=== PATIENT | female | born 1995 | race Two or more races ===

== ENCOUNTER → 2024-09-21 | Outpatient (CLI) | payer OTHER, SELFPAY ==
[2024-09-25 20:07] LABS: Chlamydia By Nucleic Acid AMP Negative (Negative); Gonococcus By Nucleic Acid AMP Negative (Negative)
== END | disposition home or self-care (01) ==
LOC: LABSPEC 16:18
PROVIDERS: Referring Provider Advanced Practice Midwife; Visit Provider Advanced Practice Midwife
DX: Z34.90 Encounter for supervision of normal pregnancy, unspecified, unspecified trimester (principal)
CPT/HCPCS: 87077; 87086; 87088; 87186; 87491; 87591

== ENCOUNTER → 2024-10-03 | Outpatient (CLI) | payer OTHER, SELFPAY ==
[2024-10-03 15:24] LABS: Absolute Lymphocyte Count 2.22 X10^3/uL (0.83-4.51); Absolute Neutrophil Count 5.5 X10^3/uL (2.0-7.7); Basophil# 0.03 X10^3/uL; Basophil% 0.4 % (0-1); Eosinophil# 0.15 X10^3/uL; Eosinophils% 1.8 % (0-5); Hematocrit 36.6 % (37-47); Hemoglobin 12.2 g/dL (12.0-15.0); Lymphocyte # 2.22 X10^3/ul (0.83-4.51); Lymphocyte % 26.1 % (19-41); Mean Corp Hgb Conc 33.3 g/dL (32-36); Mean Corpuscular Hgb 28.6 pg (27.0-32.0); Mean Corpuscular Volume 85.9 fL (81-99); Mean Platelet Vol. 10.3 fl (6.2-12.0); Monocyte# 0.53 X10^3/uL; Monocyte% 6.2 % (0-10); NRBC Flagged by Analyzer 0 % (0-5); Neutrophil # 5.53 X10^3/uL (2.7-7.7); Neutrophil % 65.1 % (47-70); Platelet Count 237 K/mm3 (150-450); RBC Distribution Width CV 12.9 % (11.6-14.6); RBC Distribution Width SD 40.1 fl (35.1-43.9); Red Blood Count 4.26 M/mm3 (4.2-5.4); White Blood Count 8.5 K/mm3 (4.4-11.0)
[2024-10-04 11:18] LABS: HIV Nonreactive (Nonreactive)
[2024-10-05 20:12] LABS: Hepatitis B Surface Antigen Nonreactive (Nonreactive); Hepatitis C Antibody Nonreactive (Nonreactive); Rubella IgG REAC (Nonreactive); Syphilis Antibodies Nonreactive (Nonreactive)
== END | disposition home or self-care (01) ==
LOC: BWCLAB 14:35
PROVIDERS: Referring Provider Advanced Practice Midwife; Visit Provider Advanced Practice Midwife
DX: Z34.81 Encounter for supervision of other normal pregnancy, first trimester (principal)
CPT/HCPCS: 36415; 83036; 85025; 86703; 86762; 86780; 86803; 86850; 86900; 86901; 87340

== ENCOUNTER → 2025-02-02 | Outpatient (CLI) | payer OTHER, SELFPAY ==
[2025-02-02 12:17] LABS: Absolute Lymphocyte Count 1.51 X10^3/uL (0.83-4.51); Absolute Neutrophil Count 7.9 X10^3/uL (2.0-7.7); Basophil# 0.02 X10^3/uL; Basophil% 0.2 % (0-1); Eosinophil# 0.08 X10^3/uL; Eosinophils% 0.8 % (0-5); Hematocrit 36.5 % (37-47); Hemoglobin 12.1 g/dL (12.0-15.0); Lymphocyte # 1.51 X10^3/ul (0.83-4.51); Lymphocyte % 15.1 % (19-41); Mean Corp Hgb Conc 33.2 g/dL (32-36); Mean Corpuscular Hgb 29.1 pg (27.0-32.0); Mean Corpuscular Volume 87.7 fL (81-99); Mean Platelet Vol. 10.5 fl (6.2-12.0); Monocyte# 0.38 X10^3/uL; Monocyte% 3.8 % (0-10); NRBC Flagged by Analyzer 0 % (0-5); Neutrophil # 7.94 X10^3/uL (2.7-7.7); Neutrophil % 79.2 % (47-70); Platelet Count 235 K/mm3 (150-450); RBC Distribution Width CV 13.1 % (11.6-14.6); RBC Distribution Width SD 41.2 fl (35.1-43.9); Red Blood Count 4.16 M/mm3 (4.2-5.4)
[2025-02-02 13:06] LABS: Glucose Challenge Gest 1H 50g 136 mg/dL (70-140); HIV Nonreactive (Nonreactive); Syphilis Antibodies Nonreactive (Nonreactive)
--- OUTSIDE RECORDS SUMMARY | 2025-02-02 18:22 | XMS RPT_ITS | CCD ---
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 Name Role Phone JOSE JUAN COBIAN MD Primary Care Physician JOSE JUAN COBIAN MD Primary Care Unavailable FRANKY VILLAFANA Attending Unavailable JOSE JUAN COBIAN MD Primary Care Unavailable JOSE JUAN COBIAN MD Attending Unavailable JOSE JUAN COBIAN MD Primary Care Unavailable FRANKY VILLAFANA Attending Unavailable JOSE JUAN COBIAN MD Primary Care Unavailable FRANKY VILLAFANA Attending Unavailable JOSE JUAN COBIAN MD Primary Care Unavailable CAROLYN CHAVEZ Attending Unavailable JOSE JUAN COBIAN MD Primary Care Unavailable FRANKY VILLAFANA Attending Unavailable CAROLYN CHAVEZ Attending Unavailable CAROLYN CHAVEZ Admitting Unavailable JOSE JUAN COBIAN MD Primary Care Unavailable Bobbi Stuart CNM Attending Provider [phone] Bobbi Stuart CNM Referring Provider BETTY PRIMARY CAREMD Primary Care Unavailable DESIRE NELSON Attending Unavailable EMMY GUZMÁN Referring Unavailab Dr. Emmy Dozier DO Attending Provider Sissy SKINNER-CAzul Attending Provider Bobbi Stuart Referring Unavailable Bobbi Stuart Attending Unavailable Bobbi Stuart Attending Unavailable Jose Juan Cobian Primary Care Unavailable Emmy Davis Attending UnavailEmilia Phelan Referring Unavailable Emilia Goodman Attending Unavailable Jose Juan Cobian Primary Care Unavailable Bobbi Stuart Attending Unavailable Emmy Davis Attending UnavailBobbi Quinteros Attending Unavailable Azul Sheehan NP Attending Unavailable Bobbi Stuart Referring Unavailable Bobbi Stuart Attending Unavailable Bobbi Stuart CNM Attending Provider Dr. Emilia Goodman MD Attending Provider Dr. Emilia Goodman MD Referring Provider Dr. Jose Juan Cobian MD Primary Care Provider [phone] Dr. Jose Juan Cobian MD Referring Provider Azul Lopes Referring Provider Allergies Allergy Classification Reported Allergen(s) Allergy Type Date of Onset Reaction(s) Facility (3 sources) house dust allergenic extract Drug Allergy 5 Other [facility] Comment on above: Runny nose, headache (3 sources) Mold Extract Drug Allergy 5 [facility] Comment on above: Runny nose, Headache (4 sources) Environmental Allergies: Uncoded; Translations: [Environmental Allergies: Uncoded] Allergy to substance 5 [facility] Comment on above: Runny nose, headache - Pet dander (1 source) house dust allergenic extract Drug Allergy 5 [facility] Repository (1 source) Mold Extract Drug Allergy 5 [facility] Repository Medications Current Medications Medication Drug Class(es) Dates Sig (Normalized) Sig (Original) [id number] 200 actuat albuterol 0.09 mg/actuat metered dose inhaler (1 source) beta2-Adrenergic Agonist Start: 09-03-2021 take 2 puff(s) by inhalation every four hours as needed for wheezing ProAir HFA MDI (90 mcg/inh) inhalation aerosol 2 puff(s), Inhalation, q4h, PRN as needed for wheezing, # 8.5 gram(s), 0 Refill(s), Pharmacy: [address], Bronchitis COVID-19 virus infection, 157.4, cm, 09/03/21 16:57:00 EST, Height, kg, 09/03/21 16:57:00 EST, Dosing Weight Start Date: 09/03/21 Status: Ordered aspirin 81 mg oral tablet (4 sources) Platelet Aggregation Inhibitor, Nonsteroidal Anti-inflammatory Drug Start: 05-04-2023 take 1 tablet by mouth once daily Aspirin Low Dose 81 mg oral tablet, chewable chew and swallow 1 tablet daily Start Date: 05/04/23 Status: Ordered Start: 01-20-2023 aspirin 81 mg oral tablet, chewable Dose : 81 mg = 1 tab(s), Oral, Daily, # 30 tab(s), 6 Refill(s), Pharmacy: [facility][id number], 161, cm, 01/01/23 10:54:00 EDT, Height Start Date: 01/20/23 Status: Ordered choline 500 mg oral tablet (3 sources) Start: 09-08-2024 take 1 tablet by mouth once daily Choline 500 mg tablet Active 500 mg PO DAILY September 08, 2024 1:00am famotidine 20 mg oral tablet (3 sources) Histamine-2 Receptor Antagonist Start: 05-14-2023 Pepcid 20 mg oral tablet Dose : 20 mg = 1 tab(s), Oral, BID, # 60 tab(s), 1 Refill(s), Pharmacy: [facility] #[id number], 31 weeks gestation of Heartburn, 161, cm, 05/11/23 9:35:00 EDT, Height, kg, 07/27/22 9:18:00 EST, Dosing Weight Start Date: 05/14/23 Status: Ordered Start: 03-16-2023 Pepcid 20 mg o ral tablet Dose : 20 mg = 1 tab(s), Oral, BID, # 60 tab(s), 0 Refill(s), Pharmacy: [facility] #[id number], 31 weeks gestation of Heartburn, 161, cm, 03/16/23 8:32:00 EDT, Height, kg, 07/27/22 9:18:00 EST, Dosing Weight Start Date: 03/16/23 Status: Ordered ferrous sulfate 325 mg delayed release oral tablet (5 sources) Start: 01-20-2023 ferrous sulfat e 325 mg (65 mg elemental iron) oral delayed release tablet Dose : 325 mg = 1 tab(s), Oral, qDay, # 30 tab(s), 3 Refill(s), Pharmacy: [facility] #[id number], 161, cm, 01/01/23 10:54:00 EDT, Height Start Date: 01/20/23 Status: Ordered Multivit 25-Hcsh-Rbesow 1-Dha (Pnv-Dha) 27 mg iron-1 mg -300 mg capsule (3 sources) Start: 09-08-2024 Multivit 47-Ir on-Folate 1-Dha (Pnv-Dha) 27 mg iron-1 mg -300 mg capsule Active NMA PO September 08, 2024 1:00am Multivitamin preparation (1 source) Start: 02-02-2024 take 1 tablet by mouth once daily Multivitamin Dose = 1 tab(s), Oral, Daily, 0 Refill(s) Start Date: 02/02/24 Status: Ordered Nature's Bounty Red Krill Oil (3 sources) Start: 04-13-2023 take 500 mg by mouth once daily Nature's Bounty Red Krill Oil 500 mg, Oral, qDay, 0 Refill(s) Start Date: 04/13/23 Status: Ordered Washington-3 Fatty Acids (Super Washington-3) 1,000 mg capsule (3 sources) Start: 09-08-2024 take 3 capsules by mouth once daily Washington-3 Fatty Acids (Super Washington-3) 1,000 mg capsule Active 500 mg PO daily September 08, 2024 1:00am Multivitamins (10 sources) Start: 02-13-2022 Multi vitamins Oral, qDay, 0 Refill(s) Start Date: 02/13/22 Status: Ordered Vitamin D3 (12 sources) Start: 09-03-2021 Vitamin D3 qDa y, 0 Refill(s) Start Date: 09/03/21 Status: Ordered Zinc (1 source) Start: 09-03-2021 take 1 mg by mouth once daily Zinc mg =, Oral, qDay, 0 Refill(s) Start Date: 09/03/21 Status: Ordered Problems Active Problems Problem Classification Problem Date Documented Da te Episodic/Chronic Bacterial infection; unspecified site (1 source) Streptococcus, group B, as the cause of diseases classified elsewhere; Translations: [Streptococcus, group B, as the cause of diseases classified elsewhere] Onset: 12-15-2024 Episodic Other complications of (14 sources) Maternal obesity complicating , childbirth and the puerperium, antepartum; Translations: [Obesity complicating , unspecified trimester] 09-08-2024 Chronic Comment on above: HgbA1c Other complications of (1 source) Obesity complicating , unspecified trimester; Translations: [Obesity complicating , unspecified trimester] Onset: 12-15-2024 Chronic Other complications of (12 sources) Urinary tract infection in ; Translations: [Unspecified infection of urinary tract in , unspecified trimester] 09-25-2024 Episodic Comment on above: treat in labor Other complications of (5 sources) Low back pain in ; Translations: [Other specified related conditions, unspecified trimester] 01-10-2025 Episodic Comment on above: PT referral. Other complications of (1 source) Unspecified infection of urinary tract in , unspecified trimester; Translations: [Unspecified infection of urinary tract in , unspecified trimester] Onset: 12-15-2024 Episodic Other nutritional; endocrine; and metabolic disorders (6 sources) Body mass index 30+ - obesity 01-29-2023 Chronic Other and delivery including normal (20 sources) ; Translations: [Primigravida] Onset: 08-08-2022 09-17-2022 Episodic Comment on above: PRR, , PETEY , PC Mirella, Vidal NIPT low risk, scarlett er neg. 14/14 NIPT low risk, scarlett er neg. 14/14, normal anatomy Residual codes; unclassified (1 source) 21 weeks gestation of ; Translations: [21 weeks gestation of ] Onset: 12-15-2024 Episodic Residual codes; unclassified (1 source) History of uterine scar from previous surgery; Translations: [History of uterine scar from previous surgery] Onset: 12-15-2024 Episodic Residual codes; unclassified (1 source) 17 weeks gestation of ; Translations: [17 weeks gestation of ] Onset: 11-17-2024 Episodic Spondylosis; intervertebral disc disorders; other back problems (5 sources) Sciatica; Translations: [Sciatica, unspecified side] 01-10-2025 Episodic Unclassified (1 source) Patient encounter status 02-02-2024 Past or Other Problems Problem Classification Problem Date Documented Date Episodic/Chronic Other screening for suspected conditions (not mental disorders or infectious disease) (3 sources) Encounter for screening for Streptococcus B; Translations: [Encounter for screening for malignant neoplasm of cervix] Onset: 04-20-2023 Episodic Residual codes; unclassified (2 sources) 36 weeks gestation of ; Translations: [36 weeks gestation of ] Onset: 04-20-2023 Episodic Residual codes; unclassified (1 source) 9 weeks gestation of ; Translations: [9 weeks gestation of ] Onset: 09-21-2024 Episodic Results Test Name Value Interpretation Reference Range Facility Inital Evaluation (1) - PTon 01-23-2025 Inital Evaluation (1) - PT [facility] Physical [facility] [address] [place] [address] / REHABILITATION SERVICES INITIAL EVALUATION MR#: [id number] Acct: [id number] Name: FELIPE PATRICK Rep #: [id number] : 1995 29 From: Abby Sam PT, Cert. MDT Referring Dr.: Dr. Emilia Goodman MD Status: REG RCR Insurance: Robin SELF PAY INSURANCE Patient's Visit Information Visit Information Visit Information: FELIPE PATRICK is a 29 year old F referred to Physical Therapy by Dr. Emilia Goodman MD with a diagnosis of LOW BACK PAIN. Date of Evaluation: 01/23/25 Physical Therapist: Abby Sam PT, Cert MDT Visit Plan Frequency: 3x /Week Duration: 10-12 WKS Plan: AQUATIC THERAPY 2X'S A WK AND LAND PT ONCE A WK X 10-12 WEEKS FOR BACK AND LE PAIN RELIEF, POSTURE CORRECTION/STRENGTHENI NG, INSTRUCTION IN APPROPRIATE BODY MECHANICS AND ACTIVITY MODIFICATIONS. DLS STARTING WITH A NEUTRAL SPINE PROGRESSING ROM TOLERATED. HEP INSTRUCTION. 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 Present symptoms: BENJY LOW BACK PAIN, AND BENJY THIGH PAIN USUALLY ONE LEG AT A TIME. Present since: ABOUT 3 TO 4 WEEKS AGO. ALSO HAD THIS DURING FIRST AUG 2022 - MAY 2023. LOW BACK PAIN WENT AWAY IN BETWEEN PREGNANCIES. Pain Scale: WORST 6/10, LEAST 0/10 Currently: 0/10 Is it getting better, worse or staying the same: STAYING THE SAME Commenced as a result of: Symptoms at onset: LOW BACK AND LEG PAIN Worse: PROLONGED STANDING AND WALKING, SLEEPING WITHOUT A PILLOW BETWEEN LEGS Better: CHANGE OF POSITION OR ACTIVITY, SINGLE LEG SQUATS Disturbed sleep: NO Previous history/Previous treatment: NONE Treatment this episode: NONE Coughing/sneezing/stra ining: NE ON PAIN. Gait: NORMAL Bowel or Bladder Dysfunction: NO Accidents: NO Unexplained weight loss: NO Imaging: NO PMH/Recent major surgery: UNREMARKABLE. 2022 - NORMAL WITHOUT COMPLICATION. OTHER: PATIENT STATES SHE DOES NOT WANT TO BE IN PAIN THE REST OF HER WHILE TRYING TO CARE FOR HER TODDLER. Objective Objective: Sitting/Standing Posture: INCREASED LORDOSIS. ANTERIOR PELVIC TILT. NO RELEVANT LATERAL LUMBAR SHIFT. Active Correction of posture: DECREASES PAIN. Other Observations: INDEP GAIT AND TRANSFERS. Sensory deficit: NO - NORMAL ROM deficit: BENJY LE'S WFL'S. Motor deficit: BENJY LE'S 5/5 Dural Signs: NEGATIVE BENJY LE'S. Lumbar mvmt loss: flex - NIL ext - NIL R SG - NIL L SG - NIL Core strength: FAIR Palpation: TENDERNESS L5S1 REGIONS AND MILD TENDERNESS BENJY SI JT REGIONS. Balance/Special Test Scores Oswestry Low Back Score: 6 Goals Goal 1:: PATIENT WILL BE ABLE TO SIT FOR UP TO 2 HOURS AT A TIME TO DO WORK RELATED ACTIVITE WITHOUT FEELING LOW BACK OR LEG PAIN. Goal Time Frame: 8-12 Weeks Goal 2:: PATIENT WILL BE ABLE TO DO HOUSEWORK FOR SEVERAL HOURS WITHOUT C/O LOW BACK OR LEG PAIN OR DELAYED ONSET OF LOW BACK OR LEG PAIN. Goal Time Frame: 8-12 Weeks Goal 3:: PATIENT WILL BE ABLE TO STAND FOR UP TO 2 HOURS TO DO KITCHEN ACTIVITIES SUCH WASHING DISHES, PREPING FOOD, AND FREEZING/ASHLEY FOOD WITHOUT C/O BACK OR LEG PAIN OR DELAYED ONSET OF BACK OR LEG PAIN. Goal Time Frame: 8-12 Weeks Goal 4:: PATIENT WILL BE ABLE TO VERBALIZE AND DEMONSTRATE HEALTHY POSTURE AND BODY MECHANICS FOR HEALTHY BACK HABITS Goal Time Frame: 8-12 Weeks Goal 5:: PATIENT WILL VERBALIZE UNDERSTANDING OF HEALTHY BLADDER AND PELVIC FLOOR HABITS Goal Time Frame: 8-12 Weeks Goal 6:: PATIENT WILL BE INDEP WITH A HEP FOR CONTINUED IMPROVEMENT ONCE FORMAL PHYSICAL THERAPY CONCLUDES. Goal Time Frame: 8-12 Weeks Rehabilitation Potential Physical Therapy Diagnosis: CORE/POSTURAL WEAKNESS AND TENDERNESS OF LUMBAR AND SI JT REGIONS. Rehabilitation Potential: Good Anticipated Interventions Patient/Client Instruction: Educate patient on: Condition, Plan of Care and Risk Factors For the Purpose of:: To improve self management Therapeutic Exercise to Include: Strength training, Body mechanics, Postural training, Flexibilty training, Neuromotor development, Relaxation training, In an aquatic setting and Dynamic Lumbar Stabilization For the Purpose of:: To decrease pain, To improve muscle performance and motor function, To increase tolerance to activity/condition/pos ition, To improve ability of physical actions for home/community/work/le isure and To improve self management Text: Thank you for the opportunity to evaluate your patient. For Medicare and Medicare HMO plans, please review the plan of care and approve it. It will need to be FAXED BACK to us at [phone] for Medicare purposes. For Medicare only, by signing this I certify the plan of care. Please let me know if there are questions or concerns regarding thi (more content not included)... Normal [facility] Laboratory - Chemistry and C hemistry - challengeOrdered By: Azul Sheehan on 01-10-2025 Glucose Ql (U) Negative [facility] Laboratory - UrinalysisOrder ed By: Azul Sheehan on 01-10-2025 Protein Ql (U) Negative [facility] Pediatric Speech Language Pathologist Office Visit Reporton 01-10-2025 Pediatric Speech Language Pathologist Office Visit Report [facility]'[address], [address] [place] [address] OFFICE VISIT Date of Service: 01/10/25 MR#: [id number] Acct: [id number] Name: FELIPE PATRICK Rep #: [id number] : 1995 Provider: MARCELLO galeano Age/Sex: 29/F Location: [facility] [place] Status: Signed Intake Vital Signs 11/17/24 11:15 12/15/24 15:30 01/10/25 10:23 Height 5 ft 2 in 5 ft 2 in 5 ft 2 in Weight: 209 lb 8 oz BMI 38.3 BP 116/78 Intake Visit Reasons: 25wk ob Chief Complaint: 25 Week OB Architectural Associate Required: No Is patient in pain?: No Allergies house dust Allergy (Mild, Verified 01/10/25 10:27) Other mold (mold spores) Allergy (Mild, Verified 01/10/25 10:27) Other Environmental Allergies: Uncoded Allergy (Verified 01/10/25 10:27) Other Medications ???Medication ???Instructions ???Recorded ???Confirmed ???Type choline 500 mg tablet 500 mg PO DAILY 09/08/24 01/10/25 History multivitamin no.47-iron fum 27 cap PO 09/08/24 01/10/25 History mg-folate no.1 1 mg-dha 300 mg capsule (PNV-DHA) omega-3 fatty acids 1,000 mg 500 mg PO QDAY 09/08/24 01/10/25 H istory capsule (Super Washington-3) Last Menstrual Period: 07/20/24 Zika: Zika virus screening: Negative : Yes PFSH PFSH Medical History Seasonal allergies Surgical History Previous section [place] teeth extracted Family History Grandmother Cancer Paternal skin ca Grandfather Cancer Paternal skin Myocardial infarction Paternal Father Kidney disease, Onset Age: 60 Kidney failure Hypertension High cholesterol Grandmother Cancer Maternal Lung ca Diabetes maternal CHF (congestive heart failure) Maternal Macular degeneration Maternal Grandfather Cancer Maternal stomach ca, skin ca-melanoma Diabetes Maternal CHF (congestive heart failure) Maternal Diverticulitis Maternal Mother Barretts esophagus Cancer basal cell carcinoma Gall bladder disease Fibroid tumor benign Heart palpitations Family history of recurrent miscarriage one baby with ambiguous genitalia Social History adopted: No household members: spouse and children number of children: 1 current occupational status: employed 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 [employer] current occupational exposures/hazards: No pets and animals: Yes (Avoid litterbox) pets and animals: cat(s) and dog(s) history of recent travel: Yes ([place]) out of state: Yes out of country: No sexually active: Yes Smoking Status: Never smoker alcohol intake: current alcohol intake frequency: holidays/special occasions only details: not while substance use type: does not use well-balanced diet: daily or most days caffeine: No eating out: rarely or never during the past year weight has: decreased > 10 lbs what type of physical activity do you participate in: walking frequency: daily duration: 15-30 minutes/day nkechi/advent: Orthodoxy seatbelt use: always do you feel safe at home: Yes additional social history: [employer] 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 Date Name GA/Weeks Outcome Route Bth Weight Infant Gen Labor Lgth Anesthesia Del Shelia Provider FOB 05/25/23 Mirella 41 live - full term 8#7.8oz Female epidural A cathleen Drake Delivery Date: 05/25/23 Last Updated by: Lizz Baxter failure to progress HPI 25wk ob Details: FELIPE PATRICK is a 29 year old who presents for routine OB visit. OB Visit PETEY Calculator Estimated Delivery Date Method Current WG Current Estimate 04/26/25 LMP (Certain) 24w 6d Other Estimates 04/28/25 Ultrasound #1 24w 4d Expected Delivery Route/Plan Labor Preferences- CB/BF classes: no labor support person: Vidal labor intervention preferences: [] pain management options preferred: limited intervention cut cord/dad catch: no : yes PP control planned: discussed discussed possible routes of delivery and associated risks: [] special requests: [] Specific Issue/Plans Covid status: [] Flu vaccine: [] Tdap vaccine: [] Rhogam: [] LARC form signed: yes Problem list reviewed and updated with the most current plan of care details and appropriate orders placed. Relevant counseling for the gestational age provided. Continue ro (more content not included)... Normal [facility] Laboratory - Chemistry and C hemistry - challengeOrdered By: Bobbi Stuart on 12-15-2024 Glucose Ql (U) Negative [facility] Laboratory - UrinalysisOrder ed By: Bobbi Stuart on 12-15-2024 Protein Ql (U) Negative [facility] Pediatric Speech Language Pathologist Office Visit Reporton 12-15-2024 Pediatric Speech Language Pathologist Office Visit Report [facility] [address], [address] [place] [address] OFFICE VISIT Date of Service: 12/15/24 MR#: [id number] Acct: [id number] Name: FELIPE PATRICK Rep #: [id number] : 1995 Provider: DULCE Correa ams Age/Sex: 29/F [place] [facility] Status: Signed Intake Vital Signs 10/19/24 14:58 11/17/24 11:15 12/15/24 15:30 Height 5 ft 2 in 5 ft 2 in 5 ft 2 in Weight: 205 lb 2 oz BMI 37.5 BP 122/79 H Intake Visit Reasons: 21 WK OB Chief Complaint: 21wk OB Architectural Associate Required: No Is patient in pain?: No Allergies house dust Allergy (Mild, Verified 12/15/24 15:30) Other mold (mold spores) Allergy (Mild, Verified 12/15/24 15:30) Other Environmental Allergies: Uncoded Allergy (Verified 12/15/24 15:30) Other Medications ???Medication ???Instructions ???Recorded ???Confirmed ???Type choline 500 mg tablet 500 mg PO DAILY 09/08/24 12/15/24 History multivitamin no.47-iron fum 27 cap PO 09/08/24 12/15/24 History mg-folate no.1 1 mg-dha 300 mg capsule (PNV-DHA) omega-3 fatty acids 1,000 mg 500 mg PO QDAY 09/08/24 12/15/24 H istory capsule (Super Washington-3) Last Menstrual Period: 07/20/24 : No PFSH PFSH Medical History Seasonal allergies Surgical History Previous section [place] teeth extracted Family History Grandmother Cancer Paternal skin ca Grandfather Cancer Paternal skin Myocardial infarction Paternal Father Kidney disease, Onset Age: 60 Kidney failure Hypertension High cholesterol Grandmother Cancer Maternal Lung ca Diabetes maternal CHF (congestive heart failure) Maternal Macular degeneration Maternal Grandfather Cancer Maternal stomach ca, skin ca-melanoma Diabetes Maternal CHF (congestive heart failure) Maternal Diverticulitis Maternal Mother Barretts esophagus Cancer basal cell carcinoma Gall bladder disease Fibroid tumor benign Heart palpitations Family history of recurrent miscarriage one baby with ambiguous genitalia Social History adopted: No household members: spouse and children number of children: 1 current occupational status: employed 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 [employer] current occupational exposures/hazards: No pets and animals: Yes (Avoid litterbox) pets and animals: cat(s) and dog(s) history of recent travel: Yes ([place]) out of state: Yes out of country: No sexually active: Yes Smoking Status: Never smoker alcohol intake: current alcohol intake frequency: holidays/special occasions only details: not while substance use type: does not use well-balanced diet: daily or most days caffeine: No eating out: rarely or never during the past year weight has: decreased > 10 lbs what type of physical activity do you participate in: walking frequency: daily duration: 15-30 minutes/day nkechi/advent: Orthodoxy seatbelt use: always do you feel safe at home: Yes additional social history: 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 Date Name GA/Weeks Outcome Route Bth Weight Infant Gen Labor Lgth Anesthesia Del Locatn Provider FOB 05/25/23 Mirella 41 live - full term 8#7.8oz Female epidural A cathleen Drake Delivery Date: 05/25/23 Last Updated by: Lizz Baxter failure to progress HPI 21 WK OB Details: FELIPE PATRICK is a 29 year old who presents for routine OB visit. OB Visit PETEY Calculator Estimated Delivery Date Method Current WG Current Estimate 04/26/25 LMP (Certain) 21w 1d Other Estimates 04/28/25 Ultrasound #1 20w 6d Expected Delivery Route/Plan Labor Preferences- CB/BF classes: [] labor support person: [] labor intervention preferences: [] pain management options preferred: [] cut cord/dad catch: [] : [] PP control planned: [] discussed possible routes of delivery and associated risks: [] special requests: [] Specific Issue/Plans Covid status: [] Flu vaccine: [] Tdap vaccine: [] Rhogam: [] LARC form signed: [] Problem list reviewed and updated with the most current plan of care details and appropriate orders placed. Relevant counseling for the gestational age provided. Continue routine care and follow up unless otherwise noted in visit notes/problem list details (more content not included)... Normal [facility] - Chemistry and C hemistry - challengeOrdered By: Bobbi Stuart on 11-17-2024 Glucose Ql (U) Negative [facility] - UrinalysisOrder ed By: Bobbi Stuart on 11-17-2024 Protein Ql (U) Negative [facility] Pediatric Speech Language Pathologist Office Visit Reporton 11-17-2024 Pediatric Speech Language Pathologist Office Visit Report [facility] [address] [place] [address], [address] [place] [address] OFFICE VISIT Date of Service: 11/17/24 MR#: [id number] Acct: [id number] Name: FELIPE PATRICK Rep #: [id number] : 1995 Provider: DULCE Correa ams Age/Sex: 29/F Location: [facility] Status: Signed Intake Vital Signs 09/21/24 14:35 10/19/24 14:58 11/17/24 11:15 Height 5 ft 2 in 5 ft 2 in 5 ft 2 in Weight: 203 lb 2 oz BMI 37.1 BP 110/73 Intake Visit Reasons: 17 wk ob Chief Complaint: 17wk OB Architectural Associate Required: No Is patient in pain?: No Allergies house dust Allergy (Mild, Verified 11/17/24 11:17) Other mold (mold spores) Allergy (Mild, Verified 11/17/24 11:17) Other Environmental Allergies: Uncoded Allergy (Verified 11/17/24 11:17) Other Medications ???Medication ???Instructions ???Recorded ???Confirmed ???Type choline 500 mg tablet 500 mg PO DAILY 09/08/24 11/17/24 History multivitamin no.47-iron fum 27 cap PO 09/08/24 11/17/24 History mg-folate no.1 1 mg-dha 300 mg capsule (PNV-DHA) omega-3 fatty acids 1,000 mg 500 mg PO QDAY 09/08/24 11/17/24 H istory capsule (Super [place]-3) Last Menstrual Period: 07/20/24 : No PFSH PFSH Medical History Seasonal allergies Surgical History Previous section [place] teeth extracted Family History Grandmother Cancer Paternal skin ca Grandfather Cancer Paternal skin Myocardial infarction Paternal Father Kidney disease, Onset Age: 60 Kidney failure Hypertension High cholesterol Grandmother Cancer Maternal Lung ca Diabetes maternal CHF (congestive heart failure) Maternal Macular degeneration Maternal Grandfather Cancer Maternal stomach ca, skin ca-melanoma Diabetes Maternal CHF (congestive heart failure) Maternal Diverticulitis Maternal Mother Barretts esophagus Cancer basal cell carcinoma Gall bladder disease Fibroid tumor benign Heart palpitations Family history of recurrent miscarriage one baby with ambiguous genitalia Social History adopted: No household members: spouse and children number of children: 1 current occupational status: employed 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 [employer] current occupational exposures/hazards: No pets and animals: Yes (Avoid litterbox) pets and animals: cat(s) and dog(s) history of recent travel: Yes ([place]) out of state: Yes out of country: No sexually active: Yes Smoking Status: Never smoker alcohol intake: current alcohol intake frequency: holidays/special occasions only details: not while substance use type: does not use well-balanced diet: daily or most days caffeine: No eating out: rarely or never during the past year weight has: decreased > 10 lbs what type of physical activity do you participate in: walking frequency: daily duration: 15-30 minutes/day nkechi/advent: Orthodoxy seatbelt use: always do you feel safe at home: Yes additional social history: Forest hayes 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 Date Name GA/Weeks Outcome Route Bth Weight Infant Gen Labor Lgth Anesthesia Del Locatn Provider FOB 05/25/23 Mirella 41 live - full term 8#7.8oz Female epidural A cathleen Drake Delivery Date: 05/25/23 Last Updated by: Lizz Baxter failure to progress HPI 17 wk ob Details: FELIPE PATRICK is a 29 year old who presents for routine OB visit. OB Visit PETEY Calculator Estimated Delivery Date Method Current WG Current Estimate 04/26/25 LMP (Certain) 17w 1d Other Estimates 04/28/25 Ultrasound #1 16w 6d Expected Delivery Route/Plan Labor Preferences- CB/BF classes: [] labor support person: [] labor intervention preferences: [] pain management options preferred: [] cut cord/dad catch: [] : [] PP control planned: [] discussed possible routes of delivery and associated risks: [] special requests: [] Specific Issue/Plans Covid status: [] Flu vaccine: [] Tdap vaccine: [] Rhogam: [] LARC form signed: [] Problem list reviewed and updated with the most current plan of care details and appropriate orders placed. Relevant counseling for the gestational age provided. Continue routine care and follow up unless otherwise noted in visit notes/problem list details (more content not included)... Normal [facility] - Chemistry and C hemistry - challengeOrdered By: Emmy Carmona on 10-19-2024 Glucose Ql (U) Negative [facility] - UrinalysisOrder ed By: Emmy Carmona on 10-19-2024 Protein Ql (U) Negative [facility] Pediatric Speech Language Pathologist Office Visit Reporton 10-19-2024 Pediatric Speech Language Pathologist Office Visit Report [facility] [address], [address] [place] [address] OFFICE VISIT Date of Service: 10/19/24 MR#: [id number] Acct: [id number] Name: FELIPE PATRICK Rep #: [id number] : 1995 Provider: Dr. Emmy Barr DO Age/Sex: 29/F Location: [facility] Status: Signed Intake Vital Signs 09/21/24 14:35 10/19/24 14:58 Height 5 ft 2 in 5 ft 2 in Weight: 198 lb 6 oz BMI 36.3 BP 130/78 H Intake Visit Reasons: 13 wk OB Architectural Associate Required: No Is patient in pain?: No Allergies house dust Allergy (Mild, Verified 10/19/24 14:55) Other mold (mold spores) Allergy (Mild, Verified 10/19/24 14:55) Other Environmental Allergies: Uncoded Allergy (Verified 10/19/24 14:55) Other Medications ???Medication ???Instructions ???Recorded ???Confirmed ???Type choline 500 mg tablet 500 mg PO DAILY 09/08/24 10/19/24 History multivitamin no.47-iron fum 27 cap PO 09/08/24 10/19/24 History mg-folate no.1 1 mg-dha 300 mg capsule (PNV-DHA) omega-3 fatty acids 1,000 mg 500 mg PO QDAY 09/08/24 10/19/24 H istory capsule (Super [place]-3) Last Menstrual Period: 07/20/24 Zika: Zika virus screening: Negative : No PFSH PFSH Medical History Seasonal allergies Surgical History Previous section [place] teeth extracted Family History Grandmother Cancer Paternal skin ca Grandfather Cancer Paternal skin Myocardial infarction Paternal Father Kidney disease, Onset Age: 60 Kidney failure Hypertension High cholesterol Grandmother Cancer Maternal Lung ca Diabetes maternal CHF (congestive heart failure) Maternal Macular degeneration Maternal Grandfather Cancer Maternal stomach ca, skin ca-melanoma Diabetes Maternal CHF (congestive heart failure) Maternal Diverticulitis Maternal Mother Barretts esophagus Cancer basal cell carcinoma Gall bladder disease Fibroid tumor benign Heart palpitations Family history of recurrent miscarriage one baby with ambiguous genitalia Social History adopted: No household members: spouse and children number of children: 1 current occupational status: employed 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 [employer] current occupational exposures/hazards: No pets and animals: Yes (Avoid litterbox) pets and animals: cat(s) and dog(s) history of recent travel: Yes ([place]) out of state: Yes out of country: No sexually active: Yes Smoking Status: Never smoker alcohol intake: current alcohol intake frequency: holidays/special occasions only details: not while substance use type: does not use well-balanced diet: daily or most days caffeine: No eating out: rarely or never during the past year weight has: decreased > 10 lbs what type of physical activity do you participate in: walking frequency: daily duration: 15-30 minutes/day nkechi/advent: [employer] seatbelt use: always do you feel safe at home: Yes additional social history: [employer] hayes 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 Date Name GA/Weeks Outcome Route Bth Weight Gen Labor Lgth Anesthesia Del Locatn Provider FOB 05/25/23 Mirella 41 live - full term 8#7.8oz Female epidural A cathleen Drake Delivery Date: 05/25/23 Last Updated by: Lizz Baxter failure to progress HPI 13 wk OB Details: FELIPE PATRICK is a 29 year old who presents for routine OB visit. OB Visit PETEY Calculator Estimated Delivery Date Method Current WG Current Estimate 04/26/25 LMP (Certain) 13w 0d Other Estimates 04/28/25 Ultrasound #1 12w 5d Expected Delivery Route/Plan Labor Preferences- CB/BF classes: [] labor support person: [] labor intervention preferences: [] pain management options preferred: [] cut cord/dad catch: [] : [] PP control planned: [] discussed possible routes of delivery and associated risks: [] special requests: [] Specific Issue/Plans Covid status: [] Flu vaccine: [] Tdap vaccine: [] Rhogam: [] LARC form signed: [] Problem list reviewed and updated with the most current plan of care details and appropriate orders placed. Relevant counseling for the gestational age provided. Continue routine care and follow up unless otherwise noted in visit notes/problem (more content not included)... Normal [facility] L3890.6102on 10-05-2024 HEP B Surf Ag Non-Reactive Normal Nonreactive [facility] Comment on above: Result Comment: Reac tive: Presumptive evidence of HBV. Repeatedly reactive samples must be confirmed using a neutralization test (Ele[employer]ys HBsAg Confirmatory Test) Non-Reactive: HBsAg not detected; does not exclude the possibility of exposure to HBV Performed By: #### L 509.4006, L3890.6102, L3890.6301, L509.8002 #### [facility] [address] [place], [address] L3890.6301on 10-05-2024 Hepatitis C Ab Non-Reactive Normal Nonreactive [facility] Comment on above: Result Comment: Reac tive: Presumptive evidence of antibodies to HCV. Follow CDC recommendations for supplemental testing. Non-Reactive: Antibodies to HCV were not detected; does not exclude the possibility of exposure to HCV Reactive Results are presumptive evidence of antibodies to HCV. Follow CDC recommendations for supplemental testing. Order confirmation testing: HCV Quant by PCR testing - HCVPCR #[id number] Non Reactive: < 0.8 Equivocal: >/= 0.8 to < 1.0 Reactive: >/= 1.0 The [facility] requires that a reactive/equivocal HCV antibody result be sent out for confirmation. HCV Quant by PCR testing. Performed By: #### L 509.4006, L3890.6102, L3890.6301, L509.8002 #### [facility] [address] [place], [address] L509.4006on 10-05-2024 Rubella IgG REAC Normal Nonreactive [facility] Comment on above: Result Comment: Anti body Result: Interpretation Non-Reactive: Non-Immune Reactive: Immune The following results were obtained with the Elecsys Rubella IgG assay. Results from assays of other manufacturers cannot be used interchangeably. Performed By: #### L 509.4006, L3890.6102, L3890.6301, L509.8002 #### [facility] [address] [place], [address] L509.8002on 10-05-2024 Syphilis Abs Non-Reactive Normal Nonreactive [facility] Comment on above: Performed By: #### L 509.4006, L3890.6102, L3890.6301, L509.8002 #### [facility] [address] [place], [address] Hemoglobin A1con 10-04-2024 HbA1c (Bld) [Mass fraction] 5.0 % Low <=5.6 [facility] Comment on above: Performed By: #### L 501.9985, L3890.6006, BTS, L900.0098, L100.0100 ####[facility] [id number] [place], [place], [address] L3890.6006on 10-04-2024 HIV Non-Reactive Normal Nonreactive [facility] Comment on above: Result Comment: Non- Reactive Reactive Repeatedly reactive samples must be confirmed according to CDC recommended confirmatory algorithms. The subresults for either HIVAG or AHIV can be used as an aid in the selection of the confirmation algorithm for reactive samples. Send out specimens with Reactive results to [facility] for confirmation. Order the HIV antibody detection and differentiation: lc#[id number] Performed By: #### L 501.9985, L3890.6006, BTS, L900.0098, L100.0100 ####[facility] [id number] [place], [address] No Panel InformationOrdered By: Bobbi Stuart on 10-04-2024 HIV (1&2) Antibody Non-Reactive Nonreactive [facility] Comment on above: Non-ReactiveReactive Repeatedly reactive samples must be confirmed according to CDC recommended confirmatory algorithms. The subresults for either HIVAG or AHIV can be used as an aid in the selection of the confirmation algorithm for reactive samples.Send out specimens with Reactive results to [facility] for confirmation.Order the HIV antibody detection and differentiation: #[id number] Absolute lymphocyte countOrd ered By: Bobbi Stuart on 10-03-2024 Lymphocytes Auto (Unsp spec) [#/Vol] 2.22 10*3/uL 0.83-4.51 [facility] Absolute neutrophil countOrd ered By: Bobbi Stuart on 10-03-2024 Neutrophils (Bld) [#/Vol] 5.5 10*3/uL 2.0-7.7 [facility] Automated lymphocyte count a s percentage of total leukocytesOrdered By: Bobbi Stuart on 10-03-2024 Lymphocytes/100 WBC Auto (Unsp spec) 26.1 % 19-41 [facility] Basophil percentageOrdered B y: Bobbi Stuart on 10-03-2024 Basophils/100 WBC (Bld) 0.4 % 0-1 [facility] CBC W/Diff, Automatedon 09-10 Absolute Lymph 2.22 X10 3/uL Normal 0.83-4.51 [facility] Comment on above: Performed By: #### L 501.9985, L3890.6006, BTS, L900.0098, L100.0100 #### [facility] [address] [place], [address] Absolute Neut 5.5 X10 3/uL Normal 2.0-7.7 [facility] Comment on above: Performed By: #### L 501.9985, L3890.6006, BTS, L900.0098, L100.0100 #### [facility] [address] [place], [address] Basophils/100 WBC (Bld) 0.4 % Normal 0-1 [facility] Comment on above: Performed By: #### L 501.9985, L3890.6006, BTS, L900.0098, L100.0100 #### [facility] [address] [place], [address] Eosinophils/100 WBC (Bld) 1.8 % Normal 0-5 [facility] Comment on above: Performed By: #### L 501.9985, L3890.6006, BTS, L900.0098, L100.0100 #### [facility] [address] [place], [address] Erythrocyte distribution width (RBC) [Ratio] 12.9 % Normal 11.6-14.6 [facility] Comment on above: Performed By: #### L 501.9985, L3890.6006, BTS, L900.0098, L100.0100 #### [facility] [address] [place], [address] Hematocrit (Bld) [Volume fraction] 36.6 % Low 37-47 [facility] Comment on above: Performed By: #### L 501.9985, L3890.6006, BTS, L900.0098, L100.0100 #### [facility] [address] [place], [address] Hemoglobin (Bld) [Mass/Vol] 12.2 g/dL Normal 12.0-15.0 [facility] Comment on above: Performed By: #### L 501.9985, L3890.6006, BTS, L900.0098, L100.0100 #### [facility] [address] [place], [address] IG% 0.400 Normal 0.0-0.9 [facility] Comment on above: Result Comment: IG% - Immature Granulocytes (promyelocytes, myelocytes and metamyelocytes) > 1% indicates that a LEFT SHIFT is Present. Performed By: #### L 501.9985, L3890.6006, BTS, L900.0098, L100.0100 #### [facility] [address] [place], [address] Lymphocytes/100 WBC (Bld) 26.1 % Normal 19-41 [facility] Comment on above: Performed By: #### L 501.9985, L3890.6006, BTS, L900.0098, L100.0100 #### [facility] [address] [place], [address] MCH (RBC) [Entitic mass] 28.6 pg Normal 27.0-32.0 [facility] Comment on above: Performed By: #### L 501.9985, L3890.6006, BTS, L900.0098, L100.0100 #### [facility] [address] [place], [address] MCHC (RBC) [Mass/Vol] 33.3 g/dL Normal 32-36 [facility] Comment on above: Performed By: #### L 501.9985, L3890.6006, BTS, L900.0098, L100.0100 #### [facility] [address] [place], [address] MCV (RBC) [Entitic vol] 85.9 fL Normal 81-99 [facility] Comment on above: Performed By: #### L 501.9985, L3890.6006, BTS, L900.0098, L100.0100 #### [facility] [address] [place], [address] Monocytes/100 WBC (Bld) 6.2 % Normal 0-10 [facility] Comment on above: Performed By: #### L 501.9985, L3890.6006, BTS, L900.0098, L100.0100 #### [facility] [address] [place], [address] Neutrophils/100 WBC (Bld) 65.1 % Normal 47-70 [facility] Comment on above: Performed By: #### L 501.9985, L3890.6006, BTS, L900.0098, L100.0100 #### [facility] [address] [place], [address] Nucleated RBC (Bld) [#/Vol] 0 10*3/uL Normal 0-5 [facility] Comment on above: Performed By: #### L 501.9985, L3890.6006, BTS, L900.0098, L100.0100 #### [facility] [address] [place], [address] Platelet mean volume (Bld) [Entitic vol] 10.3 fL Normal 6.2-12.0 [facility] Comment on above: Performed By: #### L 501.9985, L3890.6006, BTS, L900.0098, L100.0100 #### [facility] [address] [place], [address] Platelets (Bld) [#/Vol] 237 10*3/uL Normal 150-450 [facility] Comment on above: Performed By: #### L 501.9985, L3890.6006, BTS, L900.0098, L100.0100 #### [facility] [address] [place], [address] RBC (Bld) [#/Vol] 4.26 10*6/uL Normal 4.2-5.4 [facility] Comment on above: Performed By: #### L 501.9985, L3890.6006, BTS, L900.0098, L100.0100 #### [facility] [address] [place], [address] RDW SD 40.1 fl Normal 35.1-43.9 [facility] Comment on above: Performed By: #### L 501.9985, L3890.6006, BTS, L900.0098, L100.0100 #### [facility] [address] [place], [address] WBC (Bld) [#/Vol] 8.5 10*3/uL Normal 4.4-11.0 [facility] Comment on above: Performed By: #### L 501.9985, L3890.6006, BTS, L900.0098, L100.0100 #### [facility] [address] [place], [address] Eosinophil percentageOrdered By: Bobbi Stuart on 10-03-2024 Eosinophils/100 WBC (Bld) 1.8 % 0-5 [facility] Erythrocyte distribution wid th ratioOrdered By: Bobbi Stuart on 10-03-2024 Erythrocyte distribution width (RBC) [Ratio] 12.9 % 11.6-14.6 [facility] Erythrocyte distribution wid th standard deviationOrdered By: Bobbi Stuart on 10-03-2024 Erythrocyte distribution width (RBC) [Entitic vol] 40.1 fL 35.1-43.9 [facility] Erythrocyte distribution width (RBC) [Ratio] 40.1 fl 35.1-43.9 [facility] HBV surface Ag Ql (S)Ordered By: Bobbi Stuart on 10-03-2024 Hepatitis B Surface Antigen Non-Reactive Nonreactive [facility] Comment on above: Reactive: Presumptiv e evidence of HBV. Repeatedly reactive samples must be confirmed using a neutralization test ([employer] HBsAg Confirmatory Test)Non-Reactive: HBsAg not detected; does not exclude the possibility of exposure to HBV Hematocrit Auto (Bld) [Volum e fraction]Ordered By: Bobbi Stuart on 10-03-2024 Hematocrit (Bld) [Volume fraction] 36.6 % Low 37-47 [facility] Hemoglobin A1c percentageOrd ered By: Bobbi Stuart on 10-03-2024 HbA1c (Bld) [Mass fraction] 5.0 % Low >5.7 [facility] Hemoglobin measurementOrdere d By: Bobbi Stuart on 10-03-2024 Hemoglobin (Bld) [Mass/Vol] 12.2 g/dL 12.0-15.0 [facility] Hepatitis C antibodyOrdered By: Bobbi Stuart on 10-03-2024 Hepatitis C Antibody Non-Reactive Nonreactive [facility] Comment on above: Reactive: Presumptiv e evidence of antibodies to HCV. Follow CDC recommendations for supplemental testing.Non-Reactive: Antibodies to HCV were not detected; does not exclude the possibility of exposure to HCVReactive Results are presumptive evidence of antibodies to HCV. Follow CDC recommendations for supplemental testing.Order confirmation testing: HCV Quant by PCR testing - HCVPCR #[id number] Non Reactive: < 0.8 Equivocal: >/= 0.8 to < 1.0 Reactive: >/= 1.0The CDC requires that a reactive/equivocal HCV antibody result be sent out for confirmation. HCV Quant by PCR testing. Immature granulocytes/100 WB C Auto (Bld)Ordered By: Bobbi Stuart on 10-03-2024 Immature granulocytes/100 WBC (Bld) 0.400 % 0.0-0.9 [facility] Comment on above: IG% - Immature Granu locytes (promyelocytes, myelocytes and metamyelocytes) > 1% indicates that a LEFT SHIFT is Present. Laboratory - Microbiology an d Antimicrobial susceptibilityOrdered By: Bobbi Stuart on 10-03-2024 HBV surface Ag Ql (S) Non-Reactive Nonreactive [facility] Comment on above: Reactive: Presumptiv e evidence of HBV. Repeatedly reactive samples must be confirmed using a neutralization test ([employer] HBsAg Confirmatory Test)Non-Reactive: HBsAg not detected; does not exclude the possibility of exposure to HBV Lymphocytes Auto (Unsp spec) [#/Vol]Ordered By: Bobbi Stuart on 10-03-2024 Lymphocytes (Bld) [#/Vol] 2.22 10*3/uL 0.83-4.51 [facility] Lymphocytes/100 WBC Auto (Un sp spec)Ordered By: Bobbi Stuart on 10-03-2024 Lymphocytes/100 WBC (Bld) 26.1 % 19-41 [facility] MCV (mean corpuscular volume ) determinationOrdered By: Bobbi Stuart on 10-03-2024 MCV (RBC) [Entitic vol] 85.9 fL 81-99 [facility] Mean corpuscular hemoglobin (MCH) determinationOrdered By: Bobbi Stuart on 10-03-2024 MCH (RBC) [Entitic mass] 28.6 pg 27.0-32.0 [facility] Mean corpuscular hemoglobin concentration (MCHC) determinationOrdered By: Bobbi Stuart on 10-03-2024 MCHC (RBC) [Mass/Vol] 33.3 g/dL 32-36 [facility] Mean platelet volume determi nationOrdered By: Bobbi Stuart on 10-03-2024 Platelet mean volume (Bld) [Entitic vol] 10.3 fL 6.2-12.0 [facility] Miscellaneous procedureOrder ed By: Bobbi Stuart on 10-03-2024 Miscellaneous Test Comment SEE SCANNED REPORT [facility] Monocyte percentageOrdered B y: Bobbi Stuart on 10-03-2024 Monocytes/100 WBC (Bld) 6.2 % 0-10 [facility] NATERAon 10-03-2024 NATURA SEE SCANNED REPORT Normal [facility] Comment on above: Performed By: #### L 501.9985, L3890.6006, BTS, L900.0098, L100.0100 ####[facility] [address] [place], [address] Neutrophil percentageOrdered By: Bobbi Stuart on 10-03-2024 Neutrophils/100 WBC (Bld) 65.1 % 47-70 [facility] No Panel InformationOrdered By: Bobbi Stuart on 10-03-2024 Syphilis Total Antibody Non-Reactive Nonreactiv e [facility] Nucleated red blood cell per centageOrdered By: Bobbi Stuart on 10-03-2024 Nucleated RBC/100 WBC (Bld) [Ratio] 0 % 0-5 [facility] Platelet countOrdered By: Candido Stuart on 10-03-2024 Platelets (Bld) [#/Vol] 237 10*3/uL 150-450 [facility] RBC Auto (Bld) [#/Vol]Ordere d By: Bobbi Stuart on 10-03-2024 RBC (Bld) [#/Vol] 4.26 10*6/uL 4.2-5.4 [facility] Rubella immune status determ ination by IgG antibody assayOrdered By: Bobbi Stuart on 10-03-2024 Rubella IgG Antibody REAC Nonreactive [facility] Comment on above: Antibody Result: Int erpretationNon-Reactive: Non-ImmuneReactive: ImmuneThe following results were obtained with the [employer] Rubella IgG assay. Results from assays of other manufacturers cannot be used interchangeably. Type AND Screenon 10-03-2024 Ab SCREEN GEL Negative Normal [facility] Comment on above: Order Comment: PN Performed By: #### L 501.9985, L3890.6006, BTS, L900.0098, L100.0100 ####[facility] [address] [place], [place], [id number] ABO and Rh group Nom (Bld) Blood group O Rh(D) positive Normal [facility] Comment on above: Order Comment: PN Performed By: #### L 501.9985, L3890.6006, BTS, L900.0098, L100.0100 ####[facility] [address] [place], [place], [address] White blood cell (WBC) count Ordered By: Bobbi Stuart on 10-03-2024 WBC (Bld) [#/Vol] 8.5 10*3/uL 4.4-11.0 [facility] Chlamydia/GC GLEN aptimaon CHLAMY,NUC ACID Negative Normal Negative [facility] Comment on above: Performed By: #### M 100.2200, L7000.1800 #### [facility] [address] [place], [place], [id number] GC BY NUC ACID Negative Normal Negative [facility] Comment on above: Result Comment: Perf ormed at: =G - [facility] [id number] Printing Manager: Natasha Jackson MD, Phone: [phone] Performed By: #### M 100.2200, L7000.1800 #### [facility] [address] [place], [place], [id number] Urine Cultureon 09-24-2024 URC #2 Below infection level. Urine Culture Streptococcus agalactiae (B) [place] Count 11,000-25,000 Mixed Gram Positive Organisms Mixed Gram Positive Organisms MIXC Mixed contaminants. Submit a new specimen if indicated. Streptococcus agalactiae (B): REACTION Ampicillin Islt JASMINA <=0.25 cefTRIAXone Islt JASMINA <=0.12 S Clindamycin Islt JASMINA <=0.25 Clindamycin.induced Susc Islt NEG Linezolid Islt JASMINA <=2 S Vancomycin Islt JASMINA 0.25 S Normal [facility] Comment on above: Performed By: #### M 100.2200, L7000.1800 #### [facility] [address] [place], [place], [id number] C. trachomatis rRNA GLEN+prob e Ql (Unsp spec)Ordered By: Bobbi Stuart on 09-21-2024 Chlamydia DNA (GLEN) Negative Negative [facility] Chlamydia trachomatis rRNA d etection by probe and target amplification methodOrdered By: Bobbi Stuart on 09-21-2024 C. trachomatis rRNA GLEN+probe Ql (Unsp spec) Negative Negative [facility] Neisseria gonorrhoeae nuclei c acid detection by amplified probe techniqueOrdered By: Bobbi Stuart on 09-21-2024 N. gonorrhoeae DNA GLEN+probe Ql (Unsp spec) Negative Negative [facility] Comment on above: Performed at: =G - [facility] [address] [id number] Director: Natasha Jackson MD, Phone: [phone] Pediatric Speech Language Pathologist Office Visit Reporton 09-21-2024 Pediatric Speech Language Pathologist Office Visit Report [facility] [address] [place] [address], [address] [place] [address] OFFICE VISIT Date of Service: 09/21/24 MR#: [id number] Acct: [id number] Name: FELIPE PATRICK Rep #: [id number] : 1995 Provider: DULCE Correa ams Age/Sex: 29/F Location: [facility] Status: Signed Intake Vital Signs 09/21/24 14:35 Height 5 ft 2 in Weight: 199 lb 6 oz BMI 36.4 BP 132/84 H Intake Visit Reasons: NOB LMP 07/20 Chief Complaint: New OB Is patient in pain?: No Allergies house dust Allergy (Mild, Verified 09/21/24 14:34) Other mold (mold spores) Allergy (Mild, Verified 09/21/24 14:34) Other Environmental Allergies: Uncoded Allergy (Verified 09/21/24 14:34) Other Medications ???Medication ???Instructions ???Recorded ???Confirmed ???Type choline 500 mg tablet 500 mg PO DAILY 09/08/24 09/21/24 History multivitamin no.47-iron fum 27 cap PO 09/08/24 09/21/24 History mg-folate no.1 1 mg-dha 300 mg capsule (PNV-DHA) omega-3 fatty acids 1,000 mg 500 mg PO QDAY 09/08/24 09/21/24 H istory capsule (Super [place]-3) Last Menstrual Period: 07/20/24 : Yes PFSH PFSH Medical History Seasonal allergies Surgical History Previous section [place] teeth extracted Family History Grandmother Cancer Paternal skin ca Grandfather Cancer Paternal skin Myocardial infarction Paternal Father Kidney disease, Onset Age: 60 Kidney failure Hypertension High cholesterol Grandmother Cancer Maternal Lung ca Diabetes maternal CHF (congestive heart failure) Maternal Macular degeneration Maternal Grandfather Cancer Maternal stomach ca, skin ca-melanoma Diabetes Maternal CHF (congestive heart failure) Maternal Diverticulitis Maternal Mother Barretts esophagus Cancer basal cell carcinoma Gall bladder disease Fibroid tumor benign Heart palpitations Family history of recurrent miscarriage one baby with ambiguous genitalia Social History adopted: No household members: spouse and children number of children: 1 service: No current occupational status: employed 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 [employer] current occupational exposures/hazards: No pets and animals: Yes (Avoid litterbox) pets and animals: cat(s) and dog(s) history of recent travel: Yes ([place]) out of state: Yes out of country: No sexually active: Yes Smoking Status: Never smoker alcohol intake: current alcohol intake frequency: holidays/special occasions only details: not while substance use type: does not use well-balanced diet: daily or most days caffeine: No eating out: rarely or never during the past year weight has: decreased > 10 lbs what type of physical activity do you participate in: walking frequency: daily duration: 15-30 minutes/day nkechi/ad[employer]: [employer] seatbelt use: always do you feel safe at home: Yes additional social history: 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 Date Name GA/Weeks Outcome Route Bth Weight [facility] Mirella 41 live - full term 8#7.8oz Female epidural A cathleen Drake Delivery Date: 05/25/23 Last Updated by: Lizz Baxter failure to progress HPI NOB LMP 07/20 Details: FELIPE PATRICK is a 29 year old who presents for New OB visit. OB Visit PETEY Calculator Estimated Delivery Date Method Current WG Current Estimate 04/26/25 LMP (Certain) 9w 0d Other Estimates 04/28/25 Ultrasound #1 8w 5d Comments: HIV: Urine Culture: Sequential Screen: NIPT Screen: Estimated Due Date: 04/26/25 Expected Delivery Route/Plan Labor Preferences- CB/BF classes: [] labor support person: [] labor intervention preferences: [] pain management options preferred: [] cut cord/dad catch: [] : [] PP control planned: [] discussed possible routes of delivery and associated risks: [] special requests: [] Specific Issue/Plans Covid status: [] Flu vaccine: [] Tdap vaccine: [] Rhogam: [] LARC form signed: [] Problem list reviewed and updated with the most current plan of care details and appropriate orders placed. Relevant counseling for the gestational age provided. Continue routine care and follow up unless oth (more content not included)... Normal [facility] Urine cultureOrdered By: Jaden Stuart on 09-21-2024 Bacteria identified Cx Nom (U) Streptococcus agalactiae (B) Abnormal [facility] Bacteria identified Cx Nom (U) Positive Abnormal [facility] DHEAUon 2024 DHEA. 152 ng/dL Normal 31-701 [facility] [place] Comment on above: Result Comment: This test was developed and its performance characteristics determined by [facility]. It has not been cleared or approved by the Food and Drug Administration. Performed At: [address] [id number] Larry Delcid MD Ph:[phone] Performed By: #### A DIFF, CBC, ABOG, ANSG, ANEU #### [address] [address] #### RPR #### [address] [address] .Auto Diffon 02-02-2024 Basophil, Absolute 0.0 10 3/mcL Normal 0.0-0.2 [facility] ([place] Comment on above: Performed By: #### G LF #### [address] [address] Basophils/100 WBC (Bld) 0.3 % Normal 0.0-2.5 A [facility] ([place] Comment on above: Performed By: #### G LF #### [address] [address] Eosinophil, Absolute 0.2 10 3/mcL Normal 0.0-0.4 [facility] ([place] Comment on above: Performed By: #### G LF #### [address] [address] Eosinophils/100 WBC (Bld) 1.9 % Normal 0.0-7.0 [facility] ([place] Comment on above: Performed By: #### G LF #### [address] [address] Lymphocyte, Absolute 2.5 10 3/mcL Normal 0.8-3.9 [facility] ([place] Comment on above: Performed By: #### G LF #### [address] [address] Lymphocytes/100 WBC (Bld) 27.0 % Normal 10.0-50.0 [facility] ([place] Comment on above: Performed By: #### G LF #### [address] [address] Monocyte, Absolute 0.6 10 3/mcL Normal 0.2-1.0 [facility] ([place] Comment on above: Performed By: #### G LF #### [address] [address] Monocytes/100 WBC (Bld) 6.1 % Normal 1.7-13.0 A [facility] ([place] Comment on above: Performed By: #### G LF #### [address] [address] Neutrophils/100 WBC (Bld) 64.7 % Normal 37.0-80.0 [facility] ([place] Comment on above: Performed By: #### G LF #### [address] [address] .GFRon 02-02-2024 GFR 136 ml/min/1.73sqm Normal [facility] ([place] Comment on above: Result Comment: GFR Population mean for , Non- Americans Ages 20-29 = 116 mL/min/1.73 sq.m. Ages 30-39 = 107 mL/min/1.73 sq.m. Ages 40-49 = 99 mL/min/1.73 sq.m. Ages 50-59 = 93 mL/min/1.73 sq.m. Ages 60-69 = 85 mL/min/1.73 sq.m. Ages 70+ = 75 mL/min/1.73 sq.m. Chronic Kidney Disease: Less than 60 mL/min/1.73 square meters End Stage Renal Disease: Less than 15 mL/min/1.73 square meters Performed By: #### A DIFF, CBC, ABOG, ANSG, ANEU #### [address] [address] #### RPR #### [address] [address] GFR Non- 113 ml/min/1.73sqm Normal [facility] ([place] Comment on above: Result Comment: GFR Population mean for , Non- Americans Ages 20-29 = 116 mL/min/1.73 sq.m. Ages 30-39 = 107 mL/min/1.73 sq.m. Ages 40-49 = 99 mL/min/1.73 sq.m. Ages 50-59 = 93 mL/min/1.73 sq.m. Ages 60-69 = 85 mL/min/1.73 sq.m. Ages 70+ = 75 mL/min/1.73 sq.m. Chronic Kidney Disease: Less than 60 mL/min/1.73 square meters End Stage Renal Disease: Less than 15 mL/min/1.73 square meters Performed By: #### A DIFF, CBC, ABOG, ANSG, ANEU #### [address] [address] #### RPR #### [address] [address] .NEUABSon 02-02-2024 Neutrophil, Absolute 5.9 10 3/mcL Normal 2.9-6.2 [facility] ([place] Comment on above: Performed By: #### G LF #### [address] [address] A1Con 02-02-2024 HbA1c (Bld) [Mass fraction] 4.9 % Normal 4.3-6.4 [facility] ([place] Comment on above: Performed By: #### G LF #### [address] [address] B12on 02-02-2024 Cobalamin (Vitamin B12) [Mass/Vol] 357 pg/mL Normal 211-911 [facility] ([place] Comment on above: Performed By: #### A DIFF, CBC, ABOG, ANSG, ANEU #### [place] [address] #### RPR #### [place] [address] CBCon 02-02-2024 Erythrocyte distribution width (RBC) [Ratio] 13.1 % Normal 11.5-14.5 [facility] ([place] Comment on above: Performed By: #### G LF #### [place] [id number] Hematocrit (Bld) [Volume fraction] 37.3 % Normal 37.0-47.0 [facility] ([place] Comment on above: Performed By: #### G LF #### [place] [id number] Hgb 12.6 G/dL Normal 12.0-16.0 [facility] ([place] Comment on above: Performed By: #### G LF #### [address] [address] MCH (RBC) [Entitic mass] 29.0 pg Normal 27.0-31.2 [facility] ([place] Comment on above: Performed By: #### G LF #### [address] [address] MCHC 33.9 G/dL Normal 33.0-37.0 [facility] ([place] Comment on above: Performed By: #### G LF #### [address] [address] MCV (RBC) [Entitic vol] 85.4 fL Normal 80.0-94.0 A [facility] ([place] Comment on above: Performed By: #### G LF #### [address] [address] Platelet 246 10 3/mcL Normal 130-400 [facility] ([place] Comment on above: Performed By: #### G LF #### [address] [address] Platelet mean volume (Bld) [Entitic vol] 8.2 fL Normal 7.4-10.4 [facility] ([place] Comment on above: Performed By: #### G LF #### [address] [address] RBC 4.36 10 6/mcL Normal 4.20-5.40 [facility] ([place] Comment on above: Performed By: #### G LF #### [address] [address] WBC 9.2 10 3/mcL Normal 4.6-10.8 [facility] ([place] Comment on above: Performed By: #### G LF #### [address] [address] CMPon 02-02-2024 Albumin Level 4.0 G/dL Normal 3.5-5.0 [facility] ([place] Comment on above: Performed By: #### A DIFF, CBC, ABOG, ANSG, ANEU #### [address] [address] #### RPR #### [address] [address] Albumin/Globulin [Mass ratio] 1.2 {ratio} Normal 1.1-2.5 [facility] ([place] Comment on above: Performed By: #### A DIFF, CBC, ABOG, ANSG, ANEU #### [address] [address] #### RPR #### [address] [address] ALP [Catalytic activity/Vol] 97 U/L Normal 40-135 [facility] ([place] Comment on above: Performed By: #### A DIFF, CBC, ABOG, ANSG, ANEU #### [place] [address] #### RPR #### [address] [address] ALT [Catalytic activity/Vol] 28 U/L Normal 14-59 [facility] ([place] Comment on above: Performed By: #### A DIFF, CBC, ABOG, ANSG, ANEU #### [place] [address] #### RPR #### [address] [address] AST [Catalytic activity/Vol] 16 U/L Normal 10-40 [facility] ([place] Comment on above: Performed By: #### A DIFF, CBC, ABOG, ANSG, ANEU #### [place] [address] #### RPR #### [place] [address] Bili Total 0.5 mg/dL Normal 0.2-1.0 [facility] ([place] Comment on above: Result Comment: Use of this assay is not recommended for patients undergoing treatment with eltrombopag due to the potential for falsely elevated results. Performed By: #### A DIFF, CBC, ABOG, ANSG, ANEU #### [place] [address] #### RPR #### [place] [address] BUN/Creatinine Ratio 17 ratio Normal 7-27 [facility] ([place] Comment on above: Performed By: #### A DIFF, CBC, ABOG, ANSG, ANEU #### [place] [address] #### RPR #### [place] [address] Calcium [Mass/Vol] 9.1 mg/dL Normal 8.4-10.2 [facility] ([place] Comment on above: Performed By: #### A DIFF, CBC, ABOG, ANSG, ANEU #### [address] [address] #### RPR #### [address] [address] Chloride [Moles/Vol] 103 mmol/L Normal 98-107 [facility] ([place] Comment on above: Performed By: #### A DIFF, CBC, ABOG, ANSG, ANEU #### [place] [address] #### RPR #### [address] [address] CO2 [Moles/Vol] 28 mmol/L Normal 22-29 [facility] ([place] Comment on above: Performed By: #### A DIFF, CBC, ABOG, ANSG, ANEU #### [place] [address] #### RPR #### [place] [address] Creatinine [Mass/Vol] 0.63 mg/dL Normal 0.55-1.02 [facility] ([place] Comment on above: Performed By: #### A DIFF, CBC, ABOG, ANSG, ANEU #### [place] [address] #### RPR #### [address] [address] Electrolyte Balance 10.0 mEq/L Normal 4.0-15.0 [facility] ([place] Comment on above: Performed By: #### A DIFF, CBC, ABOG, ANSG, ANEU #### [address] [address] #### RPR #### [place] [id number] Globulin 3.3 G/dL Normal [facility] ([place] Comment on above: Performed By: #### A DIFF, CBC, ABOG, ANSG, ANEU #### [place] [address] #### RPR #### [address] [address] Glucose [Mass/Vol] 76 mg/dL Normal 70-105 [facility] ([place] Comment on above: Performed By: #### A DIFF, CBC, ABOG, ANSG, ANEU #### [address] [address] #### RPR #### [address] [address] Potassium [Moles/Vol] 3.8 mmol/L Normal 3.5-5.1 [facility] ([place] Comment on above: Performed By: #### A DIFF, CBC, ABOG, ANSG, ANEU #### [address] [address] #### RPR #### [address] [address] Sodium [Moles/Vol] 141 mmol/L Normal 136-145 [facility] ([place] Comment on above: Performed By: #### A DIFF, CBC, ABOG, ANSG, ANEU #### [address] [address] #### RPR #### [address] [address] Total Protein 7.3 G/dL Normal 6.4-8.2 [facility] ([place] Comment on above: Performed By: #### A DIFF, CBC, ABOG, ANSG, ANEU #### [address] [address] #### RPR #### [address] [address] Urea nitrogen [Mass/Vol] 11 mg/dL Normal 7-18 [facility] ([place] Comment on above: Performed By: #### A DIFF, CBC, ABOG, ANSG, ANEU #### [address] [address] #### RPR #### [address] [address] CPEPon 02-02-2024 C-Peptide 0.90 ng/mL Normal 0.81-3.85 [facility] ([place] Comment on above: Performed By: #### A DIFF, CBC, ABOG, ANSG, ANEU #### [address] [address] #### RPR #### [address] [address] CRPHSon 02-02-2024 CRP, High Sensitive 5.59 mg/L High 0.20-3.00 [facility] ([place] Comment on above: Result Comment: Rela tive Risk Category and Average hs-CRP Level: Higher Risk: > 5.0 mg/L Guidelines support that hs-CRP can be used as an independent predictor of increased coronary risk; however, hs-CRP results should only be interpreted in conjunction with other cardiac risk factors in establishing overall cardiac risk for a given patient. Performed By: #### A DIFF, CBC, ABOG, ANSG, ANEU #### [place] [address] #### RPR #### [place] [address] FEon 02-02-2024 Iron [Mass/Vol] 78 ug/dL Normal 50-170 [facility] ([place] Comment on above: Performed By: #### G LF #### [address] [address] Tobias 02-02-2024 Ferritin [Mass/Vol] 42.0 ng/mL Normal 8.0-252.0 [facility] ([place] Comment on above: Performed By: #### G LF #### [address] [address] FOLon 02-02-2024 Folate 34.59 ng/mL High 5.38-24.00 [facility] ([place] Comment on above: Performed By: #### A DIFF, CBC, ABOG, ANSG, ANEU #### [address] [address] #### RPR #### [place] [address] FT4on 02-02-2024 Free T4 [Mass/Vol] 1.00 ng/dL Normal 0.76-1.46 [facility] ([place] Comment on above: Performed By: #### G #### Zoe [address] [address] LABORATORYOrdered By: SYSTEM SYSTEM on 02-02-2024 25-hydroxyvitamin D3 [Mass/Vol] 33.4 ng/mL Invalid Interpretation Code AO ADM SS Comment on above: Interpretive Data: I nterpretive Values Based on Total 25(OH) Vitamin D: Deficient <20 ng/mL Insufficient 20 - <30 ng/mL Sufficient 30-100 ng/mL Albumin BCP dye [Mass/Vol] 4.0 G/dL Normal 3.5 - 5.0 G/dL AO ADM SS Albumin/Globulin [Mass ratio] 1.2 {ratio} Normal 1.1 - 2.5 ratio AO ADM SS ALP [Catalytic activity/Vol] 97 U/L Normal 40 - 135 U/L AO ADM SS ALT With P-5'-P [Catalytic activity/Vol] 28 U/L Normal 14 - 59 U/L AO ADM SS AST With P-5'-P [Catalytic activity/Vol] 16 U/L Normal 10 - 40 U/L AO ADM SS Basophil, Absolute 0.0 103/mcL Normal 0.0 - 0.2 10^3/mcL AO Workflow SS Basophils/100 WBC (Bld) 0.3 % Normal 0.0 - 2.5 % AO Workflow SS Bilirubin [Mass/Vol] 0.5 mg/dL Normal 0.2 - 1 .0 mg/dL AO ADM SS Comment on above: Interpretive Data: U se of this assay is not recommended for patients undergoing treatment with eltrombopag due to the potential for falsely elevated results. C peptide [Mass/Vol] 0.90 ng/mL Normal 0.81 - 3.85 ng/mL AH ADM SS Calcium [Mass/Vol] 9.1 mg/dL Normal 8.4 - 10. 2 mg/dL AO ADM SS Chloride [Moles/Vol] 103 mmol/L Normal 98 - 10 7 mmol/L AO ADM SS CO2 [Moles/Vol] 28 mmol/L Normal 22 - 29 mmol/L AO ADM SS Cobalamin (Vitamin B12) [Mass/Vol] 357 pg/mL Normal 211 - 911 pg/mL AH ADM SS Creatinine [Mass/Vol] 0.63 mg/dL Normal 0.55 - 1.02 mg/dL AO ADM SS CRP High sensitivity method [Mass/Vol] 5.59 mg/L High 0.20 - 3.00 mg/L AH ADM SS Comment on above: Interpretive Data: R elative Risk Category and Average hs-CRP Level: Higher Risk: > 5.0 mg/L Guidelines support that hs-CRP can be used as an independent predictor of increased coronary risk; however, hs-CRP results should only be interpreted in conjunction with other cardiac risk factors in establishing overall cardiac risk for a given patient. Electrolyte Balance 10.0 mEq/L Normal 4.0 - 15 .0 mEq/L AO ADM SS Eosinophil, Absolute 0.2 103/mcL Normal 0.0 - 0 .4 10^3/mcL AO Workflow SS Eosinophils/100 WBC (Bld) 1.9 % Normal 0.0 - 7.0 % AO Workflow SS Erythrocyte distribution width (RBC) [Ratio] 13.1 % Normal 11.5 - 14.5 % AO Workflow SS Ferritin [Mass/Vol] 42.0 ng/mL Normal 8.0 - 25 2.0 ng/mL AO ADM SS Folate [Mass/Vol] 34.59 ng/mL High 5.38 - 24. 00 ng/mL AH ADM SS Free T4 [Mass/Vol] 1.00 ng/dL Normal 0.76 - 1. 46 ng/dL AO ADM SS GFR/1.73 sq M.predicted among blacks MDRD (S/P/Bld) [Vol rate/Area] 136 ml/min/1.73sqm Invalid Interpretation Code AO Chemistry S Comment on above: Interpretive Data: GFR Population mean for , Non- Americans Ages 20-29 = 116 mL/min/1.73 sq.m. Ages 30-39 = 107 mL/min/1.73 sq.m. Ages 40-49 = 99 mL/min/1.73 sq.m. Ages 50-59 = 93 mL/min/1.73 sq.m. Ages 60-69 = 85 mL/min/1.73 sq.m. Ages 70+ = 75 mL/min/1.73 sq.m. Chronic Kidney Disease: Less than 60 mL/min/1.73 square meters End Stage Renal Disease: Less than 15 mL/min/1.73 square meters GFR/1.73 sq M.predicted among non-blacks MDRD (S/P/Bld) [Vol rate/Area] 113 ml/min/1.73sqm Invalid Interpretation Code AO Chemistry S Comment on above: Interpretive Data: GFR Population mean for , Non- Americans Ages 20-29 = 116 mL/min/1.73 sq.m. Ages 30-39 = 107 mL/min/1.73 sq.m. Ages 40-49 = 99 mL/min/1.73 sq.m. Ages 50-59 = 93 mL/min/1.73 sq.m. Ages 60-69 = 85 mL/min/1.73 sq.m. Ages 70+ = 75 mL/min/1.73 sq.m. Chronic Kidney Disease: Less than 60 mL/min/1.73 square meters End Stage Renal Disease: Less than 15 mL/min/1.73 square meters Globulin 3.3 G/dL Invalid Interpretation Code AO ADM SS Glucose [Mass/Vol] 76 mg/dL Normal 70 - 105 mg/dL AO ADM SS HbA1c (Bld) [Mass fraction] 4.9 % Normal 4.3 - 6.4 % AO ADM SS Hematocrit (Bld) [Volume fraction] 37.3 % Normal 37.0 - 47.0 % AO Workflow SS Hemoglobin (Bld) [Mass/Vol] 12.6 G/dL Normal 12.0 - 16.0 G/dL AO Workflow SS Iron [Mass/Vol] 78 ug/dL Normal 50 - 170 mcg/dL AO ADM SS Lymphocyte, Absolute 2.5 103/mcL Normal 0.8 - 3 .9 10^3/mcL AO Workflow SS Lymphocytes/100 WBC (Bld) 27.0 % Normal 10.0 - 50.0 % AO Workflow SS MCH (RBC) [Entitic mass] 29.0 pg Normal 27.0 - 31.2 pg AO Workflow SS MCHC 33.9 G/dL Normal 33.0 - 37.0 G/dL AO Workflow SS MCV (RBC) [Entitic vol] 85.4 fL Normal 80.0 - 94.0 fL AO Workflow SS Monocyte, Absolute 0.6 103/mcL Normal 0.2 - 1.0 10^3/mcL AO Workflow SS Monocytes/100 WBC (Bld) 6.1 % Normal 1.7 - 13.0 % AO Workflow SS Neutrophil, Absolute 5.9 103/mcL Normal 2.9 - 6 .2 10^3/mcL AO Workflow SS Neutrophils/100 WBC (Bld) 64.7 % Normal 37.0 - 80.0 % AO Workflow SS Platelet mean volume (Bld) [Entitic vol] 8.2 fL Normal 7.4 - 10.4 fL AO Workflow SS Platelets (Bld) [#/Vol] 246 103/mcL Normal 130 - 400 10^3/mcL AO Workflow SS Potassium [Moles/Vol] 3.8 mmol/L Normal 3.5 - 5.1 mmol/L AO ADM SS Protein [Mass/Vol] 7.3 G/dL Normal 6.4 - 8.2 G/dL AO ADM SS RBC (Bld) [#/Vol] 4.36 106/mcL Normal 4.20 - 5.4 0 10^6/mcL AO Workflow SS Sodium [Moles/Vol] 141 mmol/L Normal 136 - 145 mmol/L AO ADM SS TSH Qn 1.75 m[IU]/L Normal 0.36 - 3.74 mcIU/mL AO ADM SS Urea nitrogen [Mass/Vol] 11 mg/dL Normal 7 - 18 mg/dL AO ADM SS Urea nitrogen/Creatinine [Mass ratio] 17 ratio Normal 7 - 27 ratio AO ADM SS WBC (Bld) [#/Vol] 9.2 103/mcL Normal 4.6 - 10.8 10^3/mcL AO Workflow SS LABORATORYOrdered By: Jair Chin on 02-02-2024 Cholesterol [Mass/Vol] 186 mg/dL Normal 0 - 200 mg/dL AO ADM SS Comment on above: Interpretive Data: C holesterol Reference Interval: Less than 200 Desirable 200-239 Borderline high risk 240 and above High risk Cholesterol in HDL [Mass/Vol] 73 mg/dL High 40 - 60 mg/dL AO ADM SS Cholesterol in LDL [Mass/Vol] 100 mg/dL Normal 0 - 130 mg/dL AO ADM SS Triglyceride [Mass/Vol] 66 mg/dL Normal 0 - 150 mg/d L AO ADM SS Comment on above: Interpretive Data: T riglyceride Reference Interval: Less than 150 Normal 150-199 Borderline high risk 200-499 High risk 500 or higher Very high risk LIPIDon 02-02-2024 Cholesterol [Mass/Vol] 186 mg/dL Normal 0-200 [facility] ([place] Comment on above: Result Comment: Chol esterol Reference Interval: Less than 200 Desirable 200-239 Borderline high risk 240 and above High risk Performed By: #### A DIFF, CBC, ABOG, ANSG, ANEU #### [address] [address] #### RPR #### [address] [address] Cholesterol in HDL [Mass/Vol] 73 mg/dL High 40-60 [facility] [place] Comment on above: Performed By: #### A DIFF, CBC, ABOG, ANSG, ANEU #### [place] [address] #### RPR #### [address] [address] Cholesterol in LDL [Mass/Vol] 100 mg/dL Normal 0-130 [facility] [place] Comment on above: Performed By: #### A DIFF, CBC, ABOG, ANSG, ANEU #### [place] [address] #### RPR #### [address] [address] Triglyceride [Mass/Vol] 66 mg/dL Normal 0-150 A [facility] ([place] Comment on above: Result Comment: Trig lyceride Reference Interval: Less than 150 Normal 150-199 Borderline high risk 200-499 High risk 500 or higher Very high risk Performed By: #### A DIFF, CBC, ABOG, ANSG, ANEU #### [place] [address] #### RPR #### [address] [address] TSHon 02-02-2024 TSH Qn 1.75 m[IU]/L Normal 0.36-3.74 [facility] ([place] Comment on above: Performed By: #### G LF #### [place] [address] VIDHon 02-02-2024 Vit. D 25-Hydroxy 33.4 ng/mL Normal [facility] ([place] Comment on above: Result Comment: Inte rpretive Values Based on Total 25(OH) Vitamin D: Deficient <20 ng/mL Insufficient 20 - <30 ng/mL Sufficient 30-100 ng/mL Performed By: #### G LF #### [place] [address] .Auto Diffon 05-26-2023 Basophil, Absolute 0.0 10 3/mcL Normal 0.0-0.2 [facility] ([place]) Comment on above: Performed By: #### A DIFF, CBC, ABOG, ANSG, ANEU #### [place] [address] #### RPR #### [address] [address] Basophils/100 WBC (Bld) 0.1 % Normal 0.0-2.5 A [facility] [place] Comment on above: Performed By: #### A DIFF, CBC, ABOG, ANSG, ANEU #### [place] [address] #### RPR #### [address] [address] Eosinophil, Absolute 0.0 10 3/mcL Normal 0.0-0.4 [facility] ([place] Comment on above: Performed By: #### A DIFF, CBC, ABOG, ANSG, ANEU #### [place] [address] #### RPR #### [address] [address] Eosinophils/100 WBC (Bld) 0.0 % Normal 0.0-7.0 [facility] [place] Comment on above: Performed By: #### A DIFF, CBC, ABOG, ANSG, ANEU #### [place] [address] #### RPR #### [address] [address] Lymphocyte, Absolute 1.6 10 3/mcL Normal 0.8-3.9 [facility] ([place] Comment on above: Performed By: #### A DIFF, CBC, ABOG, ANSG, ANEU #### [place] [address] #### RPR #### [address] [address] Lymphocytes/100 WBC (Bld) 7.5 % Low 10.0-50.0 [facility] [place] Comment on above: Performed By: #### A DIFF, CBC, ABOG, ANSG, ANEU #### [place] [address] #### RPR #### [address] [address] Monocyte, Absolute 0.7 10 3/mcL Normal 0.2-1.0 [facility] [place] Comment on above: Performed By: #### A DIFF, CBC, ABOG, ANSG, ANEU #### [place] [address] #### RPR #### [address] [address] Monocytes/100 WBC (Bld) 3.2 % Normal 1.7-13.0 A [facility] [place] Comment on above: Performed By: #### A DIFF, CBC, ABOG, ANSG, ANEU #### [place] [address] #### RPR #### [address] [address] Neutrophils/100 WBC (Bld) 89.2 % High 37.0-80.0 [facility] [place] Comment on above: Performed By: #### A DIFF, CBC, ABOG, ANSG, ANEU #### [place] [address] #### RPR #### [address] [address] .Morphon 05-26-2023 Platelet Estimate Normal Normal [facility] [place] Comment on above: Performed By: #### A DIFF, CBC, ABOG, ANSG, ANEU #### [place] [address] #### RPR #### [address] [address] .NEUABSon 05-26-2023 Neutrophil, Absolute 18.8 10 3/mcL High 2.9-6.2 A [facility] ([place] Comment on above: Performed By: #### A DIFF, CBC, ABOG, ANSG, ANEU #### [place] [address] #### RPR #### [place] [address] CBCon 05-26-2023 Erythrocyte distribution width (RBC) [Ratio] 14.0 % Normal 11.5-14.5 [facility] [place] Comment on above: Performed By: #### A DIFF, CBC, ABOG, ANSG, ANEU #### [place] [address] #### RPR #### [place] [address] Hematocrit (Bld) [Volume fraction] 25.1 % Low 37.0-47.0 [facility] [place] Comment on above: Performed By: #### A DIFF, CBC, ABOG, ANSG, ANEU #### [place] [address] #### RPR #### [place] [address] Hgb 8.2 G/dL Low 12.0-16.0 [facility] [place] Comment on above: Performed By: #### A DIFF, CBC, ABOG, ANSG, ANEU #### [place] [address] #### RPR #### [place] [address] MCH (RBC) [Entitic mass] 28.7 pg Normal 27.0-31.2 [facility] [place] Comment on above: Performed By: #### A DIFF, CBC, ABOG, ANSG, ANEU #### [place] [address] #### RPR #### [address] [address] MCHC 32.8 G/dL Low 33.0-37.0 [facility] [place] Comment on above: Performed By: #### A DIFF, CBC, ABOG, ANSG, ANEU #### [place] [address] #### RPR #### [place] [address] MCV (RBC) [Entitic vol] 87.7 fL Normal 80.0-94.0 A [facility] [place] Comment on above: Performed By: #### A DIFF, CBC, ABOG, ANSG, ANEU #### [place] [address] #### RPR #### [place] [address] Platelet 168 10 3/mcL Normal 130-400 [facility] [place] Comment on above: Performed By: #### A DIFF, CBC, ABOG, ANSG, ANEU #### [place] [address] #### RPR #### [place] [address] Platelet mean volume (Bld) [Entitic vol] 10.2 fL Normal 7.4-10.4 [facility] [place] Comment on above: Performed By: #### A DIFF, CBC, ABOG, ANSG, ANEU #### [place] [address] #### RPR #### [place] [address] RBC 2.87 10 6/mcL Low 4.20-5.40 [facility] [place] Comment on above: Performed By: #### A DIFF, CBC, ABOG, ANSG, ANEU #### [address] [address] #### RPR #### [address] [address] WBC 21.1 10 3/mcL High 4.6-10.8 [facility] [place] Comment on above: Performed By: #### A DIFF, CBC, ABOG, ANSG, ANEU #### [place] [address] #### RPR #### [place] [address] RPRon 05-26-2023 Reagin Ab RPR Ql (S) Non-Reactive Normal Non-Reactive [facility] [place] Comment on above: Result Comment: The RPR test is a non-treponemal assay useful as an aid in the diagnosis of primary and secondary syphilis. It converts to positive generally within 2 weeks after the appearance of a lesion. This test is also useful for monitoring response to antibiotic therapy. A positive RPR screening test will be followed by the FTA ABS test. False positive RPR tests may occur in 1) patients with underlying autoimmune disorders, 2) elderly patients, 3) , and 4) other conditions with abnormal serum globulins. Performed By: #### A DIFF, CBC, ABOG, ANSG, ANEU #### [place] [address] #### RPR #### [address] [address] .Auto Diffon 05-25-2023 Basophil, Absolute 0.0 10 3/mcL Normal 0.0-0.2 [facility] ([place] Comment on above: Performed By: #### A DIFF, CBC, ABOG, ANSG, ANEU #### [place] [address] #### RPR #### [address] [address] Basophils/100 WBC (Bld) 0.3 % Normal 0.0-2.5 A [facility] [place] Comment on above: Performed By: #### A DIFF, CBC, ABOG, ANSG, ANEU #### [address] [address] #### RPR #### [address] [address] Eosinophil, Absolute 0.1 10 3/mcL Normal 0.0-0.4 [facility] ([place] Comment on above: Performed By: #### A DIFF, CBC, ABOG, ANSG, ANEU #### [address] [address] #### RPR #### [address] [address] Eosinophils/100 WBC (Bld) 0.9 % Normal 0.0-7.0 [facility] ([place]) Comment on above: Performed By: #### A DIFF, CBC, ABOG, ANSG, ANEU #### [place] [address] #### RPR #### [address] [address] Lymphocyte, Absolute 2.4 10 3/mcL Normal 0.8-3.9 [facility] ([place]) Comment on above: Performed By: #### A DIFF, CBC, ABOG, ANSG, ANEU #### [place] [address] #### RPR #### [address] [address] Lymphocytes/100 WBC (Bld) 18.3 % Normal 10.0-50.0 [facility] [place] Comment on above: Performed By: #### A DIFF, CBC, ABOG, ANSG, ANEU #### [place] [address] #### RPR #### [address] [address] Monocyte, Absolute 0.6 10 3/mcL Normal 0.2-1.0 [facility] ([place] Comment on above: Performed By: #### A DIFF, CBC, ABOG, ANSG, ANEU #### [place] [address] #### RPR #### [address] [address] Monocytes/100 WBC (Bld) 4.8 % Normal 1.7-13.0 A [facility] [place] Comment on above: Performed By: #### A DIFF, CBC, ABOG, ANSG, ANEU #### [address] [address] #### RPR #### [address] [address] Neutrophils/100 WBC (Bld) 75.7 % Normal 37.0-80.0 [facility] ([place] Comment on above: Performed By: #### A DIFF, CBC, ABOG, ANSG, ANEU #### [address] [address] #### RPR #### [address] [address] .GFRon 05-25-2023 GFR Non- 69 ml/min/1.73sqm Normal [facility] ([place] Comment on above: Result Comment: GFR Population mean for , Non- Americans Ages 20-29 = 116 mL/min/1.73 sq.m. Ages 30-39 = 107 mL/min/1.73 sq.m. Ages 40-49 = 99 mL/min/1.73 sq.m. Ages 50-59 = 93 mL/min/1.73 sq.m. Ages 60-69 = 85 mL/min/1.73 sq.m. Ages 70+ = 75 mL/min/1.73 sq.m. Chronic Kidney Disease: Less than 60 mL/min/1.73 square meters End Stage Renal Disease: Less than 15 mL/min/1.73 square meters Performed By: #### R PCUR #### [address] [address] GFR 84 ml/min/1.73sqm Normal [facility] ([place] Comment on above: Result Comment: GFR Population mean for , Non- Americans Ages 20-29 = 116 mL/min/1.73 sq.m. Ages 30-39 = 107 mL/min/1.73 sq.m. Ages 40-49 = 99 mL/min/1.73 sq.m. Ages 50-59 = 93 mL/min/1.73 sq.m. Ages 60-69 = 85 mL/min/1.73 sq.m. Ages 70+ = 75 mL/min/1.73 sq.m. Chronic Kidney Disease: Less than 60 mL/min/1.73 square meters End Stage Renal Disease: Less than 15 mL/min/1.73 square meters Performed By: #### R PCUR #### [place] [id number] .NEUABSon 05-25-2023 Neutrophil, Absolute 9.9 10 3/mcL High 2.9-6.2 [facility] ([place] Comment on above: Performed By: #### A DIFF, CBC, ABOG, ANSG, ANEU #### [place] [address] #### RPR #### [place] [address] .Urinalysis Microscopic (AO) on 05-25-2023 UA Amorphus Trace Normal [facility] [place] Comment on above: Performed By: #### R PCUR #### [address] [address] UA Bacteria Trace Abnormal [facility] [place] Comment on above: Performed By: #### R PCUR #### [address] [address] UA Mucous 1+ /hpf Normal [facility] ([place] Comment on above: Performed By: #### R PCUR #### [address] [address] UA RBC LOADED Abnormal None Seen [facility] [place] Comment on above: Performed By: #### R PCUR #### [place] [id number] UA Squam Epithelial 0-5 Abnormal None Seen [facility] ([place] Comment on above: Performed By: #### R PCUR #### [address] [address] UA WBC 0-5 Abnormal None Seen [facility] [place] Comment on above: Performed By: #### R PCUR #### [place] [address] CBCon 05-25-2023 Erythrocyte distribution width (RBC) [Ratio] 13.8 % Normal 11.5-14.5 [facility] ([place] Comment on above: Performed By: #### A DIFF, CBC, ABOG, ANSG, ANEU #### [place] [address] #### RPR #### [place] [address] Hematocrit (Bld) [Volume fraction] 35.5 % Low 37.0-47.0 [facility] [place] Comment on above: Performed By: #### A DIFF, CBC, ABOG, ANSG, ANEU #### [place] [address] #### RPR #### [place] [address] Hgb 11.9 G/dL Low 12.0-16.0 [facility] ([place] Comment on above: Performed By: #### A DIFF, CBC, ABOG, ANSG, ANEU #### [place] [address] #### RPR #### [place] [address] MCH (RBC) [Entitic mass] 28.8 pg Normal 27.0-31.2 [facility] ([place] Comment on above: Performed By: #### A DIFF, CBC, ABOG, ANSG, ANEU #### [place] [address] #### RPR #### [place] [address] MCHC 33.6 G/dL Normal 33.0-37.0 [facility] ([place] Comment on above: Performed By: #### A DIFF, CBC, ABOG, ANSG, ANEU #### [place] [address] #### RPR #### [address] [address] MCV (RBC) [Entitic vol] 85.7 fL Normal 80.0-94.0 A [facility] ([place] Comment on above: Performed By: #### A DIFF, CBC, ABOG, ANSG, ANEU #### [place] [address] #### RPR #### [address] [address] Platelet 181 10 3/mcL Normal 130-400 [facility] [place] Comment on above: Performed By: #### A DIFF, CBC, ABOG, ANSG, ANEU #### [place] [address] #### RPR #### [address] [address] Platelet mean volume (Bld) [Entitic vol] 10.0 fL Normal 7.4-10.4 [facility] [place] Comment on above: Performed By: #### A DIFF, CBC, ABOG, ANSG, ANEU #### [place] [address] #### RPR #### [address] [address] RBC 4.14 10 6/mcL Low 4.20-5.40 [facility] ([place] Comment on above: Performed By: #### A DIFF, CBC, ABOG, ANSG, ANEU #### [place] [address] #### RPR #### [address] [address] WBC 13.1 10 3/mcL High 4.6-10.8 [facility] ([place] Comment on above: Performed By: #### A DIFF, CBC, ABOG, ANSG, ANEU #### [place] [address] #### RPR #### [facility] [address] [place] [address] [facility] Albumin Level 2.6 G/dL Low 3.5-5.0 [facility] ([place] Comment on above: Performed By: #### R PCUR #### [address] [address] Albumin/Globulin [Mass ratio] 0.6 {ratio} Low 1.1-2.5 [facility] ([place] Comment on above: Performed By: #### R PCUR #### [address] [address] ALP [Catalytic activity/Vol] 145 U/L High 40-135 [facility] ([place] Comment on above: Performed By: #### R PCUR #### [address] [address] ALT [Catalytic activity/Vol] 51 U/L Normal 14-59 [facility] ([place] Comment on above: Performed By: #### R PCUR #### [address] [address] AST [Catalytic activity/Vol] 31 U/L Normal 10-40 [facility] [place] Comment on above: Performed By: #### R PCUR #### [address] [address] Bili Total 0.2 mg/dL Normal 0.2-1.0 [facility] [place] Comment on above: Result Comment: Use of this assay is not recommended for patients undergoing treatment with eltrombopag due to the potential for falsely elevated results. Performed By: #### R PCUR #### [address] [address] BUN/Creatinine Ratio 16 ratio Normal 7-27 [facility] ([place] Comment on above: Performed By: #### R PCUR #### [address] [address] Calcium [Mass/Vol] 9.0 mg/dL Normal 8.4-10.2 [facility] ([place] Comment on above: Performed By: #### R PCUR #### [address] [address] Chloride [Moles/Vol] 102 mmol/L Normal 98-107 [facility] ([place] Comment on above: Performed By: #### R PCUR #### [address] [address] CO2 [Moles/Vol] 22 mmol/L Normal 22-29 [facility] ([place] Comment on above: Performed By: #### R PCUR #### [address] [address] Creatinine [Mass/Vol] 0.96 mg/dL Normal 0.55-1.02 [facility] ([place] Comment on above: Performed By: #### R PCUR #### [address] [address] Electrolyte Balance 7.0 mEq/L Normal 4.0-15.0 [facility] ([place] Comment on above: Performed By: #### R PCUR #### [address] [address] Globulin 4.1 G/dL Normal [facility] [place] Comment on above: Performed By: #### R PCUR #### [address] [address] Glucose [Mass/Vol] 117 mg/dL High 70-105 [facility] ([place] Comment on above: Performed By: #### R PCUR #### [address] [address] Potassium [Moles/Vol] 4.1 mmol/L Normal 3.5-5.1 [facility] ([place] Comment on above: Performed By: #### R PCUR #### [address] [address] Sodium [Moles/Vol] 131 mmol/L Low 136-145 [facility] ([place] Comment on above: Performed By: #### R PCUR #### [address] [address] Total Protein 6.7 G/dL Normal 6.4-8.2 [facility] ([place] Comment on above: Performed By: #### R PCUR #### [address] [address] Urea nitrogen [Mass/Vol] 15 mg/dL Normal 7-18 [facility] ([place] Comment on above: Performed By: #### R PCUR #### [address] [address] Gel ABOon 05-25-2023 ABO/Rh Interp Positive Invalid Interpretation Code [facility] [place] Comment on above: Performed By: #### A DIFF, CBC, ABOG, ANSG, ANEU #### [place] [id number] #### RPR #### [place] [address] Gel ABSon 05-25-2023 Antibody Screen Gel Negative Normal [facility] ([place] Comment on above: Performed By: #### A DIFF, CBC, ABOG, ANSG, ANEU #### [place] [id number] #### RPR #### [address] [address] RPCURon 05-25-2023 U Creatinine 137.8 mg/dL High 28.0-117.0 [facility] ([place] Comment on above: Performed By: #### R PCUR #### [address] [address] U Protein 48 mg/dL High 0-11 [facility] [place] Comment on above: Performed By: #### R PCUR #### [address] [address] U Ratio Prot/Creat 0.4 ratio Normal [facility] ([place] Comment on above: Result Comment: resu lt calculated by rule [id number]_PROT_NOTCALC_OLD (U Protein/U Creatinine) Performed By: #### R PCUR #### [place] [id number] UAon 05-25-2023 Color (U) Yellow Normal [facility] [place] Comment on above: Performed By: #### R PCUR #### [address] [address] Glucose (U) [Mass/Vol] Negative Normal Negative [facility] ([place] Comment on above: Performed By: #### R PCUR #### [address] [address] Ketones Ql (U) Negative Normal Negative [facility] [place] Comment on above: Performed By: #### R PCUR #### [address] [address] UA Appear Cloudy Abnormal Clear [facility] [place] Comment on above: Performed By: #### R PCUR #### [address] [address] UA Blood Large Abnormal Negative [facility] [place] Comment on above: Performed By: #### R PCUR #### [address] [address] UA Leuk Est Negative Normal Negative [facility] [place] Comment on above: Performed By: #### R PCUR #### [address] [address] UA Nitrite Negative Normal Negative [facility] [place] Comment on above: Performed By: #### R PCUR #### [address] [address] UA pH 6.0 Normal 5.0 - 8.0 [facility] [place] Comment on above: Performed By: #### R PCUR #### [address] [address] UA Protein 30 mg/dL Normal Negative [facility] [place] Comment on above: Performed By: #### R PCUR #### [address] [address] UA Spec Grav >=1.030 Abnormal 1.015-1.025 [facility] [place] Comment on above: Performed By: #### R PCUR #### [address] [address] UA Specimen Type Clean Catch Normal [facility] [place] Comment on above: Performed By: #### R PCUR #### [address] [address] UA Urobilinogen 0.2 E.U./dL Normal 0.2-1.0 [facility] [place] Comment on above: Performed By: #### R PCUR #### [address] [address] Urobilinogen (U) [Mass/Vol] Negative Normal Negative [facility] [place] Comment on above: Performed By: #### R PCUR #### [address] [address] URICon 05-25-2023 Uric Acid Lvl 5.3 mg/dL Normal 2.6-6.2 [facility] [place] Comment on above: Performed By: #### R PCUR #### [address] [address] GBSPCRon 04-22-2023 Group B Strep (PCR) Negative Normal Negative [facility] ([place] Comment on above: Performed By: #### G LF #### [address] [address] Group B Strep PCR Int Normal [facility] ([place] Comment on above: Result Comment: Grou p B Streptococcus DNA not detected by real-time PCR. A negative result does not rule out the possibility of Group B streptococcus. Assay should be used as an adjunct to clinical observations and other information available to the physician. The test is not intended to differentiate carriers of Group B streptococcus from those with streptococcal disease. See Below Performed By: #### G LF #### [address] [address] LABORATORYOrdered By: Vidya Berumen on 04-20-2023 Group B Strep PCR Int Group B Streptococ cus DNA not detected by real-time PCR. A negative result does not rule out the possibility of Group B streptococcus. Assay should be used as an adjunct to clinical observations and other information available to the physician. The test is not intended to differentiate carriers of Group B streptococcus from those with streptococcal disease. Invalid Interpretation Code AO Auto Urine SS S. agalactiae DNA GLEN+probe Ql (Unsp spec) Negative *NA* (04/20/23 10:35 AM) Invalid Interpretation Code Negative AO Auto Urine SS GL1on 03-05-2023 Glucose [Mass/Vol] 179 mg/dL Normal 120-190 [facility] [place] Comment on above: Performed By: #### R PCUR #### [place] [address] GL2on 03-05-2023 Glucose [Mass/Vol] 177 mg/dL High 70-165 [facility] ([place] Comment on above: Performed By: #### R PCUR #### [place] [address] GL3on 03-05-2023 Glucose [Mass/Vol] 135 mg/dL Normal 70-145 [facility]) Comment on above: Performed By: #### G L3 #### [place] [address] GLFon 03-05-2023 Glucose [Mass/Vol] 90 mg/dL Normal 83-110 [facility]) Comment on above: Performed By: #### G LF #### [place] [address] LABORATORYOrdered By: Susi Davis on 03-05-2023 Glucose [Mass/Vol] 135 mg/dL Invalid Interpretation Code 70 - 145 mg/dL AO ADM SS Glucose [Mass/Vol] 177 mg/dL Invalid Interpretation Code 70 - 165 mg/dL AO ADM SS Glucose [Mass/Vol] 179 mg/dL Invalid Interpretation Code 120 - 190 mg/dL AO ADM SS Glucose [Mass/Vol] 90 mg/dL Invalid Interpretation Code 83 - 110 mg/dL AO Chemistry S .Auto Diffon 02-19-2023 Basophil, Absolute 0.0 10 3/mcL Normal 0.0-0.2 [facility] [place] Comment on above: Performed By: #### R PCUR #### [address] [address] Basophils/100 WBC (Bld) 0.2 % Normal 0.0-2.5 A [facility] [place] Comment on above: Performed By: #### R PCUR #### [address] [address] Eosinophil, Absolute 0.1 10 3/mcL Normal 0.0-0.4 [facility] ([place] Comment on above: Performed By: #### R PCUR #### [address] [address] Eosinophils/100 WBC (Bld) 1.0 % Normal 0.0-7.0 [facility] [place] Comment on above: Performed By: #### R PCUR #### [address] [address] Lymphocyte, Absolute 1.2 10 3/mcL Normal 0.8-3.9 [facility] ([place] Comment on above: Performed By: #### R PCUR #### [address] [address] Lymphocytes/100 WBC (Bld) 11.0 % Normal 10.0-50.0 [facility] [place] Comment on above: Performed By: #### R PCUR #### [address] [address] Monocyte, Absolute 0.4 10 3/mcL Normal 0.2-1.0 [facility] [place] Comment on above: Performed By: #### R PCUR #### [address] [address] Monocytes/100 WBC (Bld) 3.6 % Normal 1.7-13.0 A [facility] [place] Comment on above: Performed By: #### R PCUR #### [address] [address] Neutrophils/100 WBC (Bld) 84.2 % High 37.0-80.0 [facility] [place] Comment on above: Performed By: #### R PCUR #### [address] [address] .NEUABSon 02-19-2023 Neutrophil, Absolute 9.6 10 3/mcL High 2.9-6.2 [facility] ([place] Comment on above: Performed By: #### R PCUR #### [place] [address] CBCon 02-19-2023 Erythrocyte distribution width (RBC) [Ratio] 13.3 % Normal 11.5-14.5 [facility] [place] Comment on above: Performed By: #### A DIFF, ANEU, CBC, GLU1P #### [place] [address] Hematocrit (Bld) [Volume fraction] 32.7 % Low 37.0-47.0 [facility] [place] Comment on above: Performed By: #### A DIFF, ANEU, CBC, GLU1P #### [place] [address] Hgb 11.2 G/dL Low 12.0-16.0 [facility] [place] Comment on above: Performed By: #### A DIFF, ANEU, CBC, GLU1P #### [place] [address] MCH (RBC) [Entitic mass] 29.9 pg Normal 27.0-31.2 [facility] ([place] Comment on above: Performed By: #### A DIFF, ANEU, CBC, GLU1P #### [place] [address] MCHC 34.4 G/dL Normal 33.0-37.0 [facility] ([place] Comment on above: Performed By: #### A DIFF, ANEU, CBC, GLU1P #### [place] [address] MCV (RBC) [Entitic vol] 86.9 fL Normal 80.0-94.0 [facility] ([place] Comment on above: Performed By: #### A DIFF, ANEU, CBC, GLU1P #### [address] [address] Platelet 221 10 3/mcL Normal 130-400 [facility] ([place] Comment on above: Performed By: #### A DIFF, ANEU, CBC, GLU1P #### [address] [address] Platelet mean volume (Bld) [Entitic vol] 8.4 fL Normal 7.4-10.4 [facility] ([place] Comment on above: Performed By: #### A DIFF, ANEU, CBC, GLU1P #### [address] [address] RBC 3.76 10 6/mcL Low 4.20-5.40 [facility] ([place] Comment on above: Performed By: #### A DIFF, ANEU, CBC, GLU1P #### [address] [address] WBC 11.4 10 3/mcL High 4.6-10.8 [facility] ([place] Comment on above: Performed By: #### A DIFF, ANEU, CBC, GLU1P #### [address] [address] [id number] 02-19-2023 Glucose [Mass/Vol] 149 mg/dL High 70-140 Formerly [facility] ([place] Comment on above: Performed By: #### R PCUR #### [address] [address] LABORATORYOrdered By: SYSTEM SYSTEM on 02-19-2023 Basophil, Absolute 0.0 103/mcL Invalid Interpretation Code 0.0 - 0.2 10^3/mcL AO Workflow SS Basophils/100 WBC (Bld) 0.2 % Invalid Interpretation Code 0.0 - 2.5 % AO Workflow SS Eosinophil, Absolute 0.1 103/mcL Invalid Interpretation Code 0.0 - 0.4 10^3/mcL AO Workflow SS Eosinophils/100 WBC (Bld) 1.0 % Invalid Interpretation Code 0.0 - 7.0 % AO Workflow SS Erythrocyte distribution width (RBC) [Ratio] 13.3 % Invalid Interpretation Code 11.5 - 14.5 % AO Workflow SS Glucose [Mass/Vol] 149 mg/dL Invalid Interpretation Code 70 - 140 mg/dL AO ADM SS Hematocrit (Bld) [Volume fraction] 32.7 % Invalid Interpretation Code 37.0 - 47.0 % AO Workflow SS Hemoglobin (Bld) [Mass/Vol] 11.2 G/dL Invalid Interpretation Code 12.0 - 16.0 G/dL AO Workflow SS Lymphocyte, Absolute 1.2 103/mcL Invalid Interpretation Code 0.8 - 3.9 10^3/mcL AO Workflow SS Lymphocytes/100 WBC (Bld) 11.0 % Invalid Interpretation Code 10.0 - 50.0 % AO Workflow SS MCH (RBC) [Entitic mass] 29.9 pg Invalid Interpretation Code 27.0 - 31.2 pg AO Workflow SS MCHC 34.4 G/dL Invalid Interpretation Code 33.0 - 37.0 G/dL AO Workflow SS MCV (RBC) [Entitic vol] 86.9 fL Invalid Interpretation Code 80.0 - 94.0 fL AO Workflow SS Monocyte, Absolute 0.4 103/mcL Invalid Interpretation Code 0.2 - 1.0 10^3/mcL AO Workflow SS Monocytes/100 WBC (Bld) 3.6 % Invalid Interpretation Code 1.7 - 13.0 % AO Workflow SS Neutrophil, Absolute 9.6 103/mcL Invalid Interpretation Code 2.9 - 6.2 10^3/mcL AO Workflow SS Neutrophils/100 WBC (Bld) 84.2 % Invalid Interpretation Code 37.0 - 80.0 % AO Workflow SS Platelet mean volume (Bld) [Entitic vol] 8.4 fL Invalid Interpretation Code 7.4 - 10.4 fL AO Workflow SS Platelets (Bld) [#/Vol] 221 103/mcL Invalid Interpretation Code 130 - 400 10^3/mcL AO Workflow SS RBC (Bld) [#/Vol] 3.76 106/mcL Invalid Interpretation Code 4.20 - 5.40 10^6/mcL AO Workflow SS WBC (Bld) [#/Vol] 11.4 103/mcL Invalid Interpretation Code 4.6 - 10.8 10^3/mcL AO Workflow SS LABORATORYOrdered By: Jossue Bautista on 10-13-2022 C. trachomatis DNA GLEN+probe Ql (Unsp spec) Negative (10/13/22 4:28 PM) Invalid Interpretation Code Negative Auto Viro/Sero SS C. trachomatis DNA GLEN+probe Ql (Unsp spec) C. trachomatis DNA not detected. Specimen is presumptive negative forC. trachomatis.A negative result does not preclude C. trachomatis infection becauseresults depend on adequate specimen collection, absence of inhibitors,and sufficient DNA to be detected. Invalid Interpretation Code See CT Interp N AH Auto Viro/Sero SS N. gonorrhoeae DNA GLEN+probe Ql (Unsp spec) Negative (10/13/22 4:28 PM) Invalid Interpretation Code Negative AH Auto Viro/Sero SS N. gonorrhoeae DNA GLEN+probe Ql (Unsp spec) N. gonorrhoeae DNA not detected. Specimen is presumptive negative forN. gonorrhoeae. A negative result does not preclude Neisseria gonorrhoeaeinfection because results depend on adequate specimen collection, absenceof inhibitors, and sufficient DNA to be detected. Invalid Interpretation Code See NG Interp N Auto Viro/Sero SS Laboratory - Specimen inform ationOrdered By: Jossue Bautista on 10-13-2022 Specimen source Nom (Unsp spec) Cervix (10/13/22 4:28 PM) Invalid Interpretation Code AH Auto Viro/Sero SS LABORATORYOrdered By: Fauzia Alas on 02-13-2022 Albumin BCP dye [Mass/Vol] 4.0 G/dL Invalid Interpretation Code 3.5 - 5.0 G/dL AO ADM SS Albumin/Globulin [Mass ratio] 1.2 {ratio} Invalid Interpretation Code 1.1 - 2.5 ratio AO ADM SS ALP [Catalytic activity/Vol] 63 U/L Invalid Interpretation Code 40 - 135 U/L AO ADM SS ALT With P-5'-P [Catalytic activity/Vol] 22 U/L Invalid Interpretation Code 14 - 59 U/L AO ADM SS AST With P-5'-P [Catalytic activity/Vol] 17 U/L Invalid Interpretation Code 10 - 40 U/L AO ADM SS Bilirubin [Mass/Vol] 0.4 mg/dL Invalid Interpretation Code 0.2 - 1.0 mg/dL AO ADM SS Calcium [Mass/Vol] 9.1 mg/dL Invalid Interpretation Code 8.4 - 10.2 mg/dL AO ADM SS Chloride [Moles/Vol] 106 mmol/L Invalid Interpretation Code 98 - 107 mmol/L AO ADM SS Cholesterol [Mass/Vol] 196 mg/dL Invalid Interpretation Code 0 - 200 mg/dL AO ADM SS Cholesterol in HDL [Mass/Vol] 70 mg/dL Invalid Interpretation Code 40 - 60 mg/dL AO ADM SS Cholesterol in LDL [Mass/Vol] 114 mg/dL Invalid Interpretation Code 0 - 130 mg/dL AO ADM SS CO2 [Moles/Vol] 28 mmol/L Invalid Interpretation Code 22 - 29 mmol/L AO ADM SS Creatinine [Mass/Vol] 0.84 mg/dL Invalid Interpretation Code 0.55 - 1.02 mg/dL AO ADM SS Electrolyte Balance 8.0 mEq/L Invalid Interpretation Code 4.0 - 15.0 mEq/L AO ADM SS Ferritin [Mass/Vol] 65.0 ng/mL Invalid Interpretation Code 8.0 - 252.0 ng/mL AO ADM SS Free T4 [Mass/Vol] 1.10 ng/dL Invalid Interpretation Code 0.76 - 1.46 ng/dL AO ADM SS Globulin 3.4 G/dL Invalid Interpretation Code AO ADM SS Glucose [Mass/Vol] 95 mg/dL Invalid Interpretation Code 70 - 105 mg/dL AO ADM SS Potassium [Moles/Vol] 4.1 mmol/L Invalid Interpretation Code 3.5 - 5.1 mmol/L AO ADM SS Protein [Mass/Vol] 7.4 G/dL Invalid Interpretation Code 6.4 - 8.2 G/dL AO ADM SS Sodium [Moles/Vol] 142 mmol/L Invalid Interpretation Code 136 - 145 mmol/L AO ADM SS Triglyceride [Mass/Vol] 60 mg/dL Invalid Interpretation Code 0 - 150 mg/dL AO ADM SS TSH Qn 2.17 m[IU]/L Invalid Interpretation Code 0.36 - 3.74 mcIU/mL AO ADM SS Urea nitrogen [Mass/Vol] 8 mg/dL Invalid Interpretation Code 7 - 18 mg/dL AO ADM SS Urea nitrogen/Creatinine [Mass ratio] 10 ratio Invalid Interpretation Code 7 - 27 ratio AO ADM SS Vit. D 25-Hydroxy 42.0 ng/mL Invalid Interpretation Code AO ADM SS LABORATORYOrdered By: Ivette Gallegos on 02-13-2022 Basophil, Absolute 0.0 103/mcL Invalid Interpretation Code 0.0 - 0.2 10^3/mcL AO Workflow SS Basophils/100 WBC (Bld) 0.2 % Invalid Interpretation Code 0.0 - 2.5 % AO Workflow SS Eosinophil, Absolute 0.2 103/mcL Invalid Interpretation Code 0.0 - 0.4 10^3/mcL AO Workflow SS Eosinophils/100 WBC (Bld) 1.8 % Invalid Interpretation Code 0.0 - 7.0 % AO Workflow SS Erythrocyte distribution width (RBC) [Ratio] 13.2 % Invalid Interpretation Code 11.5 - 14.5 % AO Workflow SS Hematocrit (Bld) [Volume fraction] 38.7 % Invalid Interpretation Code 37.0 - 47.0 % AO Workflow SS Hemoglobin (Bld) [Mass/Vol] 13.3 G/dL Invalid Interpretation Code 12.0 - 16.0 G/dL AO Workflow SS Lymphocyte, Absolute 1.8 103/mcL Invalid Interpretation Code 0.8 - 3.9 10^3/mcL AO Workflow SS Lymphocytes/100 WBC (Bld) 22.2 % Invalid Interpretation Code 10.0 - 50.0 % AO Workflow SS MCH (RBC) [Entitic mass] 29.1 pg Invalid Interpretation Code 27.0 - 31.2 pg AO Workflow SS MCHC 34.4 G/dL Invalid Interpretation Code 33.0 - 37.0 G/dL AO Workflow SS MCV (RBC) [Entitic vol] 84.7 fL Invalid Interpretation Code 80.0 - 94.0 fL AO Workflow SS Monocyte, Absolute 0.4 103/mcL Invalid Interpretation Code 0.2 - 1.0 10^3/mcL AO Workflow SS Monocytes/100 WBC (Bld) 4.8 % Invalid Interpretation Code 1.7 - 13.0 % AO Workflow SS Neutrophil, Absolute 5.9 103/mcL Invalid Interpretation Code 2.9 - 6.2 10^3/mcL AO Workflow SS Neutrophils/100 WBC (Bld) 71.0 % Invalid Interpretation Code 37.0 - 80.0 % AO Workflow SS Platelet mean volume (Bld) [Entitic vol] 8.3 fL Invalid Interpretation Code 7.4 - 10.4 fL AO Workflow SS Platelets (Bld) [#/Vol] 251 103/mcL Invalid Interpretation Code 130 - 400 10^3/mcL AO Workflow SS RBC (Bld) [#/Vol] 4.57 106/mcL Invalid Interpretation Code 4.20 - 5.40 10^6/mcL AO Workflow SS WBC 8.3 103/mcL Invalid Interpretation Code 4.6 - 10.8 10^3/mcL AO Workflow SS LABORATORYOrdered By: SYSTEM SYSTEM on 02-13-2022 GFR 99 ml/min/1.73sqm Invalid Interpretation Code AO Chemistry S GFR Non- 81 ml/min/1.73sqm Invalid Interpretation Code AO Chemistry S Monocyte distribution width Auto (Bld) [Entitic vol] Not Performed 1 *NA* (02/13/22 9:06 AM) Invalid Interpretation Code 0.00 - 20.00 AO Hematology S Comment on above: Result Comment: MDW testing performed only on adult ER patients between the ages of 18-89 years. Testosterone [Mass/Vol] 25.47 ng/dL Invalid Interpretation Code AH ADM SS LABORATORYOrdered By: Regina Palacios on 12-23-2021 Calcium [Mass/Vol] 10.1 mg/dL Invalid Interpretation Code 8.4 - 10.2 mg/dL AO ADM SS Chloride [Moles/Vol] 102 mmol/L Invalid Interpretation Code 98 - 107 mmol/L AO ADM SS CO2 [Moles/Vol] 27 mmol/L Invalid Interpretation Code 22 - 29 mmol/L AO ADM SS Creatinine [Mass/Vol] 0.99 mg/dL Invalid Interpretation Code 0.55 - 1.02 mg/dL AO ADM SS Electrolyte Balance 12.0 mEq/L Invalid Interpretation Code 4.0 - 15.0 mEq/L AO ADM SS Glucose [Mass/Vol] 111 mg/dL Invalid Interpretation Code 70 - 105 mg/dL AO ADM SS Potassium [Moles/Vol] 3.7 mmol/L Invalid Interpretation Code 3.5 - 5.1 mmol/L AO ADM SS Sodium [Moles/Vol] 141 mmol/L Invalid Interpretation Code 136 - 145 mmol/L AO ADM SS Urea nitrogen [Mass/Vol] 16 mg/dL Invalid Interpretation Code 7 - 18 mg/dL AO ADM SS Urea nitrogen/Creatinine [Mass ratio] 16 ratio Invalid Interpretation Code 7 - 27 ratio AO ADM SS LABORATORYOrdered By: SYSTEM SYSTEM on 12-23-2021 GFR 82 ml/min/1.73sqm Invalid Interpretation Code AO Chemistry S GFR Non- 68 ml/min/1.73sqm Invalid Interpretation Code AO Chemistry S Dump Attendant Cytology Reporton 2021 Dump Attendant Cytology Report . Pathology Reports Accession: Collected Date/Time: Received Date/Time: Pathologist: [id number] 11/13/2021 15:09 EDT 11/13/2021 18:00 EDT YVONNE OSBORNE MD Dump Attendant Cytology Report SPECIMEN: Specimen Description: Liquid Prep Reflex ASCUS Specimen: Cervical/Endocervical Screening or Diagnostic: Screening RELEVANT HISTORY: LMP: NOT GIVEN SPECIMEN ADEQUACY: SATISFACTORY FOR EVALUATION ENDOCERVICAL/TRANSFORM ATIONAL ZONE COMPONENT PRESENT INTERPRETATION/RESULTS : NEGATIVE FOR INTRAEPITHELIAL LESION OR MALIGNANCY SUGGESTIONS/EDUCATIONA L NOTES: THIS CASE HAS BEEN REVIEWED FOR 10% Q.C. RESCREEN COMMENT: This Pap Test was successfully processed and evaluated with the assistance of the [employer] Thin Prep Test Imaging System. Electronically Signed by Pathology report verified by [facility] Screened by: MICAH BERG Electronically signed by YVONNE OSBORNE Sign-Out Date: 11/19/2021 14:15 Performing Lab: [facility], [address] [place] [address] Disclaimer The Pap test is a screening test for cervical cancer. As evidenced by published data, it is sub ject to both inherent false negative and false positive results. Your patient's results should be interpreted in context with pertinent clinical history including gynecological examination. Normal [facility]ly [facility] ([place] Vital Signs Date Time Vital Sign Value Performing Clinician Franchesca hudson 02-02-2025 10:25-0400 Body height 157.[address] Emilia Goodman MD Work Phone: [facility] 02-02-2025 10:22-0400 Body mass index (BMI) [Ratio] 38.5 kg/m2 Dr. Emilia Goodman MD Work Phone: [facility] 02-02-2025 10:22-0400 Body weight 95.[address] Emilia Goodman MD Work Phone: [facility] 02-02-2025 10:22-0400 Diastolic blood pressure 75 mm[Hg] Dr. Emilia Goodman MD Work Phone: [facility] 02-02-2025 10:22-0400 Systolic blood pressure 112 mm[Hg] Dr. Emilia Goodman MD Work Phone: [facility] 01-10-2025 10:23-0400 Body height 157.48 cm Bobbi Stuart CNM Work Phone: [facility] 01-10-2025 10:23-0400 Body mass index (BMI) [Ratio] 38.3 kg/m2 Bobbi Stuart CNM Work Phone: [facility] 01-10-2025 10:23-0400 Body weight 95.02 kg Bobbi Stuart CNM Work Phone: [facility] 01-10-2025 10:23-0400 Diastolic blood pressure 78 mm[Hg] Bobbi Stuart CNM Work Phone: [facility] 01-10-2025 10:23-0400 Systolic blood pressure 116 mm[Hg] Bobbi Stuart CNM Work Phone: [facility] 12-15-2024 15:30-0400 Body mass index (BMI) [Ratio] 37.5 kg/m2 Bobbi Stuart CNM Work Phone: [facility] 12-15-2024 15:30-0400 Body weight 93.04 kg Bobbi Stuart CNM Work Phone: [facility] 12-15-2024 15:30-0400 Diastolic blood pressure 79 mm[Hg] Bobbi Stuart CNM Work Phone: [facility] 12-15-2024 15:30-0400 Systolic blood pressure 122 mm[Hg] Bobbi Stuart CNM Work Phone: [facility] 11-17-2024 11:15-0400 Body mass index (BMI) [Ratio] 37.1 kg/m2 Bobbi Stuart CNM Work Phone: [facility] 11-17-2024 11:15-0400 Body weight 92.13 kg Bobbi Stuart CNM Work Phone: [facility] 11-17-2024 11:15-0400 Diastolic blood pressure 73 mm[Hg] Bobbi Stuart CNM Work Phone: [facility] 11-17-2024 11:15-0400 Systolic blood pressure 110 mm[Hg] Bobbi Stuart CNM Work Phone: [facility] 10-19-2024 14:58-0400 Body mass index (BMI) [Ratio] 36.3 kg/m2 Bobbi Stuart CNM Work Phone: [facility] 10-19-2024 14:58-0400 Body weight 89.98 kg Bobbi Stuart CNM Work Phone: [facility] 10-19-2024 14:58-0400 Diastolic blood pressure 78 mm[Hg] Bobbi Stuart CNM Work Phone: [facility] 10-19-2024 14:58-0400 Systolic blood pressure 130 mm[Hg] Bobbi Stuart CNM Work Phone: [facility] 09-21-2024 14:35-0500 Body height 157.48 cm Bobbi Stuart CNM Work Phone: [facility] 09-21-2024 14:35-0500 Body mass index (BMI) [Ratio] 36.4 kg/m2 Bobbi Stuart CNM Work Phone: [facility] 09-21-2024 14:35-0500 Body weight 90.43 kg Bobbi Stuart CNM Work Phone: [facility] 09-21-2024 14:35-0500 Diastolic blood pressure 84 mm[Hg] Bobbi Stuart CNM Work Phone: [facility] 09-21-2024 14:35-0500 Systolic blood pressure 132 mm[Hg] Bobbi Stuart CNM Work Phone: [facility] 12-23-2021 20:33-0400 Body temperature 98.24 [degF] DR ELIZABETH CORNEJO DO [facility] 12-23-2021 20:33-0400 Diastolic blood pressure 80 mm[Hg] DR ELIZABETH CORNEJO DO [facility] 12-23-2021 20:33-0400 Heart rate 92 /min DR ELIZABETH CORNEJO DO [facility] 12-23-2021 20:33-0400 Respiratory rate 18 /min DR ELIZABETH CORNEJO DO [facility] 12-23-2021 20:33-0400 Systolic blood pressure 128 mm[Hg] DR ELIZABETH CORNEJO DO [facility] Encounters Encounter Date Encounter Type Care Provider Facility Start: 02-02-2025 End: 02-02-2025 ambulatory Jose Juan Cobian Facility:[facility] Start: 02-02-2025 End: 02-02-[address] Emmy Davis DO -[facility] Work Phone: Start: 01-23-[address] Chen Goodman MD -Physical Therapy Work Phone: Start: 01-23-2025 ambulatory Emilia Sorensen [facility] Start: 01-10-2025 End: 01-10-2025 Patient encounter procedure Azul ARMENDARIZ -[facility] Work Phone: Start: 01-10-2025 End: 01-10-2025 ambulatory Bobbi AQUINO Work Phone: [facility] Work Phone: Start: 12-15-2024 End: 12-15-2024 Patient encounter procedure Bobbi Stuart CNM -[facility] Work Phone: Start: 12-15-2024 End: 12-15-2024 ambulatory Bobbi Stuart Facility:[facility] Start: 11-28-2024 End: 11-28-2024 ambulatory [facility] Start: 11-17-2024 End: 11-17-2024 Patient encounter procedure Bobbi Stuart CNM -[facility] Work Phone: Start: 11-17-2024 End: 11-17-2024 ambulatory Bobbi Stuart Facility:[facility] Start: 10-19-2024 End: 10-19-[address] Emmy Davis DO -[facility] Work Phone: Start: 10-19-2024 End: 10-19-2024 ambulatory Emmy Davis Facility:[facility] Start: 10-03-2024 End: 10-03-2024 ambulatory Bobbi Stuart CNM Work Phone: [facility] Work Phone: Start: 10-03-2024 End: 10-03-2024 Patient encounter procedure Bobbi Stuart CNM -Lab, [facility] Start: 10-03-2024 End: 10-03-2024 ambulatory Bobbi Stuart Facility:[facility] Start: 09-21-2024 End: 09-21-2024 Patient encounter procedure Bobbi Stuart CNM -Laboratory, Specimen Work Phone: Start: 09-21-2024 End: 09-21-2024 Patient encounter procedure Bobbi Stuart CNM -[facility] Work Phone: Start: 09-21-2024 End: 09-21-2024 ambulatory Bobbi Stuart Facility:[facility] Start: 09-21-2024 End: 09-21-2024 ambulatory Bobbi Stuart Facility:[facility] Start: 02-02-2024 End: 02-02-2024 ambulatory JOSE JUAN COBIAN MD Facility:[facility] Start: 02-02-2024 End: 02-02-2024 Patient encounter procedure JOSE JUAN COBIAN MD [facility] Start: 02-02-2024 End: 02-02-2024 Well adult monitoring check done JOSE JUAN COBIAN MD [facility] Start: 05-25-2023 End: 05-28-2023 Evaluation and management of inpatient CAROLYN SCOTT Facility:[facility] Start: 05-24-2023 End: 05-24-2023 ambulatory JOSE JUAN COBIAN MD Facility:[facility] Start: 05-24-2023 End: 05-24-2023 Patient encounter procedure FRANKY VILLAFANA MD [facility] Start: 05-10-2023 End: 05-10-2023 ambulatory JOSE JUAN COBIAN MD Facility:[facility] Start: 05-10-2023 End: 05-10-2023 Patient encounter procedure FRANKY VILLAFANA MD [facility] Start: 04-20-2023 End: 04-24-2023 ambulatory JOSE JUAN COBIAN MD Facility:[facility] Start: 04-20-2023 End: 04-24-2023 Outreach Lab CAROLYN CHAVEZ MD [facility] Start: 03-05-2023 End: 03-05-2023 ambulatory JOSE JUAN COBIAN MD Facility:[facility] Start: 03-05-2023 End: 03-05-2023 Patient encounter procedure FRANKY VILLAFANA MD [facility] Start: 02-19-2023 End: 02-19-2023 ambulatory JOSE JUAN COBIAN MD Facility:[facility] Start: 02-19-2023 End: 02-19-2023 Patient encounter procedure FRANKY VILLAFANA MD [facility] Start: 12-14-2022 End: 12-14-2022 Patient encounter procedure FRANKY VILLAFANA MD [facility] Start: 12-04-2022 End: 12-04-2022 Patient encounter procedure FRANKY VILLAFANA MD [facility] Start: 10-27-2022 End: 10-27-2022 Patient encounter procedure VIKTORIA LEGER POTATO PEELER-ASSOCIATE PRODUCT INTEGRITY ENGINEER [facility] Start: 10-13-2022 End: 10-17-2022 Outreach Lab VIKTORIA LEGER POTATO PEELER-ASSOCIATE PRODUCT INTEGRITY ENGINEER [facility] Start: 02-13-2022 End: 02-13-2022 Patient encounter procedure JOSE JUAN COBIAN MD [facility] Start: 12-23-2021 End: 12-23-2021 Emergency department patient visit DR ELIZABETH CORNEJO DO [facility] Procedures Date Procedure Procedure Detail Performing Clinician Start: 10-03-2024 Hepatitis C antibody measurement Bobbi Narciso [facility] Work Phone: Comment on above: Reactive: Presumptiv e evidence of antibodies to HCV. Follow CDC recommendations for supplemental testing.Non-Reactive: Antibodies to HCV were not detected; does not exclude the possibility of exposure to HCVReactive Results are presumptive evidence of antibodies to HCV. Follow CDC recommendations for supplemental testing.Order confirmation testing: HCV Quant by PCR testing - HCVPCR #[id number] Non Reactive: < 0.8 Equivocal: >/= 0.8 to < 1.0 Reactive: >/= 1.0The CDC requires that a reactive/equivocal HCV antibody result be sent out for confirmation. HCV Quant by PCR testing. Start: 10-03-2024 Rubella IgG measurement Bobbi Stuart [facility] Work Phone: Comment on above: Antibody Result: Int erpretationNon-Reactive: Non- ImmuneReactive: ImmuneThe following results were obtained with the [employer] Rubella IgG assay. Results from assays of other manufacturers cannot be used interchangeably. Start: 10-03-2024 Procedure Bobbi cummins [facility] Work Phone: Start: 09-21-2024 Urine culture Bobbi back CN Work Phone: Start: 05-25-2023 section JOSE JUAN COBIAN MD H/O: section Hx of cesa rean section Bobbi Stuart [facility] Work Phone: Comment on above: brow presentation (F TP),*interested in -records requested brow presentation (F TP),*interested in -records requested. pt states that her surgeon told her that her scar is high and can not but records are pending. H/O: section Hx of cesa rean section Bobbi Sturat CNM H/O: section Hx of cesa rean section Dr. Emym Davis DO H/O: section Hx of cesa rean section Bobbi Stuart CNM H/O: section Hx of cesa rean section Bobbi Stuart CNM H/O: section Hx of cesa rean section Azul Sheehan TIMBER REPAIRER-C H/O: section Hx of cesa rean section Dr. Emmy Davis DO Structure of wisdom tooth (body structure) VIKTORIA LEGER APRN-ASSOCIATE PRODUCT INTEGRITY ENGINEER Plan of Treatment Date Care Activity Detail Author Start: 02-02-2025 CBC W Auto Different ial panel - Blood [facility] Start: 02-02-2025 Measurement of gluco se 2 hours after glucose challenge for glucose tolerance test [facility] Start: 02-02-2025 Serologic test for syphilis [facility] Start: 02-02-2025 [facility] CBC W Auto Different ial panel - Blood [facility] Erythrocyte mean cor puscular volume determination [facility] Hematocrit [Volume F raction] of Blood [facility] Hemoglobin [Mass/volume] in Blood [facility] Leukocytes [#/volume] in Blood [facility] Mean corpuscular hem oglobin concentration determination [facility] Mean corpuscular hem oglobin determination [facility] Measurement of gluco se 2 hours after glucose challenge for glucose tolerance test [facility] Neutrophil count [facility] Neutrophil percent d ifferential count [facility] Platelets [#/volume] in Blood [facility] Red blood cell count [facility] Red cell distributio n width determination [facility] Serologic test for syphilis [facility] Immunizations Immunization Date Immunization Notes Care Provider Fa che 04-13-2023 tetanus toxoid, redu roly diphtheria toxoid, and acellular pertussis vaccine, adsorbed; Translations: [Boostrix (Tdap)] CAROLYN CHAVEZ MD [facility] Comment on above: Early/Late Reason: E mino/Late Reason: Other : nurse unable to chart at time of injection Result Comment: [facility] # [id number] Payers Date Payer Category Payer Self-pay 2022 Unknown [id number] 1995 Unknown [id number] 2.16.8 [id number]. 1995 Unknown [id number] 2.16.8 [id number]. 1995 Unknown [id number] 2.16.8 [id number]. 1995 Unknown [id number] 2.16.8 [id number]. 1995 Unknown [id number] 2.16.8 [id number]. 1995 Unknown [id number] 2.16.8 [id number]. 1995 Unknown [id number] 2.16.8 40.1.914866.3.579.2. 1995 Unknown [id number] 2.16. [id number] Unknown [id number] 2.16.8 [id number] Unknown [id number] 2.16.8 [id number] Unknown [id number] 2.16.8 [id number] Unknown [id number] 2.16.8 [id number] Unknown [id number] 2.16.8 [id number] Unknown [id number] 2.16.8 [id number] Unknown [id number] 2.16.8 [id number] Unknown [id number] 2.16.8 [id number] Unknown [id number] 2.16.8 [id number] Social History Date Type Detail Facility Start: 09-03-2021 End: 09-08-2024 Tobacco smoking status Never smoked tobacco (finding) [facility] Start: 1995 Sex Assigned At Female A [facility] Start: 10-17-2024 Sex Female (finding) [facility] Mental Status Date Assessment Result Facility 12-23-2021 Mental Status [facility] 12-23-2021 Mental Status [facility] Clinical Notes 12-23-2021 to 02-02-2025 Note Date & Type Note Facility 02-02-2025 Progress note [facility] 10-19-2024 Evaluation note Diagnosis Onset Date Resolution GBS (group B streptococcus) UTI complicating acute October 2:51pm Hx of section acute [facility] 2024 2:51pm Obesity affecting acute October 19, 2024 2:51pm acute October 19 2:51pm Supervision of normal acute October 19, 2024 2:51pm GBS (group B streptococcus) UTI complicating acute November 11:01am Hx of section acute Ap ril 2024 11:01am Obesity affecting acute November 17, 2024 11:01am acute November 17 11:01am Supervision of normal acute November 17, 2024 11:01am GBS (group B streptococcus) UTI complicating acute December 15, 2024 3:23pm Hx of section acute Ma y 2024 3:23pm Obesity affecting acute December 15, 2024 3: 23pm acute December 15, 2024 3:23pm Supervision of normal acute December 15, 2024 3: 23pm GBS (group B streptococcus) UTI complicating acute January 10, 2025 10:19am Hx of section acute 2024 10:19am Low back pain during acute January 10, 2025 10:19am Obesity affecting acute January 10, 2025 10:19am acute January 10, 2025 10:19am Sciatica acute January 10, 2025 10:19am Supervision of normal acute January 10, 2025 10:19am GBS (group B streptococcus) UTI complicating acute January 10:10am Hx of section acute [facility] 2024 10:10am Low back pain during acute February 02, 2025 10:10am Obesity affecting acute February 02, 2025 10:10am acute February 02 10:10am Sciatica acute February 02 10:10am Supervision of normal acute February 02, 2025 10:10am [facility] Work Phone: 1(680) 955-215602-13-2025 Evaluation note* Diagnosis Onset Date Resolution Status Admit Date Hx of section acute [facility] 2024 2:29pm Obesity affecting acute September 21, 2024 2:29pm acute September 21, 2024 2:29pm Supervision of normal acute September 21, 2 025 2:29pm [facility] Work Phone: 1(295) 792-475102-13-2025 Evaluation note* Diagnosis Onset Date Resolution Status Admit Date Hx of section acute [facility] 2024 2:29pm Obesity affecting acute September 21, 2024 2:29pm acute September 21, 2024 2:29pm Supervision of normal acute September 21, 2 025 2:29pm GBS (group B streptococcus) UTI complicating acute October 19, 2024 2:51pm Hx of section acute [facility] 2024 2:51pm Obesity affecting acute October 19, 2024 2:51pm acute October 19 2:51pm Supervision of normal acute October 19, 2024 2:51pm GBS (group B streptococcus) UTI complicating acute November 17, 2024 11:01am Hx of section acute Ap 2024 11:01am Obesity affecting acute November 17, 2024 11:01am acute November 17 11:01am Supervision of normal acute November 17, 2024 11:01am GBS (group B streptococcus) UTI complicating acute December 152024 3:23pm Hx of section acute Ma 2024 3:23pm Obesity affecting acute December 15, 2024 3:23pm acute December 15, 2024 3:23pm Supervision of normal acute December 15, 2024 3: 23pm GBS (group B streptococcus) UTI complicating acute January 10, 2025 10:19am Hx of section acute Ju 2024 10:19am Low back pain during acute January 10, 2025 10:19am Obesity affecting acute January 10, 2025 10:19am acute January 10, 2025 10:19am Sciatica acute January 10, 2025 10:19am Supervision of normal acute January 10, 2025 1 0:19am [facility] Work Phone: 1(927) 979-908206-26-2024 Evaluation + Plan note Diagnostic Tests Pending * DHEA, Serum 02/02/24 Future Scheduled Tests Laboratory* Urine Culture 06/02/23 [facility] 05-17-2022 Hospital Discharge instructions Patient Education 12/23/2021 20:57:21 Causes of Syncope Causes of Syncope Syncope (fainting) has many causes. Sometimes it's not serious. In other cases, it's a sign of a heart problem. But treatment can help When syncope is not serious Most causes of syncope are not serious and may include: Strong feelings, such as anxiety or fear. A nerve signal may briefly change your heart rate and lower your blood pressure too much. Standing for too long. Standing may cause blood to pool in your legs. When this happens, your brainmay not get all the blood it needs. Standing up too fast. Your blood pressure may not adjust fast enough to changes in posture and may drop too low. Certain medicines can also cause this problem. Examples of medicines that can cause a drop in blood pressure include diuretics, blood pressure medicines, and medicines for chest pain. Reaction to normal body functions. When you go to the bathroom, have gastrointestinal discomfort, nausea, or pain, your heart may have a natural reflex to slow down and lower blood pressure. This canresult in syncope. This may also follow exercise, eating, laughter, weight lifting, or playing musical instruments like the trumpet or trombone. When heart trouble causes syncope A heart problem can lower the amount of oxygen-rich blood that gets to the brain. Heart trouble canbe serious and even life threatening if not treated: A slow heart rate. Electrical signals tell the chambers of the heart when to pump. But the signals may be slowed or blocked (heart block) as they travel on the heart s electrical pathways. This can be caused by aging, scarred heart tissue, or damage from heart disease. When the heart rate slows, not enough blood is pumped. A fast heart rate. Some things can make the heart race. For instance, a heart attack can create abnormal electrical signals. These signals can make the heart suddenly beat very fast. The heart pumps before the chambers can fill with blood. So less blood gets to the brain and other parts of the body. Illegal drugs, certain medicines, heart disease, or an inherited condition can also cause this. A heart valve problem. Blood travels through the chambers of the heart as it pumps. Heart valves open and close to help move blood in the right direction. But a hardened or scarred valve may not openor close fully. As a result, less blood is pumped through the heart to the brain and body. Most often, syncope occurs when a person's aortic valve is narrowed and he or she does strenuous activity. A heart muscle problem. Some people develop a thickened heart muscle that blocks blood flow out of the heart to the body. This is called hypertrophic cardiomyopathy. Being dehydrated and having this condition can raise the risk for syncope. Whatever the cause of syncope, it's important to see your healthcare provider. You may need to be seen by a divorce attorney, neurologist, or an ear, nose, and throat specialist. Don't drive, operate heavy machinery, or do activities in which you could fall and injure yourself if you have syncope and have not been evaluated. 2547-2327 [employer]. [address] [place] [address]. All rights reserved. This information is not intended as a substitute for professional medical care. Always follow yourhealthcare professional's instructions. Follow Up Care 12/23/2021 20:29:40 With:LUIGI MCINTOSH DO Address: [address] [facility] [place] [address] [phone] When:2-4 days With:JOSE JUAN COBIAN MD Address: [address] [facility] [place] [address]- When:2-4 days [facility] Evaluation + Plan note No data available for this section [facility] Evaluation + Plan note Future Appointments Appointment Date:11/10/2022 03:15:00 PM Scheduled Provider:VIKTORIA LEGER Location:[facility]ointment Type:[facility] OB Routine Follow Up Future Scheduled Tests Laboratory* Antibody Screen Gel 10/13/22 * ABO/Rh Gel 10/13/22 * Hepatitis B Surface Antigen 10/13/22 * Rapid Plasma Reagin Test 10/13/22 * Rubella Antibody 10/13/22 * Urine Culture 10/13/22 * Toxicology Screen (AO) 10/13/22 * Complete Blood Count 10/13/22 * Hepatitis C Antibody IgG 10/13/22 * HIV 1/2 Ab 10/13/22 * Varicella Zoster Antibody 10/13/22 * [facility] Send out (Blood Specimens) 10/13/22 [facility] Evaluation + Plan note Future Appointments Appointment Date:11/05/2022 03:30:00 PM Scheduled Provider:VIKTORIA LEGER Location:[facility] Appointment Type:[facility] OB Routine Follow Up Future Scheduled Tests Laboratory* [facility] Send out (Blood Specimens) 10/13/22 [facility] Evaluation + Plan note Future Appointments Appointment Date:12/18/2022 10:00:00 AM Scheduled Provider: Location:[facility] Appointment Type:US OB > 14 wks Appointment Date:01/01/2023 10:45:00 AM Scheduled Provider:FRANKY VILLAFANA MD Location:[facility] Appointment Type: OV OB Routine Follow Up Future Scheduled Tests Laboratory* [facility] Lab Send out (Blood Specimens) 12/04/22 * [facility] Lab Send out (Blood Specimens) 10/13/22 Radiology* US OB > 14 weeks 12/18/22 [facility] Evaluation + Plan note Future Appointments Appointment Date:03/02/2023 09:15:00 AM Scheduled Provider:FRANKY VILLAFANA MD Location:[facility] Appointment Type[facility] OB Routine Follow Up Future Scheduled Tests Laboratory* [facility] Lab Send out (Blood Specimens) 12/04/22 * [facility] Lab Send out (Blood Specimens) 10/13/22 [facility] Evaluation + Plan note Future Appointments Appointment Date:03/16/2023 08:30:00 AM Scheduled Provider:FRANKY VILLAFANA MD Location:[facility] Appointment Type:[facility] OB Routine Follow Up Future Scheduled Tests Laboratory* Glucose Tolerance Test 3 Hour (AO) 02/22/23 * [facility] Lab Send out (Blood Specimens) 12/04/22 * [facility] Lab Send out (Blood Specimens) 10/13/22 [facility] Evaluation + Plan note Future Appointments Appointment Date:04/27/2023 09:15:00 AM Scheduled Provider:CAROLYN CHAVEZ MD Location:[facility] Appointment Type: OV OB Routine Follow Up [facility] Evaluation + Plan note Future Appointments Appointment Date:05/11/2023 09:15:00 AM Scheduled Provider:FRANKY VILLAFANA MD Location:[facility] Appointment Type: OV OB Routine Follow Up [facility] Evaluation + Plan note Future Appointments Appointment Date:05/25/2023 08:30:00 AM Scheduled Provider:CAROLYN CHAVEZ MD Location:[facility] Appointment Type: OV OB Routine Follow Up [facility] Discharge instructions No data available for this section [facility] Progress note No data available for this section [facility] [place] note Author Emmy Carmona [facility] Note Date/Time February 02, 2025 11:[address] [place] [address] System [facility] [address], [address] [place] [address] OFFICE VISIT Date of Service: 02/02/25 MR#: [id number] Acct: [id number] Name: FELIPE PATRICK Rep #: [id number] : 1995 Provider: Dr. Moriah Davis, Age/Sex: 29/F Location: [facility] Status: Signed Intake Vital Signs 11/17/24 11:15 01/10/25 10:23 02/02/25 10:22 02/02/25 10:25 Height 5 ft 2 in 5 ft 2 in 5 ft 2 in 5 ft 2 in Weight: 211 lb BMI 38.5 BP 112/75 Intake Visit Reasons: 28wk ob/glucose Architectural Associate Required: No Is patient in pain?: No Allergies house dust Allergy (Mild, Verified 02/02/25 10:22) Other mold (mold spores) Allergy (Mild, Verified 02/02/25 10:22) Other Environmental Allergies: Uncoded Allergy (Verified 02/02/25 10:22) Other Medications ?Medication ?Instructions ?Recorded ?Confirmed ?Type choline 500 mg tablet 500 mg PO DAILY 09/08/24 History multivitamin no.47-iron fum 27 cap PO 09/08/24 5 History mg-folate no.1 1 mg-dha 300 mg capsule (PNV-DHA) omega-3 fatty acids 1,000 mg 500 mg PO QDAY 09/08/24 0 02/02/25 History capsule (Super [place]-3) Last Menstrual Period: 07/20/24 Zika: Zika virus screening: Negative : No PFSH PFSH Medical History Seasonal allergies Surgical History Previous section [place] teeth extracted Family History Grandmother Cancer Paternal skin ca Grandfather Cancer Paternal skin Myocardial infarction Paternal Father Kidney disease, Onset Age: 60 Kidney failure Hypertension High cholesterol Grandmother Cancer Maternal Lung ca Diabetes maternal CHF (congestive heart failure) Maternal Macular degeneration Maternal Grandfather Cancer Maternal stomach ca, skin ca-melanoma Diabetes Maternal CHF (congestive heart failure) Maternal Diverticulitis Maternal Mother Barretts esophagus Cancer basal cell carcinoma Gall bladder disease Fibroid tumor benign Heart palpitations Family history of recurrent miscarriage one baby with ambiguous genitalia Social History adopted: No household members: spouse and children number of children: 1 current occupational status: employed 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 [employer] current occupational exposures/hazards: No pets and animals: Yes (Avoid litterbox) pets and animals: cat(s) and dog(s) history of recent travel: Yes ([place]) out of state: Yes out of country: No sexually active: Yes Smoking Status: Never smoker alcohol intake: current alcohol intake frequency: holidays/special occasions only details: not while substance use type: does not use well-balanced diet: daily or most days caffeine: No eating out: rarely or never during the past year weight has: decreased > 10 lbs what type of physical activity do you participate in: walking frequency: daily duration: 15-30 minutes/day nkechi/advent: [employer] seatbelt use: always do you feel safe at home: Yes additional social history: 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 Date Name GA/Weeks Outcome Route Bth Weight Infant Gen Labor Lgth Anesthesia Del Locatn Provider FOB 05/25/23 Mirella 41 live - full term 8#7.8oz Female epidural Zoe Drake Delivery Date: 05/25/23 Last Updated by: Lizz Baxter failure to progress HPI 28wk ob/glucose Details: FELIPE PATRICK is a 29 year old who presents for routine OB visit. OB Visit PETEY Calculator Estimated Delivery Date Method Current WG Current Estimate 04/26/25 LMP (Certain) 28w 1d Other Estimates 04/28/25 Ultrasound #1 27w 6d Expected Delivery Route/Plan Labor Preferences- CB/BF classes: no labor support person: Vidal labor intervention preferences: [] pain management options preferred: limited intervention cut cord/dad catch: no : yes PP control planned: discussed discussed possible routes of delivery and associated risks: [] special requests: [] Specific Issue/Plans Covid status: [] Flu vaccine: [] Tdap vaccine: [] Rhogam: [] LARC form signed: yes Problem list reviewed and updated with the most current plan of care details and appropriate orders placed. Relevant counseling for the gestational age provided. Continue routine care and follow up unless otherwise noted in visit notes/problem list details Initial Weight: 199 lb Date -?-?-?-?-?-?-?-?-?-?-?-?- EGA Weight BP Urine Prot -?-?-?-?-?-?-?-?-?-?-?-?- Glucose FHR FuHt Pres Dilation -?-?-?-?-?-?-?-?-?-?-?-?- Effaced St Visit Note 09/21/24 -?-?-?-?-?-?-?-?-?-?-?-?- 9w 0d 199 lb 6 oz (+6 oz) 132/84 -?-?-?-?-?-?-?-?-?-?-?-?- 175 -?-?-?-?-?-?-?-?-?-?-?-?- KW- CRL cons wit h dates. accepts NIPT KW- CRL cons with dates. acc epts NIPT. Had C/S at [facility] for FTP- likely brow presentation 10/19/24 -?-?-?-?-?-?-?-?-?-?-?-?- 13w 0d 198 lb 6 oz (-10 oz) 130/78 Negative -?-?-?-?-?-?-?-?-?-?-?-?- Negative 160 -?-?-?-?-?-?-?-?-?-?-?-?- JV- pt states th at her surgeon that did her section told her that she made her incision high and she could not . transfer records do not have the operative note. baby was OP and stuck at 6 cm for only 4 hours. would really like to if possible. 11/17/24 -?-?-?-?-?-?-?-?-?-?-?-?- 17w 1d 203 lb 2 oz (+4 lb 2 oz) 110/73 Negative -?-?-?-?-?-?-?-?-?-?-?-?- Negative 155 -?-?-?-?-?-?-?-?-?-?-?-?- KW- no vb/crampi ng. US on 11/28 KW- no vb/cramping. US on . records from [place] not scanned into system. AFP declined. 12/15/24 -?-?-?-?-?-?-?-?-?-?-?-?- 21w 1d 205 lb 2 oz (+6 lb 2 oz) 122/79 Negative -?-?-?-?-?-?-?-?-?-?-?-?- Negative 145 21 -?-?-?-?-?-?-?-?-?-?--?-?- KW- no vb/crampi ng. records received and was low transverse. US reviewed. 01/10/25 -?-?-?-?-?-?-?-?-?-?-?-?- 24w 6d 209 lb 8 oz (+10 lb 8 oz) 116/78 Negative -?-?-?-?-?-?-?-?-?-?-?-?- Negative 143 25 -?-?-?-?-?-?-?-?-?-?-?-?- MH-No VB, LOF. G ood FM. [facility] 02/02/25 -?-?-?-?-?-?-?-?-?-?-?-?- 28w 1d 211 lb (+12 lb) 112/75 Negative -?-?-?-?-?-?-?-?-?-?-?-?- Negative 153 31 -?-?-?-?-?-?-?-?-?-?-?-?- JV- no lof, vagi nal bleeding, or dec fm. interested in intermittent monitoring, however is a desired tolac. 28 week labs and glucola today. ACOG First Trimester First Trimester: Desire for , Alcohol, Tobacco Cessation, Illicit/Recreational Drug/Substance Use, Intimate Partner Violence, Barriers to care, Anticipated Course of Care, Use of Any medications, Sexual activity, Exercise, Dental Care, Sauna/Hot tub use, Seat Belt use, Childbirth classes/Hospital facilities, Travel, Indications for Ultrasound and Screening for Aneuploidy; Discussed Unstable Housing, Discussed Communication Barriers, Discussed Environmental/Work Hazards, Discussed Toxoplasmosis Precations and Discussed Second Trimester Second Trimester: Signs and Symptoms of Labor, Selecting a care provider, Reproductive Life Planning & Contreception, Care Planning, Depression/Anxiety and Intimate Partner Violence; Discussed Tobacco Cessation Third Trimester Third Trimester: Pain Management Plans, Labor support person(s), Immediate Larc, Signs and Symptoms of Preeclampsia, Feeding No , Foster Education and Family Medical Leave or Disability Forms Results POC Urinalysis 2 Dip (Clinic) Office Urine Glucose Negative Last Edit by Mindy Couch on 02/02/25 10: 28 Office Urine Protein Negative Last Edit by Mindy Couch on 02/02/25 10: 28 Coding Level of Care Code OB Routine Diagnoses Sciatica, unspecified laterality M54.30 Laterality: unspecified laterality Low back pain during in second trimester O26.892; M54.50 Trimester: second trimester Group B Streptococcus urinary tract infection affecting in second trimester O23.42; B95.1 Trimester: second trimester Obesity affecting in second trimester, unspecified obesity type O99.212 Obesity type affecting : unspecified obesity Trimester: second trimester Encounter for supervision of other normal in second trimester Z34.82 Normal : other normal Trimester: second trimester 28 weeks gestation of Z3A.28 Weeks of gestation: 28 weeks Hx of section Z98.891 Assessment and Plan Assessment and Plan (1) Sciatica: Status: Acute Qualifiers: Laterality: unspecified laterality Qualified Code(s): M54.30 - Sciatica, unspecified side (2) Low back pain during : Status: Acute Qualifiers: Trimester: second trimester Qualified Code(s): O26.892 - Other specified related conditions, second trimester; M54.50 - Low back pain, unspecified Comment: PT referral. (3) GBS (group B streptococcus) UTI complicating : Status: Acute Qualifiers: Trimester: second trimester Qualified Code(s): O23.42 - Unspecified infection of urinary tract in , second trimester; B95.1 - Streptococcus, group B, as the cause of diseases classified elsewhere Comment: treat in labor (4) Obesity affecting : Status: Acute Qualifiers: Obesity type affecting : unspecified obesity Trimester: second trimester Qualified Code(s): O99.212 - Obesity complicating , second trimester Comment: HgbA1c (5) Supervision of normal : Status: Acute Qualifiers: Normal : other normal Trimester: second trimester Qualified Code(s): Z34.82 - Encounter for supervision of other normal , second trimester Comment: PRR, , PETEY 04/26/25, LING Vu, Vidal (6) : Status: Acute Qualifiers: Weeks of gestation: 28 weeks Qualified Code(s): Z3A.28 - 28 weeks gestation of Comment: NIPT low risk, carrier neg. , normal anatomy (7) Hx of section: Status: Acute Comment: brow presentation (FTP),*interested in -records requested. pt states that her surgeon told her that her scar is high and can not but records are pending. Orders: Orders POC Urinalysis 2 Dip (Clinic) Today 02/02/25 1110 <Electronically signed by Emmy Roman DO> Date _ Emmy Davis DO Cosigner Signature: Date (if applicable) CC: ~ [facility] Work Phone: Reason for referral (narrative)No reason for referral information availableWParkview [facility] Work Phone: Summary Purpose Family History Relationship Condition Age at Onset Recorded Date/T [place] grandmother Malignant neoplasm Unknown grandfather Malignant neoplasm Unknown Myocardial infarction Unknown father Kidney disorder 60 Hypertension Unknown High blood cholesterol Unknown Diabetes mellitus Unknown Congestive heart failure Unknown Macular degeneration Unknown Diverticulitis Unknown mother Smith's esophagus Unknown Malignant neoplasm Unknown Disorder of gallbladder Unknown Leiomyoma Unknown Palpitations Unknown Family history of recurrent miscarriage U nknown Advance Directives No Advanced Directives Records FoundNo Advanced Directives Records FoundNo Advanced Directives Records FoundNo Advanced Directives Records Found Chief Complaint and Reason for Visit Chief Complaint Admit Date NOB LMP 07/20September 21, 2024 2:29pm Reason for Visit Admit Date Hx of section September 21 2:29pm Obesity affecting September 2:29pm September 21, 2024 2:29pm Supervision of normal September 21, 2024 2:29pm Chief Complaint Admit Date NOB LMP 07/20September 21, 2024 2:29pm 13 wk OB October 19, 2024 2:5 1pm 17 wk ob November 17, 2024 11: 01am 21 WK OB December 15, 2024 3:23pm 25wk ob January 10, 2025 10:19 am Reason for Visit Admit Date Hx of section September 21 2:29pm Obesity affecting September 2:29pm September 21, 2024 2:29pm Supervision of normal September 21, 2024 2:29pm GBS (group B streptococcus) UTI complica ting October 19, 2024 2:51pm Hx of section October 19, 2024 2:51pm Obesity affecting October 19, 2024 2:51pm October 19, 2024 2:5 1pm Supervision of normal October 192024 2:51pm GBS (group B streptococcus) UTI complica ting November 17, 2024 11:01am Hx of section November 17, 2024 11:01am Obesity affecting November 17, 2024 11:01am November 17, 2024 11: 01am Supervision of normal November 172024 11:01am GBS (group B streptococcus) UTI complica ting December 15, 2024 3:23pm Hx of section December 15, 2024 3:2 3pm Obesity affecting December 15 3:23pm December 15, 2024 3:23pm Supervision of normal December 15, 2024 3:23pm GBS (group B streptococcus) UTI complica ting January 10, 2025 10:19am Hx of section January 10, 2025 10 :19am Low back pain during January 10, 2025 10:19am Obesity affecting January 10 10:19am January 10, 2025 10:19 am Sciatica January 10, 2025 10:19 am Supervision of normal January 10:19am Chief Complaint Admit Date 13 wk OB October 19, 2024 2:5 1pm 17 wk ob November 17, 2024 11: 01am 21 WK OB December 15, 2024 3:23pm 25wk ob January 10, 2025 10:19 am LOW BACK PAIN. RX HERE January 23, 2025 8 :38am 28wk ob/glucose February 02, 2025 10:1 0am Reason for Visit Admit Date GBS (group B streptococcus) UTI complica ting October 19, 2024 2:51pm Hx of section October 19, 2024 2:51pm Obesity affecting October 19, 2024 2:51pm October 19, 2024 2:5 1pm Supervision of normal October 192024 2:51pm GBS (group B streptococcus) UTI complica ting November 17, 2024 11:01am Hx of section November 17, 2024 11:01am Obesity affecting November 17, 2024 11:01am November 17, 2024 11: 01am Supervision of normal November 172024 11:01am GBS (group B streptococcus) UTI complica ting December 15, 2024 3:23pm Hx of section December 15, 2024 3:2 3pm Obesity affecting December 15 3:23pm December 15, 2024 3:23pm Supervision of normal December 15, 2024 3:23pm GBS (group B streptococcus) UTI complica ting January 10, 2025 10:19am Hx of section January 10, 2025 10 :19am Low back pain during January 10, 2025 10:19am Obesity affecting January 10 10:19am January 10, 2025 10:19 am Sciatica January 10, 2025 10:19 am Supervision of normal January 10:19am GBS (group B streptococcus) UTI complica ting February 02, 2025 10:10am Hx of section February 02, 2025 1 0:10am Low back pain during January 10:10am Obesity affecting February 02, 025 10:10am February 02, 2025 10:1 0am Sciatica February 02, 2025 10:1 0am Supervision of normal January 10:10am Additional Source Comments INFORMATION SOURCE (unrecogn ized section and content) DATE CREATED AUTHOR 11/25/2021 [facility] ([place]) DATE CREATED AUTHOR AUTHOR'S ORGANIZ ATION 02/11/2024 [facility] ([place] DATE CREATED AUTHOR AUTHOR'S ORGANIZ ATION 12/01/2024 [facility] DATE CREATED AUTHOR AUTHOR'S ORGANIZ ATION 01/27/2025 [facility] Care Team (unrecognized sect ion and content) Team Status: Inactive Member Role Status Dates Bobbi Stuart CNM Attending Provider Active S tart: September 21, 2024 End: September 21, 2024 Team Status: Inactive Member Role Status Dates Bobbi Stuart CNM Attending Provider Active S tart: September 21, 2024 End: September 21, 2024 Bobbi Stuart CNM Referring Provider Active S tart: September 21, 2024 End: September 21, 2024 Team Status: Inactive Member Role Status Dates Bobbi Stuart CNM Attending Provider Active S tart: October 03, 2024 End: October 03, 2024 Bobbi Stuart CNM Referring Provider Active S tart: October 03, 2024 End: October 03, 2024 Team Status: Inactive Member Role Status Dates Dr. Emmy Davis DO Attending Provider Activ e Start: October 19, 2024 End: October 19, 2024 Team Status: Inactive Member Role Status Dates Bobbi Stuart CNM Attending Provider Active S tart: November 17, 2024 End: November 17, 2024 Team Status: Inactive Member Role Status Dates Bobbi Stuart CNM Attending Provider Active S tart: December 15, 2024 End: December 15, 2024 Team Status: Inactive Member Role Status Dates Azul Sheehan TIMBER REPAIRER, TIMBER REPAIRER-C Attending Provider Active Start: January 10, 2025 End: January 10, 2025 Team Status: Active Member Role/Relationship Status Dates Dr. Jose Juan Cobian MD Primary Care Provider Active Team Status: Inactive Member Role/Relationship Status Dates Dr. Emmy Davis DO Attending Provider Activ e Start: October 19, 2024 End: October 19, 2024 Team Status: Inactive Member Role/Relationship Status Dates Bobbi Stuart CNM Attending Provider Active S tart: November 17, 2024 End: November 17, 2024 Team Status: Inactive Member Role/Relationship Status Dates Bobbi Stuart CNM Attending Provider Active S tart: December 15, 2024 End: December 15, 2024 Team Status: Inactive Member Role/Relationship Status Dates Azul Sheehan NP, TIMBER REPAIRER-C Attending Provider Active Start: January 10, 2025 End: January 10, 2025 Team Status: Active Member Role/Relationship Status Dates Dr. Emilia Goodman MD Attending Provider Active Start: January 23, 2025 Dr. Emilia Goodman MD Referring Provider Active Start: January 23, 2025 Dr. Jose Juan Cobian MD Primary Care Provider Active Start: January 23, 2025 Team Status: Inactive Member Role/Relationship Status Dates Dr. Emmy Davis DO Attending Provider Activ e Start: February 02, 2025 End: February 02, 2025 Dr. Jose Juan Cobian MD Primary Care Provider Active Start: February 02, 2025 End: February 02, 2025 Dr. Jose Juan Cobian MD Referring Provider Active Start: February 02, 2025 End: February 02, 2025 Team Status: Active Member Role/Relationship Status Dates Dr. Jose Juan Cobian MD Primary Care Provider Active Start: February 02, 2025 Azul Sheehan TIMBER REPAIRER, TIMBER REPAIRER-C Attending Provider Active Start: February 02, 2025 Azul Sheehan TIMBER REPAIRER, TIMBER REPAIRER-C Referring Provider Active Start: February 02, 2025 Care Team (unrecognized sect ion and content) Care Team Personnel Name: JOSE JUAN COBIAN MD Position: P4 Physician - Primary Care Med Service: Active Provider Member Role: Primary Care Physician Address: Address: [address] [place] [address] Care Team Related Persons Name: PLEASE, ASK Care Team Personnel Name: JOSE JUAN COBIAN MD Position: P4 Physician - Primary Care Member Role: Primary Care Physician Address: Address: [address] [place] [address] Care Team Related Persons Name: AMADA PATRICK Goals (unrecognized section and content) Goals may be documented in a n alternate section FOR RECORDS PERTAINING TO PATIENTS WHO ARE OR HAVE BEEN ENROLLED IN A CHEMICAL DEPENDENCY/SUBSTANCEABUSE PROGRAM, SOME INFORMATION MAY BE OMITTED. This clinical summary was aggregated from multiple sources. Caution should be exercised in using it in the provision of clinical care. This summary normalizes information from multiple sources, and as a consequence, information in this document may materially change the coding, format and clinical context of patient data. In addition, data may be omitted in some cases. CLINICAL DECISIONS SHOULD BE BASED ON THE PRIMARY CLINICAL RECORDS. [facility] [employer] provides no warranty or guarantee of the accuracy or completeness of information in this document.
== END | disposition home or self-care (01) ==
LOC: BWCLAB 10:17
PROVIDERS: PCP Family Medicine; Referring Provider Nurse Practitioner Women's Health; Visit Provider Nurse Practitioner Women's Health
DX: Z34.90 Encounter for supervision of normal pregnancy, unspecified, unspecified trimester (principal); Z13.1 Encounter for screening for diabetes mellitus
CPT/HCPCS: 36415; 82950; 85025; 86703; 86780

== ENCOUNTER → 2025-02-22 | Outpatient (CLI) | payer OTHER, SELFPAY ==
[2025-02-22 10:20] LABS: Glucose GTT-Gestation. Fasting 86 mg/dL (<105)
[2025-02-22 12:31] LABS: Glucose GTT-Gestational 1 Hr 218 mg/dL (<190)
[2025-02-22 13:31] LABS: Glucose GTT-Gestational 2 Hr 241 mg/dL (<165)
[2025-02-22 14:29] LABS: Glucose GTT-Gestational 3 Hr 179 L (<145)
== END | disposition home or self-care (01) ==
LOC: LAB 09:40
PROVIDERS: PCP Family Medicine; Referring Provider Nurse Practitioner Women's Health; Visit Provider Nurse Practitioner Women's Health
DX: Z13.1 Encounter for screening for diabetes mellitus (principal)
CPT/HCPCS: 36415; 82951; 82952

== ENCOUNTER 2025-03-12 08:32 | Outpatient (RCR) | payer OTHER, SELFPAY | END 2025-04-08 23:59 | LOC: NS 08:32 | PROVIDERS: PCP Family Medicine; Referring Provider Obstetrics & Gynecology; Visit Provider Obstetrics & Gynecology | DX: Z71.3 Dietary counseling and surveillance (principal); O24.419 Gestational diabetes mellitus in pregnancy, unspecified control | CPT/HCPCS: 97802 ==

== ENCOUNTER → 2025-03-23 | Outpatient (CLI) | payer OTHER, SELFPAY ==
--- NOTE | 2025-03-23 09:06 | US_ITS ---
PROCEDURE: OB LIMITED WITH BIOMETRICS 03/23/2025 REASON FOR EXAM: GROWTH TECHNIQUE: OB LIMITED WITH BIOMETRICS COMPARISON: None FINDINGS LMP: July 20, 2024. Number: 1 Position: Vertex Placental Position: Anterior and not low-lying. Placental Abnormalities: No evidence of previa. DIMENSIONS: Biparietal Diameter: 8.89 cm: 36 weeks and 0 days: 75.5 percentile/ Head Circumference: 32.94 cm: 37 weeks and 3 days: 74.5 percentile/ Abdominal Circumference: 32.63 cm: 36 weeks and 4 days: 89.5 percentile/ Femur Length: 6.86 cm: 35 weeks and 1 day: 44.6 percentile/ ESTIMATED WEIGHT: 2870 g plus/-432 g ESTIMATED WEIGHT PERCENTILE (24+ weeks): 76.5 ESTIMATED GESTATIONAL AGE: Baseline: 35 weeks and 1 day By Ultrasound: 36 weeks and 2 days ESTIMATED DATE OF DELIVERY: Baseline: April 26, 2025 By Ultrasound: April 18, 2025 BIOPHYSICAL ASSESSMENT: Amniotic Fluid Volume: 4.3 cm 3.3 cm Amniotic Fluid Index: 11 cm (8-24 cm normal range) Cardiac Motion: 142 beats per minute (average) Trunk and Limb Motion: Present. MATERNAL ANATOMY: Adnexa: Neither maternal ovary is successfully identified. Cervical Length (if measured): 5.5 cm US/OB Limited With Biometrics IMPRESSION: Single live intrauterine gestation with a mean gestational age of 36 weeks and 2 days. Reading Location: [place] [id number]
== END | disposition home or self-care (01) ==
LOC: US 09:03
PROVIDERS: PCP Family Medicine; Referring Provider Advanced Practice Midwife; Visit Provider Advanced Practice Midwife
DX: O24.419 Gestational diabetes mellitus in pregnancy, unspecified control (principal); Z3A.36 36 weeks gestation of pregnancy
CPT/HCPCS: 76816

== ENCOUNTER 2025-04-19 10:00 | Outpatient (RCR) | payer OTHER, SELFPAY ==
--- NOTE | 2025-01-23 13:26 | HP.PTEVAL_ITS ---
Patient's Visit Information Visit Information Visit Information: FELIPE PATRICK is a 29 year old F referred to Physical Therapy by Dr. Emilia Goodman MD with a diagnosis of LOW BACK PAIN. Date of Evaluation: 01/23/25 Physical Therapist: Abby Sam, PT, Cert MDT Visit Plan Frequency: 3x /Week Duration: 10-12 WKS Plan: AQUATIC THERAPY 2X'S A WK AND LAND PT ONCE A WK X 10-12 WEEKS FOR BACK AND LE PAIN RELIEF, POSTURE CORRECTION/STRENGTHENING, INSTRUCTION IN APPROPRIATE BODY MECHANICS AND ACTIVITY MODIFICATIONS. DLS STARTING WITH A NEUTRAL SPINE PROGRESSING ROM TOLERATED. HEP INSTRUCTION. 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 Present symptoms: BENJY LOW BACK PAIN, AND BENJY THIGH PAIN USUALLY ONE LEG AT A TIME. Present since: ABOUT 3 TO 4 WEEKS AGO. ALSO HAD THIS DURING FIRST AUG 2022 - MAY 2023. LOW BACK PAIN WENT AWAY IN BETWEEN PREGNANCIES. Pain Scale: WORST 6/10, LEAST 0/10 Currently: 0/10 Is it getting better, worse or staying the same: STAYING THE SAME Commenced as a result of: Symptoms at onset: LOW BACK AND LEG PAIN Worse: PROLONGED STANDING AND WALKING, SLEEPING WITHOUT A PILLOW BETWEEN LEGS Better: CHANGE OF POSITION OR ACTIVITY, SINGLE LEG SQUATS Disturbed sleep: NO Previous history/Previous treatment: NONE Treatment this episode: NONE Coughing/sneezing/straining: NE ON PAIN. Gait: NORMAL Bowel or Bladder Dysfunction: NO Accidents: NO Unexplained weight loss: NO Imaging: NO PMH/Recent major surgery: UNREMARKABLE. 2022 - NORMAL WITHOUT COMPLICATION. OTHER: PATIENT STATES SHE DOES NOT WANT TO BE IN PAIN THE REST OF HER WHILE TRYING TO CARE FOR HER TODDLER. Objective Objective: Sitting/Standing Posture: INCREASED LORDOSIS. ANTERIOR PELVIC TILT. NO RELEVANT LATERAL LUMBAR SHIFT. Active Correction of posture: DECREASES PAIN. Other Observations: INDEP GAIT AND TRANSFERS. Sensory deficit: NO - NORMAL ROM deficit: BENJY LE'S WFL'S. Motor deficit: BENJY LE'S 5/5 Dural Signs: NEGATIVE BENJY LE'S. Lumbar mvmt loss: flex - NIL ext - NIL R SG - NIL L SG - NIL Core strength: FAIR Palpation: TENDERNESS L5S1 REGIONS AND MILD TENDERNESS BENJY SI JT REGIONS. Balance/Special Test Scores Oswestry Low Back Score: 6 Goals Goal 1:: PATIENT WILL BE ABLE TO SIT FOR UP TO 2 HOURS AT A TIME TO DO WORK RELATED ACTIVITE WITHOUT FEELING LOW BACK OR LEG PAIN. Goal Time Frame: 8-12 Weeks Goal 2:: PATIENT WILL BE ABLE TO DO HOUSEWORK FOR SEVERAL HOURS WITHOUT C/O LOW BACK OR LEG PAIN OR DELAYED ONSET OF LOW BACK OR LEG PAIN. Goal Time Frame: 8-12 Weeks Goal 3:: PATIENT WILL BE ABLE TO STAND FOR UP TO 2 HOURS TO DO KITCHEN ACTIVITIES SUCH WASHING DISHES, PREPING FOOD, AND FREEZING/ASHLEY FOOD WITHOUT C/O BACK OR LEG PAIN OR DELAYED ONSET OF BACK OR LEG PAIN. Goal Time Frame: 8-12 Weeks Goal 4:: PATIENT WILL BE ABLE TO VERBALIZE AND DEMONSTRATE HEALTHY POSTURE AND BODY MECHANICS FOR HEALTHY BACK HABITS Goal Time Frame: 8-12 Weeks Goal 5:: PATIENT WILL VERBALIZE UNDERSTANDING OF HEALTHY BLADDER AND PELVIC FLOOR HABITS Goal Time Frame: 8-12 Weeks Goal 6:: PATIENT WILL BE INDEP WITH A HEP FOR CONTINUED IMPROVEMENT ONCE FORMAL PHYSICAL THERAPY CONCLUDES. Goal Time Frame: 8-12 Weeks Rehabilitation Potential Physical Therapy Diagnosis: CORE/POSTURAL WEAKNESS AND TENDERNESS OF LUMBAR AND SI JT REGIONS. Rehabilitation Potential: Good Anticipated Interventions Patient/Client Instruction: Educate patient on: Condition, Plan of Care and Risk Factors For the Purpose of:: To improve self management Therapeutic Exercise to Include: Strength training, Body mechanics, Postural training, Flexibilty training, Neuromotor development, Relaxation training, In an aquatic setting and Dynamic Lumbar Stabilization For the Purpose of:: To decrease pain, To improve muscle performance and motor function, To increase tolerance to activity/condition/position, To improve ability of physical actions for home/community/work/leisure and To improve self management Text: Thank you for the opportunity to evaluate your patient. For Medicare and Medicare HMO plans, please review the plan of care and approve it. It will need to be FAXED BACK to us at [phone] for Medicare purposes. For Medicare only, by signing this I certify the plan of care. Please let me know if there are questions or concerns regarding this plan of care. Physician Signature: Date:
--- NOTE | 2025-04-19 13:27 | HP.PTDCSUM ---
Discharge Summary D/C summary: It has been my pleasure to treat FELIPE PATRICK referred by Dr. Emilia Goodman MD, with the diagnosis of LOW BACK PAIN for a total of 13 visit(s). Discharge Date: 04/19/25 Please see the following information for a summary of their discharge status. Subjective Subjective: She is feeling some left hip and low back soreness. Today pain rated 6/10. She is feeling some cramping and some paty macedo. She is 39 weeks. Tomorrow she is getting her membrane swept. Pain Left hip: Pain Intensity (Out of 10): 6 Overall Improvement % Improvement: 100 Objective Objective/Function: She responded very well to manual therapy on her pelvic floor/perineal massage. She has been educated in different labor positions and is ready for delivery. She is hoping for an unmedicated vaginal delivery. Goals Goal 1:: PATIENT WILL BE ABLE TO SIT FOR UP TO 2 HOURS AT A TIME TO DO WORK RELATED ACTIVITE WITHOUT FEELING LOW BACK OR LEG PAIN. Goal Progress: Progressing Goal 2:: PATIENT WILL BE ABLE TO DO HOUSEWORK FOR SEVERAL HOURS WITHOUT C/O LOW BACK OR LEG PAIN OR DELAYED ONSET OF LOW BACK OR LEG PAIN. Goal Progress: Progressing Goal 3:: PATIENT WILL BE ABLE TO STAND FOR UP TO 2 HOURS TO DO KITCHEN ACTIVITIES SUCH WASHING DISHES, PREPING FOOD, AND FREEZING/ASHLEY FOOD WITHOUT C/O BACK OR LEG PAIN OR DELAYED ONSET OF BACK OR LEG PAIN. Goal Progress: Progressing Goal 4:: PATIENT WILL BE ABLE TO VERBALIZE AND DEMONSTRATE HEALTHY POSTURE AND BODY MECHANICS FOR HEALTHY BACK HABITS Goal Progress: Progressing Goal 5:: PATIENT WILL VERBALIZE UNDERSTANDING OF HEALTHY BLADDER AND PELVIC FLOOR HABITS Goal Progress: Progressing Goal 6:: PATIENT WILL BE INDEP WITH A HEP FOR CONTINUED IMPROVEMENT ONCE FORMAL PHYSICAL THERAPY CONCLUDES. Goal Progress: Progressing Plan Plan: D/C patient from PT. She will return in June . D/C Information Discharge Comments: Patient is being discharged as she is 39 weeks and approaching delivery. She will return in June . d/c sentence: If there are questions or concerns regarding this patient's physical therapy, please feel free to call me at [phone]. Thank you for the referral of this patient. Sincerely, Norah Mcneill Balance/Gait/Functional tests Balance/Special Test Scores Oswestry Low Back Score: 6 Improvement % Improvement: 100
== END 2025-04-19 14:01 | disposition home or self-care (01) ==
LOC: PT 10:00
PROVIDERS: PCP Family Medicine; Referring Provider Obstetrics & Gynecology; Visit Provider Obstetrics & Gynecology
DX: O26.899 Other specified pregnancy related conditions, unspecified trimester (principal); M54.50 Low back pain, unspecified
CPT/HCPCS: 97112; 97113; 97140; 97161; 97530

== ENCOUNTER 2025-04-20 22:40 | Inpatient (IN) | payer OTHER, SELFPAY ==
[2025-04-20] VITALS (20 sets, daily range): BP systolic 116–155; BP diastolic 62–96; PULSE 88–115; RESP 16–18; TEMP 36.4; O2SAT 88–100; BMI 38.7
--- OUTSIDE RECORDS SUMMARY | 2025-04-20 22:28 | XMS RPT_ITS | CCD ---
Author Organization [facility] Care Team Providers Care Veterinary Technician Assistant Name Role Phone JHONNY COBIAN MD Primary Care Physician JHONNY COBIAN MD Primary Care Unavailable FRANKY VILLAFANA Attending Unavailable JHONNY COBIAN MD Primary Care Unavailable JHONNY COBIAN MD Attending Unavailable JHONNY COBIAN MD Primary Care Unavailable FRANKY VILLAFANA Attending Unavailable JHONNY COBIAN MD Primary Care Unavailable FRANKY VILLAFANA Attending Unavailable JHONNY COBIAN MD Primary Care Unavailable CAROLYN CHAVEZ Attending Unavailable JHONNY COBIAN MD Primary Care Unavailable FRANKY VILLAFANA Attending Unavailable CAROLNY CHAVEZ Attending Unavailable CAROLYN CHAVEZ Admitting Unavailable JHONNY COBIAN MD Primary Care Unavailable Bobbi Stuart CNM Attending Provider [phone] Bobbi Stuart CNM Referring Provider BETTY PRIMARY MD LAURITA Primary Care Unavailable DESIRE NELSON Attending Unavailable EMMY GUZMÁN Referring Unavailab Dr. Emmy Dozier DO Attending Provider Azul Lopes Attending Provider Bobbi Stuart CNM Attending Provider Dr. Emilia Goodman MD Attending Provider Dr. Emilia Goodman MD Referring Provider Dr. Jhonny Cobian MD Primary Care Provider Dr. Jhonny Cobian MD Referring Provider Azul Lopes Referring Provider Dr. Jhonny Cobian MD Primary Care Provider [phone] Dr. Emilia Goodman MD Attending Provider Dr. Moo Goodman MDon Referring Provider Rex EMANUEL, Dr. Nieto Attending Provider [phone] Rex EMANUEL, Dr. Nieto Referring Provider [phone] Josias Carmona DO, Dr. Booth Attending Provider Rex EMANUEL, Dr. Nieto Attending Provider Rex EMANUEL, Dr. Nieto Referring Provider [phone] Rex EMANUEL, Dr. Nieto Attending Provider [phone] Rex EMANUEL, Dr. Nieto Referring Provider [phone] Narciso CNM, Bobbi Attending Provider 1() Narciso CNM, Bobbi Referring Provider 1() Emilia Goodman Referring Unavailable Emilia Goodman Attending Unavailable Cobian, Jhonny Primary Care Unavailable Emilia Goodman Attending Unavailable Emilia Goodman Referring Unavailable Cobian, Jhonny Primary Care Unavailable Bobbi Stuart Attending Unavailable Cobian, Jhonny Referring Unavailable Cobian, Jhonny Primary Care Unavailable Cobian, Jhonny Primary Care Unavailable Sissy MACHINE SPRING FORMER, Azul Attending Unavailable Morrill MACHINE SPRING FORMER, Azul Referring Unavailable Cobian, Jhonny Primary Care Unavailable Morrill MACHINE SPRING FORMER, Azul Attending Unavailable Sissy MACHINE SPRING FORMER, Azul Referring Unavailable Sissy MACHINE SPRING FORMER, Azul Attending Unavailable Bobbi Stuart Referring Unavailable Bobbi Stuart Attending Unavailable Bobbi Stuart Attending Unavailable Bobbi Stuart Referring Unavailable Vande Emmy Carmona Attending Unavailabl e Cobian, Jhonny Referring Unavailable Cobian, Jhonny Primary Care Unavailable Vande Emmy Carmona Attending Unavailabl e Cobian, Jhonny Referring Unavailable Cobian, Jhonny Primary Care Unavailable Bobbi Stuart Attending Unavailable Bobbi Stuart Referring Unavailable Cobian, Jhonny Primary Care Unavailable Emilia Goodman Attending Unavailable Emilia Goodman Referring Unavailable Cobian, Jhonny Primary Care Unavailable Vande Emmy Carmona Attending Unavailabl e Cobian, Jhonny Referring Unavailable Cobian, Jhonny Primary Care Unavailable Bobbi Stuart Attending Unavailable Cobian, Jhonny Referring Unavailable Cobian, Jhonny Primary Care Unavailable Vande Emmy Carmona Attending Unavailabl e Bobbi Stuart Attending Unavailable Bobbi Stuart Attending Unavailable Wilmane Emmy Carmona Attending Unavailabl e Cobian, Jhonny Referring Unavailable Cobian, Jhonny Primary Care Unavailable Narciso, Bobbi Attending Unavailable Emilia Goodman Attending Unavailable Jhonny Cobian Primary Care Unavailable Jhonny Cobian Referring Unavailable Emilia Goodman Attending Unavailable Jhonny Cobian Referring Unavailable Jhonny Cobian Primary Care Unavailable Bobbi Stuart CNM Attending Provider Allergies Allergy Classification Reported Allergen(s) Allergy Type Date of Onset Reaction(s) Facility (15 sources) house dust allergenic extract Drug Allergy 5 [facility] Comment on above: Runny nose, headache (15 sources) Mold Extract Drug Allergy 5 [facility] Comment on above: Runny nose, Headache (16 sources) Environmental Allergies: Uncoded; Translations: [Environmental Allergies: Uncoded] Allergy to substance 5 [facility] Comment on above: Runny nose, headache - Pet dander (1 source) house dust allergenic extract Drug Allergy 5 [facility] Repository (1 source) Mold Extract Drug Allergy 5 [facility] Repository Medications Current Medications Medication Drug Class(es) Dates Sig (Normalized) Sig (Original) [id number] 200 actuat albuterol 0.09 mg/actuat metered dose inhaler (1 source) beta2-Adrenergic Agonist Start: 09-03-2021 take 2 puff(s) by inhalation every four hours as needed for wheezing ProAir HFA MDI (90 mcg/inh) inhalation aerosol 2 puff(s), Inhalation, q4h, PRN as needed for wheezing, # 8.5 gram(s), 0 Refill(s), Pharmacy: [address], Bronchitis COVID-19 virus infection, 157.4, cm, [...] Daily, # 30 tab(s), 6 Refill(s), [facility]: [facility] #[id number], 161, cm, 01/01/23 10:54:00 EDT, Height Start Date: 01/20/23 Status: Ordered Blood-Glucose Sensor (Dexcom G6 Sensor) device (9 sources) Start: 02-27-2025 Blood-Glucose Sensor (Dexcom G6 Sensor) device Active 0 .Route 4 February 27, 2025 12:00am As directed Blood-Glucose Transmitter (Dexcom G6 Transmitter) device (7 sources) Start: 03-19-2025 Blood-Glucose Transmitter (Dexcom G6 Transmitter) device Active 0 .Route 1 March 19, 2025 12:00am As directed Blood-Glucose,Receiv er,Cont (Dexcom G6 Literacy Education Professor) misc (7 sources) Start: 03-19-2025 Blood-Glucose, Recei chano,Cont (Dexcom G6 Literacy Education Professor) misc Active 0 .Route 1 March 19, 2025 12:00am As directed choline 500 mg oral tablet (15 sources) Start: 09-08-2024 take 1 tablet by mouth once daily Choline 500 mg tablet Active 500 mg PO DAILY September 08, 2024 1:00am famotidine 20 mg oral tablet (3 sources) Histamine-2 Receptor Antagonist Start: 05-14-2023 Pepcid 20 mg oral tablet Dose : 20 mg = 1 tab(s), Oral, BID, # 60 tab(s), 1 Refill(s), [facility]: [facility] #[id number], 31 weeks gestation of Heartburn, 161, cm, 05/11/23 9:35:00 EDT, Height, kg, 07/27/22 9:18:00 EST, Dosing Weight Start Date: 05/14/23 Status: Ordered Start: 03-16-2023 Pepcid 20 mg o ral tablet Dose : 20 mg = 1 tab(s), Oral, BID, # 60 tab(s), 0 Refill(s), Pharm[facility]: [facility] #[id number], 31 weeks gestation of Heartburn, 161, cm, 03/16/23 8:32:00 EDT, Height, kg, 07/27/22 9:18:00 EST, Dosing Weight Start Date: 03/16/23 Status: Ordered ferrous sulfate 325 mg delayed release oral tablet (5 sources) Start: 01-20-2023 ferrous sulfat e 325 mg (65 mg elemental iron) oral delayed release tablet Dose : 325 mg = 1 tab(s), Oral, qDay, # 30 tab(s), 3 Refill(s), Pharmacy: [facility] #[id number], 161, cm, 01/01/23 10:54:00 EDT, Height Start Date: 01/20/23 Status: Ordered Multivit 02-Wymc-Gosdjt 1-Dha (Pnv-Dha) 27 mg iron-1 mg -300 mg capsule (15 sources) Start: 09-08-2024 Multivit 47-Ir on-Folate 1-Dha [...] 0 Refill(s) Start Date: 04/13/23 Status: Ordered Hugo-3 Fatty Acids (Super Hugo-3) 1,000 mg capsule (15 sources) Start: 09-08-2024 take 3 capsules by mouth once daily Hugo-3 Fatty Acids (Super Hugo-3) 1,000 mg capsule Active 500 mg PO [...] 0 Refill(s) Start Date: 09/03/21 Status: Ordered Completed/Discontinued Medications Medication Drug Class(es) Dates Sig (Normalized) Sig (Original) Blood-Glucose Meter misc (10 sources) Start: 02-23-2025 End: 03-19-2025 Blood-Glucose Meter misc Discontinued 0 .ROUTE .MEDSUPPLY 1 0 February 23, 2025 12:00am March 19, 2025 3:59pm As directed Start: 02-23-2025 Blood-Glucose Meter misc Active 0 .ROUTE .MEDSUPPLY 1 0 February 23, 2025 12:00am As directed Problems Active Problems Problem Classification Problem Date Documented Date Episodic/Chronic Bacterial infection; unspecified site (1 source) Streptococcus, group B, as the cause of diseases classified elsewhere; Translations: [Streptococcus, group B, as the cause of diseases classified elsewhere] Onset: 04-02-2025 Episodic Diabetes or abnormal glucose tolerance complicating ; childbirth; or the puerperium (20 sources) Abnormal glucose level; Translations: [Abnormal glucose complicating childbirth] Onset: 02-27-2025 02-05-2025 Episodic Comment on above: Refuses 3 hr GTT and to test BS QID. Will discuss with JV next visit. Refuses 3 hr GTT and to test BS QID. Will discuss with JV next visit. Failed 3 hr. Supplies and nutriti on consult sent. Supplies and nutriti on consult sent. diet controlled plan 36 week growth us and delivery by 39-40 weeks discussed RLTCS vs IOL Other complications of (20 sources) Maternal obesity complicating , childbirth and the puerperium, antepartum; Translations: [Obesity complicating , unspecified trimester] 09-08-2024 Chronic Comment on above: HgbA1c Other complications of (1 source) Obesity complicating , second trimester; Translations: [Obesity complicating , second trimester] Onset: 04-02-2025 Chronic Other complications of (1 source) Obesity complicating , unspecified trimester; Translations: [Obesity complicating , unspecified trimester] Onset: 12-15-2024 Chronic Other complications of (20 sources) Urinary tract infection in ; Translations: [Unspecified infection of urinary tract in , unspecified trimester] 09-25-2024 Episodic Comment on above: treat in labor Other complications of (20 sources) Low back pain in ; Translations: [Other specified related conditions, unspecified trimester] 01-10-2025 Episodic Comment on above: PT referral. Other complications of (1 source) Other specified related conditions, second trimester; Translations: [Other specified related conditions, second trimester] Onset: 04-02-2025 Episodic Other complications of (1 source) Unspecified infection of urinary tract in , second trimester; Translations: [Unspecified infection of urinary tract in , second trimester] Onset: 04-02-2025 Episodic Other nutritional; endocrine; and metabolic disorders (6 sources) Body mass index 30+ - obesity 01-29-2023 Chronic Other and delivery including normal (20 sources) ; Translations: [Primigravida] Onset: 08-08-2022 09-17-2022 Episodic Comment on above: PRR, , PETEY , PC Mirella, Vidal NIPT low risk, scarlett er neg. 14/14 NIPT low risk, scarlett er neg. 14/14, normal anatomy PRR, , PETEY , girl PC Mirella, Vidal Other screening for suspected conditions (not mental disorders or infectious disease) (4 sources) Encounter for screening for Streptococcus B; Translations: [Encounter for screening for diabetes mellitus] Onset: 04-20-2023 Episodic Residual codes; unclassified (3 sources) 36 weeks gestation of ; Translations: [36 weeks gestation of ] Onset: 04-20-2023 Episodic Residual codes; unclassified (1 source) History of uterine scar from previous surgery; Translations: [History of uterine scar from previous surgery] Onset: 04-02-2025 Episodic Residual codes; unclassified (1 source) 35 weeks gestation of ; Translations: [35 weeks gestation of ] Onset: 03-28-2025 Episodic Residual codes; unclassified (1 source) 31 weeks gestation of ; Translations: [31 weeks gestation of ] Onset: 02-27-2025 Episodic Residual codes; unclassified (1 source) 28 weeks gestation of ; Translations: [28 weeks gestation of ] Onset: 02-02-2025 Episodic Spondylosis; intervertebral disc disorders; other back problems (20 sources) Sciatica; Translations: [Sciatica, unspecified side] Onset: 04-02-2025 01-10-2025 Episodic Unclassified (1 source) Patient encounter status 02-02-2024 Unclassified (4 sources) Low back pain during Unclassified (7 sources) O26.892 - Other specified related conditions, second trimester,M54.50 - Low back pain, unspecified Unclassified (3 sources) Pelvic floor dysfunction Unclassified (6 sources) M62.89 - Other specified disorders of muscle Unclassified (1 source) Low back pain, unspecified; Translations: [Low back pain, unspecified] Onset: 04-02-2025 Past or Other Problems Problem Classification Problem Date Documented Da te Episodic/Chronic Other complications of (1 source) Unspecified infection of urinary tract in , unspecified trimester; Translations: [Unspecified infection of urinary tract in , unspecified trimester] Onset: 12-15-2024 Episodic Residual codes; unclassified (1 source) 21 weeks gestation of ; Translations: [21 weeks gestation of ] Onset: 12-15-2024 Episodic Residual codes; unclassified (1 source) 17 weeks gestation of ; Translations: [17 weeks gestation of ] Onset: 11-17-2024 Episodic Residual codes; unclassified (1 source) 9 weeks gestation of ; Translations: [9 weeks gestation of ] Onset: 09-21-2024 Episodic Results Test Name Value Interpretation Reference Range Facility Laboratory - Chemistry and C hemistry - challengeOrdered By: Emmy Carmona on 04-11-2025 Glucose Ql (U) Negative [facility] Laboratory - UrinalysisOrder ed By: Emmy Carmona on 04-11-2025 Protein Ql (U) Negative [facility] [employer] Office Visit Reporton 04-11-2025 Electrician Locomotive Office Visit Report [facility] [address], [address] [place] [address] OFFICE VISIT Date of Service: 04/11/25 MR#: [id number] Acct: [id number] Name: FELIPE PATRICK Rep #: [id number] 3 : 1995 Provider: Dr. Emmy Barr, Age/Sex: 30/F Location: [facility] [place] Status: Signed Intake Vital Signs 03/14/25 09:01 04/02/25 09:23 04/11/25 08:38 04/11/25 08:40 Height 5 ft 2 in 5 ft 2 in 5 ft 2 in 5 ft 2 in Weight: 213 lb 4 oz 213 lb 5 oz BMI 38.9 38.9 BP 133/86 H 126/78 H Intake Visit Reasons: 38wk ob Sash Finisher Required: No Is patient in pain?: No Allergies house dust Allergy (Mild, Verified 04/11/25 08:38) Other mold (mold spores) Allergy (Mild, Verified 04/11/25 08:38) Other Environmental Allergies: Uncoded Allergy (Verified 04/11/25 08:38) Other Medications ???Medication ???Instructions ???Recorded ???Confirmed ???Type choline 500 mg tablet 500 mg PO DAILY 09/08/24 04/11/25 History multivitamin no.47-iron fum 27 cap PO 09/08/24 04/11/25 History mg-folate no.1 1 mg-dha 300 mg capsule (PNV-DHA) omega-3 fatty acids 1,000 mg 500 mg PO QDAY 09/08/24 04/11/25 H istory capsule (Super Hugo-3) blood-glucose sensor (Dexcom G6 #4 ea 02/27/25 04/11/25 Rx Sensor device) blood-glucose transmitter (Dexcom #1 ea 03/19/25 04/11/25 Rx G6 Transmitter device) blood-glucose,waste water or water plant operator ,cont #1 ea 03/19/25 04/11/25 Rx (Dexcom G6 Literacy Education Professor) Last Menstrual Period: 07/20/24 Zika: Zika virus screening: Negative : No PFSH PFSH Medical History Seasonal allergies Surgical History Previous section [place] teeth extracted Family History Grandmother Cancer Paternal [...] 1 current occupational status: employed 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 Date Name GA/Weeks Outcome Route Bth [facility] Mirella 41 live - full term 8#7.8oz Female epidural A cathleen Drake Delivery Date: 05/25/23 Last Updated by: Lizz Baxter failure to progress HPI 38wk ob Details: FELIPE PATRICK is a 30 year old who presents for routine OB visit. OB Visit PETEY Calculator Estimated Delivery Date Method Current WG Current Estimate 04/26/25 LMP (Certain) 37w 6d Other Estimates 04/28/25 Ultrasound #1 37w 4d Expected Delivery Route/Plan Labor Preferences- CB/BF classes: no labor support person: Vidal labor intervention preferences: [] pain management options preferred: limited intervention cut cord/dad catch: no : yes PP control planned: discussed discussed possible routes of delivery and associated risks: [] special requests: [] desires v (more content not included)... Normal [facility] Laboratory - Chemistry and C hemistry - challengeOrdered By: Bobbi Stuart on 04-02-2025 Glucose Ql (U) Negative [facility] Laboratory - UrinalysisOrder ed By: Bobbi Stuart on 04-02-2025 Protein Ql (U) Negative [facility] [employer] Office Visit Reporton 04-02-2025 Electrician Locomotive Office Visit Report [facility]'s [address], [address] [place] [address] OFFICE VISIT Date of Service: 04/02/25 MR#: [id number] Acct: [id number] Name: FELIPE PATRICK Rep #: [id number] 3 : 1995 Provider: DULCE Correa ams Age/Sex: 30/F Location: [facility] Status: Signed Intake Vital Signs 03/14/25 09:01 03/28/25 15:41 04/02/25 09:23 Height 5 ft 2 in 5 ft 2 in 5 ft 2 in Weight: 213 lb 4 oz BMI 38.9 BP 133/86 H Intake Visit Reasons: 37wk ob Chief Complaint: 37wk OB Sash Finisher Required: No Is patient in pain?: No Allergies house dust Allergy (Mild, Verified 04/02/25 09:22) Other mold (mold spores) Allergy (Mild, Verified 04/02/25 09:22) Other Environmental Allergies: Uncoded Allergy (Verified 04/02/25 09:22) Other Medications ???Medication ???Instructions ???Recorded ???Confirmed ???Type choline 500 mg tablet 500 mg PO DAILY 09/08/24 04/02/25 History multivitamin no.47-iron fum 27 cap PO 09/08/24 04/02/25 History mg-folate no.1 1 mg-dha 300 mg capsule (PNV-DHA) omega-3 fatty acids 1,000 mg 500 mg PO QDAY 09/08/24 04/02/25 H istory capsule (Super Hugo-3) blood-glucose sensor (Dexcom G6 #4 ea 02/27/25 04/02/25 Rx Sensor device) blood-glucose transmitter (Dexcom #1 ea 03/19/25 04/02/25 Rx G6 Transmitter device) blood-glucose,waste water or water plant operator ,cont #1 ea 03/19/25 04/02/25 Rx (Dexcom G6 Literacy Education Professor) Last Menstrual Period: 07/20/24 : No PFSH PFSH Medical History Seasonal allergies Surgical History Previous section [place] teeth extracted Family History Grandmother Cancer Paternal [...] 1 current occupational status: employed 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 OB Visit PETEY Calculator Estimated Delivery Date Method Current WG Current Estimate 04/26/25 LMP (Certain) 36w 4d Other Estimates 04/28/25 Ultrasound #1 36w 2d Expected Delivery Route/Plan Labor Preferences- CB/BF classes: no labor support person: Vidal labor intervention preferences: [] pain management options preferred: limited intervention cut cord/dad catch: no : yes PP control planned: discussed discussed possible routes of delivery and associated risks: [] special requests: [] Specific Issue/Plans Covid status: [] Flu vaccine: [] Tdap vaccine: [] Rhogam: [] LARC (more content not included)... Normal [facility] Laboratory - Chemistry and C hemistry - challengeOrdered By: Emmy Carmona on 03-28-2025 Glucose Ql (U) Negative [facility] Laboratory - UrinalysisOrder ed By: Emmy Carmona on 03-28-2025 Protein Ql (U) Negative [facility] [employer] Office Visit Reporton 03-28-2025 Electrician Locomotive Office Visit Report [facility] [address] [place] [address], [address] [place] [address] OFFICE VISIT Date of Service: 03/28/25 MR#: [id number] Acct: [id number] Name: FELIPE PATRICK Rep #: [id number] 1 : 1995 Provider: Dr. Emmy Barr, Age/Sex: 30/F Location: [facility] [place].[facility] Status: Signed Intake Vital Signs 12/15/24 15:30 03/14/25 09:01 03/28/25 15:39 03/28/25 15:41 Height 5 ft 2 in 5 ft 2 in 5 ft 2 in 5 ft 2 in Weight: 210 lb 6 oz BMI 38.5 BP 128/81 H Intake Visit Reasons: 36 wk ob Sash Finisher Required: No Is patient in pain?: No Allergies house dust Allergy (Mild, Verified 03/28/25 15:39) Other mold (mold spores) Allergy (Mild, Verified 03/28/25 15:39) Other Environmental Allergies: Uncoded Allergy (Verified 03/28/25 15:39) Other Medications ???Medication ???Instructions ???Recorded ???Confirmed ???Type choline 500 mg tablet 500 mg PO DAILY 09/08/24 03/28/25 History multivitamin no.47-iron fum 27 cap PO 09/08/24 03/28/25 History mg-folate no.1 1 mg-dha 300 mg capsule (PNV-DHA) omega-3 fatty acids 1,000 mg 500 mg PO QDAY 09/08/24 03/28/25 H istory capsule (Super Hugo-3) blood-glucose sensor (Dexcom G6 #4 ea 02/27/25 03/28/25 Rx Sensor device) blood-glucose transmitter (Dexcom #1 ea 03/19/25 03/28/25 Rx G6 Transmitter device) blood-glucose,waste water or water plant operator ,cont #1 ea 03/19/25 03/28/25 Rx (Dexcom G6 Literacy Education Professor) Last Menstrual Period: 07/20/24 Zika: Zika virus screening: Negative : No PFSH PFSH Medical History Seasonal allergies Surgical History Previous section [place] teeth extracted Family History Grandmother Cancer Paternal [...] 1 current occupational status: employed 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 OB Visit PETEY Calculator Estimated Delivery Date Method Current WG Current Estimate 04/26/25 LMP (Certain) 35w 6d Other Estimates 04/28/25 Ultrasound #1 35w 4d Expected Delivery Route/Plan Labor Preferences- CB/BF classes: no labor support person: Vidal labor intervention preferences: [] pain management options preferred: limited intervention cut cord/dad catch: no : yes PP control planned: discussed discussed possible routes of delivery and associated risks: [] special requests: [] Specific Issue/Plans Cov (more content not included)... Normal [facility] OB Limited With Biometricson 03-23-2025 OB Limited With Biometrics [facility] [address] [place] [id number] OB Limited With Biometrics MR#: [id number] Acct: [id number] Name: FELIPE PATRICK Rep #: [id number] : 1995 F 30 From: Kaleb talbert MD PCP: Dr. Jhonny Cobian MD Status: REG CLI Study: OB Limited With Biometrics Date of Exam: 03/23 Exam# [id number] Ordering Dr: Bobbi Stuart CNM PROCEDURE: OB LIMITED WITH BIOMETRICS 03/23/2025 REASON FOR EXAM: GROWTH TECHNIQUE: OB LIMITED WITH BIOMETRICS COMPARISON: None FINDINGS LMP: July 20, 2024. Number: 1 Position: Vertex Placental Position: Anterior and not low-lying. Placental Abnormalities: No evidence of previa. DIMENSIONS: Biparietal Diameter: 8.89 cm: 36 weeks and 0 days: 75.5 percentile/ Head Circumference: 32.94 cm: 37 weeks and 3 days: 74.5 percentile/ Abdominal Circumference: 32.63 cm: 36 weeks and 4 days: 89.5 percentile/ Femur Length: 6.86 cm: 35 weeks and 1 day: 44.6 percentile/ ESTIMATED WEIGHT: 2870 g plus/-432 g ESTIMATED WEIGHT PERCENTILE (24+ weeks): 76.5 ESTIMATED GESTATIONAL AGE: Baseline: 35 weeks and 1 day By Ultrasound: 36 weeks and 2 days ESTIMATED DATE OF DELIVERY: Baseline: April 26, 2025 By Ultrasound: April 18, 2025 BIOPHYSICAL ASSESSMENT: Amniotic Fluid Volume: 4.3 cm 3.3 cm Amniotic Fluid Index: 11 cm (8-24 cm normal range) Cardiac Motion: 142 beats per minute (average) Trunk and Limb Motion: Present. MATERNAL ANATOMY: Adnexa: Neither maternal ovary is successfully identified. Cervical Length (if measured): 5.5 cm US/OB Limited With Biometrics IMPRESSION: Single live intrauterine gestation with a mean gestational age of 36 weeks and 2 days. Reading Location: [facility] CC: DULCE Stuart; Dr. Jhonny Cobian MD Edi Consultant: Signed Normal [facility] Laboratory - Chemistry and C hemistry - challengeOrdered By: Bobbi Stuart on 03-14-2025 Glucose Ql (U) Negative [facility] Laboratory - UrinalysisOrder ed By: Bobbi Stuart on 03-14-2025 Protein Ql (U) Negative [facility] [employer] Office Visit Reporton 03-14-2025 [employer] Office Visit Report [facility] [address], [address] [place] [address] OFFICE VISIT Date of Service: 03/14/25 MR#: [id number] Acct: [id number] Name: FELIPE PATRICK Rep #: [id number] 2 : 1995 Provider: DULCE Correa ams Age/Sex: 30/F Location: [facility] [place] Status: Signed Intake Vital Signs 12/15/24 15:30 03/12/25 10:22 03/14/25 09:01 Height 5 ft 2 in 5 ft 2 in 5 ft 2 in Weight: 211 lb 8 oz BMI 38.7 BP 115/70 Intake Visit Reasons: 34 wk ob Sash Finisher Required: No Is patient in pain?: No Allergies house dust Allergy (Mild, Verified 03/14/25 09:02) Other mold (mold spores) Allergy (Mild, Verified 03/14/25 09:02) Other Environmental Allergies: Uncoded Allergy (Verified 03/14/25 09:02) Other Medications ???Medication ???Instructions ???Recorded ???Confirmed ???Type choline 500 mg tablet 500 mg PO DAILY 09/08/24 03/14/25 History multivitamin no.47-iron fum 27 cap PO 09/08/24 03/14/25 History mg-folate no.1 1 mg-dha 300 mg capsule (PNV-DHA) omega-3 fatty acids 1,000 mg 500 mg PO QDAY 09/08/24 03/14/25 H istory capsule (Super Hugo-3) blood sugar diagnostic (Blood #120 ea 02/23/25 03/14/25 Rx Glucose Test strips) blood-glucose meter #1 ea 02/23/25 03/14/25 Rx lancets 30 gauge (Droplet Lancets) #200 ea 02/23/25 03/14/25 Rx blood-glucose sensor (Dexcom G6 #4 ea 02/27/25 03/14/25 Rx Sensor device) Last Menstrual Period: 07/20/24 Zika: Zika virus screening: Negative : No PFSH PFSH Medical History Seasonal allergies Surgical History Previous section [place] teeth extracted Family History Grandmother Cancer Paternal [...] 1 current occupational status: employed 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[employer] current occupational exposures/hazards: No pets and animals: Yes (Avoid litterbox) pets and animals: cat(s) and dog(s) history of recent travel: Yes (ID) out of state: Yes out of country: [...] in: walking frequency: daily duration: 15-30 minutes/day nkechi/moravian: Taoist seatbelt use: always do you feel safe at home: Yes additional social history: [employer] hayes 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 OB Visit PETEY Calculator Estimated Delivery Date Method Current WG Current Estimate 04/26/25 LMP (Certain) 33w 6d Other Estimates 04/28/25 Ultrasound #1 33w 4d Expected Delivery Route/Plan Labor Preferences- CB/BF classes: no labor support person: Vidal labor intervention preferences: [] pain management options preferred: limited intervention cut cord/dad catch: no : yes PP control planned: discussed discussed possible routes of delivery and associated risks: [] special requests: [] Specific Issue/Plans Covid status: [] (more content not included)... Normal [facility] [employer] Office Visit Reporton 02-27-2025 [employer] Office Visit Report [facility]'s [address], [address] [place] [address] OFFICE VISIT Date of Service: 02/27/25 MR#: [id number] Acct: [id number] Name: FELIPE PATRICK Rep #: [id number] 9 : 1995 Provider: Dr. Emilia sherman MD Age/Sex: 30/F Location: [facility] [place] Status: Signed Intake Vital Signs 12/15/24 15:30 02/15/25 09:27 02/27/25 15:29 Height 5 ft 2 in 5 ft 2 in 5 ft 2 in Weight: 212 lb 6 oz BMI 38.8 BP 114/77 Intake Visit Reasons: 32 wk ob Sash Finisher Required: No Is patient in pain?: No Allergies house dust Allergy (Mild, Verified 02/27/25 15:30) Other mold (mold spores) Allergy (Mild, Verified 02/27/25 15:30) Other Environmental Allergies: Uncoded Allergy (Verified 02/27/25 15:30) Other Medications ???Medication ???Instructions ???Recorded ???Confirmed ???Type choline 500 mg tablet 500 mg PO DAILY 09/08/24 02/27/25 History multivitamin no.47-iron fum 27 cap PO 09/08/24 02/27/25 History mg-folate no.1 1 mg-dha 300 mg capsule (PNV-DHA) omega-3 fatty acids 1,000 mg 500 mg PO QDAY 09/08/24 02/27/25 H istory capsule (Super Hugo-3) blood sugar diagnostic (Blood #120 ea 02/23/25 02/27/25 Rx Glucose Test strips) blood-glucose meter #1 ea 02/23/25 02/27/25 Rx lancets 30 gauge (Droplet Lancets) #200 ea 02/23/25 02/27/25 Rx blood-glucose sensor (Dexcom G6 #4 ea 02/27/25 02/27/25 Rx Sensor device) Last Menstrual Period: 07/20/24 Zika: Zika virus screening: Negative : No PFSH PFSH Medical History Seasonal allergies Surgical History Previous section [place] teeth extracted Family History Grandmother Cancer Paternal [...] 1 current occupational status: employed 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 OB Visit PETEY Calculator Estimated Delivery Date Method Current WG Current Estimate 04/26/25 LMP (Certain) 31w 5d Other Estimates 04/28/25 Ultrasound #1 31w 3d Expected Delivery Route/Plan Labor Preferences- CB/BF classes: no labor support person: Vidal labor intervention preferences: [] pain management options preferred: limited intervention cut cord/dad catch: no : yes PP control planned: discussed discussed possible routes of delivery and associated risks: [] special requests: [] Specific Issue/Plans Covid statu (more content not included)... Normal [facility] Gestational GTT 3HR 100gon 0 02-22-2025 GEST GTT 100gm High [facility] Comment on above: Order Comment: Y Result Comment: FAST ING 86 Col: 02/22/25 0946 GLUCOSE TOLERANCE TEST FOR Reference Interval GESTATIONAL DIABETES Fasting <105 mg/dL 1 hour <190 mg/dl 2 hour <165 mg/dl 3 hour <145 mg/dl 1 HR GLU 218 H Col: 02/22/25 1127 2 HR GLU 241 H Col: 02/22/25 1230 3 HR GLU 179 H Col: 02/22/25 1328 Performed By: #### L 500.4710 ####[facility] [address] [place], [address] Quantitative serum or plasma 3 hour gestational glucose tolerance panelOrdered By: Azul Sheehan on 02-22-2025 Glucose tolerance 3 hours gestational panel See comment [facility] Comment on above: FASTING 86 Col: 02/06 03/02 0946GLUCOSE TOLERANCE TEST FOR Reference Interval GESTATIONAL DIABETES Fasting <105 mg/dL 1 hour <190 mg/dl 2 hour <165 mg/dl 3 hour <145 mg/dl 1 HR GLU 218 H Col: 02/22/25 1127 2 HR GLU 241 H Col: 02/22/25 1230 3 HR GLU 179 H Col: 02/22/25 1328 Laboratory - Chemistry and C hemistry - challengeOrdered By: Emmy Carmona on 02-15-2025 Glucose Ql (U) Negative [facility] Laboratory - UrinalysisOrder ed By: Emmy Carmona on 02-15-2025 Protein Ql (U) Negative [facility] [employer] Office Visit Reporton 02-15-2025 [employer] Office Visit Report [facility]'s [address], [address] [place] [address] OFFICE VISIT Date of Service: 02/15/25 MR#: [id number] Acct: [id number] Name: FELIPE PATRICK DAVID Rep #: [id number] 9 : 1995 Provider: Dr. Emmy Barr, Age/Sex: 30/F Location: [facility] [place] Status: Signed Intake Vital Signs 12/15/24 15:30 02/02/25 10:25 02/15/25 09:24 02/15/25 09:27 Height 5 ft 2 in 5 ft 2 in 5 ft 2 in 5 ft 2 in Weight: 212 lb 8 oz BMI 38.8 BP 107/70 Intake Visit Reasons: 30 wk ob Sash Finisher Required: No Is patient in pain?: No Feel stressed/tense/nervous /anxious/difficulty sleeping: not at all Allergies house dust Allergy (Mild, Verified 02/15/25 09:23) Other mold (mold spores) Allergy (Mild, Verified 02/15/25 09:23) Other Environmental Allergies: Uncoded Allergy (Verified 02/15/25 09:23) Other Medications ???Medication ???Instructions ???Recorded ???Confirmed ???Type choline 500 mg tablet 500 mg PO DAILY 09/08/24 02/15/25 History multivitamin no.47-iron fum 27 cap PO 09/08/24 02/15/25 History mg-folate no.1 1 mg-dha 300 mg capsule (PNV-DHA) omega-3 fatty acids 1,000 mg 500 mg PO QDAY 09/08/24 02/15/25 H istory capsule (Super Hugo-3) Last Menstrual Period: 07/20/24 Zika: Zika virus screening: Negative : No PFSH PFSH Medical History Seasonal allergies Surgical History Previous section [place] teeth extracted Family History Grandmother Cancer Paternal [...] 1 current occupational status: employed 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 Date Name GA/Weeks Outcome Route Bth Weight [facility] Mirella 41 live - full term 8#7.8oz Female epidural A cathleen Drake Delivery Date: 05/25/23 Last Updated by: Lizz Baxter failure to progress HPI 30 wk ob Details: FELIPE PATRICK is a 30 year old who presents for routine OB visit. OB Visit PETEY Calculator Estimated Delivery Date Method Current WG Current Estimate 04/26/25 LMP (Certain) 30w 0d Other Estimates 04/28/25 Ultrasound #1 29w 5d Expected Delivery Route/Plan Labor Preferences- CB/BF [...] plan of care details and appropriate orders placed (more content not included)... Normal [facility] Absolute lymphocyte countOrd ered By: Azul Sheehan on 02-02-2025 Lymphocytes Auto (Unsp spec) [#/Vol] 1.51 10*3/uL 0.83-4.51 [facility] Absolute neutrophil countOrd ered By: Azul Sheehan on 02-02-2025 Neutrophils (Bld) [#/Vol] 7.9 10*3/uL High 2.0-7.7 [facility] Automated lymphocyte count a s percentage of total leukocytesOrdered By: Azul Sheehan on 02-02-2025 Lymphocytes/100 WBC Auto (Unsp spec) 15.1 % Low 19-41 [facility] Basophil percentageOrdered B y: Azul Sheehan on 02-02-2025 Basophils/100 WBC (Bld) 0.2 % 0-1 [facility] CBC W/Diff, Automatedon 01-08 Absolute Lymph 1.51 X10 3/uL Normal 0.83-4.51 [facility] Comment on above: Performed By: #### L 501.0250, L3890.6006, L509.8002, L100.0100 ####[facility] [address] [place], [address] Absolute Neut 7.9 X10 3/uL High 2.0-7.7 [facility] Comment on above: Performed By: #### L 501.0250, L3890.6006, L509.8002, L100.0100 ####[facility] [address] [place], [address] Basophils/100 WBC (Bld) 0.2 % Normal 0-1 [facility] Comment on above: Performed By: #### L 501.0250, L3890.6006, L509.8002, L100.0100 ####[facility] [address] [place], [address] Eosinophils/100 WBC (Bld) 0.8 % Normal 0-5 [facility] Comment on above: Performed By: #### L 501.0250, L3890.6006, L509.8002, L100.0100 ####[facility] [address] [place], [address] Erythrocyte distribution width (RBC) [Ratio] 13.1 % Normal 11.6-14.6 [facility] Comment on above: Performed By: #### L 501.0250, L3890.6006, L509.8002, L100.0100 ####[facility] [address] [place], [address] Hematocrit (Bld) [Volume fraction] 36.5 % Low 37-47 [facility] Comment on above: Performed By: #### L 501.0250, L3890.6006, L509.8002, L100.0100 ####[facility] [address] [place], [address] Hemoglobin (Bld) [Mass/Vol] 12.1 g/dL Normal 12.0-15.0 [facility] Comment on above: Performed By: #### L 501.0250, L3890.6006, L509.8002, L100.0100 ####[facility] [address] [place], [address] IG% 0.900 Normal 0.0-0.9 [facility] Comment on above: Result Comment: IG% - Immature Granulocytes (promyelocytes, myelocytes and metamyelocytes) > 1% indicates that a LEFT SHIFT is Present. Performed By: #### L 501.0250, L3890.6006, L509.8002, L100.0100 ####[facility] [address] [place], [address] Lymphocytes/100 WBC (Bld) 15.1 % Low 19-41 [facility] Comment on above: Performed By: #### L 501.0250, L3890.6006, L509.8002, L100.0100 ####[facility] [address] [place], [address] MCH (RBC) [Entitic mass] 29.1 pg Normal 27.0-32.0 [facility] Comment on above: Performed By: #### L 501.0250, L3890.6006, L509.8002, L100.0100 ####[facility] [address] [place], [address] MCHC (RBC) [Mass/Vol] 33.2 g/dL Normal 32-36 [facility] Comment on above: Performed By: #### L 501.0250, L3890.6006, L509.8002, L100.0100 ####[facility] [address] [place], [address] MCV (RBC) [Entitic vol] 87.7 fL Normal 81-99 [facility] Comment on above: Performed By: #### L 501.0250, L3890.6006, L509.8002, L100.0100 ####[facility] [address] [place], [address] Monocytes/100 WBC (Bld) 3.8 % Normal 0-10 [facility] Comment on above: Performed By: #### L 501.0250, L3890.6006, L509.8002, L100.0100 ####[facility] [address] [place], [address] Neutrophils/100 WBC (Bld) 79.2 % High 47-70 [facility] Comment on above: Performed By: #### L 501.0250, L3890.6006, L509.8002, L100.0100 ####[facility] [address] [place], [address] Nucleated RBC (Bld) [#/Vol] 0 10*3/uL Normal 0-5 [facility] Comment on above: Performed By: #### L 501.0250, L3890.6006, L509.8002, L100.0100 ####[facility] [address] [place], [address] Platelet mean volume (Bld) [Entitic vol] 10.5 fL Normal 6.2-12.0 [facility] Comment on above: Performed By: #### L 501.0250, L3890.6006, L509.8002, L100.0100 ####[facility] [address] [place], [address] Platelets (Bld) [#/Vol] 235 10*3/uL Normal 150-450 [facility] Comment on above: Performed By: #### L 501.0250, L3890.6006, L509.8002, L100.0100 ####[facility] [address] [place], [address] RBC (Bld) [#/Vol] 4.16 10*6/uL Low 4.2-5.4 [facility] Comment on above: Performed By: #### L 501.0250, L3890.6006, L509.8002, L100.0100 ####[facility] [address] [place], [address] RDW SD 41.2 fl Normal 35.1-43.9 [facility] Comment on above: Performed By: #### L 501.0250, L3890.6006, L509.8002, L100.0100 ####[facility] [address] [place], [address] WBC (Bld) [#/Vol] 10.0 10*3/uL Normal 4.4-11.0 [facility] Comment on above: Performed By: #### L 501.0250, L3890.6006, L509.8002, L100.0100 ####[facility] [address] [place], [address] Eosinophil percentageOrdered By: Azul Sheehan on 02-02-2025 Eosinophils/100 WBC (Bld) 0.8 % 0-5 [facility] Erythrocyte distribution wid th ratioOrdered By: Azul Sheehan on 02-02-2025 Erythrocyte distribution width (RBC) [Ratio] 13.1 % 11.6-14.6 [facility] Erythrocyte distribution wid th standard deviationOrdered By: Azul Sheehan on 02-02-2025 Erythrocyte distribution width (RBC) [Ratio] 41.2 fl 35.1-43.9 [facility] Glucose Challenge Gest 1H 50 rashad 02-02-2025 GLU GEST 50g 1H 136 mg/dL Normal 70-140 [facility] Comment on above: Performed By: #### L 501.0250, L3890.6006, L509.8002, L100.0100 ####[facility] [address] [place], [place], [id number] Glucose measurement at 2 jaqui rs post-dose gestational glucose tolerance testOrdered By: Azul Sheehan on 02-02-2025 Glucose [Mass/Vol] 136 mg/dL 70-140 [facility] HIVon 02-02-2025 HIV Non-Reactive Normal Nonreactive [facility] Comment on above: Result Comment: Non- Reactive Reactive Repeatedly reactive samples must be confirmed according to CDC recommended confirmatory algorithms. The subresults for either HIVAG or AHIV can be used as an aid in the selection of the confirmation algorithm for reactive samples. Send out specimens with Reactive results to [facility] for confirmation. Order the HIV antibody detection and differentiation: lc#[id number] Performed By: #### L 501.0250, L3890.6006, L509.8002, L100.0100 ####[facility] [address] [place], [place], [address] Hematocrit Auto (Bld) [Volum e fraction]Ordered By: Azul Sheehan on 02-02-2025 Hematocrit (Bld) [Volume fraction] 36.5 % Low 37-47 [facility] Hemoglobin measurementOrdere d By: Azul Sheehan on 02-02-2025 Hemoglobin (Bld) [Mass/Vol] 12.1 g/dL 12.0-15.0 [facility] Immature granulocytes/100 WB C Auto (Bld)Ordered By: Azul Sheehan on 02-02-2025 Immature granulocytes/100 WBC (Bld) 0.900 % 0.0-0.9 [facility] Comment on above: IG% - Immature Granu locytes (promyelocytes, myelocytes and metamyelocytes) > 1% indicates that a LEFT SHIFT is Present. Laboratory - Chemistry and C hemistry - challengeOrdered By: Emmy Carmona on 02-02-2025 Glucose Ql (U) Negative [facility] Laboratory - UrinalysisOrder ed By: Emmy Carmona on 02-02-2025 Protein Ql (U) Negative [facility] MCV (mean corpuscular volume ) determinationOrdered By: Azul Sheehan on 02-02-2025 MCV (RBC) [Entitic vol] 87.7 fL 81-99 [facility] Mean corpuscular hemoglobin (MCH) determinationOrdered By: Azul Sheehan on 02-02-2025 MCH (RBC) [Entitic mass] 29.1 pg 27.0-32.0 [facility] Mean corpuscular hemoglobin concentration (MCHC) determinationOrdered By: Azul Sheehan on 02-02-2025 MCHC (RBC) [Mass/Vol] 33.2 g/dL 32-36 [facility] Mean platelet volume determi nationOrdered By: Azuldariela Sheehan on 02-02-2025 Platelet mean volume (Bld) [Entitic vol] 10.5 fL 6.2-12.0 [facility] Monocyte percentageOrdered B y: Azul Sheehan on 02-02-2025 Monocytes/100 WBC (Bld) 3.8 % 0-10 [facility] Neutrophil percentageOrdered By: Azul Sheehan on 02-02-2025 Neutrophils/100 WBC (Bld) 79.2 % High 47-70 [facility] No Panel InformationOrdered By: Azul Sheehan on 02-02-2025 HIV (1&2) Antibody Non-Reactive Nonreactive [facility] Comment on above: Non-ReactiveReactive Repeatedly reactive samples must be confirmed according to CDC recommended confirmatory algorithms. The subresults for either HIVAG or AHIV can be used as an aid in the selection of the confirmation algorithm for reactive samples.Send out specimens with Reactive results to [facility] for confirmation.Order the HIV antibody detection and differentiation: #[id number] Nucleated red blood cell per centageOrdered By: Azul Sheehan on 02-02-2025 Nucleated RBC/100 WBC (Bld) [Ratio] 0 % 0-5 [facility] [employer] Office Visit Reporton 02-02-2025 [employer] Office Visit Report [facility], [address] [place] [address] OFFICE VISIT Date of Service: 02/02/25 MR#: [id number] Acct: [id number] Name: FELIPE PATRICK Rep #: [id number] : 1995 Provider: Dr. Emmy Barr DO Age/Sex: 29/F Location: [facility] Status: Signed Intake Vital Signs 11/17/24 11:15 01/10/25 10:23 02/02/25 10:22 02/02/25 10:25 Height 5 ft 2 in 5 ft 2 in 5 ft 2 in 5 ft 2 in Weight: 211 lb BMI 38.5 BP 112/75 Intake Visit Reasons: 28wk ob/glucose Sash Finisher Required: No Is patient in pain?: No Allergies house dust Allergy (Mild, Verified 02/02/25 10:22) Other mold (mold spores) Allergy (Mild, Verified 02/02/25 10:22) Other Environmental Allergies: Uncoded Allergy (Verified 02/02/25 10:22) Other Medications ???Medication ???Instructions ???Recorded ???Confirmed ???Type choline 500 mg tablet 500 mg PO DAILY 09/08/24 02/02/25 History multivitamin no.47-iron fum 27 cap PO 09/08/24 02/02/25 History mg-folate no.1 1 mg-dha 300 mg capsule (PNV-DHA) omega-3 fatty acids 1,000 mg 500 mg PO QDAY 09/08/24 02/02/25 H istory capsule (Super Hugo-3) Last Menstrual Period: 07/20/24 Zika: Zika virus screening: Negative : No PFSH PFSH Medical History Seasonal allergies Surgical History Previous section [place] teeth extracted Family History Grandmother Cancer Paternal [...] 1 current occupational status: employed 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 Relevant counseling for the gestational age provi (more content not included)... Normal [facility] Platelet countOrdered By: Celso nelly CifuentesMorrill on 02-02-2025 Platelets (Bld) [#/Vol] 235 10*3/uL 150-450 [facility] RBC Auto (Bld) [#/Vol]Ordere d By: Azul Sissy on 02-02-2025 RBC (Bld) [#/Vol] 4.16 10*6/uL Low 4.2-5.4 [facility] Syphilis Antibodieson 2024 Syphilis Abs Non-Reactive Normal Nonreactive [facility] Comment on above: Performed By: #### L 501.0250, L3890.6006, L509.8002, L100.0100 ####[facility] [address] [place], [address] White blood cell (WBC) count Ordered By: Azul Sheehan on 02-02-2025 WBC (Bld) [#/Vol] 10.0 10*3/uL 4.4-11.0 [facility] Inital Evaluation (1) - PTon 01-23-2025 Inital Evaluation (1) - PT [facility] Physical Therapy Health[address] [place] [address] / REHABILITATION SERVICES INITIAL EVALUATION MR#: [id number] Acct: [id number] Name: FELIPE PATRICK Rep #: [id number] : 1995 29 From: Abby Sam PT, Cert. MDT Referring Dr.: Dr. Emilia Goodman MD Status: REG R Insurance: [employer] Patient's Visit Information Visit [...] TOLERATED. HEP INSTRUCTION. 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 Present symptoms: BENJY LOW BACK PAIN, AND [...] to be FAXED BACK to us at [phone] for Medicare purposes. For Medicare only, by signing this I certify the plan of care. Please let me know if there are questions or concerns regarding thi (more content not included)... Normal [facility] Laboratory - Chemistry and C hemistry - challengeOrdered By: Azul Sheehan on 01-10-2025 Glucose Ql (U) Negative [facility] Laboratory - UrinalysisOrder ed By: Azul Sheehan on 01-10-2025 Protein Ql (U) Negative [facility] [employer] Office Visit Reporton 01-10-2025 [employer] Office Visit Report [address], [address] [place] [address] OFFICE VISIT Date of Service: 01/10/25 MR#: [id number] Acct: [id number] Name: FELIPE PATRICK Rep #: [id number] : 1995 Provider: MARCELLO galeano Age/Sex: 29/F Location: [facility] [place] Status: Signed Intake Vital Signs 11/17/24 11:15 12/15/24 15:30 01/10/25 10:23 Height 5 ft 2 in 5 ft 2 in 5 ft 2 in Weight: 209 lb 8 oz BMI 38.3 BP 116/78 Intake Visit Reasons: 25wk ob Chief Complaint: 25 Week OB Sash Finisher Required: No Is patient in pain?: No [...] QDAY 09/08/24 01/10/25 H istory capsule (Super Hugo-3) Last Menstrual Period: 07/20/24 Zika: Zika virus screening: Negative : Yes PFSH PFSH Medical History Seasonal allergies Surgical History Previous section [place] teeth extracted Family History Grandmother Cancer Paternal [...] 1 current occupational status: employed 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 Date Name GA/Weeks Outcome Route Bth Weight [facility] Mirella 41 live - [...] Continue ro (more content not included)... Normal [facility] Laboratory - Chemistry and C hemistry - challengeOrdered By: Bobbi Stuart on 12-15-2024 Glucose Ql (U) Negative [facility] Laboratory - UrinalysisOrder ed By: Bobbi Stuart on 12-15-2024 Protein Ql (U) Negative [facility] [employer] Office Visit Reporton 12-15-2024 [employer] Office Visit Report [facility] [address], [address] [place] [address] OFFICE VISIT Date of Service: 12/15/24 MR#: [id number] Acct: [id number] Name: FELIPE PATRICK Rep #: [id number] : 1995 Provider: DULCE Correa ams Age/Sex: 29/F Location: [facility] Status: Signed Intake Vital Signs 10/19/24 14:58 11/17/24 11:15 12/15/24 15:30 Height 5 ft 2 in 5 ft 2 in 5 ft 2 in Weight: 205 lb 2 oz BMI 37.5 BP 122/79 H Intake Visit Reasons: 21 WK OB Chief Complaint: 21wk OB 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 Finisher Required: No Is patient in pain?: No [...] QDAY 09/08/24 12/15/24 H istory capsule (Super Hugo-3) Last Menstrual Period: 07/20/24 : No PFSH PFSH Medical History Seasonal allergies Surgical History Previous section [place] teeth extracted Family History Grandmother Cancer Paternal [...] 1 current occupational status: employed 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 Normal [facility] Laboratory - Chemistry and C hemistry - challengeOrdered By: Bobbi Stuart on 11-17-2024 Glucose Ql (U) Negative [facility] Laboratory - UrinalysisOrder ed By: Bobbi Stuart on 11-17-2024 Protein Ql (U) Negative [facility] [employer] Office Visit Reporton 11-17-2024 [employer] Office Visit Report [facility] [address], [address] [place] [address] OFFICE VISIT Date of Service: 11/17/24 MR#: [id number] Acct: [id number] Name: FELIPE PATRICK Rep #: [id number] : 1995 Provider: DULCE Correa ams Age/Sex: 29/F Location: [facility] [place] Status: Signed Intake Vital Signs 09/21/24 14:35 10/19/24 14:58 11/17/24 11:15 Height 5 ft 2 in 5 ft 2 in 5 ft 2 in Weight: 203 lb 2 oz BMI 37.1 BP 110/73 Intake Visit Reasons: 17 wk ob Chief Complaint: 17wk OB Sash Finisher Required: No Is patient in pain?: No [...] QDAY 09/08/24 11/17/24 H istory capsule (Super Hugo-3) Last Menstrual Period: 07/20/24 : No PFSH PFSH Medical History Seasonal allergies Surgical History Previous section [place] teeth extracted Family History Grandmother Cancer Paternal [...] 1 current occupational status: employed 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 Normal [facility] Laboratory - Chemistry and C hemistry - challengeOrdered By: Emmy Carmona on 10-19-2024 Glucose Ql (U) Negative [facility] Laboratory - UrinalysisOrder ed By: Emmy Carmona on 10-19-2024 Protein Ql (U) Negative [facility] [employer] Office Visit Reporton 10-19-2024 [employer] Office Visit Report [facility] [address] [place] [address], [address] [place] [address] OFFICE VISIT Date of Service: 10/19/24 MR#: [id number] Acct: [id number] Name: FELIPE PATRICK Rep #: [id number] : 1995 Provider: Dr. Emmy Barr DO Age/Sex: 29/F Location: [facility] [place] Status: Signed Intake Vital Signs 09/21/24 14:35 10/19/24 14:58 Height 5 ft 2 in 5 ft 2 in Weight: 198 lb 6 oz BMI 36.3 BP 130/78 H Intake Visit Reasons: 13 wk OB Sash Finisher Required: No Is patient in pain?: No [...] QDAY 09/08/24 10/19/24 H istory capsule (Super Hugo-3) Last Menstrual Period: 07/20/24 Zika: Zika virus screening: Negative : No PFSH PFSH Medical History Seasonal allergies Surgical History Previous section [place] teeth extracted Family History Grandmother Cancer Paternal [...] 1 current occupational status: employed 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 Normal [facility] L3890.6102on 10-05-2024 HEP B Surf Ag Non-Reactive Normal Nonreactive [facility] Comment on above: Result Comment: Reac tive: Presumptive evidence of HBV. Repeatedly reactive samples must be confirmed using a neutralization test (ElecHard Candy Casess HBsAg Confirmatory Test) Non-Reactive: HBsAg not detected; does not exclude the possibility of exposure to HBV Performed By: #### L 509.4006, L3890.6102, L3890.6301, L509.8002 #### [facility] [address] [place], [place], [address] L3890.6301on 10-05-2024 Hepatitis C Ab Non-Reactive Normal Nonreactive [facility] Comment on above: Result Comment: Reac tive: Presumptive evidence of antibodies to HCV. Follow CDC recommendations for supplemental testing. Non-Reactive: Antibodies to HCV were not detected; does not exclude the possibility of exposure to HCV Reactive Results are presumptive evidence of antibodies to HCV. Follow CDC recommendations for supplemental testing. Order confirmation testing: HCV Quant by PCR testing - HCVPCR #[id number] Non Reactive: < 0.8 Equivocal: >/= 0.8 to < 1.0 Reactive: >/= 1.0 The CDC requires that a reactive/equivocal HCV antibody result be sent out for confirmation. HCV Quant by PCR testing. Performed By: #### L 509.4006, L3890.6102, L3890.6301, L509.8002 ####[facility] [address] [place], [place], [address] L509.4006on 10-05-2024 Rubella IgG REAC Normal Nonreactive [facility] Comment on above: Result Comment: Anti body Result: Interpretation Non-Reactive: Non-Immune Reactive: Immune The following results were obtained with the Elecsys Rubella IgG assay. Results from assays of other manufacturers cannot be used interchangeably. Performed By: #### L 509.4006, L3890.6102, L3890.6301, L509.8002 #### [facility] [address] [place], [address] L509.8002on 10-05-2024 Syphilis Abs Non-Reactive Normal Nonreactive [facility] Comment on above: Performed By: #### L 509.4006, L3890.6102, L3890.6301, L509.8002 #### [facility] [address] [place], [address] Hemoglobin A1con 10-04-2024 HbA1c (Bld) [Mass fraction] 5.0 % Low <=5.6 [facility] Comment on above: Performed By: #### L 900.0098, L100.0100, L501.9985, L3890.6006, BTS ####[facility] [address] [place], [address] L3890.6006on 10-04-2024 HIV Non-Reactive Normal Nonreactive [facility] Comment on above: Result Comment: Non- Reactive Reactive Repeatedly reactive samples must be confirmed according to CDC recommended confirmatory algorithms. The subresults for either HIVAG or AHIV can be used as an aid in the selection of the confirmation algorithm for reactive samples. Send out specimens with Reactive results to [facility] for confirmation. Order the HIV antibody detection and differentiation: [id number] Performed By: #### L 900.0098, L100.0100, L501.9985, L3890.6006, BTS ####[facility] [address] [place], [address] No Panel InformationOrdered By: Bobbi Stuart on 10-04-2024 HIV (1&2) Antibody Non-Reactive Nonreactive [facility] Comment on above: Non-ReactiveReactive Repeatedly reactive samples must be confirmed according to CDC recommended confirmatory algorithms. The subresults for either HIVAG or AHIV can be used as an aid in the selection of the confirmation algorithm for reactive samples.Send out specimens with Reactive results to [facility] for confirmation.Order the HIV antibody detection and differentiation: #[id number] Absolute lymphocyte countOrd ered By: Bobbi Stuart on 10-03-2024 Lymphocytes Auto (Unsp spec) [#/Vol] 2.22 10*3/uL 0.83-4.51 [facility] Absolute neutrophil countOrd ered By: Bobbi Stuart on 10-03-2024 Neutrophils (Bld) [#/Vol] 5.5 10*3/uL 2.0-7.7 [facility] Automated lymphocyte count a s percentage of total leukocytesOrdered By: Bobbi Stuart on 10-03-2024 Lymphocytes/100 WBC Auto (Unsp spec) 26.1 % 19-41 [facility] Basophil percentageOrdered B y: Bobbi Stuart on 10-03-2024 Basophils/100 WBC (Bld) 0.4 % 0-1 [facility] CBC W/Diff, Automatedon 09-10 Absolute Lymph 2.22 X10 3/uL Normal 0.83-4.51 [facility] Comment on above: Performed By: #### L 900.0098, L100.0100, L501.9985, L3890.6006, BTS ####[facility] [address] [place], [address] Absolute Neut 5.5 X10 3/uL Normal 2.0-7.7 [facility] Comment on above: Performed By: #### L 900.0098, L100.0100, L501.9985, L3890.6006, BTS ####[facility] [address] [place], [address] Basophils/100 WBC (Bld) 0.4 % Normal 0-1 [facility] Comment on above: Performed By: #### L 900.0098, L100.0100, L501.9985, L3890.6006, BTS ####[facility] [address] [place], [address] Eosinophils/100 WBC (Bld) 1.8 % Normal 0-5 [facility] Comment on above: Performed By: #### L 900.0098, L100.0100, L501.9985, L3890.6006, BTS ####[facility] [address] [place], [address] Erythrocyte distribution width (RBC) [Ratio] 12.9 % Normal 11.6-14.6 [facility] Comment on above: Performed By: #### L 900.0098, L100.0100, L501.9985, L3890.6006, BTS ####[facility] [address] [place], [address] Hematocrit (Bld) [Volume fraction] 36.6 % Low 37-47 [facility] Comment on above: Performed By: #### L 900.0098, L100.0100, L501.9985, L3890.6006, BTS ####[facility] [address] [place], [address] Hemoglobin (Bld) [Mass/Vol] 12.2 g/dL Normal 12.0-15.0 [facility] Comment on above: Performed By: #### L 900.0098, L100.0100, L501.9985, L3890.6006, BTS ####[facility] [address] [place], [address] IG% 0.400 Normal 0.0-0.9 [facility] Comment on above: Result Comment: IG% - Immature Granulocytes (promyelocytes, myelocytes and metamyelocytes) > 1% indicates that a LEFT SHIFT is Present. Performed By: #### L 900.0098, L100.0100, L501.9985, L3890.6006, BTS ####[facility] [address] [place], [address] Lymphocytes/100 WBC (Bld) 26.1 % Normal 19-41 [facility] Comment on above: Performed By: #### L 900.0098, L100.0100, L501.9985, L3890.6006, BTS ####[facility] [address] [place], [address] MCH (RBC) [Entitic mass] 28.6 pg Normal 27.0-32.0 [facility] Comment on above: Performed By: #### L 900.0098, L100.0100, L501.9985, L3890.6006, BTS ####[facility] [address] [place], [address] MCHC (RBC) [Mass/Vol] 33.3 g/dL Normal 32-36 [facility] Comment on above: Performed By: #### L 900.0098, L100.0100, L501.9985, L3890.6006, BTS ####[facility] [address] [place], [address] MCV (RBC) [Entitic vol] 85.9 fL Normal 81-99 [facility] Comment on above: Performed By: #### L 900.0098, L100.0100, L501.9985, L3890.6006, BTS ####[facility] [address] [place], [address] Monocytes/100 WBC (Bld) 6.2 % Normal 0-10 [facility] Comment on above: Performed By: #### L 900.0098, L100.0100, L501.9985, L3890.6006, BTS ####[facility] [address] [place], [address] Neutrophils/100 WBC (Bld) 65.1 % Normal 47-70 [facility] Comment on above: Performed By: #### L 900.0098, L100.0100, L501.9985, L3890.6006, BTS ####[facility] [address] [place], [address] Nucleated RBC (Bld) [#/Vol] 0 10*3/uL Normal 0-5 [facility] Comment on above: Performed By: #### L 900.0098, L100.0100, L501.9985, L3890.6006, BTS ####[facility] [address] [place], [address] Platelet mean volume (Bld) [Entitic vol] 10.3 fL Normal 6.2-12.0 [facility] Comment on above: Performed By: #### L 900.0098, L100.0100, L501.9985, L3890.6006, BTS ####[facility] [address] [place], [address] Platelets (Bld) [#/Vol] 237 10*3/uL Normal 150-450 [facility] Comment on above: Performed By: #### L 900.0098, L100.0100, L501.9985, L3890.6006, BTS ####[facility] [address] [place], [address] RBC (Bld) [#/Vol] 4.26 10*6/uL Normal 4.2-5.4 [facility] Comment on above: Performed By: #### L 900.0098, L100.0100, L501.9985, L3890.6006, BTS ####[facility] [address] [place], [address] RDW SD 40.1 fl Normal 35.1-43.9 [facility] Comment on above: Performed By: #### L 900.0098, L100.0100, L501.9985, L3890.6006, BTS ####[facility] [address] [place], [place], [address] WBC (Bld) [#/Vol] 8.5 10*3/uL Normal 4.4-11.0 [facility] Comment on above: Performed By: #### L 900.0098, L100.0100, L501.9985, L3890.6006, BTS ####[facility] [address] [place], [address] Eosinophil percentageOrdered By: Bobbi Stuart on 10-03-2024 Eosinophils/100 WBC (Bld) 1.8 % 0-5 [facility] Erythrocyte distribution wid th ratioOrdered By: Bobbi Stuart on 10-03-2024 Erythrocyte distribution width (RBC) [Ratio] 12.9 % 11.6-14.6 [facility] Erythrocyte distribution wid th standard deviationOrdered By: Bobbi Stuart on 10-03-2024 Erythrocyte distribution width (RBC) [Entitic vol] 40.1 fL 35.1-43.9 [facility] Erythrocyte distribution width (RBC) [Ratio] 40.1 fl 35.1-43.9 [facility] HBV surface Ag Ql (S)Ordered By: Bobbi Stuart on 10-03-2024 Hepatitis B Surface Antigen Non-Reactive Nonreactive [facility] Comment on above: Reactive: Presumptiv e evidence of HBV. Repeatedly reactive samples must be confirmed using a neutralization test (Elecsys HBsAg Confirmatory Test)Non-Reactive: HBsAg not detected; does not exclude the possibility of exposure to HBV Hematocrit Auto (Bld) [Volum e fraction]Ordered By: Bobbi Stuart on 10-03-2024 Hematocrit (Bld) [Volume fraction] 36.6 % Low 37-47 [facility] Hemoglobin A1c percentageOrd ered By: Bobbi Stuart on 10-03-2024 HbA1c (Bld) [Mass fraction] 5.0 % Low >5.7 [facility] Hemoglobin measurementOrdere d By: oBbbi Stuart on 10-03-2024 Hemoglobin (Bld) [Mass/Vol] 12.2 g/dL 12.0-15.0 [facility] Hepatitis C antibodyOrdered By: Bobbi Stuart on 10-03-2024 Hepatitis C Antibody Non-Reactive Nonreactive [facility] Comment on above: Reactive: Presumptiv e evidence of antibodies to HCV. Follow CDC recommendations for supplemental testing.Non-Reactive: Antibodies to HCV were not detected; does not exclude the possibility of exposure to HCVReactive Results are presumptive evidence of antibodies to HCV. Follow CDC recommendations for supplemental testing.Order confirmation testing: HCV Quant by PCR testing - HCVPCR #[id number] Non Reactive: < 0.8 Equivocal: >/= 0.8 to < 1.0 Reactive: >/= 1.0The CDC requires that a reactive/equivocal HCV antibody result be sent out for confirmation. HCV Quant by PCR testing. Immature granulocytes/100 WB C Auto (Bld)Ordered By: Bobbi Stuart on 10-03-2024 Immature granulocytes/100 WBC (Bld) 0.400 % 0.0-0.9 [facility] Comment on above: IG% - Immature Granu locytes (promyelocytes, myelocytes and metamyelocytes) > 1% indicates that a LEFT SHIFT is Present. Laboratory - Microbiology an d Antimicrobial susceptibilityOrdered By: Bobbi Stuart on 10-03-2024 HBV surface Ag Ql (S) Non-Reactive Nonreactive [facility] Comment on above: Reactive: Presumptiv e evidence of HBV. Repeatedly reactive samples must be confirmed using a neutralization test (Elecsys HBsAg Confirmatory Test)Non-Reactive: HBsAg not detected; does not exclude the possibility of exposure to HBV Lymphocytes Auto (Unsp spec) [#/Vol]Ordered By: Bobbi Stuart on 10-03-2024 Lymphocytes (Bld) [#/Vol] 2.22 10*3/uL 0.83-4.51 [facility] Lymphocytes/100 WBC Auto (Un sp spec)Ordered By: Bobbi Stuart on 10-03-2024 Lymphocytes/100 WBC (Bld) 26.1 % 19-41 [facility] MCV (mean corpuscular volume ) determinationOrdered By: Bobbi Stuart on 10-03-2024 MCV (RBC) [Entitic vol] 85.9 fL 81-99 [facility] Mean corpuscular hemoglobin (MCH) determinationOrdered By: Bobbi Stuart on 10-03-2024 MCH (RBC) [Entitic mass] 28.6 pg 27.0-32.0 [facility] Mean corpuscular hemoglobin concentration (MCHC) determinationOrdered By: Bobbi Stuart on 10-03-2024 MCHC (RBC) [Mass/Vol] 33.3 g/dL 32-36 [facility] Mean platelet volume determi nationOrdered By: Bobbi Stuart on 10-03-2024 Platelet mean volume (Bld) [Entitic vol] 10.3 fL 6.2-12.0 [facility] Miscellaneous procedureOrder ed By: Bobbi Stuart on 10-03-2024 Miscellaneous Test Comment SEE SCANNED REPORT [facility] Monocyte percentageOrdered B y: Bobbi Stuart on 10-03-2024 Monocytes/100 WBC (Bld) 6.2 % 0-10 [facility] NATERAon 10-03-2024 NATURA SEE SCANNED REPORT Normal [facility] Comment on above: Performed By: #### L 900.0098, L100.0100, L501.9985, L3890.6006, BTS ####[facility] [address] [place], [address] Neutrophil percentageOrdered By: Bobbi Stuart on 10-03-2024 Neutrophils/100 WBC (Bld) 65.1 % 47-70 [facility] No Panel InformationOrdered By: Bobbi Stuart on 10-03-2024 Syphilis Total Antibody Non-Reactive Nonreactiv e [facility] Nucleated red blood cell per centageOrdered By: Bobbi Stuart on 10-03-2024 Nucleated RBC/100 WBC (Bld) [Ratio] 0 % 0-5 [facility] Platelet countOrdered By: Candido Stuart on 10-03-2024 Platelets (Bld) [#/Vol] 237 10*3/uL 150-450 [facility] RBC Auto (Bld) [#/Vol]Ordere d By: Bobbi Stuart on 10-03-2024 RBC (Bld) [#/Vol] 4.26 10*6/uL 4.2-5.4 [facility] Rubella immune status determ ination by IgG antibody assayOrdered By: Bobbi Stuart on 10-03-2024 Rubella IgG Antibody REAC Nonreactive [facility] Comment on above: Antibody Result: Int erpretationNon-Reactive: Non-ImmuneReactive: ImmuneThe following results were obtained with the Elecsys Rubella IgG assay. Results from assays of other manufacturers cannot be used interchangeably. Type AND Screenon 10-03-2024 Ab SCREEN GEL Negative Normal [facility] Comment on above: Order Comment: PN Performed By: #### L 900.0098, L100.0100, L501.9985, L3890.6006, BTS ####[facility] [id number] [place], [address] ABO and Rh group Nom (Bld) Blood group O Rh(D) positive Normal [facility] Comment on above: Order Comment: PN Performed By: #### L 900.0098, L100.0100, L501.9985, L3890.6006, BTS ####[facility] [address] [place], [address] White blood cell (WBC) count Ordered By: Bobbi Stuart on 10-03-2024 WBC (Bld) [#/Vol] 8.5 10*3/uL 4.4-11.0 [facility] Chlamydia/GC GLEN aptimaon CHLAMY,NUC ACID Negative Normal Negative [facility] Comment on above: Performed By: #### M 100.2200, L7000.1800 ####[facility] [address] [place], [address] GC BY NUC ACID Negative Normal Negative [facility] Comment on above: Result Comment: Perf ormed at: =G - [facility] [address] [id number] Neurosurgery Research Director: Natasha Jackson MD, Phone: [phone] Performed By: #### M 100.2200, L7000.1800 ####[facility] [address] [place], [address] Urine Cultureon 09-24-2024 URC #2 Below infection level. Urine Culture Streptococcus agalactiae (B) [place] Count 11,000-25,000 Mixed Gram Positive Organisms Mixed Gram Positive Organisms MIXC Mixed contaminants. Submit a new specimen if indicated. Streptococcus agalactiae (B): REACTION Ampicillin Islt JASMINA <=0.25 cefTRIAXone Islt JASMINA <=0.12 S Clindamycin Islt JASMINA <=0.25 Clindamycin.induced Susc Islt NEG Linezolid Islt JASMINA <=2 S Vancomycin Islt JASMINA 0.25 S Normal [facility] Comment on above: Performed By: #### M 100.2200, L7000.1800 ####[facility] [address] [place], [address] C. trachomatis rRNA GLEN+prob e Ql (Unsp spec)Ordered By: Bobbi Stuart on 09-21-2024 Chlamydia DNA (GLEN) Negative Negative [facility] Chlamydia trachomatis rRNA d etection by probe and target amplification methodOrdered By: Bobbi Stuart on 09-21-2024 C. trachomatis rRNA GLEN+probe Ql (Unsp spec) Negative Negative [facility] Neisseria gonorrhoeae nuclei c acid detection by amplified probe techniqueOrdered By: Bobbi Stuart on 09-21-2024 N. gonorrhoeae DNA GLEN+probe Ql (Unsp spec) Negative Negative [facility] Comment on above: Performed at: =[address] [id number] Director: Natasha Jackson MD, Phone: [phone] [employer] Office Visit Reporton 09-21-2024 [employer] Office Visit Report [facility] [address], [address] [place] [address] OFFICE VISIT Date of Service: 09/21/24 MR#: [id number] Acct: [id number] Name: FELIPE PATRICK Rep #: [id number] : 1995 Provider: DULCE Correa ams Age/Sex: 29/F Location: [facility] Status: Signed Intake Vital Signs 09/21/24 14:35 [...] QDAY 09/08/24 09/21/24 H istory capsule (Super Hugo-3) Last Menstrual Period: 07/20/24 : Yes PFSH PFSH Medical History Seasonal allergies Surgical History Previous section [place] teeth extracted Family History Grandmother Cancer Paternal [...] No current occupational status: employed 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 Normal [facility] Urine cultureOrdered By: Jaden Stuart on 09-21-2024 Bacteria identified Cx Nom (U) Streptococcus agalactiae (B) Abnormal [facility] Bacteria identified Cx Nom (U) Positive Abnormal [facility] DHEAUon 2024 DHEA. 152 ng/dL Normal 31-701 [facility] ([place]) Comment on above: Result Comment: This test was developed and its performance characteristics determined by [facility]. It has not been cleared or approved by the Food and Drug Administration. Performed At: [facility] [address] [place], [place] [id number] Larry Delicd MD Ph:[phone] Performed By: #### A DIFF, CBC, ABOG, ANSG, ANEU #### [address] [address] #### RPR #### [address] [address] .Auto Diffon 02-02-2024 Basophil, Absolute 0.0 10 3/mcL Normal 0.0-0.2 [facility] ([place]) Comment on above: Performed By: #### G LF #### [address] [address] Basophils/100 WBC (Bld) 0.3 % Normal 0.0-2.5 [facility] ([place]) Comment on above: Performed By: #### G LF #### [address] [address] Eosinophil, Absolute 0.2 10 3/mcL Normal 0.0-0.4 [facility] ([place]) Comment on above: Performed By: #### G LF #### [address] [address] Eosinophils/100 WBC (Bld) 1.9 % Normal 0.0-7.0 [facility] ([place]) Comment on above: Performed By: #### G LF #### [address] [address] Lymphocyte, Absolute 2.5 10 3/mcL Normal 0.8-3.9 [facility] ([place]) Comment on above: Performed By: #### G LF #### [address] [address] Lymphocytes/100 WBC (Bld) 27.0 % Normal 10.0-50.0 [facility] ([place]) Comment on above: Performed By: #### G LF #### [address] [address] Monocyte, Absolute 0.6 10 3/mcL Normal 0.2-1.0 [facility] ([place]) Comment on above: Performed By: #### G LF #### [address] [address] Monocytes/100 WBC (Bld) 6.1 % Normal 1.7-13.0 [facility] ([place]) Comment on above: Performed By: #### G LF #### [address] [address] Neutrophils/100 WBC (Bld) 64.7 % Normal 37.0-80.0 [facility] ([place] Comment on above: Performed By: #### G LF #### [address] [address] .GFRon 02-02-2024 GFR 136 ml/min/1.73sqm Normal [facility] ([place]) Comment on above: Result Comment: GFR Population [...] A DIFF, CBC, ABOG, ANSG, ANEU #### [address] [address] #### RPR #### [place] [address] GFR Non- 113 ml/min/1.73sqm Normal [facility] ([place]) Comment on above: Result Comment: GFR Population [...] A DIFF, CBC, ABOG, ANSG, ANEU #### [address] [address] #### RPR #### [address] [address] .NEUABSon 02-02-2024 Neutrophil, Absolute 5.9 10 3/mcL Normal 2.9-6.2 [facility] ([place]) Comment on above: Performed By: #### G LF #### [address] [address] A1Con 02-02-2024 HbA1c (Bld) [Mass fraction] 4.9 % Normal 4.3-6.4 [facility] ([place] Comment on above: Performed By: #### G LF #### [address] [address] B12on 02-02-2024 Cobalamin (Vitamin B12) [Mass/Vol] 357 pg/mL Normal 211-911 [facility] ([place]) Comment on above: Performed By: #### A DIFF, CBC, ABOG, ANSG, ANEU #### [address] [address] #### RPR #### [address] [address] CBCon 02-02-2024 Erythrocyte distribution width (RBC) [Ratio] 13.1 % Normal 11.5-14.5 [facility] ([place]) Comment on above: Performed By: #### G LF #### [address] [address] Hematocrit (Bld) [Volume fraction] 37.3 % Normal 37.0-47.0 [facility] ([place] Comment on above: Performed By: #### G LF #### [address] [address] Hgb 12.6 G/dL Normal 12.0-16.0 [facility] ([place] Comment on above: Performed By: #### G LF #### [address] [address] MCH (RBC) [Entitic mass] 29.0 pg Normal 27.0-31.2 [facility] ([place] Comment on above: Performed By: #### G LF #### [address] [address] MCHC 33.9 G/dL Normal 33.0-37.0 [facility] ([place] Comment on above: Performed By: #### G LF #### [address] [address] MCV (RBC) [Entitic vol] 85.4 fL Normal 80.0-94.0 [facility] ([place]) Comment on above: Performed By: #### G LF #### [address] [address] Platelet 246 10 3/mcL Normal 130-400 [facility] ([place]) Comment on above: Performed By: #### G LF #### [address] [address] Platelet mean volume (Bld) [Entitic vol] 8.2 fL Normal 7.4-10.4 [facility] ([place] Comment on above: Performed By: #### G LF #### [address] [address] RBC 4.36 10 6/mcL Normal 4.20-5.40 [facility] ([place] Comment on above: Performed By: #### G LF #### [address] [address] WBC 9.2 10 3/mcL Normal 4.6-10.8 [facility] ([place] Comment on above: Performed By: #### G LF #### [address] [address] CMPon 02-02-2024 Albumin Level 4.0 G/dL Normal 3.5-5.0 [facility] ([place] Comment on above: Performed By: #### A DIFF, CBC, ABOG, ANSG, ANEU #### [place] [address] #### RPR #### [address] [address] Albumin/Globulin [Mass ratio] 1.2 {ratio} Normal 1.1-2.5 [facility] ([place] Comment on above: Performed By: #### A DIFF, CBC, ABOG, ANSG, ANEU #### [place] [address] #### RPR #### [address] [address] ALP [Catalytic activity/Vol] 97 U/L Normal 40-135 [facility] ([place]) Comment on above: Performed By: #### A DIFF, CBC, ABOG, ANSG, ANEU #### [place] [address] #### RPR #### [address] [address] ALT [Catalytic activity/Vol] 28 U/L Normal 14-59 [facility] ([place] Comment on above: Performed By: #### A DIFF, CBC, ABOG, ANSG, ANEU #### [place] [address] #### RPR #### [address] [address] AST [Catalytic activity/Vol] 16 U/L Normal 10-40 [facility] ([place] Comment on above: Performed By: #### A DIFF, CBC, ABOG, ANSG, ANEU #### [place] [address] #### RPR #### [address] [address] Bili Total 0.5 mg/dL Normal 0.2-1.0 [facility] ([place] Comment on above: Result Comment: Use of this assay is not recommended for patients undergoing treatment with eltrombopag due to the potential for falsely elevated results. Performed By: #### A DIFF, CBC, ABOG, ANSG, ANEU #### [address] [address] #### RPR #### [address] [address] BUN/Creatinine Ratio 17 ratio Normal 7-27 [facility] ([place] Comment on above: Performed By: #### A DIFF, CBC, ABOG, ANSG, ANEU #### [place] [address] #### RPR #### [address] [address] Calcium [Mass/Vol] 9.1 mg/dL Normal 8.4-10.2 [facility] ([place]) Comment on above: Performed By: #### A DIFF, CBC, ABOG, ANSG, ANEU #### [place] [address] #### RPR #### [address] [address] Chloride [Moles/Vol] 103 mmol/L Normal 98-107 [facility] ([place] Comment on above: Performed By: #### A DIFF, CBC, ABOG, ANSG, ANEU #### [place] [address] #### RPR #### [address] [address] CO2 [Moles/Vol] 28 mmol/L Normal 22-29 [facility] ([place] Comment on above: Performed By: #### A DIFF, CBC, ABOG, ANSG, ANEU #### [place] [address] #### RPR #### [address] [address] Creatinine [Mass/Vol] 0.63 mg/dL Normal 0.55-1.02 [facility] ([place]) Comment on above: Performed By: #### A DIFF, CBC, ABOG, ANSG, ANEU #### [address] [address] #### RPR #### [address] [address] Electrolyte Balance 10.0 mEq/L Normal 4.0-15.0 [facility] ([place]) Comment on above: Performed By: #### A DIFF, CBC, ABOG, ANSG, ANEU #### [address] [address] #### RPR #### [address] [address] Globulin 3.3 G/dL Normal [facility] ([place] Comment on above: Performed By: #### A DIFF, CBC, ABOG, ANSG, ANEU #### [place] [address] #### RPR #### [address] [address] Glucose [Mass/Vol] 76 mg/dL Normal 70-105 [facility] ([place] Comment on above: Performed By: #### A DIFF, CBC, ABOG, ANSG, ANEU #### [address] [address] #### RPR #### [address] [address] Potassium [Moles/Vol] 3.8 mmol/L Normal 3.5-5.1 [facility] ([place] Comment on above: Performed By: #### A DIFF, CBC, ABOG, ANSG, ANEU #### [place] [address] #### RPR #### [address] [address] Sodium [Moles/Vol] 141 mmol/L Normal 136-145 [facility] ([place] Comment on above: Performed By: #### A DIFF, CBC, ABOG, ANSG, ANEU #### [place] [address] #### RPR #### [place] [address] Total Protein 7.3 G/dL Normal 6.4-8.2 [facility] ([place] Comment on above: Performed By: #### A DIFF, CBC, ABOG, ANSG, ANEU #### [place] [address] #### RPR #### [place] [address] Urea nitrogen [Mass/Vol] 11 mg/dL Normal 7-18 [facility] ([place] Comment on above: Performed By: #### A DIFF, CBC, ABOG, ANSG, ANEU #### [place] [address] #### RPR #### [place] [address] CPEPon 02-02-2024 C-Peptide 0.90 ng/mL Normal 0.81-3.85 [facility] ([place] Comment on above: Performed By: #### A DIFF, CBC, ABOG, ANSG, ANEU #### [place] [address] #### RPR #### [place] [address] CRPHSon 02-02-2024 CRP, High Sensitive 5.59 mg/L High 0.20-3.00 [facility] ([place]) Comment on above: Result Comment: Rela tive [...] A DIFF, CBC, ABOG, ANSG, ANEU #### [place] [address] #### RPR #### [address] [address] FEon 02-02-2024 Iron [Mass/Vol] 78 ug/dL Normal 50-170 [facility] ([place] Comment on above: Performed By: #### G LF #### [address] [address] Tobias 02-02-2024 Ferritin [Mass/Vol] 42.0 ng/mL Normal 8.0-252.0 [facility] ([place]) Comment on above: Performed By: #### G LF #### [address] [address] FOLon 02-02-2024 Folate 34.59 ng/mL High 5.38-24.00 [facility] ([place] Comment on above: Performed By: #### A DIFF, CBC, ABOG, ANSG, ANEU #### [address] [address] #### RPR #### [place] [id number] FT4on 02-02-2024 Free T4 [Mass/Vol] 1.00 ng/dL Normal 0.76-1.46 [facility] ([place] Comment on above: Performed By: #### G LF #### [address] [address] LABORATORYOrdered By: SYSTEM SYSTEM on 02-02-2024 25-hydroxyvitamin [...] 02-02-2024 Cholesterol [Mass/Vol] 186 mg/dL Normal 0-200 [facility] ([place] Comment on above: Result Comment: Chol esterol Reference Interval: Less than 200 Desirable 200-239 Borderline high risk 240 and above High risk Performed By: #### A DIFF, CBC, ABOG, ANSG, ANEU #### [address] [address] #### RPR #### [address] [address] Cholesterol in HDL [Mass/Vol] 73 mg/dL High 40-60 [facility] ([place] Comment on above: Performed By: #### A DIFF, CBC, ABOG, ANSG, ANEU #### [address] [address] #### RPR #### [address] [address] Cholesterol in LDL [Mass/Vol] 100 mg/dL Normal 0-130 [facility] ([place] Comment on above: Performed By: #### A DIFF, CBC, ABOG, ANSG, ANEU #### [address] [address] #### RPR #### [address] [address] Triglyceride [Mass/Vol] 66 mg/dL Normal 0-150 [facility] ([place]) Comment on above: Result Comment: Trig lyceride Reference Interval: Less than 150 Normal 150-199 Borderline high risk 200-499 High risk 500 or higher Very high risk Performed By: #### A DIFF, CBC, ABOG, ANSG, ANEU #### [place] [address] #### RPR #### [address] [address] TSHon 02-02-2024 TSH Qn 1.75 m[IU]/L Normal 0.36-3.74 [facility] ([place] Comment on above: Performed By: #### G LF #### [address] [address] VIDHon 02-02-2024 Vit. D 25-Hydroxy 33.4 ng/mL Normal [facility] ([place] Comment on above: Result Comment: Inte rpretive Values Based on Total 25(OH) Vitamin D: Deficient <20 ng/mL Insufficient 20 - <30 ng/mL Sufficient 30-100 ng/mL Performed By: #### G LF #### [place] [id number] .Auto Diffon 05-26-2023 Basophil, Absolute 0.0 10 3/mcL Normal 0.0-0.2 [facility] ([place] Comment on above: Performed By: #### A DIFF, CBC, ABOG, ANSG, ANEU #### [place] [address] #### RPR #### [address] [address] Basophils/100 WBC (Bld) 0.1 % Normal 0.0-2.5 [facility] ([place] Comment on above: Performed By: #### A DIFF, CBC, ABOG, ANSG, ANEU #### [address] [address] #### RPR #### [address] [address] Eosinophil, Absolute 0.0 10 3/mcL Normal 0.0-0.4 [facility] ([place] Comment on above: Performed By: #### A DIFF, CBC, ABOG, ANSG, ANEU #### [place] [address] #### RPR #### [address] [address] Eosinophils/100 WBC (Bld) 0.0 % Normal 0.0-7.0 [facility] ([place] Comment on above: Performed By: #### A DIFF, CBC, ABOG, ANSG, ANEU #### [place] [address] #### RPR #### [address] [address] Lymphocyte, Absolute 1.6 10 3/mcL Normal 0.8-3.9 [facility] ([place] Comment on above: Performed By: #### A DIFF, CBC, ABOG, ANSG, ANEU #### [place] [address] #### RPR #### [address] [address] Lymphocytes/100 WBC (Bld) 7.5 % Low 10.0-50.0 [facility] ([place] Comment on above: Performed By: #### A DIFF, CBC, ABOG, ANSG, ANEU #### [address] [address] #### RPR #### [address] [address] Monocyte, Absolute 0.7 10 3/mcL Normal 0.2-1.0 [facility] ([place] Comment on above: Performed By: #### A DIFF, CBC, ABOG, ANSG, ANEU #### [address] [address] #### RPR #### [address] [address] Monocytes/100 WBC (Bld) 3.2 % Normal 1.7-13.0 [facility] ([place] Comment on above: Performed By: #### A DIFF, CBC, ABOG, ANSG, ANEU #### [address] [address] #### RPR #### [address] [address] Neutrophils/100 WBC (Bld) 89.2 % High 37.0-80.0 [facility] ([place] Comment on above: Performed By: #### A DIFF, CBC, ABOG, ANSG, ANEU #### [address] [address] #### RPR #### [address] [address] .Morphon 05-26-2023 Platelet Estimate Normal Normal [facility] ([place]) Comment on above: Performed By: #### A DIFF, CBC, ABOG, ANSG, ANEU #### [place] [address] #### RPR #### [address] [address] .NEUABSon 05-26-2023 Neutrophil, Absolute 18.8 10 3/mcL High 2.9-6.2 [facility] ([place] Comment on above: Performed By: #### A DIFF, CBC, ABOG, ANSG, ANEU #### [place] [address] #### RPR #### [address] [address] CBCon 05-26-2023 Erythrocyte distribution width (RBC) [Ratio] 14.0 % Normal 11.5-14.5 [facility] ([place] Comment on above: Performed By: #### A DIFF, CBC, ABOG, ANSG, ANEU #### [place] [address] #### RPR #### [place] [address] Hematocrit (Bld) [Volume fraction] 25.1 % Low 37.0-47.0 [facility] ([place] Comment on above: Performed By: #### A DIFF, CBC, ABOG, ANSG, ANEU #### [place] [address] #### RPR #### [place] [address] Hgb 8.2 G/dL Low 12.0-16.0 [facility] ([place] Comment on above: Performed By: #### A DIFF, CBC, ABOG, ANSG, ANEU #### [place] [address] #### RPR #### [place] [address] MCH (RBC) [Entitic mass] 28.7 pg Normal 27.0-31.2 [facility] ([place]) Comment on above: Performed By: #### A DIFF, CBC, ABOG, ANSG, ANEU #### [place] [address] #### RPR #### [place] [address] MCHC 32.8 G/dL Low 33.0-37.0 [facility] ([place] Comment on above: Performed By: #### A DIFF, CBC, ABOG, ANSG, ANEU #### [place] [address] #### RPR #### [place] [address] MCV (RBC) [Entitic vol] 87.7 fL Normal 80.0-94.0 [facility] ([place] Comment on above: Performed By: #### A DIFF, CBC, ABOG, ANSG, ANEU #### [place] [address] #### RPR #### [place] [address] Platelet 168 10 3/mcL Normal 130-400 [facility] ([place] Comment on above: Performed By: #### A DIFF, CBC, ABOG, ANSG, ANEU #### [place] [address] #### RPR #### [place] [address] Platelet mean volume (Bld) [Entitic vol] 10.2 fL Normal 7.4-10.4 [facility] ([place] Comment on above: Performed By: #### A DIFF, CBC, ABOG, ANSG, ANEU #### [place] [address] #### RPR #### [place] [address] RBC 2.87 10 6/mcL Low 4.20-5.40 [facility] ([place] Comment on above: Performed By: #### A DIFF, CBC, ABOG, ANSG, ANEU #### [place] [address] #### RPR #### [place] [address] WBC 21.1 10 3/mcL High 4.6-10.8 [facility] ([place] Comment on above: Performed By: #### A DIFF, CBC, ABOG, ANSG, ANEU #### [place] [address] #### RPR #### [place] [address] RPRon 05-26-2023 Reagin Ab RPR Ql (S) Non-Reactive Normal Non-Reactive [facility] ([place] Comment on above: Result Comment: The RPR [...] A DIFF, CBC, ABOG, ANSG, ANEU #### [place] [address] #### RPR #### [address] [address] .Auto Diffon 05-25-2023 Basophil, Absolute 0.0 10 3/mcL Normal 0.0-0.2 [facility] ([place] Comment on above: Performed By: #### A DIFF, CBC, ABOG, ANSG, ANEU #### [place] [address] #### RPR #### [address] [address] Basophils/100 WBC (Bld) 0.3 % Normal 0.0-2.5 [facility] ([place] Comment on above: Performed By: #### A DIFF, CBC, ABOG, ANSG, ANEU #### [place] [address] #### RPR #### [address] [address] Eosinophil, Absolute 0.1 10 3/mcL Normal 0.0-0.4 [facility] ([place] Comment on above: Performed By: #### A DIFF, CBC, ABOG, ANSG, ANEU #### [place] [address] #### RPR #### [address] [address] Eosinophils/100 WBC (Bld) 0.9 % Normal 0.0-7.0 [facility] ([place] Comment on above: Performed By: #### A DIFF, CBC, ABOG, ANSG, ANEU #### [place] [address] #### RPR #### [address] [address] Lymphocyte, Absolute 2.4 10 3/mcL Normal 0.8-3.9 [facility] ([place] Comment on above: Performed By: #### A DIFF, CBC, ABOG, ANSG, ANEU #### [address] [address] #### RPR #### [address] [address] Lymphocytes/100 WBC (Bld) 18.3 % Normal 10.0-50.0 [facility] ([place] Comment on above: Performed By: #### A DIFF, CBC, ABOG, ANSG, ANEU #### [place] [address] #### RPR #### [address] [address] Monocyte, Absolute 0.6 10 3/mcL Normal 0.2-1.0 [facility] ([place] Comment on above: Performed By: #### A DIFF, CBC, ABOG, ANSG, ANEU #### [place] [address] #### RPR #### [address] [address] Monocytes/100 WBC (Bld) 4.8 % Normal 1.7-13.0 [facility] ([place] Comment on above: Performed By: #### A DIFF, CBC, ABOG, ANSG, ANEU #### [place] [address] #### RPR #### [address] [address] Neutrophils/100 WBC (Bld) 75.7 % Normal 37.0-80.0 [facility] ([place] Comment on above: Performed By: #### A DIFF, CBC, ABOG, ANSG, ANEU #### [place] [address] #### RPR #### [address] [address] .GFRon 05-25-2023 GFR Non- 69 ml/min/1.73sqm Normal [facility] ([place] Comment on above: Result Comment: GFR Population [...] meters Performed By: #### R PCUR #### [address] [address] GFR 84 ml/min/1.73sqm Normal [facility] ([place]) Comment on above: Result Comment: GFR Population [...] meters Performed By: #### R PCUR #### [address] [address] .NEUABSon 05-25-2023 Neutrophil, Absolute 9.9 10 3/mcL High 2.9-6.2 [facility] ([place] Comment on above: Performed By: #### A DIFF, CBC, ABOG, ANSG, ANEU #### [address] [address] #### RPR #### [address] [address] .Urinalysis Microscopic (AO) on 05-25-2023 UA Amorphus Trace Normal [facility] ([place] Comment on above: Performed By: #### R PCUR #### [address] [address] UA Bacteria Trace Abnormal [facility] ([place]) Comment on above: Performed By: #### R PCUR #### [address] [address] UA Mucous 1+ /hpf Normal [facility] ([place] Comment on above: Performed By: #### R PCUR #### [address] [address] UA RBC LOADED Abnormal None Seen [facility] ([place] Comment on above: Performed By: #### R PCUR #### [address] [address] UA Squam Epithelial 0-5 Abnormal None Seen [facility] ([place] Comment on above: Performed By: #### R PCUR #### [address] [address] UA WBC 0-5 Abnormal None Seen [facility] ([place] Comment on above: Performed By: #### R PCUR #### [place] [id number] CBCon 05-25-2023 Erythrocyte distribution width (RBC) [Ratio] 13.8 % Normal 11.5-14.5 [facility] ([place] Comment on above: Performed By: #### A DIFF, CBC, ABOG, ANSG, ANEU #### [place] [address] #### RPR #### [facility] [address] [place], [place] [address] Hematocrit (Bld) [Volume fraction] 35.5 % Low 37.0-47.0 [facility] ([place] Comment on above: Performed By: #### A DIFF, CBC, ABOG, ANSG, ANEU #### [place] [address] #### RPR #### [place] [address] Hgb 11.9 G/dL Low 12.0-16.0 [facility] ([place] Comment on above: Performed By: #### A DIFF, CBC, ABOG, ANSG, ANEU #### [address] [address] #### RPR #### [place] [address] MCH (RBC) [Entitic mass] 28.8 pg Normal 27.0-31.2 [facility] ([place] Comment on above: Performed By: #### A DIFF, CBC, ABOG, ANSG, ANEU #### [place] [address] #### RPR #### [place] [address] MCHC 33.6 G/dL Normal 33.0-37.0 [facility] ([place] Comment on above: Performed By: #### A DIFF, CBC, ABOG, ANSG, ANEU #### [place] [address] #### RPR #### [place] [address] MCV (RBC) [Entitic vol] 85.7 fL Normal 80.0-94.0 [facility] ([place] Comment on above: Performed By: #### A DIFF, CBC, ABOG, ANSG, ANEU #### [place] [address] #### RPR #### [place] [address] Platelet 181 10 3/mcL Normal 130-400 [facility] ([place] Comment on above: Performed By: #### A DIFF, CBC, ABOG, ANSG, ANEU #### [place] [address] #### RPR #### [place] [address] Platelet mean volume (Bld) [Entitic vol] 10.0 fL Normal 7.4-10.4 [facility] ([place] Comment on above: Performed By: #### A DIFF, CBC, ABOG, ANSG, ANEU #### [place] [address] #### RPR #### [place] [address] RBC 4.14 10 6/mcL Low 4.20-5.40 [facility] ([place] Comment on above: Performed By: #### A DIFF, CBC, ABOG, ANSG, ANEU #### [place] [address] #### RPR #### [place] [address] WBC 13.1 10 3/mcL High 4.6-10.8 [facility] ([place] Comment on above: Performed By: #### A DIFF, CBC, ABOG, ANSG, ANEU #### [place] [address] #### RPR #### [place] [address] CMPon 05-25-2023 Albumin Level 2.6 G/dL Low 3.5-5.0 [facility] ([place] Comment on above: Performed By: #### R PCUR #### [address] [address] Albumin/Globulin [Mass ratio] 0.6 {ratio} Low 1.1-2.5 [facility] ([place] Comment on above: Performed By: #### R PCUR #### [address] [address] ALP [Catalytic activity/Vol] 145 U/L High 40-135 [facility] ([place] Comment on above: Performed By: #### R PCUR #### [address] [address] ALT [Catalytic activity/Vol] 51 U/L Normal 14-59 [facility] ([place] Comment on above: Performed By: #### R PCUR #### [address] [address] AST [Catalytic activity/Vol] 31 U/L Normal 10-40 [facility] ([place] Comment on above: Performed By: #### R PCUR #### [address] [address] Bili Total 0.2 mg/dL Normal 0.2-1.0 [facility] ([place] Comment on above: Result Comment: Use of this assay is not recommended for patients undergoing treatment with eltrombopag due to the potential for falsely elevated results. Performed By: #### R PCUR #### [address] [address] BUN/Creatinine Ratio 16 ratio Normal 7-27 [facility] ([place] Comment on above: Performed By: #### R PCUR #### [address] [address] Calcium [Mass/Vol] 9.0 mg/dL Normal 8.4-10.2 [facility] [place] [facility] ([place] Comment on above: Performed By: #### R PCUR #### [address] [address] Chloride [Moles/Vol] 102 mmol/L Normal 98-107 [facility] ([place] Comment on above: Performed By: #### R PCUR #### [address] [address] CO2 [Moles/Vol] 22 mmol/L Normal 22-29 [facility] ([place] Comment on above: Performed By: #### R PCUR #### [address] [address] Creatinine [Mass/Vol] 0.96 mg/dL Normal 0.55-1.02 [facility] ([place] Comment on above: Performed By: #### R PCUR #### [address] [address] Electrolyte Balance 7.0 mEq/L Normal 4.0-15.0 [facility] ([place] Comment on above: Performed By: #### R PCUR #### [address] [address] Globulin 4.1 G/dL Normal [facility] ([place] Comment on above: Performed By: #### R PCUR #### [place] [id number] [place], [place] [address] Glucose [Mass/Vol] 117 mg/dL High 70-105 [facility] [place] [facility] ([place] Comment on above: Performed By: #### R PCUR #### Zoe [address] [address] Potassium [Moles/Vol] 4.1 mmol/L Normal 3.5-5.1 [facility] ([place] Comment on above: Performed By: #### R PCUR #### [address] [address] Sodium [Moles/Vol] 131 mmol/L Low 136-145 [facility] [place] [facility] ([place] Comment on above: Performed By: #### R PCUR #### [address] [address] Total Protein 6.7 G/dL Normal 6.4-8.2 [facility] ([place] Comment on above: Performed By: #### R PCUR #### [address] [address] Urea nitrogen [Mass/Vol] 15 mg/dL Normal 7-18 [facility] ([place] Comment on above: Performed By: #### R PCUR #### [address] [address] Gel ABOon 05-25-2023 ABO/Rh Interp Positive Invalid Interpretation Code [facility] ([place] Comment on above: Performed By: #### A DIFF, CBC, ABOG, ANSG, ANEU #### [address] [address] #### RPR #### [address] [address] Gel ABSon 05-25-2023 Antibody Screen Gel Negative Normal [facility] ([place] Comment on above: Performed By: #### A DIFF, CBC, ABOG, ANSG, ANEU #### [address] [address] #### RPR #### [facility] [address] [place] [address] RPCURon 05-25-2023 U Creatinine 137.8 mg/dL High 28.0-117.0 [facility] ([place] Comment on above: Performed By: #### R PCUR #### [address] [address] U Protein 48 mg/dL High 0-11 [facility] ([place] Comment on above: Performed By: #### R PCUR #### [address] [address] U Ratio Prot/Creat 0.4 ratio Normal [facility] [place] [facility] ([place] Comment on above: Result Comment: resu lt calculated by rule GL_UR_PROT_NOTCALC_OLD (U Protein/U Creatinine) Performed By: #### R PCUR #### [address] [address] UAon 05-25-2023 Color (U) Yellow Normal [facility] ([place] Comment on above: Performed By: #### R PCUR #### [address] [address] Glucose (U) [Mass/Vol] Negative Normal Negative [facility] ([place] Comment on above: Performed By: #### R PCUR #### [address] [address] Ketones Ql (U) Negative Normal Negative [facility] ([place] Comment on above: Performed By: #### R PCUR #### [address] [address] UA Appear Cloudy Abnormal Clear [facility] ([place] Comment on above: Performed By: #### R PCUR #### [address] [address] UA Blood Large Abnormal Negative [facility] ([place] Comment on above: Performed By: #### R PCUR #### [address] [address] UA Leuk Est Negative Normal Negative [facility] ([place] Comment on above: Performed By: #### R PCUR #### [place] [address] [address] UA Nitrite Negative Normal Negative [facility] ([place] Comment on above: Performed By: #### R PCUR #### [address] [address] UA pH 6.0 Normal 5.0 - 8.0 [facility] ([place] Comment on above: Performed By: #### R PCUR #### [address] [address] UA Protein 30 mg/dL Normal Negative [facility] ([place] Comment on above: Performed By: #### R PCUR #### [address] [address] UA Spec Grav >=1.030 Abnormal 1.015-1.025 [facility] ([place] Comment on above: Performed By: #### R PCUR #### [address] [address] UA Specimen Type Clean Catch Normal [facility] ([place] Comment on above: Performed By: #### R PCUR #### [address] [address] UA Urobilinogen 0.2 E.U./dL Normal 0.2-1.0 [facility] ([place] Comment on above: Performed By: #### R PCUR #### [address] [address] Urobilinogen (U) [Mass/Vol] Negative Normal Negative [facility] ([place] Comment on above: Performed By: #### R PCUR #### [address] [address] URICon 05-25-2023 Uric Acid Lvl 5.3 mg/dL Normal 2.6-6.2 [facility] ([place] Comment on above: Performed By: #### R PCUR #### [address] [address] GBSPCRon 04-22-2023 Group B Strep (PCR) Negative Normal Negative [facility] ([place] Comment on above: Performed By: #### G LF #### [address] [address] Group B Strep PCR Int Normal l [facility] ([place] Comment on above: Result Comment: Grou p [...] Below Performed By: #### G LF #### [address] [address] LABORATORYOrdered By: Vidya Berumen on 04-20-2023 Group [...] 03-05-2023 Glucose [Mass/Vol] 179 mg/dL Normal 120-190 [facility] [place] [facility] ([place] Comment on above: Performed By: #### R PCUR #### [address] [address] GL2on 03-05-2023 Glucose [Mass/Vol] 177 mg/dL High 70-165 [facility] [place] [facility] ([place] Comment on above: Performed By: #### R PCUR #### [address] [address] GL3on 03-05-2023 Glucose [Mass/Vol] 135 mg/dL Normal 70-145 [facility] [place] [facility] ([place] Comment on above: Performed By: #### G L3 #### [address] [address] GLFon 03-05-2023 Glucose [Mass/Vol] 90 mg/dL Normal 83-110 [facility] [place] [facility] ([place] Comment on above: Performed By: #### G LF #### [address] [address] LABORATORYOrdered By: Susi Davis on 03-05-2023 Glucose [...] Basophil, Absolute 0.0 10 3/mcL Normal 0.0-0.2 [facility] ([place] Comment on above: Performed By: #### R PCUR #### [address] [address] Basophils/100 WBC (Bld) 0.2 % Normal 0.0-2.5 A [facility] ([place] Comment on above: Performed By: #### R PCUR #### [address] [address] Eosinophil, Absolute 0.1 10 3/mcL Normal 0.0-0.4 [facility] ([place] Comment on above: Performed By: #### R PCUR #### [address] [address] Eosinophils/100 WBC (Bld) 1.0 % Normal 0.0-7.0 [facility] ([place] Comment on above: Performed By: #### R PCUR #### [address] [address] Lymphocyte, Absolute 1.2 10 3/mcL Normal 0.8-3.9 [facility] ([place] Comment on above: Performed By: #### R PCUR #### [address] [address] Lymphocytes/100 WBC (Bld) 11.0 % Normal 10.0-50.0 [facility] ([place] Comment on above: Performed By: #### R PCUR #### [address] [address] Monocyte, Absolute 0.4 10 3/mcL Normal 0.2-1.0 [facility] ([place] Comment on above: Performed By: #### R PCUR #### [address] [address] Monocytes/100 WBC (Bld) 3.6 % Normal 1.7-13.0 A [facility] ([place] Comment on above: Performed By: #### R PCUR #### [address] [address] Neutrophils/100 WBC (Bld) 84.2 % High 37.0-80.0 [facility] ([place] Comment on above: Performed By: #### R PCUR #### [address] [address] .NEUABSon 02-19-2023 Neutrophil, Absolute 9.6 10 3/mcL High 2.9-6.2 [facility] ([place] Comment on above: Performed By: #### R PCUR #### [address] [address] CBCon 02-19-2023 Erythrocyte distribution width (RBC) [Ratio] 13.3 % Normal 11.5-14.5 [facility] ([place] Comment on above: Performed By: #### A DIFF, ANEU, CBC, GLU1P #### [address] [address] Hematocrit (Bld) [Volume fraction] 32.7 % Low 37.0-47.0 [facility] ([place] Comment on above: Performed By: #### A DIFF, ANEU, CBC, GLU1P #### [address] [address] Hgb 11.2 G/dL Low 12.0-16.0 [facility] ([place] Comment on above: Performed By: #### A DIFF, ANEU, CBC, GLU1P #### [address] [address] MCH (RBC) [Entitic mass] 29.9 pg Normal 27.0-31.2 [facility] ([place] Comment on above: Performed By: #### A DIFF, ANEU, CBC, GLU1P #### [address] [address] MCHC 34.4 G/dL Normal 33.0-37.0 [facility] ([place] Comment on above: Performed By: #### A DIFF, ANEU, CBC, GLU1P #### [address] [address] MCV (RBC) [Entitic vol] 86.9 fL Normal 80.0-94.0 A [facility] ([place] Comment on above: Performed By: #### A DIFF, ANEU, CBC, GLU1P #### [address] [address] Platelet 221 10 3/mcL Normal 130-400 [facility] ([place] Comment on above: Performed By: #### A DIFF, ANEU, CBC, GLU1P #### [address] [address] Platelet mean volume (Bld) [Entitic vol] 8.4 fL Normal 7.4-10.4 [facility] ([place] Comment on above: Performed By: #### A DIFF, ANEU, CBC, GLU1P #### [address] [address] RBC 3.76 10 6/mcL Low 4.20-5.40 [facility] ([place] Comment on above: Performed By: #### A DIFF, ANEU, CBC, GLU1P #### [address] [address] WBC 11.4 10 3/mcL High 4.6-10.8 [facility] ([place] Comment on above: Performed By: #### A DIFF, ANEU, CBC, GLU1P #### [place] [address] [place], [place] [address] [id number] 02-19-2023 Glucose [Mass/Vol] 149 mg/dL High 70-140 [facility] [place] [facility] ([place] Comment on above: Performed By: #### R PCUR #### [place] [address] [place], [place] [address] LABORATORYOrdered By: SYSTEM SYSTEM on 02-19-2023 Basophil, [...] Interpretation Code Negative AH Auto Viro/Sero SS C. trachomatis DNA GLEN+probe [...] ml/min/1.73sqm Invalid Interpretation Code AO Chemistry S [facility] Cytology Reporton 2021 [facility] [employer] Cytology Report . Pathology Reports Accession: Collected Date/Time: Received Date/Time: Pathologist: [id number] 11/13/2021 15:09 EDT 11/13/2021 18:00 EDT YVONNE OSBORNE MD [facility] Report SPECIMEN: Specimen Description: Liquid Prep [...] and evaluated with the assistance of the [employer] Thin Prep Test Imaging System. Electronically Signed by Pathology report verified by [facility] Screened by: MICAH DW Electronically signed by YVONNE OSBORNE Sign-Out Date: 11/19/2021 14:15 Performing Lab: [facility], [address] [place] [id number] [place] [address] Disclaimer The Pap test is a screening test for cervical cancer. As evidenced by published data, it is sub ject to both inherent false negative and false positive results. Your patient's results should be interpreted in context with pertinent clinical history including gynecological examination. Normal [facility] ([place]) Vital Signs Date Time Vital Sign Value Performing Clinician Franchesca hudson 04-20-2025 09:03-0400 Body height 157.[address] Jhonny Cobian MD Work Phone: [facility] 04-20-2025 09:03-0400 Body mass index (BMI) [Ratio] 38.7 kg/m2 Dr. Jhonny Cobian MD Work Phone: [facility] 04-20-2025 09:03-0400 Body weight 96.[address] Jhonny Cobian MD Work Phone: [facility] 04-20-2025 09:03-0400 Diastolic blood pressure 81 mm[Hg] Dr. Jhonny Cobian MD Work Phone: [facility] 04-20-2025 09:03-0400 Systolic blood pressure 128 mm[Hg] Dr. Jhonny Cobian MD Work Phone: [facility] 04-11-2025 08:40-0400 Body height 157.[address] Jhonny Cobian MD Work Phone: [facility] 04-11-2025 08:38-0400 Body mass index (BMI) [Ratio] 38.9 kg/m2 Dr. Jhonny Cobian MD Work Phone: [facility] 04-11-2025 08:38-0400 Body weight 96.[address] Jhonny Cobian MD Work Phone: [facility] 04-11-2025 08:38-0400 Diastolic blood pressure 78 mm[Hg] Dr. Jhonny Cobian MD Work Phone: [facility] 04-11-2025 08:38-0400 Systolic blood pressure 126 mm[Hg] Dr. Jhonny Cobian MD Work Phone: [facility] 04-02-2025 09:23-0400 Body height 157.[address] Jhonny Cobian MD Work Phone: [facility] 04-02-2025 09:23-0400 Body mass index (BMI) [Ratio] 38.9 kg/m2 Dr. Jhonny Cobian MD Work Phone: [facility] 04-02-2025 09:23-0400 Body weight 96.[address] Jhonny Cobian MD Work Phone: [facility] 04-02-2025 09:23-0400 Diastolic blood pressure 86 mm[Hg] Dr. Jhonny Cboian MD Work Phone: [facility] 04-02-2025 09:23-0400 Systolic blood pressure 133 mm[Hg] Dr. Jhonny Cobian MD Work Phone: [facility] 03-28-2025 15:41-0400 Body height 157.[address] Jhonny Cobian MD Work Phone: [facility] 03-28-2025 15:39-0400 Body mass index (BMI) [Ratio] 38.5 kg/m2 Dr. Jhonny Cobian MD Work Phone: [facility] 03-28-2025 15:39-0400 Body weight 95.[address] Jhonny Cobian MD Work Phone: [facility] 03-28-2025 15:39-0400 Diastolic blood pressure 81 mm[Hg] Dr. Jhonny Cobian MD Work Phone: [facility] 03-28-2025 15:39-0400 Systolic blood pressure 128 mm[Hg] Dr. Jhonny Cobian MD Work Phone: [facility] 03-14-2025 09:01-0400 Body height 157.[address] Jhonny Cobian MD Work Phone: [facility] 03-14-2025 09:01-0400 Body mass index (BMI) [Ratio] 38.7 kg/m2 Dr. Jhonny Cobian MD Work Phone: [facility] 03-14-2025 09:01-0400 Body weight 95.[address] Jhonny Cobian MD Work Phone: [facility] 03-14-2025 09:01-0400 Diastolic blood pressure 70 mm[Hg] Dr. Jhonny Cobian MD Work Phone: [facility] 03-14-2025 09:01-0400 Systolic blood pressure 115 mm[Hg] Dr. Jhonny Cobian MD Work Phone: [facility] 03-12-2025 10:22-0400 Body weight 96.[address] Jhonny Cobian MD Work Phone: [facility] 02-27-2025 15:29-0400 Body height 157.[address] Jhonny Cobian MD Work Phone: [facility] 02-27-2025 15:29-0400 Body mass index (BMI) [Ratio] 38.8 kg/m2 Dr. Jhonny Cobian MD Work Phone: [facility] 02-27-2025 15:29-0400 Body weight 96.[address] Jhonny Cobian MD Work Phone: [facility] 02-27-2025 15:29-0400 Diastolic blood pressure 77 mm[Hg] Dr. Jhonny Cobian MD Work Phone: [facility] 02-27-2025 15:29-0400 Systolic blood pressure 114 mm[Hg] Dr. Jhonny Cobian MD Work Phone: [facility] 02-15-2025 09:27-0400 Body height 157.[address] Jhonny Cobian MD Work Phone: [facility] 02-15-2025 09:24-0400 Body mass index (BMI) [Ratio] 38.8 kg/m2 Dr. Jhonny oCbian MD Work Phone: [facility] 02-15-2025 09:24-0400 Body weight 96.[address] Jhonny Cobian MD Work Phone: [facility] 02-15-2025 09:24-0400 Diastolic blood pressure 70 mm[Hg] Dr. Jhonny Cobian MD Work Phone: [facility] 02-15-2025 09:24-0400 Systolic blood pressure 107 mm[Hg] Dr. Jhonny Cobian MD Work Phone: [facility] 02-02-2025 10:25-0400 Body height 157.[address] Emilia Goodman MD Work Phone: [facility] 02-02-2025 10:22-0400 Body mass index (BMI) [Ratio] 38.5 kg/m2 Dr. Emilia Goodman MD Work Phone: [facility] 02-02-2025 10:22-0400 Body weight 95.[address] Emilia Goodman MD Work Phone: [facility] 02-02-2025 10:22-0400 Diastolic blood pressure 75 mm[Hg] Dr. Emilia Goodman MD Work Phone: [facility] 02-02-2025 10:22-0400 Systolic blood pressure 112 mm[Hg] Dr. Emilia Goodman MD Work Phone: [facility] 01-10-2025 10:23-0400 Body height 157.48 cm Bobbi AQUINOM Work Phone: [facility] 01-10-2025 10:23-0400 Body mass index (BMI) [Ratio] 38.3 kg/m2 Bobbi AQUINOM Work Phone: [facility] 01-10-2025 10:23-0400 Body weight 95.02 kg Bobbi AQUINOM Work Phone: [facility] 01-10-2025 10:23-0400 Diastolic blood pressure 78 mm[Hg] Bobbi AQUINOM Work Phone: [facility] 01-10-2025 10:23-0400 Systolic blood pressure 116 mm[Hg] Bobbi AQUINOM Work Phone: [facility] 12-15-2024 15:30-0400 Body mass index (BMI) [Ratio] 37.5 kg/m2 Bobbi AQUINOM Work Phone: [facility] 12-15-2024 15:30-0400 Body weight 93.04 kg Bobbi AQUINOM Work Phone: [facility] 12-15-2024 15:30-0400 Diastolic blood pressure 79 mm[Hg] Bobbi Stuart CNM Work Phone: [facility] 12-15-2024 15:30-0400 Systolic blood pressure 122 mm[Hg] Bobbi Stuart CNM Work Phone: [facility] 11-17-2024 11:15-0400 Body mass index (BMI) [Ratio] 37.1 kg/m2 Bobbi Stuart CNM Work Phone: [facility] 11-17-2024 11:15-0400 Body weight 92.13 kg Bobbi Stuart CNM Work Phone: [facility] 11-17-2024 11:15-0400 Diastolic blood pressure 73 mm[Hg] Bobbi Stuart CNM Work Phone: [facility] 11-17-2024 11:15-0400 Systolic blood pressure 110 mm[Hg] Bobbi Stuart CNM Work Phone: [facility] 10-19-2024 14:58-0400 Body mass index (BMI) [Ratio] 36.3 kg/m2 Bobbi Stuart CNM Work Phone: [facility] 10-19-2024 14:58-0400 Body weight 89.98 kg Bobbi Stuart CNM Work Phone: [facility] 10-19-2024 14:58-0400 Diastolic blood pressure 78 mm[Hg] Bobbi Stuart CNM Work Phone: [facility] 10-19-2024 14:58-0400 Systolic blood pressure 130 mm[Hg] Bobbi Stuart CNM Work Phone: [facility] 09-21-2024 14:35-0500 Body height 157.48 cm Bobbi Stuart CNM Work Phone: [facility] 09-21-2024 14:35-0500 Body mass index (BMI) [Ratio] 36.4 kg/m2 Bobbi Stuart CNM Work Phone: [facility] 09-21-2024 14:35-0500 Body weight 90.43 kg Bobbi Stuart CNM Work Phone: [facility] 09-21-2024 14:35-0500 Diastolic blood pressure 84 mm[Hg] oBbbi Stuart CNM Work Phone: [facility] 09-21-2024 14:35-0500 Systolic blood pressure 132 mm[Hg] Bobbi Stuart CNM Work Phone: [facility] 12-23-2021 20:33-0400 Body temperature 98.24 [degF] DR ELIZABETH CORNEJO DO [facility] 12-23-2021 20:33-0400 Diastolic blood pressure 80 mm[Hg] DR ELIZABETH CORNEJO DO [facility] 12-23-2021 20:33-0400 Heart rate 92 /min DR ELIZABETH CORNEJO DO [facility] 12-23-2021 20:33-0400 Respiratory rate 18 /min DR ELIZABETH CORNEJO DO [facility] 12-23-2021 20:33-0400 Systolic blood pressure 128 mm[Hg] DR ELIZABETH CORNEJO DO [facility] Encounters Encounter Date Encounter Type Care Provider Facility Start: 04-20-2025 End: 04-20-2025 ambulatory Emilia Goodman Facility:[facility] Start: 04-20-2025 End: 04-20-[address] Emilia Goodman MD -[facility] Work Phone: Start: 04-19-2025 End: 04-19-[address] Jhonny Cobian MD Work Phone: -Physical Therapy Start: 04-19-2025 End: 04-19-[address] Emilia Goodman MD -Physical Therapy Work Phone: Start: 04-19-2025 ambulatory Emilia Sorensen lity:[facility] Start: 04-12-2025 ambulatory Emilia Sorensen lity:[facility] Start: 04-11-2025 End: 04-11-[address] Emmy Davis DO [facility] Work Phone: Start: 04-11-2025 End: 04-11-[address] Jhonny Cobian MD Work Phone: [facility] Start: 04-05-[address] Chen Goodman MD -Physical Therapy Work Phone: Start: 04-02-2025 End: 04-02-2025 Patient encounter procedure Bobbi Stuart CNM -[facility] Work Phone: Start: 04-02-2025 End: 04-02-[address] Jhonny Cobian MD Work Phone: [facility] Start: 03-28-2025 End: 03-28-[address] Emmy Davis DO -[facility] Work Phone: Start: 03-28-2025 End: 03-28-[address] Jhonny Cobian MD Work Phone: [facility] Start: 03-26-[address] Chen Goodman MD -Physical Therapy Work Phone: Start: 03-23-2025 End: 03-23-[address] Jhonny Cobian MD Work Phone: -[facility]trasound [facility] Start: 03-23-2025 End: 03-23-2025 Patient encounter procedure Bobbi Stuart CNM -Ultrasound [facility] Work Phone: Start: 03-23-2025 End: 03-23-2025 ambulatory Bobbi Stuart Facility:[facility] Start: 03-14-2025 End: 03-14-2025 Patient encounter procedure Bobbi Stuart [facility] -[facility] Work Phone: Start: 03-14-2025 End: 03-14-[address] Jhonny Cobian MD Work Phone: -[facility] Start: 03-13-[address] Chen Goodman MD -Physical Therapy Work Phone: Start: 03-12-2025 End: 04-08-[address] Emilia Goodman MD -Nutritional Services Work Phone: Start: 03-12-[address] Chen Goodman MD -Nutritional Services Work Phone: Start: 03-12-2025 End: 04-08-[address] Jhonny Cobian MD Work Phone: -Nutritional Services Start: 02-27-2025 End: 02-27-[address] Emilia Goodman MD -[facility] Work Phone: Start: 02-27-2025 End: 02-27-[address] Jhonny Cobian MD Work Phone: -[facility] Start: 02-22-2025 End: 02-22-[address] Jhonny Cobian MD Work Phone: -Laboratory Start: 02-22-2025 End: 02-22-2025 Patient encounter procedure Azul Sheehan NP-C -Laboratory Work Phone: Start: 02-22-2025 End: 02-22-2025 ambulatory Jhonny Cobian Facility:[facility] Start: 02-21-[address] Chen Goodman MD -Physical Therapy Work Phone: Start: 02-15-2025 End: 02-15-[address] Emmy Davis DO -[facility] Work Phone: Start: 02-15-2025 End: 02-15-[address] Jhonny Cobian MD Work Phone: -[facility] Start: 02-14-[address] Chen Goodman MD -Physical Therapy Work Phone: Start: 02-07-[address] Chen Goodman MD -Physical Therapy Work Phone: Start: 02-02-2025 End: 02-02-[address] Emmy Davis DO -[facility] Work Phone: Start: 02-02-2025 End: 02-02-[address] Emilia Goodman MD Work Phone: -[facility] Start: 02-02-2025 End: 02-02-2025 ambulatory Jhonny Cobian Facility:[facility] Start: 01-23-[address] Chen Goodman MD -Physical Therapy Work Phone: Start: 01-10-2025 End: 01-10-2025 Patient encounter procedure Azul ARMENDARIZ -[facility] Work Phone: Start: 01-10-2025 End: 01-10-2025 ambulatory Bobbi Stuart CNM Work Phone: [facility] Work Phone: Start: 12-15-2024 End: 12-15-2024 Patient encounter procedure Bobbi Stuart CNM -[facility] Work Phone: Start: 12-15-2024 End: 12-15-2024 ambulatory Bobbi Stuart Facility:[facility] Start: 11-28-2024 End: 11-28-2024 ambulatory MD HERNÁNDEZ [facility] Start: 11-17-2024 End: 11-17-2024 Patient encounter procedure Bobbi Stuart CNM -[facility] Work Phone: Start: 11-17-2024 End: 11-17-2024 ambulatory Bobbi Stuart Facility:[facility] Start: 10-19-2024 End: 10-19-[address] Emmy Davis DO -[facility] Work Phone: Start: 10-19-2024 End: 10-19-2024 ambulatory Emmy Davis Facility:[facility] Start: 10-03-2024 End: 10-03-2024 ambulatory Bobbi Stuart CNM Work Phone: [facility] Work Phone: Start: 10-03-2024 End: 10-03-2024 Patient encounter procedure Bobbi Stuart CNM -Lab, [facility] Start: 10-03-2024 End: 10-03-2024 ambulatory Bobbi Narciso Facility:[facility] Start: 09-21-2024 End: 09-21-2024 Patient encounter procedure Bobbi Stuart CNM -Laboratory, Specimen Work Phone: Start: 09-21-2024 End: 09-21-2024 Patient encounter procedure Bobbi Stuart CNM -[facility] Work Phone: Start: 09-21-2024 End: 09-21-2024 ambulatory Bobbi Narciso Facility:[facility] Start: 09-21-2024 End: 09-21-2024 ambulatory Bobbi Stuart Facility:[facility] Start: 02-02-2024 End: 02-02-2024 ambulatory JHONNY COBIAN MD Facility:B Start: 02-02-2024 End: 02-02-2024 Patient encounter procedure JHONNY COBIAN MD [facility] Start: 02-02-2024 End: 02-02-2024 Well adult monitoring check done JHONNY COBIAN MD [facility] Start: 05-25-2023 End: 05-28-2023 Evaluation and management of inpatient CAROLYN CHAVEZ Facility:[facility] Start: 05-24-2023 End: 05-24-2023 ambulatory JHONNY COBIAN MD Facility:[facility] Start: 05-24-2023 End: 05-24-2023 Patient encounter procedure FRANKY VILLAFANA MD [facility] Start: 05-10-2023 End: 05-10-2023 ambulatory JHONNY COBIAN MD Facility:[facility] Start: 05-10-2023 End: 05-10-2023 Patient encounter procedure FRANKY VILLAFANA MD [facility] [place] Start: 04-20-2023 End: 04-24-2023 ambulatory JHONNY COBIAN MD Facility:[facility] Start: 04-20-2023 End: 04-24-2023 Outreach Lab CAROLYN CHAVEZ MD [facility] [place] Start: 03-05-2023 End: 03-05-2023 ambulatory JHONNY COBIAN MD Facility:[facility] Start: 03-05-2023 End: 03-05-2023 Patient encounter procedure FRANKY VILLAFANA MD [facility] Start: 02-19-2023 End: 02-19-2023 ambulatory JHONNY COBIAN MD Facility:[facility] Start: 02-19-2023 End: 02-19-2023 Patient encounter procedure FRANKY VILLAFANA MD [facility] Start: 12-14-2022 End: 12-14-2022 Patient encounter procedure FRANKY VILLAFANA MD [facility] Start: 12-04-2022 End: 12-04-2022 Patient encounter procedure FRANKY VILLAFANA MD [facility] Start: 10-27-2022 End: 10-27-2022 Patient encounter procedure VIKTORIA LEGER APRN-COMMISSIONED SALES ASSOCIATE [facility] Start: 10-13-2022 End: 10-17-2022 Outreach Lab VIKTORIA LEGER ELEMENTARY SCHOOL TEACHER-COMMISSIONED SALES ASSOCIATE [facility] Start: 02-13-2022 End: 02-13-2022 Patient encounter procedure JHONNY COBIAN MD [facility] Start: 12-23-2021 End: 12-23-2021 Emergency department patient visit DR ELIZABETH CORNEJO DO [facility] Procedures Date Procedure Procedure Detail Performing Clinician Start: 03-23-2025 Ultrasound scan for growth Dr. Jhonny Cobian MD Work Phone: Start: 02-02-2025 Serologic test for syphilis Dr. Jhonny Cobian MD Work Phone: Start: 10-03-2024 Hepatitis C antibody measurement Bobbi Stuart [facility] Work Phone: Comment on above: Reactive: Presumptiv e evidence of antibodies to HCV. Follow CDC recommendations for supplemental testing.Non-Reactive: Antibodies to HCV were not detected; does not exclude the possibility of exposure to HCVReactive Results are presumptive evidence of antibodies to HCV. Follow CDC recommendations for supplemental testing.Order confirmation testing: HCV Quant by PCR testing - HCVPCR #[id number] Non Reactive: < 0.8 Equivocal: >/= 0.8 to < 1.0 Reactive: >/= 1.0The CDC requires that a reactive/equivocal HCV antibody result be sent out for confirmation. HCV Quant by PCR testing. Start: 10-03-2024 Rubella IgG measurement Bobbi Stuart [facility] Work Phone: Comment on above: Antibody Result: Int erpretationNon-Reactive: Non- ImmuneReactive: ImmuneThe following results were obtained with the Ele[employer]ys Rubella IgG assay. Results from assays of other manufacturers cannot be used interchangeably. Start: 10-03-2024 Procedure Bobbi cummins [facility] Work Phone: Start: 09-21-2024 Urine culture Bobbi back CN Work Phone: Start: 05-25-2023 section JHONNY COBIAN MD H/O: section Hx of cesa rean section Bobbi Stuart CN Work Phone: Comment on above: brow presentation (F TP),*interested in -records requested brow presentation (F TP),*interested in -records requested. pt states that her surgeon told her that her scar is high and can not but records are pending. brow presentation (F TP),*interested in -records requested. records show low transverse incision. calculator: 35% success rate H/O: section Hx of cesa rean section Bobbi Stuart CN H/O: section Hx of cesa rean section Dr. Emmy Davis DO H/O: section Hx of cesa rean section Bobib Stuart [facility] H/O: section Hx of cesa rean section Bobbi AQUINO H/O: section Hx of cesa rean section Azul Sheehan [employer] H/O: section Hx of cesa rean section Dr. Emmy Davis DO H/O: section Hx of cesa rean section Dr. Emmy Davis DO H/O: section Hx of cesa rean section Dr. Emilia Goodman MD H/O: section Hx of cesa rean section Bobbi Stuart CN H/O: section Hx of cesa rean section Dr. Emmy Davis DO H/O: section Hx of cesa rean section Bobbi Stuart CNM H/O: section Hx of cesa rean section Dr. Emmy Davis DO H/O: section Hx of cesa rean section Dr. Emilia Goodman MD Structure of wisdom tooth (body structure) VIKTORIA LEGER ELEMENTARY SCHOOL TEACHER-COMMISSIONED SALES ASSOCIATE Plan of Treatment Date Care Activity Detail Author Start: 02-02-2025 CBC W Auto Different ial panel - Blood [facility] Start: 06-27-2025 Measurement of gluco se 2 hours after glucose challenge for glucose tolerance test [facility] Start: 02-02-2025 Serologic test for syphilis [facility] Start: 02-02-2025 [facility] CBC W Auto Different ial panel - Blood [facility] Erythrocyte mean cor puscular volume determination [facility] Hematocrit [Volume F raction] of Blood [facility] Hemoglobin [Mass/volume] in Blood [facility] Leukocytes [#/volume] in Blood [facility] Mean corpuscular hem oglobin concentration determination [facility] Mean corpuscular hem oglobin determination [facility] Measurement of gluco se 2 hours after glucose challenge for glucose tolerance test [facility] Neutrophil count [facility] Neutrophil percent d ifferential count [facility] Platelets [#/volume] in Blood [facility] Red blood cell count [facility] Red cell distributio n width determination [facility] Serologic test for syphilis [facility] Immunizations Immunization Date Immunization Notes [facility] Provider [facility]23 tetanus toxoid, redu roly diphtheria toxoid, and acellular pertussis vaccine, adsorbed; Translations: [Boostrix (Tdap)] CAROLYN CHAVEZ MD [facility] Comment on above: Early/Late Reason: E mino/Late Reason: Other : nurse unable to chart at time of injection Result Comment: [facility] # [id number] Payers Date Payer Category Payer Self-pay 2022 Unknown [id number] 1995 Unknown [id number] 2.16.8 40.1.178445.3.579.2. 1995 Unknown [id number] 2.16.8 40.1.204321.3.579.2.62 1995 Unknown [id number] 2.16.8 40.1.699026.3.579.2.627 1995 Unknown [id number] 2.16.8 40.1.049411.3.579.2.627 1995 Unknown [id number] 2.16.8 40.1.583941.3.579.2.627 1995 Unknown [id number] 2.16.8 40.1.035505.3.579.2.627 1995 Unknown [id number] 2.16.8 40.1.361281.3.579.2.627 1995 Unknown [id number] 2.16. 840.1.320698.3.579.2.479 Unknown [id number] 2.16.8 40.1.065538.3.579.2.462 Unknown [id number] 2.16.8 40.1.253743.3.579.2.462 Unknown [id number] 2.16.8 40.1.416323.3.579.2.462 Unknown [id number] 2.16.8 40.1.143565.3.579.2.462 Unknown [id number] 2.16.8 40.1.804544.3.579.2.462 Unknown [id number] 2.16.8 40.1.193140.3.579.2.462 Unknown [id number] 2.16.8 40.1.642771.3.579.2.462 Unknown [id number] 2.16.8 40.1.075021.3.579.2.462 Unknown [id number] 2.16.8 40.1.053664.3.579.2.462 Unknown [id number] 2.16.8 40.1.218306.3.579.2.462 Unknown [id number] 2.16.8 40.1.375528.3.579.2.462 Unknown [id number] 2.16.8 40.1.611373.3.579.2.462 Unknown [id number] 2.16.8 40.1.145052.3.579.2.462 Unknown [id number] 2.16.8 40.1.120755.3.579.2.462 Unknown [id number] 2.16.8 40.1.031448.3.579.2.462 Unknown [id number] 2.16.8 40.1.836887.3.579.2.462 Unknown [id number] 2.16.8 40.1.849457.3.579.2.462 Unknown [id number] 2.16.8 40.1.831936.3.579.2.462 Unknown [id number] 2.16.8 40.1.404491.3.579.2.462 Unknown [id number] 2.16.8 40.1.324296.3.579.2.462 Unknown [id number] 2.16.8 40.1.891746.3.579.2.462 Social History Date Type Detail Facility Start: 09-03-2021 End: 09-08-2024 Tobacco smoking status Never smoked tobacco (finding) [facility] Start: 1995 Sex Assigned At Female A [facility] Start: 10-17-2024 Sex Female (finding) [facility] Medical Equipment Procedure Code Equipment Code Equipment Origin al Text Equipment Identifier Dates Blood Sugar Diagnostic (Blood Glucose Test) strip Start: 02-23-2025 Lancets (Droplet Lancets) 30 gauge misc Start: 02-23-2025 Blood Sugar Diagnostic (Blood Glucose Test) strip Start: 02-23-2025 Lancets (Droplet Lancets) 30 gauge misc Start: 02-23-2025 Blood Sugar Diagnostic (Blood Glucose Test) strip Start: 02-23-2025 Lancets (Droplet Lancets) 30 gauge misc Start: 02-23-2025 Blood Sugar Diagnostic (Blood Glucose Test) strip Start: 02-23-2025 End: 03-19-2025 Lancets (Droplet Lancets) 30 gauge misc Start: 02-23-2025 End: 03-19-2025 Blood Sugar Diagnostic (Blood Glucose Test) strip Start: 02-23-2025 End: 03-19-2025 Lancets (Droplet Lancets) 30 gauge misc Start: 02-23-2025 End: 03-19-2025 Blood Sugar Diagnostic (Blood Glucose Test) strip Start: 02-23-2025 End: 03-19-2025 Lancets (Droplet Lancets) 30 gauge misc Start: 02-23-2025 End: 03-19-2025 Blood Sugar Diagnostic (Blood Glucose Test) strip Start: 02-23-2025 End: 03-19-2025 Lancets (Droplet Lancets) 30 gauge misc Start: 02-23-2025 End: 03-19-2025 Blood Sugar Diagnostic (Blood Glucose Test) strip Start: 02-23-2025 End: 03-19-2025 Lancets (Droplet Lancets) 30 gauge misc Start: 02-23-2025 End: 03-19-2025 Blood Sugar Diagnostic (Blood Glucose Test) strip Start: 02-23-2025 End: 03-19-2025 Lancets (Droplet Lancets) 30 gauge misc Start: 02-23-2025 End: 03-19-2025 Blood Sugar Diagnostic (Blood Glucose Test) strip Start: 02-23-2025 End: 03-19-2025 Lancets (Droplet Lancets) 30 gauge misc Start: 02-23-2025 End: 03-19-2025 Mental Status Date Assessment Result Facility 12-23-2021 Mental Status [facility] 12-23-2021 Mental Status [facility] Clinical Notes 12-23-2021 to 04-19-2025 Note Date & Type Note Facility 04-19-2025 Discharge summary [facility] 04-19-2025 Discharge summary Note Date/Time April 19, 2025 1:28pm [facility] Physical Therapy [facility] [address] [place] [address] [address] [place] [address] / REHABILITATION SERVICES DISCHARGE SUMMARY MR#: [id number] Acct: [id number] Name: FELIPE PATRICK Rep #: [id number] : 1995 30 From: Norah Mcneill Referring Dr.: Dr. Emilia Goodman MD Stat us: REG RCR Insurance: [employer] SELF PAY INSURANCE Discharge Summary D/C summary: It has been my pleasure to treat FELIPE PATRICK referred by Dr. Emilia Goodman MD, with the diagnosis of LOW BACK PAIN for a total of 13 visit(s). Discharge Date: 04/19/25 Please see the following information for a summary of their discharge status. Subjective Subjective: She is feeling some left hip and low back soreness. Today pain rated 6/10. She is feeling some cramping and some paty macedo. She is 39 weeks. Tomorrow she is getting her membrane swept. Pain Left hip: Pain Intensity (Out of 10): 6 Overall Improvement % Improvement: 100 Objective Objective/Function: She responded very well to manual therapy on her pelvic floor/perineal massage. She has been educated in different labor positions andis ready for delivery. She is hoping for an unmedicated vaginal delivery. Goals Goal 1:: PATIENT WILL BE ABLE TO SIT FOR UP TO 2 HOURS AT A TIME TO DO WORK RELATED ACTIVITE WITHOUT FEELING LOW BACK OR LEG PAIN. Goal Progress: Progressing Goal 2:: PATIENT WILL BE ABLE TO DO HOUSEWORK FOR SEVERAL HOURS WITHOUT C/O LOW BACK OR LEG PAIN OR DELAYED ONSET OF LOW BACK OR LEG PAIN. Goal Progress: Progressing Goal 3:: PATIENT WILL BE ABLE TO STAND FOR UP TO 2 HOURS TO DO KITCHEN ACTIVITIES SUCH WASHING DISHES, PREPING FOOD, AND FREEZING/ASHLEY FOOD WITHOUT C/O BACK OR LEG PAIN OR DELAYED ONSET OF BACK OR LEG PAIN. Goal Progress: Progressing Goal 4:: PATIENT WILL BE ABLE TO VERBALIZE AND DEMONSTRATE HEALTHY POSTURE AND BODY MECHANICS FOR HEALTHY BACK HABITS Goal Progress: Progressing Goal 5:: PATIENT WILL VERBALIZE UNDERSTANDING OF HEALTHY BLADDER AND PELVIC FLOOR HABITS Goal Progress: Progressing Goal 6:: PATIENT WILL BE INDEP WITH A HEP FOR CONTINUED IMPROVEMENT ONCE FORMAL PHYSICAL THERAPY CONCLUDES. Goal Progress: Progressing Plan Plan: D/C patient from PT. She will return in June . D/C Information Discharge Comments: Patient is being discharged as she is 39 weeks and approaching delivery. She will return in June . d/c sentence: If there are questions or concerns regarding this patient's physical therapy, please feel free to call me at [phone]. Thank you for the referral of thispatient. Sincerely, Norah Mcneill Balance/Gait/Functional tests Balance/Special Test Scores Oswestry Low Back Score: 6 Improvement % Improvement: 100 <Electronically signed by Norah Mcneill> 04/19/25 1328 CC: Dr. Emilia Goodman MD; Dr. Jhonny Cobian MD ~ MG Signed [facility] Work Phone: 1(539) 271-349808-25-2025 Progress [facility] [address], [address] [place] [address] OFFICE VISIT Date of Service: 04/02/25 MR#: [id number] Acct: [id number] Name: FELIPE PATRICK Rep #: [id number] : 1995 Provider: DULCE Stuart Age/Sex: 30/F Location: [facility] [place] Status: Signed Intake Vital Signs 03/14/25 09:01 03/28/25 15:41 04/02/25 09:23 Height 5 ft 2 in 5 ft 2 in 5 ft 2 in Weight: 213 lb 4 oz BMI 38.9 BP 133/86 H Intake Visit Reasons: 37wk ob Chief Complaint: 37wk OB Sash Finisher Required: No Is patient in pain?: No Allergies house dust Allergy (Mild, Verified 04/02/25 09:22) Other mold (mold spores) Allergy (Mild, Verified 04/02/25 09:22) Other Environmental Allergies: Uncoded Allergy (Verified 04/02/25 09:22) Other Medications ?Medication ?Instructions ?Recorded ?Confirmed ?Type choline 500 mg tablet 500 mg PO DAILY 09/08/24 History multivitamin no.47-iron fum 27 cap PO 09/08/24 5 History mg-folate no.1 1 mg-dha 300 mg capsule (PNV-DHA) omega-3 fatty acids 1,000 mg 500 mg PO QDAY 09/08/24 0 04/02/25 History capsule (Super Hugo-3) blood-glucose sensor (Dexcom G6 #4 ea 02/27/25 5 Rx Sensor device) blood-glucose transmitter (Dexcom #1 ea 03/19/2504/02 Rx G6 Transmitter device) blood-glucose,waste water or water plant operator,cont #1 ea 03/19/25 04/02/25 Rx (Dexcom G6 Literacy Education Professor) Last Menstrual Period: 07/20/24 : No PFSH PFSH Medical History Seasonal allergies Surgical History Previous section [place] teeth extracted Family History Grandmother Cancer Paternal [...] 1 current occupational status: employed 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 Date Name GA/Weeks Outcome Route Bth Weight Gen Labor Lgth Anesthesia Del Locatn Provider FOB 05/25/23 Mirella 41 live - full term 8#7.8oz Female epidural [facility] Dr.Samantha Milan Drake Delivery Date: 05/25/23 Last Updated by: Lizz Baxter failure to progress HPI 37wk ob Details: FELIPE PATRICK is a 30 year old who presents for routine OB visit. OB Visit PETEY Calculator Estimated Delivery Date Method Current WG Current Estimate 04/26/25 LMP (Certain) 36w 4d Other Estimates 04/28/25 Ultrasound #1 36w 2d Expected Delivery Route/Plan Labor Preferences- CB/BF classes: [...] current plan of care details and appropriate ordersplaced. Relevant counseling for the gestational age provided. [...] dates. acc epts NIPT. Had C/S at [facility] for FTP- likely brow presentation 10/19/24 -?-?-?-?-?-?-?-?-?-?-?-?- [...] would really like to if possible. 11/17/24 -?-?-?-?-?--?-?-?-?-?-?-?- 17w 1d 203 lb 2 oz (+4 lb 2 oz) 110/73 Negative -?-?-?-?-?-?-?-?-?-?-?-?- Negative 155 -?-?-?-?-?-?-?-?-?-?-?-?- KW- no vb/crampi ng. US on 11/28 KW- no vb/cramping. US on . records from [facility] not scanned into system. AFP declined. 12/15/24 -?-?-?-?-?-?-?-?-?-?-?-?- 21w 1d 205 lb 2 oz (+6 lb 2 oz) 122/79 Negative -?-?-?-?-?-?-?-?-?-?-?-?- Negative 145 21 -?-?-?-?-?-?-?-?-?-?-?-?- KW- no vb/crampi ng. records received and was low transverse. US reviewed. 01/10/25 -?-?-?-?-?-?-?-?-?-?-?-?- 24w 6d 209 lb 8 oz (+10 lb 8 oz) 116/78 Negative -?-?-?-?-?-?-?-?-?-?-?-?- Negative 143 25 -?-?-?-?-?-?-?-?-?-?-?-?- MH-No VB, LOF. G ood FM. Larc 02/02/25 -?-?-?-?-?-?-?-?-?-?-?-?- 28w 1d 211 lb (+12 lb) 112/75 Negative -?-?-?-?-?-?-?-?-?-?-?-?- Negative 153 31 -?-?-?-?-?-?-?-?-?-?-?-?- JV- no lof, vagi nal bleeding, or dec fm. interested in intermittent monitoring, however is a desired tolac. 28 week labs and glucola today. 02/15/25 -?-?-?-?-?-?-?-?-?-?-?-?- 30w 0d 212 lb 8 oz (+13 lb 8 oz) 107/70 Negative -?-?-?-?-?-?-?-?-?-?-?-?- Negative 150 30 -?-?-?-?-?-?-?-?-?-?-?-?- JV- pt has decid ed that she will do the 3 hour and will do the fresh test. long talk today. 02/27/25 -?-?-?-?-?-?-?-?-?-?-?-?- 31w 5d 212 lb 6 oz (+13 lb 6 oz) 114/77 -?-?-?-?-?-?-?-?-?-?-?-?- 140 32 -?-?-?-?-?-?-?-?-?-?-?-?- SM- no vb lof go od fm no regualr ctx 03/14/25 -?-?-?-?-?-?-?-?-?-?-?-?- 33w 6d 211 lb 8 oz (+12 lb 8 oz) 115/70 Negative -?-?-?-?-?-?-?-?-?-?-?-?- Negative 160 35 -?-?-?-?-?-?-?-?-?-?-?-?- KW-No vb/lof/ctx . good fm. order for PFPT-PP. KW-No vb/lof/ctx. good fm. o rder for PFPT-PP. growth US at 36 weeks ordered. blood sugars reviewed-well controlled. desires IOL over RCS. GBS next visit. KW-No vb/lof/ctx. good fm. o rder for PFPT-PP. growth US at 36 weeks ordered. blood sugars reviewed-well controlled. still trying to get Dexcom through pharmacy but having issues getting it. desires IOL over RCS. GBS next visit. 03/28/25 -?-?-?-?-?-?-?-?-?-?-?-?- 35w 6d 210 lb 6 oz (+11 lb 6 oz) 128/81 Negative -?-?-?-?-?-?-?-?-?-?-?-?- Negative 135 36 -?-?-?-?-?-?-?-?-?-?-?-?- JV- normal gluco se log. normal growth scan. 89th% AC. gbs pos in urine. 04/02/25 -?-?-?-?-?-?-?-?-?-?-?-?- 36w 4d 213 lb 4 oz (+14 lb 4 oz) 133/86 Negative -?-?-?-?-?-?-?-?-?-?-?-?- Negative 145 37 Cephalic 2 .5 -?-?-?-?-?-?-?-?-?--?-?-?- 60 -2 KW- no vb/ lof/ctx. good fm. discussed PCN for labor. KW- no vb/lof/ctx. good fm. discussed PCN for labor. blood sugars controlled. ACOG First Trimester First Trimester: Desire for , Alcohol, Tobacco Cessation, Illicit/Recreational Drug/Substance Use, Intimate Partner Violence, Barriers to care, Anticipated Course of Care, Use of Any medications, Sexual activity, Exercise, Dental Care, Sauna/Hot tub use, Seat Belt use, Childbirth c lasses/Hospital facilities, Travel, Indications for Ultrasound and Screening [...] and Symptoms of Preeclampsia, Feeding No , [place] Education and Family Medical Leave or Disability Forms ROS Const Reports system reviewed and no additional complaints, except as documented Eyes Reports system reviewed and no additional complaints, except as documented ENT Reports system reviewed and no additional complaints, except as documented Card Reports system reviewed and no additional complaints, except as documented Resp Reports system reviewed and no additional complaints, except as documented GI Reports system reviewed and no additional complaints, except as documented, Denies nausea and Denies vomiting Reports system reviewed and no additional complaints, except as documented Musc Reports system reviewed and no additional complaints, except as documented Skin/Breast Reports system reviewed and no additional complaints, except as documented Neuro Yes system reviewed and no additional complaints, except as documented Psych Reports system reviewed and no additional complaints, except as documented Endo Reports system reviewed and no additional complaints, except as documented César/Lymph Reports system reviewed and no additional complaints, except as documented Aller/Immun Reports system reviewed and no additional complaints, except as documented Exam Const General: cooperative, healthy appearing and no acute distress Orientation: alert, awake and oriented x3 Neck Neck: normal visual inspection and full ROM Resp Effort & Inspection: normal respiratory effort, able to speak in complete sentences and symmetric chest movement GI Inspection: normal to inspection Palpation: soft and other Other: gravid Skin General: no rashes or lesions noted Neuro General: patient alert, patient awake and patient oriented x3 Cognition: normal cognition Speech: speech normal Gait: normal gait Motor: muscle tone normal throughout Extrem General: normal to inspection and full ROM Psych Appearance: grossly normal Mental Status: mental status grossly normal Mood: congruent mood Affect: normal affect Speech and Movement: speech and movement normal Attitude: cooperative Thought Process: normal Thought Content: normal Judgment: judgment good Results POC Urinalysis 2 Dip (Clinic) Office Urine Glucose Negative Last Edit by Jennifer Harper on 04/02/25 09:31 Office Urine Protein Negative Last Edit by Jennifer Harper on 04/02/25 09:31 Coding Level of Care Code OB Routine Diagnoses Gestational diabetes O24.419 Sciatica, unspecified laterality M54.30 Laterality: unspecified laterality [...] Normal : other normal Trimester: second trimester 36 weeks gestation of Z3A.36 Weeks of gestation: 36 weeks Hx of section Z98.891 Assessment and Plan Assessment and Plan (1) Gestational diabetes: Status: Acute Comment: Supplies and nutrition consult sent. diet controlled plan 36 week growth us and delivery by 39-40 weeks discussed RLTCS vs IOL (2) Sciatica: Status: Acute Qualifiers: Laterality: unspecified laterality Qualified Code(s): M54.30 - Sciatica, unspecified side (3) Low back pain during : Status: Acute Qualifiers: Trimester: second trimester Qualified Code(s): O26.892 - Other specified related conditions, second trimester; M54.50 - Low back pain, unspecified Comment: PT referral. (4) GBS (group B streptococcus) UTI complicating : Status: Acute Qualifiers: Trimester: second trimester Qualified Code(s): O23.42 - Unspecified infection of urinary tract in , second trimester; B95.1 - Streptococcus, group B, as the cause of diseases classified elsewhere Comment: treat in labor (5) Obesity affecting : Status: Acute Qualifiers: Obesity type affecting : unspecified obesity Trimester: second trimester Qualified Code(s): O99.212 - Obesity complicating , second trimester Comment: HgbA1c (6) Supervision of normal : Status: Acute Qualifiers: Normal : other normal Trimester: second trimester Qualified Code(s): Z34.82 - Encounter for supervision of other normal , second trimester Comment: PRR, , PETEY 04/26/25, girl LING Vu, Vidal (7) : Status: Acute Qualifiers: Weeks of gestation: 36 weeks Qualified Code(s): Z3A.36 - 36 weeks gestation of Comment: NIPT low risk, carrier neg. 14/14, normal anatomy (8) Hx of section: Status: Acute Comment: brow presentation (FTP),*interested in -records requested. pt states that her surgeon told her that her scar is high and can not but records are pending. Orders: Orders POC Urinalysis 2 Dip (Clinic) Today Plan Details Additional Comments: ACOG trimester education reviewed and updated. see problem list details for updated plan management information and see below for orders placed atthis visit. GA appropriate handout given. 04/02/25 0946 s DULCE> Date _ Bobbi Beckett Signature: Date (if applicable) CC: ~ [facility] [id number] Progress [facility] [address] [place] [address], [address] [place] [address] OFFICE VISIT Date of Service: 03/28/25 MR#: [id number] Acct: [id number] Name: FELIPE PATRICK Rep #: [id number] : 1995 Provider: Dr. Moriah Davis DO Age/Sex: 30/F Location: [facility] [place] Status: Signed Intake Vital Signs 12/15/24 15:30 03/14/25 09:01 03/28/25 15:39 03/28/25 15:41 Height 5 ft 2 in 5 ft 2 in 5 ft 2 in 5 ft 2 in Weight: 210 lb 6 oz BMI 38.5 BP 128/81 H Intake Visit Reasons: 36 wk ob Sash Finisher Required: No Is patient in pain?: No Allergies house dust Allergy (Mild, Verified 03/28/25 15:39) Other mold (mold spores) Allergy (Mild, Verified 03/28/25 15:39) Other Environmental Allergies: Uncoded Allergy (Verified 03/28/25 15:39) Other Medications ?Medication ?Instructions ?Recorded ?Confirmed ?Type choline 500 mg tablet 500 mg PO DAILY 09/08/24 History multivitamin no.47-iron fum 27 cap PO 09/08/24 5 History mg-folate no.1 1 mg-dha 300 mg capsule (PNV-DHA) omega-3 fatty acids 1,000 mg 500 mg PO QDAY 09/08/24 0 03/28/25 History capsule (Super Hugo-3) blood-glucose sensor (Dexcom G6 #4 ea 02/27/25 5 Rx Sensor device) blood-glucose transmitter (Dexcom #1 ea 03/19/2503/28 Rx G6 Transmitter device) blood-glucose,waste water or water plant operator,cont #1 ea 03/19/25 03/28/25 Rx (Dexcom G6 Literacy Education Professor) Last Menstrual Period: 07/20/24 Zika: Zika virus screening: Negative : No PFSH PFSH Medical History Seasonal allergies Surgical History Previous section [place] teeth extracted Family History Grandmother Cancer Paternal [...] 1 current occupational status: employed 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 current occupational exposures/hazards: No pets and animals: Yes (Avoid litterbox) pets and animals: cat(s) and dog(s) history of recent travel: Yes (ID) out of state: Yes out of country: [...] in: walking frequency: daily duration: 15-30 minutes/day nkechi/moravian: Taoist seatbelt use: always do you feel safe at home: Yes additional social history: [employer] but goes by 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 OB Visit PETEY Calculator Estimated Delivery Date Method Current WG Current Estimate 04/26/25 LMP (Certain) 35w 6d Other Estimates 04/28/25 Ultrasound #1 35w 4d Expected Delivery Route/Plan Labor Preferences- CB/BF [...] current plan of care details and appropriate ordersplaced. Relevant counseling for the gestational age provided. [...] dates. acc epts NIPT. Had C/S at [facility] for FTP- likely brow presentation 10/19/24 -?-?-?-?-?-?-?-?-?-?-?-?- [...] no vb/cramping. US on . records from [place] not scanned into system. AFP declined. 12/15/24 -?-?-?-?-?-?-?-?-?-?-?-?- 21w 1d 205 lb 2 oz (+6 lb 2 oz) 122/79 Negative -?-?-?-?-?-?-?-?-?-?-?-?- Negative 145 21 -?-?-?-?-?-?-?-?-?-?-?-?- KW- no vb/crampi ng. records received and was low transverse. US reviewed. 01/10/25 -?-?-?-?-?-?-?-?-?-?-?-?- 24w 6d 209 lb 8 oz (+10 lb 8 oz) 116/78 Negative -?-?-?-?-?-?-?-?-?-?-?-?- Negative 143 25 -?-?-?-?-?-?-?-?-?-?-?-?- MH-No VB, LOF. G ood FM. [facility] 02/02/25 -?-?-?-?-?-?-?-?-?-?-?-?- 28w 1d 211 lb (+12 lb) 112/75 Negative -?-?-?-?-?-?-?-?-?-?-?-?- Negative 153 31 -?-?-?-?-?-?-?-?-?-?-?-?- JV- no lof, vagi nal bleeding, or dec fm. interested in intermittent monitoring, however is a desired tolac. 28 week labs and glucola today. 02/15/25 -?-?-?-?-?-?-?-?-?-?-?-?- 30w 0d 212 lb 8 oz (+13 lb 8 oz) 107/70 Negative -?-?-?-?-?-?-?-?-?-?-?-?- Negative 150 30 -?-?-?-?-?-?-?-?-?-?-?-?- JV- pt has decid ed that she will do the 3 hour and will do the fresh test. long talk today. 02/27/25 -?-?-?-?-?-?-?-?--?-?-?-?- 31w 5d 212 lb 6 oz (+13 lb 6 oz) 114/77 -?-?-?-?-?-?-?-?-?-?-?-?- 140 32 -?-?-?-?-?-?-?-?-?-?-?-?- SM- no vb lof go od fm no regualr ctx 03/14/25 -?-?-?-?-?-?-?-?-?-?-?-?- 33w 6d 211 lb 8 oz (+12 lb 8 oz) 115/70 Negative -?-?-?-?-?-?-?-?-?-?-?-?- Negative 160 35 -?-?-?-?-?-?-?-?-?-?-?-?- KW-No vb/lof/ctx . good fm. order for PFPT-PP. KW-No vb/lof/ctx. good fm. o rder for PFPT-PP. growth US at 36 weeks ordered. blood sugars reviewed-well controlled. desires IOL over RCS. GBS next visit. KW-No vb/lof/ctx. good fm. o rder for PFPT-PP. growth US at 36 weeks ordered. blood sugars reviewed-well controlled. still trying to get Dexcom through pharmacy but having issues getting it. desires IOL over RCS. GBS next visit. 03/28/25 -?-?-?-?-?-?-?-?-?-?-?-?- 35w 6d 210 lb 6 oz (+11 lb 6 oz) 128/81 Negative -?-?-?-?-?-?-?-?-?-?-?-?- Negative 135 36 -?-?-?-?-?-?-?-?-?-?-?-?- JV- normal gluco se log. normal growth scan. 89th% AC. gbs pos in urine. ACOG First Trimester First Trimester: Desire for , Alcohol, Tobacco Cessation, Illicit/Recreational Drug/Substance Use, Intimate Partner Violence, Barriers to care, Anticipated Course of Care, Use of Any medications, Sexual activity, Exercise, Dental Care, Sauna/Hot tub use, Seat Belt use, Childbirth c lasses/Hospital facilities, Travel, Indications for Ultrasound and Screening [...] Immediate Larc, Signs and Symptoms of Preeclampsia, Infant Feeding No , [place] Education and Family Medical Leave or Disability Forms Results POC Urinalysis 2 Dip (Clinic) Office Urine Glucose Negative Last Edit by Mindy Couch on 03/28/25 15: 45 Office Urine Protein Negative Last Edit by Mindy Couch on 03/28/25 15: 45 Coding Level of Care Code OB Routine Diagnoses Gestational diabetes O24.419 Sciatica, unspecified laterality M54.30 Laterality: unspecified laterality [...] Normal : other normal Trimester: second trimester 35 weeks gestation of Z3A.35 Weeks of gestation: 35 weeks Hx of section Z98.891 Assessment and Plan Assessment and Plan (1) Gestational diabetes: Status: Acute Comment: Supplies and nutrition consult sent. diet controlled plan 36 week growth us and delivery by 39-40 weeks discussed RLTCS vs IOL (2) Sciatica: Status: Acute Qualifiers: Laterality: unspecified laterality Qualified Code(s): M54.30 - Sciatica, unspecified side (3) Low back pain during : Status: Acute Qualifiers: Trimester: second trimester Qualified Code(s): O26.892 - Other specified related conditions, second trimester; M54.50 - Low back pain, unspecified Comment: PT referral. (4) GBS (group B streptococcus) UTI complicating : Status: Acute Qualifiers: Trimester: second trimester Qualified Code(s): O23.42 - Unspecified infection of urinary tract in , second trimester; B95.1 - Streptococcus, group B, as the cause of diseases classified elsewhere Comment: treat in labor (5) Obesity affecting : Status: Acute Qualifiers: Obesity type affecting : unspecified obesity Trimester: second trimester Qualified Code(s): O99.212 - Obesity complicating , second trimester Comment: HgbA1c (6) Supervision of normal : Status: Acute Qualifiers: Normal : other normal Trimester: second trimester Qualified Code(s): Z34.82 - Encounter for supervision of other normal , second trimester Comment: PRR, , PETEY 04/26/25, girl PC Mirella, Vidal (7) : Status: Acute Qualifiers: Weeks of gestation: 35 weeks Qualified Code(s): Z3A.35 - 35 weeks gestation of Comment: NIPT low risk, carrier neg. , normal anatomy (8) Hx of section: Status: Acute Comment: brow presentation (FTP),*interested in -records requested. pt states that her surgeon told her that her scar is high and can not but records are pending. Orders: Orders POC Urinalysis 2 Dip (Clinic) Today 03/28/25 1614 e Kristine DO> Date _ Emmy Davis DO Cosigner Signature: Date (if applicable) CC: ~ [facility] [id number] Progress note Author Emmy Carmona [facility] Services Note Date/Time March 28, 2025 4: 14pm [facility] [address] [place] [address], [address] [place] [address] OFFICE VISIT Date of Service: 03/28/25 MR#: [id number] Acct: [id number] Name: FELIPE PATRICK Rep #: [id number] : 1995 Provider: DrKaitlin Davis DO Age/Sex: 30/F Location: [facility] [place] Status: Signed Intake Vital Signs 12/15/24 15:30 03/14/25 09:01 03/28/25 15:39 03/28/25 15:41 Height 5 ft 2 in 5 ft 2 in 5 ft 2 in 5 ft 2 in Weight: 210 lb 6 oz BMI 38.5 BP 128/81 H Intake Visit Reasons: 36 wk ob Sash Finisher Required: No Is patient in pain?: No Allergies house dust Allergy (Mild, Verified 03/28/25 15:39) Other mold (mold spores) Allergy (Mild, Verified 03/28/25 15:39) Other Environmental Allergies: Uncoded Allergy (Verified 03/28/25 15:39) Other Medications ?Medication ?Instructions ?Recorded ?Confirmed ?Type choline 500 mg tablet 500 mg PO DAILY 09/08/24 History multivitamin no.47-iron fum 27 cap PO 09/08/24 5 History mg-folate no.1 1 mg-dha 300 mg capsule (PNV-DHA) omega-3 fatty acids 1,000 mg 500 mg PO QDAY 09/08/24 0 03/28/25 History capsule (Super Hugo-3) blood-glucose sensor (Dexcom G6 #4 ea 02/27/25 5 Rx Sensor device) blood-glucose transmitter (Dexcom #1 ea 03/19/2503/28 Rx G6 Transmitter device) blood-glucose,waste water or water plant operator,cont #1 ea 03/19/25 03/28/25 Rx (Dexcom G6 Literacy Education Professor) Last Menstrual Period: 07/20/24 Zika: Zika virus screening: Negative : No PFSH PFSH Medical History Seasonal allergies Surgical History Previous section [place] teeth extracted Family History Grandmother Cancer Paternal [...] 1 current occupational status: employed 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 Date Name GA/Weeks Outcome Route Bth [facility] Mirella 41 live - full term 8#7.8oz Female epidural Zoe Drake Delivery Date: 05/25/23 Last Updated by: Lizz Baxter failure to progress HPI 36 wk ob Details: FELIPE PATRICK is a 30 year old who presents for routine OB visit. OB Visit PETEY Calculator Estimated Delivery Date Method Current WG Current Estimate 04/26/25 LMP (Certain) 35w 6d Other Estimates 04/28/25 Ultrasound #1 35w 4d Expected Delivery Route/Plan Labor Preferences- CB/BF [...] dates. acc epts NIPT. Had C/S at [facility] for FTP- likely brow presentation 10/19/24 -?-?-?-?-?-?-?-?-?-?-?-?- [...] no vb/cramping. US on . records from [place] not scanned into system. AFP declined. 12/15/24 -?-?-?-?-?-?-?-?-?-?-?-?- 21w 1d 205 lb 2 oz (+6 lb 2 oz) 122/79 Negative -?-?-?-?-?-?-?-?-?-?-?-?- Negative 145 21 -?-?-?-?-?-?-?-?-?-?-?-?- KW- no vb/crampi ng. records received and was low transverse. US reviewed. 01/10/25 -?-?-?-?-?-?-?-?-?-?-?-?- 24w 6d 209 lb 8 oz (+10 lb 8 oz) 116/78 Negative -?-?-?-?-?-?-?-?-?-?-?-?- Negative 143 25 -?-?-?-?-?-?-?-?-?-?-?-?- MH-No VB, LOF. G ood FM. [facility] 02/02/25 -?-?-?-?-?-?-?-?-?-?-?-?- 28w 1d 211 lb (+12 lb) 112/75 Negative -?-?-?-?-?-?-?-?-?-?-?-?- Negative 153 31 -?-?-?-?-?-?-?-?-?-?-?-?- JV- no lof, vagi nal bleeding, or dec fm. interested in intermittent monitoring, however is a desired tolac. 28 week labs and glucola today. 02/15/25 -?-?-?-?-?-?-?-?-?-?-?-?- 30w 0d 212 lb 8 oz (+13 lb 8 oz) 107/70 Negative -?-?-?-?-?-?-?-?-?-?-?-?- Negative 150 30 -?-?-?-?-?-?-?-?-?-?-?-?- JCynthia- pt has decid ed that she will do the 3 hour and will do the fresh test. long talk today. 02/27/25 -?-?-?-?-?-?-?-?--?-?-?-?- 31w 5d 212 lb 6 oz (+13 lb 6 oz) 114/77 -?-?-?-?-?-?-?-?-?-?-?-?- 140 32 -?-?-?-?-?-?-?-?-?-?-?-?- SM- no vb lof go od fm no regualr ctx 03/14/25 -?-?-?-?-?-?-?-?-?-?-?-?- 33w 6d 211 lb 8 oz (+12 lb 8 oz) 115/70 Negative -?-?-?-?-?-?-?-?-?-?-?-?- Negative 160 35 -?-?-?-?-?-?-?-?-?-?-?-?- KW-No vb/lof/ctx . good fm. order for PFPT-PP. KW-No vb/lof/ctx. good fm. o rder for PFPT-PP. growth US at 36 weeks ordered. blood sugars reviewed-well controlled. desires IOL over RCS. GBS next visit. KW-No vb/lof/ctx. good fm. o rder for PFPT-PP. growth US at 36 weeks ordered. blood sugars reviewed-well controlled. still trying to get Dexcom through pharmacy but having issues getting it. desires IOL over RCS. GBS next visit. 03/28/25 -?-?-?-?-?-?-?-?-?-?-?-?- 35w 6d 210 lb 6 oz (+11 lb 6 oz) 128/81 Negative -?-?-?-?-?-?-?-?-?-?-?-?- Negative 135 36 -?-?-?-?-?-?-?-?-?-?-?-?- JV- normal gluco se log. normal growth scan. 89th% AC. gbs pos in urine. ACOG First Trimester First Trimester: Desire for [...] Immediate Larc, Signs and Symptoms of Preeclampsia, Infant Feeding No , [place] Education and Family Medical Leave or Disability Forms Results POC Urinalysis 2 Dip (Clinic) Office Urine Glucose Negative Last Edit by Mindy Couch on 03/28/25 15: 45 Office Urine Protein Negative Last Edit by Mindy Couch on 03/28/25 15: 45 Coding Level of Care Code OB Routine Diagnoses Gestational diabetes O24.419 Sciatica, unspecified laterality M54.30 Laterality: unspecified laterality [...] Normal : other normal Trimester: second trimester 35 weeks gestation of Z3A.35 Weeks of gestation: 35 weeks Hx of section Z98.891 Assessment and Plan Assessment and Plan (1) Gestational diabetes: Status: Acute Comment: Supplies and nutrition consult sent. diet controlled plan 36 week growth us and delivery by 39-40 weeks discussed RLTCS vs IOL (2) Sciatica: Status: Acute Qualifiers: Laterality: unspecified laterality Qualified Code(s): M54.30 - Sciatica, unspecified side (3) Low back pain during : Status: Acute Qualifiers: Trimester: second trimester Qualified Code(s): O26.892 - Other specified related conditions, second trimester; M54.50 - Low back pain, unspecified Comment: PT referral. (4) GBS (group B streptococcus) UTI complicating : Status: Acute Qualifiers: Trimester: second trimester Qualified Code(s): O23.42 - Unspecified infection of urinary tract in , second trimester; B95.1 - Streptococcus, group B, as the cause of diseases classified elsewhere Comment: treat in labor (5) Obesity affecting : Status: Acute Qualifiers: Obesity type affecting : unspecified obesity Trimester: second trimester Qualified Code(s): O99.212 - Obesity complicating , second trimester Comment: HgbA1c (6) Supervision of normal : Status: Acute Qualifiers: Normal : other normal Trimester: second trimester Qualified Code(s): Z34.82 - Encounter for supervision of other normal , second trimester Comment: PRR, , PETEY 04/26/25, girl LING Vu, Vidal (7) : Status: Acute Qualifiers: Weeks of gestation: 35 weeks Qualified Code(s): Z3A.35 - 35 weeks gestation of Comment: NIPT low risk, carrier neg. , normal anatomy (8) Hx of section: Status: Acute Comment: brow presentation (FTP),*interested in -records requested. pt states that her surgeon told her that her scar is high and can not but records are pending. Orders: Orders POC Urinalysis 2 Dip (Clinic) Today 03/28/25 1614 <Electronically signed by Emmy Roman DO> Date _ Emmy Davis DO Cosigner Signature: Date (if applicable) CC: ~ [facility] [employer] Work Phone: [phone] Radiology Diagnostic study note [facility] Imaging Services [address] [place] [address] OB Limited With Biometrics MR#: [id number] Acct: [id number] Name: FELIPE PATRICK Rep #: [id number] : 1995 F 30 From: Nicolás Trujillo MD PCP: Dr. Jhonny Cobian MD Status: REG CLI Study:OB Limited With Biometrics Date of Exam : 03/23/25 Exam# [id number] Ordering Dr: Bobbi Stuart CNM PROCEDURE: OB LIMITED WITH BIOMETRICS 03/23/2025 REASON FOR EXAM: GROWTH TECHNIQUE: OB LIMITED WITH BIOMETRICS COMPARISON: None FINDINGS LMP: July 20, 2024. Number: 1 Position: Vertex Placental Position: Anterior and not low-lying. Placental Abnormalities: No evidence of previa. DIMENSIONS: Biparietal Diameter: 8.89 cm: 36 weeks and 0 days: 75.5 percentile/ Head Circumference: 32.94 cm: 37 weeks and 3 days: 74.5 percentile/ Abdominal Circumference: 32.63 cm: 36 weeks and 4 days: 89.5 percentile/ Femur Length: 6.86 cm: 35 weeks and 1 day: 44.6 percentile/ ESTIMATED WEIGHT: 2870 g plus/-432 g ESTIMATED WEIGHT PERCENTILE (24+ weeks): 76.5 ESTIMATED GESTATIONAL AGE: Baseline: 35 weeks and 1 day By Ultrasound: 36 weeks and 2 days ESTIMATED DATE OF DELIVERY: Baseline: April 26, 2025 By Ultrasound: April 18, 2025 BIOPHYSICAL ASSESSMENT: Amniotic Fluid Volume: 4.3 cm 3.3 cm Amniotic Fluid Index: 11 cm (8-24 cm normal range) Cardiac Motion: 142 beats per minute (average) Trunk and Limb Motion: Present. MATERNAL ANATOMY: Adnexa: Neither maternal ovary is successfully identified. Cervical Length (if measured): 5.5 cm US/OB Limited With Biometrics IMPRESSION: Single live intrauterine gestation with a mean gestational age of 36 weeks and 2days. Reading Location: [place] [address] CC: DULCE Stuart; Dr. Jhonny Cobian MD ~ Edi Consultant: Signed [facility]07-22-2025 Progress [facility] [address], [address] [place] [address] OFFICE VISIT Date of Service: 02/27/25 MR#: [id number] Acct: [id number] Name: FELIPE PATRICK Rep #: [id number] : 1995 Provider: Dr. Moo Goodman MD Age/Sex: 30/F Location: [facility] [place] Status: Signed Intake Vital Signs 12/15/24 15:30 02/15/25 09:27 02/27/25 15:29 Height 5 ft 2 in 5 ft 2 in 5 ft 2 in Weight: 212 lb 6 oz BMI 38.8 BP 114/77 Intake Visit Reasons: 32 wk ob Sash Finisher Required: No Is patient in pain?: No Allergies house dust Allergy (Mild, Verified 02/27/25 15:30) Other mold (mold spores) Allergy (Mild, Verified 02/27/25 15:30) Other Environmental Allergies: Uncoded Allergy (Verified 02/27/25 15:30) Other Medications ?Medication ?Instructions ?Recorded ?Confirmed ?Type choline 500 mg tablet 500 mg PO DAILY 09/08/24 History multivitamin no.47-iron fum 27 cap PO 09/08/24 5 History mg-folate no.1 1 mg-dha 300 mg capsule (PNV-DHA) omega-3 fatty acids 1,000 mg 500 mg PO QDAY 09/08/24 0 02/27/25 History capsule (Super Hugo-3) blood sugar diagnostic (Blood #120 ea 02/23/25 5 Rx Glucose Test strips) blood-glucose meter #1 ea 02/23/25 02/27/25 Rx lancets 30 gauge (Droplet Lancets) #200 ea 02/23/25 Rx blood-glucose sensor (Dexcom G6 #4 ea 02/27/25 5 Rx Sensor device) Last Menstrual Period: 07/20/24 Zika: Zika virus screening: Negative : No PFSH PFSH Medical History Seasonal allergies Surgical History Previous section [place] teeth extracted Family History Grandmother Cancer Paternal [...] 1 current occupational status: employed 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 Date Name GA/Weeks Outcome Route Bth Weight Infant Gen Labor Lgth Anesthesia Del Locatn Provider FOB 10/17/23 Mirella 41 live - full term 8#7.8oz Female epidural [facility] Dr.Samantha Milan Drake Delivery Date: 05/25/23 Last Updated by: Lizz Baxter failure to progress HPI 32 wk ob Details: FELIPE PATRICK is a 30 year old who presents for routine OB visit. OB Visit PETEY Calculator Estimated Delivery Date Method Current WG Current Estimate 04/26/25 LMP (Certain) 31w 5d Other Estimates 04/28/25 Ultrasound #1 31w 3d Expected Delivery Route/Plan Labor Preferences- CB/BF classes: [...] current plan of care details and appropriate ordersplaced. Relevant counseling for the gestational age provided. Continue routine care and follow up unless otherwise noted in visit notes/problem list details Initial Weight: 199 lb Date -?-?-?-?-?-?-?-?-?-?-?-?- EGA Weight BP Urine Prot -?-?-?-?-?-?-?-?-?-?-?-?- Glucose FHR FuHt Pres Dilation -?-?-?-?-?-?-?-?-?-?-?-?- Effaced St Visit Note 09/21/24 -?-?-?-?-?-?-?--?-?-?-?-?- 9w 0d 199 lb 6 oz (+6 oz) 132/84 -?-?-?-?-?-?-?-?-?-?-?-?- 175 -?-?-?-?-?-?-?-?-?-?-?-?- KW- CRL cons wit h dates. accepts NIPT KW- CRL cons with dates. acc epts NIPT. Had C/S at [facility] for FTP- likely brow presentation 10/19/24 -?-?-?-?-?-?-?-?-?-?-?-?- [...] no vb/cramping. US on . records from [facility] not scanned into system. AFP declined. 12/15/24 -?-?-?-?-?-?-?-?-?-?-?-?- 21w 1d 205 lb 2 oz (+6 lb 2 oz) 122/79 Negative -?-?-?-?-?-?-?-?-?-?-?-?- Negative 145 21 -?-?-?-?-?-?-?-?-?-?-?-?- KW- no vb/crampi ng. records received and was low transverse. US reviewed. 01/10/25 -?-?-?-?-?-?-?-?-?-?-?-?- 24w 6d 209 lb 8 oz (+10 lb 8 oz) 116/78 Negative -?-?-?-?-?-?-?-?-?-?-?-?- Negative 143 25 -?-?-?-?-?-?-?-?-?-?-?-?- MH-No VB, LOF. G ood FM. Larc 02/02/25 -?-?-?-?-?-?-?-?-?-?-?-?- 28w 1d 211 lb (+12 lb) 112/75 Negative -?-?-?-?-?-?-?-?-?-?-?-?- Negative 153 31 -?-?-?-?-?-?-?-?-?-?-?-?- JV- no lof, vagi nal bleeding, or dec fm. interested in intermittent monitoring, however is a desired tolac. 28 week labs and glucola today. 02/15/25 -?-?-?-?-?-?-?-?-?-?-?-?- 30w 0d 212 lb 8 oz (+13 lb 8 oz) 107/70 Negative -?-?-?-?-?-?-?-?-?-?-?-?- Negative 150 30 -?-?-?-?-?-?-?-?-?-?-?-?- JV- pt has decid ed that she will do the 3 hour and will do the fresh test. long talk today. 02/27/25 -?-?-?-?-?-?-?-?-?-?-?-?- 31w 5d 212 lb 6 oz (+13 lb 6 oz) 114/77 -?-?-?-?-?-?-?-?-?-?-?-?- 140 32 -?-?-?-?-?-?-?-?-?-?-?-?- SM- no vb lof go od fm no regualr ctx ACOG First Trimester First Trimester: Desire for , Alcohol, Tobacco Cessation, Illicit/Recreational Drug/Substance Use, Intimate Partner Violence, Barriers to care, Anticipated Course of Care, Use of Any medications, Sexual activity, Exercise, Dental Care, Sauna/Hot tub use, Seat Belt use, Childbirth c lasses/Hospital facilities, Travel, Indications for Ultrasound and Screening [...] and Symptoms of Preeclampsia, Feeding No , Education and Family Medical Leave or Disability Forms Coding Level of Care Code OB Routine Diagnoses Gestational diabetes O24.419 Abnormal glucose complicating childbirth O99.814 Sciatica, unspecified laterality M54.30 Laterality: unspecified laterality [...] Normal : other normal Trimester: second trimester 31 weeks gestation of Z3A.31 Weeks of gestation: 31 weeks Hx of section Z98.891 Assessment and Plan Assessment and Plan (1) Gestational diabetes: Status: Acute Comment: Supplies and nutrition consult sent. diet controlled plan 36 week growth us and delivery by 39-40 weeks discussed RLTCS vs IOL (2) Abnormal glucose complicating childbirth: Status: Resolved Comment: Refuses 3 hr GTT and to test BS QID. Will discuss with JV next visit. Failed 3 hr. (3) Sciatica: Status: Acute Qualifiers: Laterality: unspecified laterality Qualified Code(s): M54.30 - Sciatica, unspecified side (4) Low back pain during : Status: Acute Qualifiers: Trimester: second trimester Qualified Code(s): O26.892 - Other specified related conditions, second trimester; M54.50 - Low back pain, unspecified Comment: PT referral. (5) GBS (group B streptococcus) UTI complicating : Status: Acute Qualifiers: Trimester: second trimester Qualified Code(s): O23.42 - Unspecified infection of urinary tract in , second trimester; B95.1 - Streptococcus, group B, as the cause of diseases classified elsewhere Comment: treat in labor (6) Obesity affecting : Status: Acute Qualifiers: Obesity type affecting : unspecified obesity Trimester: second trimester Qualified Code(s): O99.212 - Obesity complicating , second trimester Comment: HgbA1c (7) Supervision of normal : Status: Acute Qualifiers: Normal : other normal Trimester: second trimester Qualified Code(s): Z34.82 - Encounter for supervision of other normal , second trimester Comment: PRR, , PETEY 04/26/25, girl PC Mirella, Vidal (8) : Status: Acute Qualifiers: Weeks of gestation: 31 weeks Qualified Code(s): Z3A.31 - 31 weeks gestation of Comment: NIPT low risk, carrier neg. , normal anatomy (9) Hx of section: Status: Acute Comment: brow presentation (FTP),*interested in -records requested. pt states that her surgeon told her that her scar is high and can not but records are pending. Orders: Orders POC Urinalysis 2 Dip (Clinic) Today Medications: New blood-glucose sensor (Dexcom G6 Sensor device) As directed 4 ea 6RF 02/27/25 1628 fredrick EMANUEL> Date _ Emilia Goodman MD Cosign Signature: Date (if applicable) CC: ~ [facility]07-22-2025 Progress note Author Emilia Goodman [facility] Note Date/Time February 27, 2025 4:28 pm [facility] [address] [place] [address], [address] [place] [address] OFFICE VISIT Date of Service: 02/27/25 MR#: [id number] Acct: [id number] Name: FELIPE PATRICK Rep #: [id number] : 1995 Provider: Dr. Moo Goodman MD Age/Sex: 30/F Location: [facility] Status: Signed Intake Vital Signs 12/15/24 15:30 02/15/25 09:27 02/27/25 15:29 Height 5 ft 2 in 5 ft 2 in 5 ft 2 in Weight: 212 lb 6 oz BMI 38.8 BP 114/77 Intake Visit Reasons: 32 wk ob Sash Finisher Required: No Is patient in pain?: No Allergies house dust Allergy (Mild, Verified 02/27/25 15:30) Other mold (mold spores) Allergy (Mild, Verified 02/27/25 15:30) Other Environmental Allergies: Uncoded Allergy (Verified 02/27/25 15:30) Other Medications ?Medication ?Instructions ?Recorded ?Confirmed ?Type choline 500 mg tablet 500 mg PO DAILY 09/08/24 History multivitamin no.47-iron fum 27 cap PO 09/08/24 5 History mg-folate no.1 1 mg-dha 300 mg capsule (PNV-DHA) omega-3 fatty acids 1,000 mg 500 mg PO QDAY 09/08/24 0 02/27/25 History capsule (Super Hugo-3) blood sugar diagnostic (Blood #120 ea 02/23/25 5 Rx Glucose Test strips) blood-glucose meter #1 ea 02/23/25 02/27/25 Rx lancets 30 gauge (Droplet Lancets) #200 ea 02/23/25 Rx blood-glucose sensor (Dexcom G6 #4 ea 02/27/25 5 Rx Sensor device) Last Menstrual Period: 07/20/24 Zika: Zika virus screening: Negative : No PFSH PFSH Medical History Seasonal allergies Surgical History Previous section [place] teeth extracted Family History Grandmother Cancer Paternal [...] 1 current occupational status: employed 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 Date Name GA/Weeks Outcome Route Bth Weight Infant Gen Labor Lgth Anesthesia Del Locat Provider FOB 05/25/23 Mirella 41 live - full term 8#7.8oz Female epidural Zoe Drake Delivery Date: 05/25/23 Last Updated by: Lizz Baxter failure to progress HPI 32 wk ob Details: FELIPE PATRICK is a 30 year old who presents for routine OB visit. OB Visit PETEY Calculator Estimated Delivery Date Method Current WG Current Estimate 04/26/25 LMP (Certain) 31w 5d Other Estimates 04/28/25 Ultrasound #1 31w 3d Expected Delivery Route/Plan Labor Preferences- CB/BF classes: [...] Dilation -?-?-?-?-?-?-?-?-?-?-?-?- Effaced St Visit Note 09/21/24 -?-?-?-?-?-?-?--?-?-?-?-?- 9w 0d 199 lb 6 oz (+6 oz) 132/84 -?-?-?-?-?-?-?-?-?-?-?-?- 175 -?-?-?-?-?-?-?-?-?-?-?-?- KW- CRL cons wit h dates. accepts NIPT KW- CRL cons with dates. acc epts NIPT. Had C/S at [facility] for FTP- likely brow presentation 10/19/24 -?-?-?-?-?-?-?-?-?-?-?-?- [...] no vb/cramping. US on . records from [place] not scanned into system. AFP declined. 12/15/24 -?-?-?-?-?-?-?-?-?-?-?-?- 21w 1d 205 lb 2 oz (+6 lb 2 oz) 122/79 Negative -?-?-?-?-?-?-?-?-?-?-?-?- Negative 145 21 -?-?-?-?-?-?-?-?-?-?-?-?- KW- no vb/crampi ng. records received and was low transverse. US reviewed. 01/10/25 -?-?-?-?-?-?-?-?-?-?-?-?- 24w 6d 209 lb 8 oz (+10 lb 8 oz) 116/78 Negative -?-?-?-?-?-?-?-?-?-?-?-?- Negative 143 25 -?-?-?-?-?-?-?-?-?-?-?-?- MH-No VB, LOF. G ood FM. [facility] 02/02/25 -?-?-?-?-?-?-?-?-?-?-?-?- 28w 1d 211 lb (+12 lb) 112/75 Negative -?-?-?-?-?-?-?-?-?-?-?-?- Negative 153 31 -?-?-?-?-?-?-?-?-?-?-?-?- JV- no lof, vagi nal bleeding, or dec fm. interested in intermittent monitoring, however is a desired tolac. 28 week labs and glucola today. 02/15/25 -?-?-?-?-?-?-?-?-?-?-?-?- 30w 0d 212 lb 8 oz (+13 lb 8 oz) 107/70 Negative -?-?-?-?-?-?-?-?-?-?-?-?- Negative 150 30 -?-?-?-?-?-?-?-?-?-?-?-?- JCynthia- pt has decid ed that she will do the 3 hour and will do the fresh test. long talk today. 02/27/25 -?-?-?-?-?-?-?-?-?-?-?-?- 31w 5d 212 lb 6 oz (+13 lb 6 oz) 114/77 -?-?-?-?-?-?-?-?-?-?-?-?- 140 32 -?-?-?-?-?-?-?-?-?-?-?-?- SM- no vb lof go od fm no regualr ctx ACOG First Trimester First Trimester: Desire for [...] Immediate Larc, Signs and Symptoms of Preeclampsia, Infant Feeding No , Education and Family Medical Leave or Disability Forms Coding Level of Care Code OB Routine Diagnoses Gestational diabetes O24.419 Abnormal glucose complicating childbirth O99.814 Sciatica, unspecified laterality M54.30 Laterality: unspecified laterality [...] Normal : other normal Trimester: second trimester 31 weeks gestation of Z3A.31 Weeks of gestation: 31 weeks Hx of section Z98.891 Assessment and Plan Assessment and Plan (1) Gestational diabetes: Status: Acute Comment: Supplies and nutrition consult sent. diet controlled plan 36 week growth us and delivery by 39-40 weeks discussed RLTCS vs IOL (2) Abnormal glucose complicating childbirth: Status: Resolved Comment: Refuses 3 hr GTT and to test BS QID. Will discuss with JV next visit. Failed 3 hr. (3) Sciatica: Status: Acute Qualifiers: Laterality: unspecified laterality Qualified Code(s): M54.30 - Sciatica, unspecified side (4) Low back pain during : Status: Acute Qualifiers: Trimester: second trimester Qualified Code(s): O26.892 - Other specified related conditions, second trimester; M54.50 - Low back pain, unspecified Comment: PT referral. (5) GBS (group B streptococcus) UTI complicating : Status: Acute Qualifiers: Trimester: second trimester Qualified Code(s): O23.42 - Unspecified infection of urinary tract in , second trimester; B95.1 - Streptococcus, group B, as the cause of diseases classified elsewhere Comment: treat in labor (6) Obesity affecting : Status: Acute Qualifiers: Obesity type affecting : unspecified obesity Trimester: second trimester Qualified Code(s): O99.212 - Obesity complicating , second trimester Comment: HgbA1c (7) Supervision of normal : Status: Acute Qualifiers: Normal : other normal Trimester: second trimester Qualified Code(s): Z34.82 - Encounter for supervision of other normal , second trimester Comment: PRR, , PETEY 04/26/25, girl PC Mirella, Vidal (8) : Status: Acute Qualifiers: Weeks of gestation: 31 weeks Qualified Code(s): Z3A.31 - 31 weeks gestation of Comment: NIPT low risk, carrier neg. , normal anatomy (9) Hx of section: Status: Acute Comment: brow presentation (FTP),*interested in -records requested. pt states that her surgeon told her that her scar is high and can not but records are pending. Orders: Orders POC Urinalysis 2 Dip (Clinic) Today Medications: New blood-glucose sensor (Dexcom G6 Sensor device) As directed 4 ea 6RF 02/27/25 1628 <Electronically signed by Emilia alcala MD> Date _ Emilia Goodman MD [facility] Signature: Date (if applicable) CC: ~ [facility] [employer] Work Phone: 1(140) 435-711206-27-2025 Progress [facility] [address], [address] [place] [address] OFFICE VISIT Date of Service: 02/02/25 MR#: [id number] Acct: [id number] Name: FELIPE PATRICK Rep #: [id number] : 1995 Provider: Dr. Moriah Davis DO Age/Sex: 29/F Location: [facility] Status: Signed Intake Vital Signs 11/17/24 11:15 01/10/25 10:23 02/02/25 10:22 02/02/25 10:25 Height 5 ft 2 in 5 ft 2 in 5 ft 2 in 5 ft 2 in Weight: 211 lb BMI 38.5 BP 112/75 Intake Visit Reasons: 28wk ob/glucose Sash Finisher Required: No Is patient in pain?: No [...] QDAY 09/08/24 0 02/02/25 History capsule (Super Hugo-3) Last Menstrual Period: 07/20/24 Zika: Zika virus screening: Negative : No PFSH PFSH Medical History Seasonal allergies Surgical History Previous section [place] teeth extracted Family History Grandmother Cancer Paternal [...] 1 current occupational status: employed 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 Relevant counseling for the gestational age provided. [...] dates. acc epts NIPT. Had C/S at [facility] for FTP- likely brow presentation 10/19/24 -?-?-?-?-?-?-?-?-?-?-?-?- [...] no vb/cramping. US on . records from [place] not scanned into system. AFP declined. 12/15/24 -?-?-?-?-?-?-?-?-?-?-?-?- 21w 1d 205 lb 2 oz (+6 lb 2 oz) 122/79 Negative -?-?-?-?-?-?-?-?-?-?-?-?- Negative 145 21 -?-?-?-?-?-?-?-?-?-?--?-?- KW- no vb/crampi ng. records received and was low transverse. US reviewed. 01/10/25 -?-?-?-?-?-?-?-?-?-?-?-?- 24w 6d 209 lb 8 oz (+10 lb 8 oz) 116/78 Negative -?-?-?-?-?-?-?-?-?-?-?-?- Negative 143 25 -?-?-?-?-?-?-?-?-?-?-?-?- MH-No VB, LOF. G ood FM. Larc 02/02/25 -?-?-?-?-?-?-?-?-?-?-?-?- 28w 1d 211 lb (+12 [...] Sauna/Hot tub use, Seat Belt use, Childbirth c [facility]/Hospital facilities, Travel, Indications for Ultrasound and Screening [...] and Symptoms of Preeclampsia, Feeding No , [place] Education and Family Medical Leave or Disability [...] Urinalysis 2 Dip (Clinic) Today 02/02/25 1110 e Velde DO> Date _ Emmy Ferrara Kristine DO Cosigner Signature: Date (if applicable) CC: ~ [facility]06-04-2025 Evaluation note* Diagnosis Onset Date Resolution Status Admit Date GBS (group B streptococcus) UTI complicating acute January 10, 2025 10:19am Hx of section acute 2024 10:19am Low back pain during acute January 10, 2025 1 0:19am Obesity affecting acute January 10, 2025 10:19am acute January 10, 2025 10:19am Sciatica acute January 10, 2025 10:19am Supervision of normal acute January 10, 2025 1 0:19am GBS (group B streptococcus) UTI complicating acute February 02, 2025 10:10am Hx of section acute Ju ne 2024 10:10am Low back pain during acute February 02, 2025 10:10am Obesity affecting acute February 02, 2025 10:10am acute February 02 10:10am Sciatica acute February 02 10:10am Supervision of normal acute February 02, 2025 10:10am GBS (group B streptococcus) UTI complicating acute February 15, 2025 9:20am Hx of section acute Ju 2024 9:20am Low back pain during acute February 15, 2025 9:20am Obesity affecting acute February 15, 2025 9:20am acute February 15 9:20am Sciatica acute February 15 9:20am Supervision of normal acute February 15, 2025 9:20am Abnormal glucose complicatin g childbirth resolved February 15, 2025 9:20am GBS (group B streptococcus) UTI complicating acute February 27, 2025 3:24pm Gestational diabetes acute February 27, 2025 3:24pm Hx of section acute Ju 2024 3:24pm Low back pain during acute February 27, 2025 3:24pm Obesity affecting acute February 27, 2025 3:24pm acute February 27 3:24pm Sciatica acute February 27 3:24pm Supervision of normal acute February 27, 2025 3:24pm Abnormal glucose complicatin g childbirth resolved February 27, 2025 3:24pm GBS (group B streptococcus) UTI complicating acute Marus 2024 8:58am Gestational diabetes acute Maru 2024 8:58am Hx of section acute 2024 8:58am Low back pain during acute March 14, 2025 8:58am Obesity affecting acute March 14, 2025 8:58am acute March 14 8:58am Sciatica acute March 14 8:58am Supervision of normal acute March 14, 2025 8:58am GBS (group B streptococcus) UTI complicating acute 2024 3:35pm Gestational diabetes acute Maru 2024 3:35pm Hx of section acute 2024 3:35pm Low back pain during acute March 28 3:35pm Obesity affecting acute March 28, 2025 3:35pm acute March 28, 025 3:35pm Sciatica acute March 28, 025 3:35pm Supervision of normal acute March 28 3:35pm GBS (group B streptococcus) UTI complicating acute Marus 2024 9:21am Gestational diabetes acute Maru st 2024 9:21am Hx of section acute 2024 9:21am Low back pain during acute April 02 9:21am Obesity affecting acute April 02, 2025 9:21am acute April 02, 2 025 9:21am Sciatica acute April 02, 2 025 9:21am Supervision of normal acute April 02 9:21am GBS (group B streptococcus) UTI complicating acute Septe 2024 8:36am Gestational diabetes acute Apr 8:36am Hx of section acute Se pt2024 8:36am Low back pain during acute April 11 8:36am Obesity affecting acute April 11, 2025 8:36am acute April 11, 2025 8:36am Sciatica acute April 11, 2025 8:36am Supervision of normal acute April 11 8:36am [facility] Work Phone: 1(789) 960-270506-04-2025 Evaluation note* Diagnosis Onset Date Resolution Status Admit Date GBS (group B streptococcus) UTI complicating acute January 10, 2025 10:19am Hx of section acute Ju 2024 10:19am Low back pain during acute January 10, 2025 1 0:19am Obesity affecting acute January 10, 2025 10:19am acute January 10, 2025 10:19am Sciatica acute January 10, 2025 10:19am Supervision of normal acute January 10, 2025 1 0:19am GBS (group B streptococcus) UTI complicating acute February 02, 2025 10:10am Hx of section acute Ju ne 2024 10:10am Low back pain during acute February 02, 2025 10:10am Obesity affecting acute February 02, 2025 10:10am acute February 02 10:10am Sciatica acute February 02 10:10am Supervision of normal acute February 02, 2025 10:10am GBS (group B streptococcus) UTI complicating acute February 15, 2025 9:20am Hx of section acute Ju 2024 9:20am Low back pain during acute February 15, 2025 9:20am Obesity affecting acute February 15, 2025 9:20am acute February 15 9:20am Sciatica acute February 15 9:20am Supervision of normal acute February 15, 2025 9:20am Abnormal glucose complicatin g childbirth resolved February 15, 2025 9:20am GBS (group B streptococcus) UTI complicating acute February 27, 2025 3:24pm Gestational diabetes acute February 27, 2025 3:24pm Hx of section acute Ju ly nd, 2025 3:24pm Low back pain during acute February 27, 2025 3:24pm Obesity affecting acute February 27, 2025 3:24pm acute February 27 3:24pm Sciatica acute February 27 3:24pm Supervision of normal acute February 27, 2025 3:24pm Abnormal glucose complicatin g childbirth resolved February 27, 2025 3:24pm GBS (group B streptococcus) UTI complicating acute Augus t 2024 8:58am Gestational diabetes acute Augu st 2024 8:58am Hx of section acute Au 2024 8:58am Low back pain during acute March 14, 2025 8:58am Obesity affecting acute March 14, 2025 8:58am acute March 14 8:58am Sciatica acute March 14 8:58am Supervision of normal acute March 14, 2025 8:58am GBS (group B streptococcus) UTI complicating acute Augus t 2024 3:35pm Gestational diabetes acute Augu st 2024 3:35pm Hx of section acute Au 2024 3:35pm Low back pain during acute March 28 3:35pm Obesity affecting acute March 28, 2025 3:35pm acute March 28, 025 3:35pm Sciatica acute March 28, 2 025 3:35pm Supervision of normal acute March 28 3:35pm GBS (group B streptococcus) UTI complicating acute Augus t 2024 9:21am Gestational diabetes acute Augu st 2024 9:21am Hx of section acute Au 2024 9:21am Low back pain during acute April 02 9:21am Obesity affecting acute April 02, 2025 9:21am acute April 02, 2 025 9:21am Sciatica acute April 02, 025 9:21am Supervision of normal acute April 02 9:21am GBS (group B streptococcus) UTI complicating acute Septe mber 2024 8:36am Gestational diabetes acute Sept ember 2024 8:36am Hx of section acute Se ptember 2024 8:36am Low back pain during acute April 11 8:36am Obesity affecting acute April 11, 2025 8:36am acute April 11, 2025 8:36am Sciatica acute April 11, 2025 8:36am Supervision of normal acute April 11 8:36am GBS (group B streptococcus) UTI complicating acute 2024 8:59am Gestational diabetes acute Apr 8:59am Hx of section acute Se pt2024 8:59am Low back pain during acute April 20, 2025 8:59am Obesity affecting acute April 20, 2025 8:59am acute April 8:59am Sciatica acute April 8:59am Supervision of normal acute April 20, 2025 8:59am [facility] Work Phone: [phone]) 965-999705-09-2025 Evaluation note* Diagnosis Onset Date Resolution Status Admit Date GBS (group B streptococcus) UTI complicating acute [...] normal acute January 10, 2025 1 0:19am GBS (group B streptococcus) UTI complicating acute February 02, 2025 10:10am Hx of section acute Ju 2024 10:10am Low back pain during acute February 02, 2025 10:10am Obesity affecting acute February 02, 2025 10:10am acute February 02 10:10am Sciatica acute February 02 10:10am Supervision of normal acute February 02, 2025 10:10am GBS (group B streptococcus) UTI complicating acute February 15, 2025 9:20am Hx of section acute 2024 9:20am Low back pain during acute February 15, 2025 9:20am Obesity affecting acute February 15, 2025 9:20am acute February 15 9:20am Sciatica acute February 15 9:20am Supervision of normal acute February 15, 2025 9:20am Abnormal glucose complicatin g childbirth resolved February 15, 2025 9:20am GBS (group B streptococcus) UTI complicating acute February 27, 2025 3:24pm Gestational diabetes acute February 27, 2025 3:24pm Hx of section acute 2024 3:24pm Low back pain during acute February 27, 2025 3:24pm Obesity affecting acute February 27, 2025 3:24pm acute February 27 3:24pm Sciatica acute February 27 3:24pm Supervision of normal acute February 27, 2025 3:24pm Abnormal glucose complicatin g childbirth resolved February 27, 2025 3:24pm GBS (group B streptococcus) UTI complicating acute Marus 2024 8:58am Gestational diabetes acute 2024 8:58am Hx of section acute 2024 8:58am Low back pain during acute March 14, 2025 8:58am Obesity affecting acute March 14, 2025 8:58am acute March 14 8:58am Sciatica acute March 14 8:58am Supervision of normal acute March 14, 2025 8:58am GBS (group B streptococcus) UTI complicating acute Marus t 2024 3:35pm Gestational diabetes acute Maru 2024 3:35pm Hx of section acute 2024 3:35pm Low back pain during acute March 28, 2025 3:35pm Obesity affecting acute March 28, 2025 3:35pm acute March 28, 025 3:35pm Sciatica acute March 28 025 3:35pm Supervision of normal acute March 28 3:35pm [facility] Work Phone: 1([phone]) 893-191005-09-2025 Evaluation note* Diagnosis Onset Date Resolution Status Admit Date GBS (group B streptococcus) UTI complicating acute December 152024 3:23pm Hx of section acute Ma y [...] normal acute January 10, 2025 1 0:19am GBS (group B streptococcus) UTI complicating acute February 02, 2025 10:10am Hx of section acute Ju ne 2024 10:10am Low back pain during acute February 02, 2025 10:10am Obesity affecting acute February 02, 2025 10:10am acute February 02 10:10am Sciatica acute February 02 10:10am Supervision of normal acute February 02, 2025 10:10am GBS (group B streptococcus) UTI complicating acute February 15, 2025 9:20am Hx of section acute 2024 9:20am Low back pain during acute February 15, 2025 9:20am Obesity affecting acute February 15, 2025 9:20am acute February 15 9:20am Sciatica acute February 15 9:20am Supervision of normal acute February 15, 2025 9:20am Abnormal glucose complicatin g childbirth resolved February 15, 2025 9:20am GBS (group B streptococcus) UTI complicating acute February 27, 2025 3:24pm Gestational diabetes acute February 27, 2025 3:24pm Hx of section acute Ju ly 2024 3:24pm Low back pain during acute February 27, 2025 3:24pm Obesity affecting acute February 27, 2025 3:24pm acute February 27 3:24pm Sciatica acute February 27 3:24pm Supervision of normal acute February 27, 2025 3:24pm Abnormal glucose complicatin g childbirth resolved February 27, 2025 3:24pm GBS (group B streptococcus) UTI complicating acute Augus 2024 8:58am Gestational diabetes acute Maru 2024 8:58am Hx of section acute Au 2024 8:58am Low back pain during acute March 14, 2025 8:58am Obesity affecting acute March 14, 2025 8:58am acute March 14 8:58am Sciatica acute March 14 8:58am Supervision of normal acute March 14, 2025 8:58am GBS (group B streptococcus) UTI complicating acute 2024 3:35pm Gestational diabetes acute Maru 2024 3:35pm Hx of section acute Au 2024 3:35pm Low back pain during acute March 28, 2025 3:35pm Obesity affecting acute March 28, 2025 3:35pm acute March 28, 2 025 3:35pm Sciatica acute March 28, 2 025 3:35pm Supervision of normal acute March 28 3:35pm GBS (group B streptococcus) UTI complicating acute Marus t 2024 9:21am Gestational diabetes acute Maru 2024 9:21am Hx of section acute Au 2024 9:21am Low back pain during acute April 02, 2025 9:21am Obesity affecting acute April 02, 2025 9:21am acute April 02, 2 025 9:21am Sciatica acute April 02, 2 025 9:21am Supervision of normal acute April 02 9:21am [facility] Work Phone: 1([phone]) 826-818605-09-2025 Evaluation note* Diagnosis Onset Date Resolution Status Admit Date GBS (group B streptococcus) UTI complicating acute December 152024 3:23pm Hx of section acute 2024 3:23pm Obesity affecting acute December 15, 2024 3:23pm acute December 15, 2024 3:23pm Supervision of normal acute December 15, 2024 3: 23pm GBS (group B streptococcus) UTI complicating acute January 10, 2025 10:19am Hx of section acute Ju 2024 10:19am Low back pain during acute January 10, 2025 1 0:19am Obesity affecting acute January 10, 2025 10:19am acute January 10, 2025 10:19am Sciatica acute January 10, 2025 10:19am Supervision of normal acute January 10, 2025 1 0:19am GBS (group B streptococcus) UTI complicating acute February 02, 2025 10:10am Hx of section acute Ju ne 2024 10:10am Low back pain during acute February 02, 2025 10:10am Obesity affecting acute February 02, 2025 10:10am acute February 02 10:10am Sciatica acute February 02 10:10am Supervision of normal acute February 02, 2025 10:10am GBS (group B streptococcus) UTI complicating acute February 15, 2025 9:20am Hx of section acute Ju 2024 9:20am Low back pain during acute February 15, 2025 9:20am Obesity affecting acute February 15, 2025 9:20am acute February 15 9:20am Sciatica acute February 15 9:20am Supervision of normal acute February 15, 2025 9:20am Abnormal glucose complicatin g childbirth resolved February 15, 2025 9:20am GBS (group B streptococcus) UTI complicating acute February 27, 2025 3:24pm Gestational diabetes acute February 27, 2025 3:24pm Hx of section acute Ju ly 2024 3:24pm Low back pain during acute February 27, 2025 3:24pm Obesity affecting acute February 27, 2025 3:24pm acute February 27 3:24pm Sciatica acute February 27 3:24pm Supervision of normal acute February 27, 2025 3:24pm Abnormal glucose complicatin g childbirth resolved February 27, 2025 3:24pm GBS (group B streptococcus) UTI complicating acute Augus t 2024 8:58am Gestational diabetes acute Augu st 2024 8:58am Hx of section acute Au 2024 8:58am Low back pain during acute March 14, 2025 8:58am Obesity affecting acute March 14, 2025 8:58am acute March 14 8:58am Sciatica acute March 14 8:58am Supervision of normal acute March 14, 2025 8:58am GBS (group B streptococcus) UTI complicating acute Augus t 2024 3:35pm Gestational diabetes acute Augu st 2024 3:35pm Hx of section acute Au 2024 3:35pm Low back pain during acute March 28 3:35pm Obesity affecting acute March 28, 2025 3:35pm acute March 28 3:35pm Sciatica acute March 28 3:35pm Supervision of normal acute March 28 3:35pm GBS (group B streptococcus) UTI complicating acute Augus t 2024 9:21am Gestational diabetes acute Maru st 2024 9:21am Hx of section acute Au 2024 9:21am Low back pain during acute April 02 9:21am Obesity affecting acute April 02, 2025 9:21am acute April 02, 9:21am Sciatica acute April 02 9:21am Supervision of normal acute April 02 9:21am GBS (group B streptococcus) UTI complicating acute 2024 8:36am Gestational diabetes acute Apr 8:36am Hx of section acute pt2024 8:36am Low back pain during acute April 11 8:36am Obesity affecting acute April 11, 2025 8:36am acute April 11, 2025 8:36am Sciatica acute April 11, 2025 8:36am Supervision of normal acute April 11 8:36am [facility] Work Phone: 1([phone]) 887-323904-11-2025 Evaluation note* Diagnosis Onset Date Resolution Status Admit Date GBS (group B streptococcus) UTI complicating acute November 11:01am Hx of section acute Ap ril 2024 11:01am Obesity affecting acute November 17, 2024 11:01am acute November 17 11:01am Supervision of normal acut e November 17, 2024 11:01am GBS (group B streptococcus) UTI complicating acute December 15, 2024 3:23pm Hx of section acute Ma 2024 3:23pm Obesity affecting acute December 15, 2024 3:23pm acute December 15, 2024 3:23pm Supervision of normal acut e December 15, 2024 3:23pm GBS (group B streptococcus) UTI complicating acute January 10, 2025 10:19am Hx of section acute 2024 10:19am Low back pain during acute January 10, 2025 10:19am Obesity affecting acute January 10, 2025 10:19am acute January 10, 2025 10:19am Sciatica acute January 10, 2025 10:19am Supervision of normal acut e January 10, 2025 10:19am GBS (group B streptococcus) UTI complicating acute January 10:10am Hx of section acute Ju 2024 10:10am Low back pain during acute February 02, 2025 10:10am Obesity affecting acute February 02, 2025 10:10am acute February 02 10:10am Sciatica acute February 02 10:10am Supervision of normal acut e February 02, 2025 10:10am Abnormal glucose complicatin g childbirth acute February 15, 2025 9:20am GBS (group B streptococcus) UTI complicating acute February 9:20am Hx of section acute Ju 2024 9:20am Low back pain during acute February 15, 2025 9:20am Obesity affecting acute February 15, 2025 9:20am acute February 15 9:20am Sciatica acute February 15 9:20am Supervision of normal acut e February 15, 2025 9:20am [facility] Work Phone: 1(229) 615-600304-11-2025 Evaluation note* Diagnosis Onset Date Resolution Status Admit Date GBS (group B streptococcus) UTI complicating acute November 11:01am Hx of section acute Ap 2024 11:01am Obesity affecting acute November 17, 2024 11:01am acute November 17 11:01am Supervision of normal acut e November 17, 2024 11:01am GBS (group B streptococcus) UTI complicating acute December 15, 2024 3:23pm Hx of section acute Ma 2024 3:23pm Obesity affecting acute December 15, 2024 3:23pm acute December 15, 2024 3:23pm Supervision of normal acut e December 15, 2024 3:23pm GBS (group B streptococcus) UTI complicating acute January 10, 2025 10:19am Hx of section acute Ju 2024 10:19am Low back pain during acute January 10, 2025 10:19am Obesity affecting acute January 10, 2025 10:19am acute January 10, 2025 10:19am Sciatica acute January 10, 2025 10:19am Supervision of normal acut e January 10, 2025 10:19am GBS (group B streptococcus) UTI complicating acute January 10:10am Hx of section acute Ju 2024 10:10am Low back pain during acute February 02, 2025 10:10am Obesity affecting acute February 02, 2025 10:10am acute February 02 10:10am Sciatica acute February 02 10:10am Supervision of normal acut e February 02, 2025 10:10am GBS (group B streptococcus) UTI complicating acute February 9:20am Hx of section acute Ju 2024 9:20am Low back pain during acute February 15, 2025 9:20am Obesity affecting acute February 15, 2025 9:20am acute February 15 9:20am Sciatica acute February 15 9:20am Supervision of normal acut e February 15, 2025 9:20am Abnormal glucose complicatin g childbirth resolved February 15, 2025 9:20am GBS (group B streptococcus) UTI complicating acute February 3:24pm Gestational diabetes acute February 27, 2025 3:24pm Hx of section acute Ju ly 2024 3:24pm Low back pain during acute February 27, 2025 3:24pm Obesity affecting acute February 27, 2025 3:24pm acute February 27 3:24pm Sciatica acute February 27 3:24pm Supervision of normal acut e February 27, 2025 3:24pm Abnormal glucose complicatin g childbirth resolved February 27, 2025 3:24pm [facility] Work Phone: 1(791) 283-725204-11-2025 Evaluation note* Diagnosis Onset Date Resolution Status Admit Date GBS (group B streptococcus) UTI complicating acute November 17, 2024 11:01am Hx of section acute Ap ril 2024 11:01am Obesity affecting acute November 17, 2024 11:01am acute November 17 11:01am Supervision of normal acute November 17, 2024 11:01am GBS (group B streptococcus) UTI complicating acute December 152024 3:23pm Hx of section acute Ma y [...] normal acute January 10, 2025 1 0:19am GBS (group B streptococcus) UTI complicating acute February 02, 2025 10:10am Hx of section acute Ju ne 2024 10:10am Low back pain during acute February 02, 2025 10:10am Obesity affecting acute February 02, 2025 10:10am acute February 02 10:10am Sciatica acute February 02 10:10am Supervision of normal acute February 02, 2025 10:10am GBS (group B streptococcus) UTI complicating acute February 15, 2025 9:20am Hx of section acute 2024 9:20am Low back pain during acute February 15, 2025 9:20am Obesity affecting acute February 15, 2025 9:20am acute February 15 9:20am Sciatica acute February 15 9:20am Supervision of normal acute February 15, 2025 9:20am Abnormal glucose complicatin g childbirth resolved February 15, 2025 9:20am GBS (group B streptococcus) UTI complicating acute February 27, 2025 3:24pm Gestational diabetes acute February 27, 2025 3:24pm Hx of section acute 2024 3:24pm Low back pain during acute February 27, 2025 3:24pm Obesity affecting acute February 27, 2025 3:24pm acute February 27 3:24pm Sciatica acute February 27 3:24pm Supervision of normal acute February 27, 2025 3:24pm Abnormal glucose complicatin g childbirth resolved February 27, 2025 3:24pm GBS (group B streptococcus) UTI complicating acute Augus t 2024 8:58am Gestational diabetes acute Augu st 2024 8:58am Hx of section acute Au 2024 8:58am Low back pain during acute March 14, 2025 8:58am Obesity affecting acute March 14, 2025 8:58am acute March 14 8:58am Sciatica acute March 14 8:58am Supervision of normal acute March 14, 2025 8:58am [facility] Work Phone: 1([phone]) 184-259203-13-2025 Evaluation note* Diagnosis Onset Date Resolution Status Admit Date GBS (group B streptococcus) UTI complicating acute October 2:51pm Hx of section acute Ma [facility] 2024 2:51pm Obesity affecting acute October 19, 2024 2:51pm acute October 19 2:51pm Supervision of normal acut e October 19, 2024 2:51pm GBS (group B streptococcus) UTI complicating acute November 11:01am Hx of section acute Ap ril 2024 11:01am Obesity affecting acute November 17, 2024 11:01am acute November 17 11:01am Supervision of normal acut e November 17, 2024 11:01am GBS (group B streptococcus) UTI complicating acute December 15, 2024 3:23pm Hx of section acute Ma y 2024 3:23pm Obesity affecting acute December 15, 2024 3:23pm acute December 15, 2024 3:23pm Supervision of normal acut e December 15, 2024 3:23pm GBS (group B streptococcus) UTI complicating acute January 10, 2025 10:19am Hx of section acute 2024 10:19am Low back pain during acute January 10, 2025 10:19am Obesity affecting acute January 10, 2025 10:19am acute January 10, 2025 10:19am Sciatica acute January 10, 2025 10:19am Supervision of normal acut e January 10, 2025 10:19am GBS (group B streptococcus) UTI complicating acute January 10:10am Hx of section acute Ju ne 2024 10:10am Low back pain during acute February 02, 2025 10:10am Obesity affecting acute February 02, 2025 10:10am acute February 02 10:10am Sciatica acute February 02 10:10am Supervision of normal acut e February 02, 2025 10:10am [facility] Work Phone: 1(373) 384-275303-13-2025 Evaluation note* Diagnosis Onset Date Resolution Status Admit Date GBS (group B streptococcus) UTI complicating acute October 2:51pm Hx of section acute Ma [facility] 2024 2:51pm Obesity affecting acute October 19, 2024 2:51pm acute October 19 2:51pm Supervision of normal acut e October 19, 2024 2:51pm GBS (group B streptococcus) UTI complicating acute November 11:01am Hx of section acute Ap ril 2024 11:01am Obesity affecting acute November 17, 2024 11:01am acute November 17 11:01am Supervision of normal acut e November 17, 2024 11:01am GBS (group B streptococcus) UTI complicating acute December 15, 2024 3:23pm Hx of section acute Ma y 2024 3:23pm Obesity affecting acute December 15, 2024 3:23pm acute December 15, 2024 3:23pm Supervision of normal acut e December 15, 2024 3:23pm GBS (group B streptococcus) UTI complicating acute January 10, 2025 10:19am Hx of section acute Ju 2024 10:19am Low back pain during acute January 10, 2025 10:19am Obesity affecting acute January 10, 2025 10:19am acute January 10, 2025 10:19am Sciatica acute January 10, 2025 10:19am Supervision of normal acut e January 10, 2025 10:19am GBS (group B streptococcus) UTI complicating acute January 10:10am Hx of section acute Ju 2024 10:10am Low back pain during acute February 02, 2025 10:10am Obesity affecting acute February 02, 2025 10:10am acute February 02 10:10am Sciatica acute February 02 10:10am Supervision of normal acut e February 02, 2025 10:10am Abnormal glucose complicatin g childbirth acute February 15, 2025 9:20am GBS (group B streptococcus) UTI complicating acute February 9:20am Hx of section acute Ju 2024 9:20am Low back pain during acute February 15, 2025 9:20am Obesity affecting acute February 15, 2025 9:20am acute February 15 9:20am Sciatica acute February 15 9:20am Supervision of normal acut e February 15, 2025 9:20am [facility] Work Phone: 1(259) 474-732802-13-2025 Evaluation note* Diagnosis Onset Date Resolution Status Admit Date Hx of section acute Fe bruary 2024 2:29pm Obesity affecting acute September 21, 2024 2:29pm acute September 21, 2024 2:29pm Supervision of normal acute September 21, 025 2:29pm [facility] Work Phone: 1([phone]) 836-480402-13-2025 Evaluation note* Diagnosis Onset Date Resolution Status Admit Date Hx of section acute Fe bruary 2024 2:29pm Obesity affecting acute September 21, 2024 2:29pm acute September 21, 2024 2:29pm Supervision of normal acute September 21, 025 2:29pm GBS (group B streptococcus) UTI complicating acute October 19, 2024 2:51pm Hx of section acute Ma [facility] 2024 2:51pm Obesity affecting acute October 19, 2024 2:51pm acute October 19 2:51pm Supervision of normal acute October 19, 2024 2:51pm GBS (group B streptococcus) UTI complicating acute November 17, 2024 11:01am Hx of section acute Ap ril 2024 11:01am Obesity affecting acute November 17, 2024 11:01am acute November 17 11:01am Supervision of normal acute November 17, 2024 11:01am GBS (group B streptococcus) UTI complicating acute December 152024 3:23pm Hx of section acute Ma y [...] normal acute January 10, 2025 1 0:19am [facility] Work Phone: 1([phone]) 536-397206-26-2024 Evaluation + Plan note Diagnostic Tests Pending * DHEA, Serum 02/02/24 Future Scheduled Tests Laboratory* Urine Culture 06/02/23 [facility] 05-17-2022 Hospital Discharge instructions Patient Education 12/23/2021 [...] may need to be seen by a geothermal sheet metal worker, neurologist, or an ear, nose, and throat specialist. Don't drive, operate heavy machinery, or do activities in which you could fall and injure yourself if you have syncope and have not been evaluated. [id number] [facility]. [address] [place] [address]. All rights reserved. This information is not intended as a substitute for professional medical care. Always follow yourhealthcare professional's instructions. Follow Up Care 12/23/2021 20:29:40 With:LUIGI MCINTOSH DO Address: [address] [facility] [place] [address] [phone] When:2-4 days With:JHONNY COBIAN MD Address: [address] [facility] [address] [facility] [place] [address]- When:2-4 days [facility] Evaluation + Plan note No data available for this section [facility] Evaluation + Plan note Future Appointments Appointment Date:11/10/2022 03:15:00 PM Scheduled Provider:VIKTORIA LEGER Location:[facility] Appointment Type: OV OB Routine Follow Up [...] 10/13/22 * Varicella Zoster Antibody 10/13/22 * [facility] Lab Send out (Blood Specimens) 10/13/22 [facility] Evaluation + Plan note Future Appointments Appointment Date:11/05/2022 03:30:00 PM Scheduled Provider:VIKTORIA LEGER Location:[facility] Appointment Type:[facility] OB Routine Follow Up Future Scheduled Tests Laboratory* [facility] Send out (Blood Specimens) 10/13/22 [facility] Evaluation + Plan note Future Appointments Appointment Date:12/18/2022 10:00:00 AM Scheduled Provider: Location:[facility] Appointment Type:US OB > 14 wks Appointment Date:01/01/2023 10:45:00 AM Scheduled Provider:FRANKY VILLAFANA MD Location:[facility] Appointment Type: OV OB Routine Follow Up Future Scheduled Tests Laboratory* [facility] Send out (Blood Specimens) 12/04/22 * [facility] Send out (Blood Specimens) 10/13/22 Radiology* US OB > 14 weeks 12/18/22 [facility] evaluation + Plan note Future Appointments Appointment Date:03/02/2023 09:15:00 AM Scheduled Provider:FRANKY VILLAFANA MD Location:[facility] Appointment Type: OV OB Routine Follow Up Future Scheduled Tests Laboratory* [facility] Send out (Blood Specimens) 12/04/22 * [facility] Send out (Blood Specimens) 10/13/22 [facility] Evaluation + Plan note Future Appointments Appointment Date:03/16/2023 08:30:00 AM Scheduled Provider:FRANKY VILLAFANA MD Location:[facility] Appointment Type: OV OB Routine Follow Up Future Scheduled Tests Laboratory* Glucose Tolerance Test 3 Hour (AO) 02/22/23 * [facility] Send out (Blood Specimens) 12/04/22 * [facility] Lab Send out (Blood Specimens) 10/13/22 [facility] Evaluation + Plan note Future Appointments Appointment Date:04/27/2023 09:15:00 AM Scheduled Provider:CAROLYN CHAVEZ MD Location:[facility] Appointment Type: OV OB Routine Follow Up [facility] Evaluation + Plan note Future Appointments Appointment Date:05/11/2023 09:15:00 AM Scheduled Provider:FRANKY VILLAFANA MD Location:[facility] Appointment Type: OV OB Routine Follow Up [facility] Evaluation + Plan note Future Appointments Appointment Date:05/25/2023 08:30:00 AM Scheduled Provider:CAROLYN CHAVEZ MD Location:[facility] Appointment Type: OV OB Routine Follow Up [facility] Hospital Discharge instructions No data available for this section [facility] Hospital Discharge instructionsAmbulatory Orders* Physical Therapy Referral Location: None [facility] Work Phone: Prohkvqm note No data available for this section [facility] Proaatjh note Author Emmy Carmona [facility] Note Date/Time February 02, 2025 11:1 0am [facility] [address], [address] [place] [address] OFFICE VISIT Date of Service: 02/02/25 MR#: [id number] Acct: [id number] Name: FELIPE PATRICK Rep #: [id number] : 1995 Provider: Dr. Moriah Davis DO Age/Sex: 29/F Location: [facility] Status: Signed Intake Vital Signs 11/17/24 11:15 01/10/25 10:23 02/02/25 10:22 02/02/25 10:25 Height 5 ft 2 in 5 ft 2 in 5 ft 2 in 5 ft 2 in Weight: 211 lb BMI 38.5 BP 112/75 Intake Visit Reasons: 28wk ob/glucose Sash Finisher Required: No Is patient in pain?: No [...] QDAY 09/08/24 0 02/02/25 History capsule (Super Hugo-3) Last Menstrual Period: 07/20/24 Zika: Zika virus screening: Negative : No PFSH PFSH Medical History Seasonal allergies Surgical History Previous section [place] teeth extracted Family History Grandmother Cancer Paternal [...] 1 current occupational status: employed 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 acc epts NIPT. Had C/S at [facility] for FTP- likely brow presentation 10/19/24 -?-?-?-?-?-?-?-?-?-?-?-?- [...] no vb/cramping. US on . records from [facility] not scanned into system. AFP declined. 12/15/24 -?-?-?-?-?-?-?-?-?-?-?-?- 21w 1d 205 lb 2 oz (+6 lb 2 oz) 122/79 Negative -?-?-?-?-?-?-?-?-?-?-?-?- Negative 145 21 -?-?-?-?-?-?-?-?-?-?--?-?- KW- no vb/crampi ng. records received and was low transverse. US reviewed. 01/10/25 -?-?-?-?-?-?-?-?-?-?-?-?- 24w 6d 209 lb 8 oz (+10 lb 8 oz) 116/78 Negative -?-?-?-?-?-?-?-?-?-?-?-?- Negative 143 25 -?-?-?-?-?-?-?-?-?-?-?-?- MH-No VB, [facility] -?-?-?-?-?-?-?-?-?-?-?-?- 28w 1d 211 lb (+12 [...] Immediate Larc, Signs and Symptoms of Preeclampsia, Infant Feeding No , Education and Family Medical Leave or Disability [...] second trimester Comment: PRR, , PETEY 04/26/25, PC Mirella, Vidal (6) : Status: Acute Qualifiers: Weeks [...] Cosigner Signature: Date (if applicable) CC: ~ [facility] Work Phone: Progress note Author Bobbi Stuart [facility] Note Date/Time April 02, 2025 9: 46am [facility] [address] [place] [address], [address] [place] [address] OFFICE VISIT Date of Service: 04/02/25 MR#: [id number] Acct: [id number] Name: FELIPE PATRICK Rep #: [id number] : 1995 Provider: DULCE Stuart Age/Sex: 30/F Location: [facility] [place] Status: Signed Intake Vital Signs 03/14/25 09:01 03/28/25 15:41 04/02/25 09:23 Height 5 ft 2 in 5 ft 2 in 5 ft 2 in Weight: 213 lb 4 oz BMI 38.9 BP 133/86 H Intake Visit Reasons: 37wk ob Chief Complaint: 37wk OB Sash Finisher Required: No Is patient in pain?: No Allergies house dust Allergy (Mild, Verified 04/02/25 09:22) Other mold (mold spores) Allergy (Mild, Verified 04/02/25 09:22) Other Environmental Allergies: Uncoded Allergy (Verified 04/02/25 09:22) Other Medications ?Medication ?Instructions ?Recorded ?Confirmed ?Type choline 500 mg tablet 500 mg PO DAILY 09/08/24 History multivitamin no.47-iron fum 27 cap PO 09/08/24 5 History mg-folate no.1 1 mg-dha 300 mg capsule (PNV-DHA) omega-3 fatty acids 1,000 mg 500 mg PO QDAY 09/08/24 0 04/02/25 History capsule (Super Hugo-3) blood-glucose sensor (Dexcom G6 #4 ea 02/27/25 5 Rx Sensor device) blood-glucose transmitter (Dexcom #1 ea 03/19/2504/02 Rx G6 Transmitter device) blood-glucose,waste water or water plant 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,cont #1 ea 03/19/25 04/02/25 Rx (Dexcom G6 Literacy Education Professor) Last Menstrual Period: 07/20/24 : No PFSH PFSH Medical History Seasonal allergies Surgical History Previous section [place] teeth extracted Family History Grandmother Cancer Paternal [...] 1 current occupational status: employed 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[employer] current occupational exposures/hazards: No pets and animals: Yes (Avoid litterbox) pets and animals: cat(s) and dog(s) history of recent travel: Yes (ID) out of state: Yes out of country: [...] in: walking frequency: daily duration: 15-30 minutes/day nekchi/moravian: Taoist seatbelt use: always do you feel safe at home: Yes additional social history: [employer] but goes by 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 OB Visit PETEY Calculator Estimated Delivery Date Method Current WG Current Estimate 04/26/25 LMP (Certain) 36w 4d Other Estimates 04/28/25 Ultrasound #1 36w 2d Expected Delivery Route/Plan Labor Preferences- CB/BF classes: [...] dates. acc epts NIPT. Had C/S at [facility] for FTP- likely brow presentation 10/19/24 -?-?-?-?-?-?-?-?-?-?-?-?- [...] would really like to if possible. 11/17/24 -?-?-?-?-?--?-?-?-?-?-?-?- 17w 1d 203 lb 2 oz (+4 lb 2 oz) 110/73 Negative -?-?-?-?-?-?-?-?-?-?-?-?- Negative 155 -?-?-?-?-?-?-?-?-?-?-?-?- KW- no vb/crampi ng. US on 11/28 KW- no vb/cramping. US on . records from [facility] not scanned into system. AFP declined. 12/15/24 -?-?-?-?-?-?-?-?-?-?-?-?- 21w 1d 205 lb 2 oz (+6 lb 2 oz) 122/79 Negative -?-?-?-?-?-?-?-?-?-?-?-?- Negative 145 21 -?-?-?-?-?-?-?-?-?-?-?-?- KW- no vb/crampi ng. records received and was low transverse. US reviewed. 01/10/25 -?-?-?-?-?-?-?-?-?-?-?-?- 24w 6d 209 lb 8 oz (+10 lb 8 oz) 116/78 Negative -?-?-?-?-?-?-?-?-?-?-?-?- Negative 143 25 -?-?-?-?-?-?-?-?-?-?-?-?- MH-No VB, LOF. G ood FM. [facility] 02/02/25 -?-?-?-?-?-?-?-?-?-?-?-?- 28w 1d 211 lb (+12 lb) 112/75 Negative -?-?-?-?-?-?-?-?-?-?-?-?- Negative 153 31 -?-?-?-?-?-?-?-?-?-?-?-?- JV- no lof, vagi nal bleeding, or dec fm. interested in intermittent monitoring, however is a desired tolac. 28 week labs and glucola today. 02/15/25 -?-?-?-?-?-?-?-?-?-?-?-?- 30w 0d 212 lb 8 oz (+13 lb 8 oz) 107/70 Negative -?-?-?-?-?-?-?-?-?-?-?-?- Negative 150 30 -?-?-?-?-?-?-?-?-?-?-?-?- JCynthia- pt has decid ed that she will do the 3 hour and will do the fresh test. long talk today. 02/27/25 -?-?-?-?-?-?-?-?-?-?-?-?- 31w 5d 212 lb 6 oz (+13 lb 6 oz) 114/77 -?-?-?-?-?-?-?-?-?-?-?-?- 140 32 -?-?-?-?-?-?-?-?-?-?-?-?- SM- no vb lof go od fm no regualr ctx 03/14/25 -?-?-?-?-?-?-?-?-?-?-?-?- 33w 6d 211 lb 8 oz (+12 lb 8 oz) 115/70 Negative -?-?-?-?-?-?-?-?-?-?-?-?- Negative 160 35 -?-?-?-?-?-?-?-?-?-?-?-?- KW-No vb/lof/ctx . good fm. order for PFPT-PP. KW-No vb/lof/ctx. good fm. o rder for PFPT-PP. growth US at 36 weeks ordered. blood sugars reviewed-well controlled. desires IOL over RCS. GBS next visit. KW-No vb/lof/ctx. good fm. o rder for PFPT-PP. growth US at 36 weeks ordered. blood sugars reviewed-well controlled. still trying to get Dexcom through pharmacy but having issues getting it. desires IOL over RCS. GBS next visit. 03/28/25 -?-?-?-?-?-?-?-?-?-?-?-?- 35w 6d 210 lb 6 oz (+11 lb 6 oz) 128/81 Negative -?-?-?-?-?-?-?-?-?-?-?-?- Negative 135 36 -?-?-?-?-?-?-?-?-?-?-?-?- JV- normal gluco se log. normal growth scan. 89th% AC. gbs pos in urine. 04/02/25 -?-?-?-?-?-?-?-?-?-?-?-?- 36w 4d 213 lb 4 oz (+14 lb 4 oz) 133/86 Negative -?-?-?-?-?-?-?-?-?-?-?-?- Negative 145 37 Cephalic 2 .5 -?-?-?-?-?-?-?-?-?--?-?-?- 60 -2 KW- no vb/ lof/ctx. good fm. discussed PCN for labor. KW- no vb/lof/ctx. good fm. discussed PCN for labor. blood sugars controlled. ACOG First Trimester First Trimester: Desire for [...] Immediate Larc, Signs and Symptoms of Preeclampsia, Infant Feeding No , Education and Family Medical Leave or Disability Forms ROS Const Reports system reviewed and no additional complaints, except as documented Eyes Reports system reviewed and no additional complaints, except as documented ENT Reports system reviewed and no additional complaints, except as documented Card Reports system reviewed and no additional complaints, except as documented Resp Reports system reviewed and no additional complaints, except as documented GI Reports system reviewed and no additional complaints, except as documented, Denies nausea and Denies vomiting Reports system reviewed and no additional complaints, except as documented Musc Reports system reviewed and no additional complaints, except as documented Skin/Breast Reports system reviewed and no additional complaints, except as documented Neuro Yes system reviewed and no additional complaints, except as documented Psych Reports system reviewed and no additional complaints, except as documented Endo Reports system reviewed and no additional complaints, except as documented César/Lymph Reports system reviewed and no additional complaints, except as documented Aller/Immun Reports system reviewed and no additional complaints, except as documented Exam Const General: cooperative, healthy appearing and no acute distress Orientation: alert, awake and oriented x3 Neck Neck: normal visual inspection and full ROM Resp Effort & Inspection: normal respiratory effort, able to speak in complete sentences and symmetric chest movement GI Inspection: normal to inspection Palpation: soft and other Other: gravid Skin General: no rashes or lesions noted Neuro General: patient alert, patient awake and patient oriented x3 Cognition: normal cognition Speech: speech normal Gait: normal gait Motor: muscle tone normal throughout Extrem General: normal to inspection and full ROM Psych Appearance: grossly normal Mental Status: mental status grossly normal Mood: congruent mood Affect: normal affect Speech and Movement: speech and movement normal Attitude: cooperative Thought Process: normal Thought Content: normal Judgment: judgment good Results POC Urinalysis 2 Dip (Clinic) Office Urine Glucose Negative Last Edit by Jennifer Harper on 04/02/25 09:31 Office Urine Protein Negative Last Edit by Jennifer Hraper on 04/02/25 09:31 Coding Level of Care Code OB Routine Diagnoses Gestational diabetes O24.419 Sciatica, unspecified laterality M54.30 Laterality: unspecified laterality [...] Normal : other normal Trimester: second trimester 36 weeks gestation of Z3A.36 Weeks of gestation: 36 weeks Hx of section Z98.891 Assessment and Plan Assessment and Plan (1) Gestational diabetes: Status: Acute Comment: Supplies and nutrition consult sent. diet controlled plan 36 week growth us and delivery by 39-40 weeks discussed RLTCS vs IOL (2) Sciatica: Status: Acute Qualifiers: Laterality: unspecified laterality Qualified Code(s): M54.30 - Sciatica, unspecified side (3) Low back pain during : Status: Acute Qualifiers: Trimester: second trimester Qualified Code(s): O26.892 - Other specified related conditions, second trimester; M54.50 - Low back pain, unspecified Comment: PT referral. (4) GBS (group B streptococcus) UTI complicating : Status: Acute Qualifiers: Trimester: second trimester Qualified Code(s): O23.42 - Unspecified infection of urinary tract in , second trimester; B95.1 - Streptococcus, group B, as the cause of diseases classified elsewhere Comment: treat in labor (5) Obesity affecting : Status: Acute Qualifiers: Obesity type affecting : unspecified obesity Trimester: second trimester Qualified Code(s): O99.212 - Obesity complicating , second trimester Comment: HgbA1c (6) Supervision of normal : Status: Acute Qualifiers: Normal : other normal Trimester: second trimester Qualified Code(s): Z34.82 - Encounter for supervision of other normal , second trimester Comment: PRR, , PETEY 04/26/25, girl LING Vu, Vidal (7) : Status: Acute Qualifiers: Weeks of gestation: 36 weeks Qualified Code(s): Z3A.36 - 36 weeks gestation of Comment: NIPT low risk, carrier neg. , normal anatomy (8) Hx of section: Status: Acute Comment: brow presentation (FTP),*interested in -records requested. pt states that her surgeon told her that her scar is high and can not but records are pending. Orders: Orders POC Urinalysis 2 Dip (Clinic) Today Plan Details Additional Comments: ACOG trimester education reviewed and updated. see problem list details for updated plan management information and see below for orders placed at this visit. GA appropriate handout given. 04/02/25 0946 <Electronically signed by Bobbi carrasquillo CNM> Date _ Bobbi Narciso CNM Cosigner Signature: Date (if applicable) CC: ~ [facility] Work Phone: Reason for referral (narrative)No reason for referral information availableWPremier [facility] Work Phone: Summary Purpose Family History [...] during January 10:10am Obesity affecting February 02, 2 025 10:10am February 02, 2025 10:1 0am Sciatica February 02, 2025 10:1 0am Supervision of normal January 10:10am Chief Complaint Admit Date 13 wk OB October 19, 2024 2:5 1pm 17 wk ob November 17, 2024 11: 01am 21 WK OB December 15, 2024 3:23pm 25wk ob January 10, 2025 10:19 am 28wk ob/glucose February 02, 2025 10:1 0am LOW BACK PAIN. RX HERE February 07, 2025 9: 00am Chief Complaint Admit Date 13 wk OB October 19, 2024 2:5 1pm 17 wk ob November 17, 2024 11: 01am 21 WK OB December 15, 2024 3:23pm 25wk ob January 10, 2025 10:19 am 28wk ob/glucose February 02, 2025 10:1 0am LOW BACK PAIN. RX HERE February 14, 2025 10 :00am 30 wk ob February 15, 2025 9:20 am Reason for Visit Admit Date GBS (group [...] 10:1 0am Supervision of normal January 10:10am Abnormal glucose complicating childbirth February 15, 2025 9:20am GBS (group B streptococcus) UTI complica ting February 15, 2025 9:20am Hx of section February 15, 2025 9 :20am Low back pain during February 9:20am Obesity affecting February 15, 025 9:20am February 15, 2025 9:20 am Sciatica February 15, 2025 9:20 am Supervision of normal February 9:20am Chief Complaint Admit Date 17 wk ob November 17, 2024 11: 01am 21 WK OB December 15, 2024 3:23pm 25wk ob January 10, 2025 10:19 am 28wk ob/glucose February 02, 2025 10:1 0am 30 wk ob February 15, 2025 9:20 am LOW BACK PAIN. RX HERE February 21, 2025 9 :00am SCREENING February 22, 2025 9:40 am Reason for Visit Admit Date GBS (group [...] during January 10:10am Obesity affecting February 02, 2 025 10:10am February 02, 2025 10:1 0am Sciatica February 02, 2025 10:1 0am Supervision of normal January 10:10am Abnormal glucose complicating childbirth February 15, 2025 9:20am GBS (group B streptococcus) UTI complica ting February 15, 2025 9:20am Hx of section February 15, 2025 9 :20am Low back pain during February 9:20am Obesity affecting February 15 025 9:20am February 15, 2025 9:20 am Sciatica February 15, 2025 9:20 am Supervision of normal February 9:20am Chief Complaint Admit Date 17 wk ob November 17, 2024 11: 01am 21 WK OB December 15, 2024 3:23pm 25wk ob January 10, 2025 10:19 am 28wk ob/glucose February 02, 2025 10:1 0am 30 wk ob February 15, 2025 9:20 am LOW BACK PAIN. RX HERE February 21, 2025 9 :00am SCREENING February 22, 2025 9:40 am 32 wk ob February 27, 2025 3:24 pm Reason for Visit Admit Date GBS (group [...] 10:1 0am Supervision of normal January 10:10am GBS (group B streptococcus) UTI complica ting February 15, 2025 9:20am Hx of section February 15, 2025 9 :20am Low back pain during February 9:20am Obesity affecting February 15, 025 9:20am February 15, 2025 9:20 am Sciatica February 15, 2025 9:20 am Supervision of normal February 9:20am Abnormal glucose complicating childbirth February 15, 2025 9:20am GBS (group B streptococcus) UTI complica ting February 27, 2025 3:24pm Gestational diabetes February 27, 2025 3:2 4pm Hx of section February 27, 2025 3 :24pm Low back pain during February 3:24pm Obesity affecting February 27, 025 3:24pm February 27, 2025 3:24 pm Sciatica February 27, 2025 3:24 pm Supervision of normal February 3:24pm Abnormal glucose complicating childbirth February 27, 2025 3:24pm Chief Complaint Admit Date 17 wk ob November 17, 2024 11: 01am 21 WK OB December 15, 2024 3:23pm 25wk ob January 10, 2025 10:19 am 28wk ob/glucose February 02, 2025 10:1 0am 30 wk ob February 15, 2025 9:20 am SCREENING February 22, 2025 9:40 am 32 wk ob February 27, 2025 3:24 pm GDM March 12, 2025 8:3 2am LOW BACK PAIN. RX HERE March 13, 2025 10:00am 34 wk ob March 14, 2025 8:5 8am Reason for Visit Admit Date GBS (group [...] 10:1 0am Supervision of normal January 10:10am GBS (group B streptococcus) UTI complica ting February 15, 2025 9:20am Hx of section February 15, 2025 9 :20am Low back pain during February 9:20am Obesity affecting February 15 9:20am February 15, 2025 9:20 am Sciatica February 15, 2025 9:20 am Supervision of normal February 9:20am Abnormal glucose complicating childbirth February 15, 2025 9:20am GBS (group B streptococcus) UTI complica ting February 27, 2025 3:24pm Gestational diabetes February 27, 2025 3:2 4pm Hx of section February 27, 2025 3 :24pm Low back pain during February 3:24pm Obesity affecting February 27, 025 3:24pm February 27, 2025 3:24 pm Sciatica February 27, 2025 3:24 pm Supervision of normal February 3:24pm Abnormal glucose complicating childbirth February 27, 2025 3:24pm GBS (group B streptococcus) UTI complica ting March 14, 2025 8:58am Gestational diabetes March 14, 2025 8: 58am Hx of section March 14, 2025 8:58am Low back pain during March 8:58am Obesity affecting March 14, 2025 8:58am March 14, 2025 8:5 8am Sciatica March 14, 2025 8:5 8am Supervision of normal March 142024 8:58am Chief Complaint Admit Date 21 WK OB December 15, 2024 3:23pm 25wk ob January 10, 2025 10:19 am 28wk ob/glucose February 02, 2025 10:1 0am 30 wk ob February 15, 2025 9:20 am SCREENING February 22, 2025 9:40 am 32 wk ob February 27, 2025 3:24 pm GDM March 12, 2025 8:3 2am 34 wk ob March 14, 2025 8:5 8am GROWTH March 23, 2025 9: 03am LOW BACK PAIN. RX HERE March 26, 2025 10:30am 36 wk ob March 28, 2025 3: 35pm Reason for Visit Admit Date GBS (group [...] during January 10:10am Obesity affecting February 02, 2 025 10:10am February 02, 2025 10:1 0am Sciatica February 02, 2025 10:1 0am Supervision of normal January 10:10am GBS (group B streptococcus) UTI complica ting February 15, 2025 9:20am Hx of section February 15, 2025 9 :20am Low back pain during February 9:20am Obesity affecting February 15 025 9:20am February 15, 2025 9:20 am Sciatica February 15, 2025 9:20 am Supervision of normal February 9:20am Abnormal glucose complicating childbirth February 15, 2025 9:20am GBS (group B streptococcus) UTI complica ting February 27, 2025 3:24pm Gestational diabetes February 27, 2025 3:2 4pm Hx of section February 27, 2025 3 :24pm Low back pain during February 3:24pm Obesity affecting February 27 3:24pm February 27, 2025 3:24 pm Sciatica February 27, 2025 3:24 pm Supervision of normal February 3:24pm Abnormal glucose complicating childbirth February 27, 2025 3:24pm GBS (group B streptococcus) UTI complica ting March 14, 2025 8:58am Gestational diabetes March 14, 2025 8: 58am Hx of section March 14, 2025 8:58am Low back pain during March 8:58am Obesity affecting March 14, 2025 8:58am March 14, 2025 8:5 8am Sciatica March 14, 2025 8:5 8am Supervision of normal March 142024 8:58am GBS (group B streptococcus) UTI complica ting March 28, 2025 3:35pm Gestational diabetes March 28, 2025 3 :35pm Hx of section March 28, 2025 3:35pm Low back pain during March 282024 3:35pm Obesity affecting March 28, 2025 3:35pm March 28, 2025 3: 35pm Sciatica March 28, 2025 3: 35pm Supervision of normal March 102024 3:35pm Chief Complaint Admit Date 21 WK OB December 15, 2024 3:23pm 25wk ob January 10, 2025 10:19 am 28wk ob/glucose February 02, 2025 10:1 0am 30 wk ob February 15, 2025 9:20 am SCREENING February 22, 2025 9:40 am 32 wk ob February 27, 2025 3:24 pm GDM March 12, 2025 8:3 2am 34 wk ob March 14, 2025 8:5 8am GROWTH March 23, 2025 9: 03am LOW BACK PAIN. RX HERE March 26, 2025 10:30am 36 wk ob March 28, 2025 3: 35pm 37wk ob April 02, 2025 9: 21am Reason for Visit Admit Date GBS (group [...] pain during January 10:10am Obesity affecting February 02 025 10:10am February 02, 2025 10:1 0am Sciatica February 02, 2025 10:1 0am Supervision of normal January 10:10am GBS (group B streptococcus) UTI complica ting February 15, 2025 9:20am Hx of section February 15, 2025 9 :20am Low back pain during February 9:20am Obesity affecting [place] 10th, 2 025 9:20am February 15, 2025 9:20 am Sciatica February 15, 2025 9:20 am Supervision of normal February 9:20am Abnormal glucose complicating childbirth February 15, 2025 9:20am GBS (group B streptococcus) UTI complica ting February 27, 2025 3:24pm Gestational diabetes February 27, 2025 3:2 4pm Hx of section February 27, 2025 3 :24pm Low back pain during February 3:24pm Obesity affecting February 27 025 3:24pm February 27, 2025 3:24 pm Sciatica February 27, 2025 3:24 pm Supervision of normal February 3:24pm Abnormal glucose complicating childbirth February 27, 2025 3:24pm GBS (group B streptococcus) UTI complica ting March 14, 2025 8:58am Gestational diabetes March 14, 2025 8: 58am Hx of section March 14, 2025 8:58am Low back pain during March 8:58am Obesity affecting March 14, 2025 8:58am March 14, 2025 8:5 8am Sciatica March 14, 2025 8:5 8am Supervision of normal March 142024 8:58am GBS (group B streptococcus) UTI complica ting March 28, 2025 3:35pm Gestational diabetes March 28, 2025 3 :35pm Hx of section March 28, 2025 3:35pm Low back pain during March 282024 3:35pm Obesity affecting March 28, 2025 3:35pm March 28, 2025 3: 35pm Sciatica March 28, 2025 3: 35pm Supervision of normal March 102024 3:35pm GBS (group B streptococcus) UTI complica ting April 02, 2025 9:21am Gestational diabetes April 02, 2025 9 :21am Hx of section April 02, 2025 9:21am Low back pain during April 022024 9:21am Obesity affecting April 02, 2025 9:21am April 02, 2025 9: 21am Sciatica [place] 25th, 2025 9: 21am Supervision of normal March 102024 9:21am Chief Complaint Admit Date 21 WK OB December 15, 2024 3:23pm 25wk ob January 10, 2025 10:19 am 28wk ob/glucose February 02, 2025 10:1 0am 30 wk ob February 15, 2025 9:20 am SCREENING February 22, 2025 9:40 am 32 wk ob February 27, 2025 3:24 pm GDM March 12, 2025 8:3 2am 34 wk ob March 14, 2025 8:5 8am GROWTH March 23, 2025 9: 03am 36 wk ob March 28, 2025 3: 35pm 37wk ob April 02, 2025 9: 21am LOW BACK PAIN. RX HERE April 05, 2025 10:00am Chief Complaint Admit Date 21 WK OB December 15, 2024 3:23pm 25wk ob January 10, 2025 10:19 am 28wk ob/glucose February 02, 2025 10:1 0am 30 wk ob February 15, 2025 9:20 am SCREENING February 22, 2025 9:40 am 32 wk ob February 27, 2025 3:24 pm GDM March 12, 2025 8:3 2am 34 wk ob March 14, 2025 8:5 8am GROWTH March 23, 2025 9: 03am 36 wk ob March 28, 2025 3: 35pm 37wk ob April 02, 2025 9: 21am LOW BACK PAIN. RX HERE April 05, 2025 10:00am 38wk ob April 11, 2025 8:36am Reason for Visit Admit Date GBS (group [...] during January 10:10am Obesity affecting February 02, 2 025 10:10am February 02, 2025 10:1 0am Sciatica February 02, 2025 10:1 0am Supervision of normal January 10:10am GBS (group B streptococcus) UTI complica ting February 15, 2025 9:20am Hx of section February 15, 2025 9 :20am Low back pain during February 9:20am Obesity affecting February 15 025 9:20am February 15, 2025 9:20 am Sciatica February 15, 2025 9:20 am Supervision of normal February 9:20am Abnormal glucose complicating childbirth February 15, 2025 9:20am GBS (group B streptococcus) UTI complica ting February 27, 2025 3:24pm Gestational diabetes February 27, 2025 3:2 4pm Hx of section February 27, 2025 3 :24pm Low back pain during February 3:24pm Obesity affecting February 27, 2 025 3:24pm February 27, 2025 3:24 pm Sciatica February 27, 2025 3:24 pm Supervision of normal February 3:24pm Abnormal glucose complicating childbirth February 27, 2025 3:24pm GBS (group B streptococcus) UTI complica ting March 14, 2025 8:58am Gestational diabetes March 14, 2025 8: 58am Hx of section March 14, 2025 8:58am Low back pain during March 8:58am Obesity affecting March 14, 2025 8:58am March 14, 2025 8:5 8am Sciatica March 14, 2025 8:5 8am Supervision of normal March 142024 8:58am GBS (group B streptococcus) UTI complica ting March 28, 2025 3:35pm Gestational diabetes March 28, 2025 3 :35pm Hx of section March 28, 2025 3:35pm Low back pain during March 282024 3:35pm Obesity affecting March 28, 2025 3:35pm March 28, 2025 3: 35pm Sciatica March 28, 2025 3: 35pm Supervision of normal March 102024 3:35pm GBS (group B streptococcus) UTI complica ting April 02, 2025 9:21am Gestational diabetes April 02, 2025 9 :21am Hx of section April 02, 2025 9:21am Low back pain during April 022024 9:21am Obesity affecting April 02, 2025 9:21am April 02, 2025 9: 21am Sciatica April 02, 2025 9: 21am Supervision of normal March 102024 9:21am GBS (group B streptococcus) UTI complica ting April 11, 2025 8:36am Gestational diabetes April 11, 2025 8:36am Hx of section April 11 8:36am Low back pain during April 11, 2025 8:36am Obesity affecting April 8:36am April 11, 2025 8:36am Sciatica April 11, 2025 8:36am Supervision of normal [facility] 2024 8:36am Chief Complaint Admit Date 25wk ob January 10, 2025 10:19 am 28wk ob/glucose February 02, 2025 10:1 0am 30 wk ob February 15, 2025 9:20 am SCREENING February 22, 2025 9:40 am 32 wk ob February 27, 2025 3:24 pm GDM March 12, 2025 8:3 2am 34 wk ob March 14, 2025 8:5 8am GROWTH March 23, 2025 9: 03am 36 wk ob March 28, 2025 3: 35pm 37wk ob April 02, 2025 9: 21am 38wk ob April 11, 2025 8:36am LOW BACK PAIN. RX HERE April 19, 2 025 10:00am Reason for Visit Admit Date GBS (group [...] during January 10:10am Obesity affecting February 02, 2 025 10:10am February 02, 2025 10:1 0am Sciatica February 02, 2025 10:1 0am Supervision of normal January 10:10am GBS (group B streptococcus) UTI complica ting February 15, 2025 9:20am Hx of section February 15, 2025 9 :20am Low back pain during February 9:20am Obesity affecting February 15 025 9:20am February 15, 2025 9:20 am Sciatica February 15, 2025 9:20 am Supervision of normal February 9:20am Abnormal glucose complicating childbirth February 15, 2025 9:20am GBS (group B streptococcus) UTI complica ting February 27, 2025 3:24pm Gestational diabetes February 27, 2025 3:2 4pm Hx of section February 27, 2025 3 :24pm Low back pain during February 3:24pm Obesity affecting February 27 2 025 3:24pm February 27, 2025 3:24 pm Sciatica February 27, 2025 3:24 pm Supervision of normal February 3:24pm Abnormal glucose complicating childbirth February 27, 2025 3:24pm GBS (group B streptococcus) UTI complica ting March 14, 2025 8:58am Gestational diabetes March 14, 2025 8: 58am Hx of section March 14, 2025 8:58am Low back pain during March 8:58am Obesity affecting March 14, 2025 8:58am March 14, 2025 8:5 8am Sciatica March 14, 2025 8:5 8am Supervision of normal March 142024 8:58am GBS (group B streptococcus) UTI complica ting March 28, 2025 3:35pm Gestational diabetes March 28, 2025 3 :35pm Hx of section March 28, 2025 3:35pm Low back pain during March 282024 3:35pm Obesity affecting March 28, 2025 3:35pm March 28, 2025 3: 35pm Sciatica March 28, 2025 3: 35pm Supervision of normal March 102024 3:35pm GBS (group B streptococcus) UTI complica ting April 02, 2025 9:21am Gestational diabetes April 02, 2025 9 :21am Hx of section April 02, 2025 9:21am Low back pain during April 022024 9:21am Obesity affecting April 02, 2025 9:21am April 02, 2025 9: 21am Sciatica April 02, 2025 9: 21am Supervision of normal March 102024 9:21am GBS (group B streptococcus) UTI complica ting April 11, 2025 8:36am Gestational diabetes April 11, 2025 8:36am Hx of section April 11 8:36am Low back pain during April 11, 2025 8:36am Obesity affecting April 8:36am April 11, 2025 8:36am Sciatica April 11, 2025 8:36am Supervision of normal [facility] 2024 8:36am Chief Complaint Admit Date 25wk ob January 10, 2025 10:19 am 28wk ob/glucose February 02, 2025 10:1 0am 30 wk ob February 15, 2025 9:20 am SCREENING February 22, 2025 9:40 am 32 wk ob February 27, 2025 3:24 pm GDM March 12, 2025 8:3 2am 34 wk ob March 14, 2025 8:5 8am GROWTH March 23, 2025 9: 03am 36 wk ob March 28, 2025 3: 35pm 37wk ob April 02, 2025 9: 21am 38wk ob April 11, 2025 8:36am LOW BACK PAIN. RX HERE April 19, 2 025 10:00am 39wk ob April 20, 2025 8:59am Reason for Visit Admit Date GBS (group [...] pain during January 10:10am Obesity affecting February 02 025 10:10am February 02, 2025 10:1 0am Sciatica February 02, 2025 10:1 0am Supervision of normal January 10:10am GBS (group B streptococcus) UTI complica ting February 15, 2025 9:20am Hx of section February 15, 2025 9 :20am Low back pain during February 9:20am Obesity affecting February 15 025 9:20am February 15, 2025 9:20 am Sciatica February 15, 2025 9:20 am Supervision of normal February 9:20am Abnormal glucose complicating childbirth February 15, 2025 9:20am GBS (group B streptococcus) UTI complica ting February 27, 2025 3:24pm Gestational diabetes February 27, 2025 3:2 4pm Hx of section February 27, 2025 3 :24pm Low back pain during February 3:24pm Obesity affecting February 27 2 025 3:24pm February 27, 2025 3:24 pm Sciatica February 27, 2025 3:24 pm Supervision of normal February 3:24pm Abnormal glucose complicating childbirth February 27, 2025 3:24pm GBS (group B streptococcus) UTI complica ting March 14, 2025 8:58am Gestational diabetes March 14, 2025 8: 58am Hx of section March 14, 2025 8:58am Low back pain during March 8:58am Obesity affecting March 14, 2025 8:58am March 14, 2025 8:5 8am Sciatica March 14, 2025 8:5 8am Supervision of normal March 142024 8:58am GBS (group B streptococcus) UTI complica ting March 28, 2025 3:35pm Gestational diabetes March 28, 2025 3 :35pm Hx of section March 28, 2025 3:35pm Low back pain during March 282024 3:35pm Obesity affecting March 28, 2025 3:35pm March 28, 2025 3: 35pm Sciatica March 28, 2025 3: 35pm Supervision of normal March 102024 3:35pm GBS (group B streptococcus) UTI complica ting April 02, 2025 9:21am Gestational diabetes April 02, 2025 9 :21am Hx of section April 02, 2025 9:21am Low back pain during April 022024 9:21am Obesity affecting April 02, 2025 9:21am April 02, 2025 9: 21am Sciatica April 02, 2025 9: 21am Supervision of normal March 102024 9:21am GBS (group B streptococcus) UTI complica ting April 11, 2025 8:36am Gestational diabetes April 11, 2025 8:36am Hx of section April 11 8:36am Low back pain during April 11, 2025 8:36am Obesity affecting April 8:36am April 11, 2025 8:36am Sciatica April 11, 2025 8:36am [facility] 8:36[facility] GBS (group B streptococcus) UTI complica ting April 20, 2025 8:59am Gestational diabetes April 20 8:59am Hx of section April 20, 8:59am Low back pain during April 20, 2025 8:59am Obesity affecting April 202024 8:59am April 20, 2025 8:59am Sciatica April 20, 2025 8:59am Supervision of normal [facility] 2024 8:59am Additional Source Comments INFORMATION SOURCE (unrecogn ized section and content) DATE CREATED AUTHOR 11/25/2021 [facility] ([place]) DATE CREATED AUTHOR AUTHOR'S ORGANIZ ATION 02/11/2024 [facility] [place] DATE CREATED AUTHOR AUTHOR'S ORGANIZ ATION 12/01/2024 [facility] DATE CREATED AUTHOR AUTHOR'S ORGANIZ ATION 04/15/2025 [facility] Care Team (unrecognized sect ion [...] Inactive Member Role Status Dates Azul Sheehan NP, [employer]-C Attending Provider Active Start: January 10, 2025 End: January 10, 2025 Team Status: Active Member Role/Relationship Status Dates Dr. Jhonny Cobian MD Primary Care Provider Active Team [...] Inactive Member Role/Relationship Status Dates Azul Sheehan [employer], [employer]MER-C Attending Provider Active Start: January 10, 2025 End: January 10, 2025 Team Status: Active Member Role/Relationship Status Dates Dr. Emilia Goodman MD Attending Provider Active Start: January 23, 2025 Dr. Emilia Goodman MD Referring Provider Active Start: January 23, 2025 Dr. Jhonny Cobian MD Primary Care Provider Active Start: January 23, 2025 Team Status: Inactive Member Role/Relationship Status Dates Dr. Emmy Davis DO Attending Provider Activ e Start: February 02, 2025 End: February 02, 2025 Dr. Jhonny Cobian MD Primary Care Provider Active Start: February 02, 2025 End: February 02, 2025 Dr. Jhonny Cobian MD Referring Provider Active Start: February 02, 2025 End: February 02, 2025 Team Status: Active Member Role/Relationship Status Dates Dr. Jhonny Cobian MD Primary Care Provider Active Start: February 02, 2025 Azul Sheehan [employer]MER, [employer]MER-C Attending Provider Active Start: February 02, 2025 Azul Sheehan [employer]MER, [employer]MER-C Referring Provider Active Start: February 02, 2025 Team Status: Inactive Member Role/Relationship Status Dates Dr. Emmy Davis DO Attending Provider Activ e Start: February 02, 2025 End: February 02, 2025 Dr. Jhonny Cobian MD Primary Care Provider Active Start: February 02, 2025 End: February 02, 2025 Dr. Jhonny Cobian MD Referring Provider Active Start: February 02, 2025 End: February 02, 2025 Team Status: Inactive Member Role/Relationship Status Dates Dr. Jhonny Cobian MD Primary Care Provider Active Start: February 02, 2025 End: February 02, 2025 Azul Sheehan [employer], [employer]MER-C Attending Provider Active Start: February 02, 2025 End: February 02, 2025 Azul Sheehan [employer], [employer]MER-C Referring Provider Active Start: February 02, 2025 End: February 02, 2025 Team Status: Active Member Role/Relationship Status Dates Dr. Emilia Goodman MD Attending Provider Active Start: February 07, 2025 Dr. Emilia Goodman MD Referring Provider Active Start: February 07, 2025 Dr. Jhonny Cobian MD Primary Care Provider Active Start: February 07, 2025 Team Status: Active Member Role/Relationship Status Dates Dr. Emilia Goodman MD Attending Provider Active Start: February 14, 2025 Dr. Emilia Goodman MD Referring Provider Active Start: February 14, 2025 Dr. Jhonny Cobian MD Primary Care Provider Active Start: February 14, 2025 Team Status: Inactive Member Role/Relationship Status Dates Dr. Emmy Davis DO Attending Provider Activ e Start: February 15, 2025 End: February 15, 2025 Dr. Jhonny Cobian MD Primary Care Provider Active Start: February 15, 2025 End: February 15, 2025 Dr. Jhonny Cobian MD Referring Provider Active Start: February 15, 2025 End: February 15, 2025 Team Status: Inactive Member Role/Relationship Status Dates Bobbi Stuart CNM Attending Provider Active S tart: November 17, 2024 End: November 17, 2024 Team Status: Inactive Member Role/Relationship Status Dates Bobbi Stuart CNM Attending Provider Active S tart: December 15, 2024 End: December 15, 2024 Team Status: Inactive Member Role/Relationship Status Dates Azul Sheehan [employer]MER, [employer]MER-C Attending Provider Active Start: January 10, 2025 End: January 10, 2025 Team Status: Inactive Member Role/Relationship Status Dates Dr. Emmy Davis DO Attending Provider Activ e Start: February 02, 2025 End: February 02, 2025 Dr. Jhonny Cobian MD Primary Care Provider Active Start: February 02, 2025 End: February 02, 2025 Dr. Jhonny Cobian MD Referring Provider Active Start: February 02, 2025 End: February 02, 2025 Team Status: Inactive Member Role/Relationship Status Dates Dr. Jhonny Cobian MD Primary Care Provider Active Start: February 02, 2025 End: February 02, 2025 Azul Sheehan [employer]MER, [employer]MER-C Attending Provider Active Start: February 02, 2025 End: February 02, 2025 Azul Sheehan [employer]MER, [employer]MER-C Referring Provider Active Start: February 02, 2025 End: February 02, 2025 Team Status: Inactive Member Role/Relationship Status Dates Dr. Emmy Davis DO Attending Provider Activ e Start: February 15, 2025 End: February 15, 2025 Dr. Jhonny Cobian MD Primary Care Provider Active Start: February 15, 2025 End: February 15, 2025 Dr. Jhonny Cobian MD Referring Provider Active Start: February 15, 2025 End: February 15, 2025 Team Status: Active Member Role/Relationship Status Dates Dr. Emilia Goodman MD Attending Provider Active Start: February 21, 2025 Dr. Emilia Goodman MD Referring Provider Active Start: February 21, 2025 Dr. Jhonny Cobian MD Primary Care Provider Active Start: February 21, 2025 Team Status: Inactive Member Role/Relationship Status Dates Dr. Jhonny Cobian MD Primary Care Provider Active Start: February 22, 2025 End: February 22, 2025 Azul Sheehan [employer], [employer]MER-C Attending Provider Active Start: February 22, 2025 End: February 22, 2025 Azul Sheehan [employer]MER, [employer]MER-C Referring Provider Active Start: February 22, 2025 End: February 22, 2025 Team Status: Inactive Member Role/Relationship Status Dates Dr. Emilia Goodman MD Attending Provider Active Start: February 27, 2025 End: February 27, 2025 Dr. Jhonny Cobian MD Primary Care Provider Active Start: February 27, 2025 End: February 27, 2025 Dr. Jhonny Cobian MD Referring Provider Active Start: February 27, 2025 End: February 27, 2025 Team Status: Inactive Member Role/Relationship Status Dates Dr. Jhonny Cobian MD Primary Care Provider Active Start: February 22, 2025 End: February 22, 2025 Azul Sheehan [employer]MER, [employer]MER-C Attending Provider Active Start: February 22, 2025 End: February 22, 2025 Azul Sheehan [employer]MER, [employer]MER-C Referring Provider Active Start: February 22, 2025 End: February 22, 2025 Team Status: Inactive Member Role/Relationship Status Dates Dr. Emilia Goodman MD Attending Provider Active Start: February 27, 2025 End: February 27, 2025 Dr. Jhonny Cobian MD Primary Care Provider Active Start: February 27, 2025 End: February 27, 2025 Dr. Jhonny Cobian MD Referring Provider Active Start: February 27, 2025 End: February 27, 2025 Team Status: Active Member Role/Relationship Status Dates Dr. Jhonny Cobian MD Primary Care Provider Active Start: March 12, 2025 Dr. Emilia Goodman MD Attending Provider Active Start: March 12, 2025 Dr. Emilia Goodman MD Referring Provider Active Start: March 12, 2025 Team Status: Active Member Role/Relationship Status Dates Dr. Emilia Goodman MD Attending Provider Active Start: March 13, 2025 Dr. Emilia Goodman MD Referring Provider Active Start: March 13, 2025 Dr. Jhonny Cobian MD Primary Care Provider Active Start: March 13, 2025 Team Status: Inactive Member Role/Relationship Status Dates Bobbi Stuart CNM Attending Provider Active S tart: March 14, 2025 End: March 14, 2025 Dr. Jhonny Cobian MD Primary Care Provider Active Start: March 14, 2025 End: March 14, 2025 Dr. Jhonny Cobian MD Referring Provider Active Start: March 14, 2025 End: March 14, 2025 Team Status: Inactive Member Role/Relationship Status Dates Bobbi Stuart CNM Attending Provider Active S tart: December 15, 2024 End: December 15, 2024 Team Status: Inactive Member Role/Relationship Status Dates Azul Sheehan [employer]MER, [employer] FORMER-C Attending Provider Active Start: January 10, 2025 End: January 10, 2025 Team Status: Inactive Member Role/Relationship Status Dates Dr. Emmy Davis DO Attending Provider Activ e Start: February 02, 2025 End: February 02, 2025 Dr. Jhonny Cobian MD Primary Care Provider Active Start: February 02, 2025 End: February 02, 2025 Dr. Jhonny Cobian MD Referring Provider Active Start: February 02, 2025 End: February 02, 2025 Team Status: Inactive Member Role/Relationship Status Dates Dr. Jhonny Cobian MD Primary Care Provider Active Start: February 02, 2025 End: February 02, 2025 Azul Sheehan [employer]MER, [employer] FORMER-C Attending Provider Active Start: February 02, 2025 End: February 02, 2025 Azul Sheehan M[employer] FORMER, M[employer] FORMER-C Referring Provider Active Start: February 02, 2025 End: February 02, 2025 Team Status: Inactive Member Role/Relationship Status Dates Dr. Emmy Davis DO Attending Provider Activ e Start: February 15, 2025 End: February 15, 2025 Dr. Jhonny Cobian MD Primary Care Provider Active Start: February 15, 2025 End: February 15, 2025 Dr. Jhonny Cobian MD Referring Provider Active Start: February 15, 2025 End: February 15, 2025 Team Status: Inactive Member Role/Relationship Status Dates Dr. Jhonny Cobian MD Primary Care Provider Active Start: February 22, 2025 End: February 22, 2025 Azul Sheehan [employer] FORMER, [employer] FORMER-C Attending Provider Active Start: February 22, 2025 End: February 22, 2025 Azul Sheehan [employer] FORMER, [employer] FORMER-C Referring Provider Active Start: February 22, 2025 End: February 22, 2025 Team Status: Inactive Member Role/Relationship Status Dates Dr. Emilia Goodman MD Attending Provider Active Start: February 27, 2025 End: February 27, 2025 Dr. Jhonny Cobian MD Primary Care Provider Active Start: February 27, 2025 End: February 27, 2025 Dr. Jhonny Cobian MD Referring Provider Active Start: February 27, 2025 End: February 27, 2025 Team Status: Active Member Role/Relationship Status Dates Dr. Jhonny Cobian MD Primary Care Provider Active Start: March 12, 2025 Dr. Emilia Goodman MD Attending Provider Active Start: March 12, 2025 Dr. Emilia Goodman MD Referring Provider Active Start: March 12, 2025 Team Status: Inactive Member Role/Relationship Status Dates Bobbi Stuart CNM Attending Provider Active S tart: March 14, 2025 End: March 14, 2025 Dr. Jhonny Cobian MD Primary Care Provider Active Start: March 14, 2025 End: March 14, 2025 Dr. Jhonny Cobian MD Referring Provider Active Start: March 14, 2025 End: March 14, 2025 Team Status: Active Member Role/Relationship Status Dates Dr. Jhonny Cobian MD Primary Care Provider Active Start: March 23, 2025 Bobbi Stuart CNM Attending Provider Active S tart: March 23, 2025 Bobbi Stuart CNM Referring Provider Active S tart: March 23, 2025 Team Status: Active Member Role/Relationship Status Dates Dr. Emilia Goodman MD Attending Provider Active Start: March 26, 2025 Dr. Emilia Goodman MD Referring Provider Active Start: March 26, 2025 Dr. Jhonny Cobian MD Primary Care Provider Active Start: March 26, 2025 Team Status: Inactive Member Role/Relationship Status Dates Dr. Emmy Davis DO Attending Provider Activ e Start: March 28, 2025 End: March 28, 2025 Dr. Jhonny Cobian MD Primary Care Provider Active Start: March 28, 2025 End: March 28, 2025 Dr. Jhonny Cobian MD Referring Provider Active Start: March 28, 2025 End: March 28, 2025 Team Status: Inactive Member Role/Relationship Status Dates Dr. Jhonny Cobian MD Primary Care Provider Active Start: March 23, 2025 End: March 23, 2025 Bobbi Stuart CNM Attending Provider Active S tart: March 23, 2025 End: March 23, 2025 Bobbi Stuart CNM Referring Provider Active S tart: March 23, 2025 End: March 23, 2025 Team Status: Inactive Member Role/Relationship Status Dates Dr. Jhonny Cobian MD Primary Care Provider Active Start: April 02, 2025 End: April 02, 2025 Dr. Jhonny Cobian MD Referring Provider Active Start: April 02, 2025 End: April 02, 2025 Bobbi Stuart CNM Attending Provider Active S tart: April 02, 2025 End: April 02, 2025 Team Status: Inactive Member Role/Relationship Status Dates Dr. Jhonny Cobian MD Primary Care Provider Active Start: March 12, 2025 End: April 08, 2025 Dr. Emilia Goodman MD Attending Provider Active Start: March 12, 2025 End: April 08, 2025 Dr. Emilia Goodman MD Referring Provider Active Start: March 12, 2025 End: April 08, 2025 Team Status: Inactive Member Role/Relationship Status Dates Dr. Emmy Davis DO Attending Provider Activ e Start: March 28, 2025 End: March 28, 2025 Dr. Jhonny Cobian MD Primary Care Provider Active Start: March 28, 2025 End: March 28, 2025 Dr. Jhonny Cobian MD Referring Provider Active Start: March 28, 2025 End: March 28, 2025 Team Status: Inactive Member Role/Relationship Status Dates Dr. Jhonny Cobian MD Primary Care Provider Active Start: April 02, 2025 End: April 02, 2025 Dr. Jhonny Cobian MD Referring Provider Active Start: April 02, 2025 End: April 02, 2025 Bobbi Stuart CNM Attending Provider Active S tart: April 02, 2025 End: April 02, 2025 Team Status: Active Member Role/Relationship Status Dates Dr. Emilia Goodman MD Attending Provider Active Start: April 05, 2025 Dr. Emilia Goodman MD Referring Provider Active Start: April 05, 2025 Dr. Jhonny Cobian MD Primary Care Provider Active Start: April 05, 2025 Team Status: Inactive Member Role/Relationship Status Dates Dr. Jhonny Cobian MD Primary Care Provider Active Start: April 11, 2025 End: April 11, 2025 Dr. Jhonny Cobian MD Referring Provider Active Start: April 11, 2025 End: April 11, 2025 Dr. Emmy Davis DO Attending Provider Activ e Start: April 11, 2025 End: April 11, 2025 Team Status: Inactive Member Role/Relationship Status Dates Azul Sheehan [employer]MER, [employer] FORMER-C Attending Provider Active Start: January 10, 2025 End: January 10, 2025 Team Status: Inactive Member Role/Relationship Status Dates Dr. Emmy Davis DO Attending Provider Activ e Start: February 02, 2025 End: February 02, 2025 Dr. Jhonny Cobian MD Primary Care Provider Active Start: February 02, 2025 End: February 02, 2025 Dr. Jhonny Cobian MD Referring Provider Active Start: February 02, 2025 End: February 02, 2025 Team Status: Inactive Member Role/Relationship Status Dates Dr. Jhonny Cobian MD Primary Care Provider Active Start: February 02, 2025 End: February 02, 2025 Azul Sheehan [employer] FORMER, [employer] FORMER-C Attending Provider Active Start: February 02, 2025 End: February 02, 2025 Azul Sheehan [employer] FORMER, [employer] FORMER-C Referring Provider Active Start: February 02, 2025 End: February 02, 2025 Team Status: Inactive Member Role/Relationship Status Dates Dr. Emmy Davis DO Attending Provider Activ e Start: February 15, 2025 End: February 15, 2025 Dr. Jhonny Cobian MD Primary Care Provider Active Start: February 15, 2025 End: February 15, 2025 Dr. Jhonny Cobian MD Referring Provider Active Start: February 15, 2025 End: February 15, 2025 Team Status: Inactive Member Role/Relationship Status Dates Dr. Jhonny Cobian MD Primary Care Provider Active Start: February 22, 2025 End: February 22, 2025 Azul Sheehan [employer]MER, [employer] FORMER-C Attending Provider Active Start: February 22, 2025 End: February 22, 2025 Azul Sheehan [employer] FORMER, [employer] FORMER-C Referring Provider Active Start: February 22, 2025 End: February 22, 2025 Team Status: Inactive Member Role/Relationship Status Dates Dr. Emilia Goodman MD Attending Provider Active Start: February 27, 2025 End: February 27, 2025 Dr. Jhonny Cobian MD Primary Care Provider Active Start: February 27, 2025 End: February 27, 2025 Dr. Jhonny Cobian MD Referring Provider Active Start: February 27, 2025 End: February 27, 2025 Team Status: Inactive Member Role/Relationship Status Dates Dr. Jhonny Cobian MD Primary Care Provider Active Start: March 12, 2025 End: April 08, 2025 Dr. Emilia Goodman MD Attending Provider Active Start: March 12, 2025 End: April 08, 2025 Dr. Emilia Goodman MD Referring Provider Active Start: March 12, 2025 End: April 08, 2025 Team Status: Inactive Member Role/Relationship Status Dates Bobbi Stuart CNM Attending Provider Active S tart: March 14, 2025 End: March 14, 2025 Dr. Jhonny Cobian MD Primary Care Provider Active Start: March 14, 2025 End: March 14, 2025 Dr. Jhonny Cobian MD Referring Provider Active Start: March 14, 2025 End: March 14, 2025 Team Status: Inactive Member Role/Relationship Status Dates Dr. Jhonny Cobian MD Primary Care Provider Active Start: March 23, 2025 End: March 23, 2025 Bobbi Stuart CNM Attending Provider Active S tart: March 23, 2025 End: March 23, 2025 Bobbi Stuart CNM Referring Provider Active S tart: March 23, 2025 End: March 23, 2025 Team Status: Inactive Member Role/Relationship Status Dates Dr. Emmy Davis DO Attending Provider Activ e Start: March 28, 2025 End: March 28, 2025 Dr. Jhnony Cobian MD Primary Care Provider Active Start: March 28, 2025 End: March 28, 2025 Dr. Jhonny Cobian MD Referring Provider Active Start: March 28, 2025 End: March 28, 2025 Team Status: Inactive Member Role/Relationship Status Dates Dr. Jhonny Cobian MD Primary Care Provider Active Start: April 02, 2025 End: April 02, 2025 Dr. Jhonny Cobian MD Referring Provider Active Start: April 02, 2025 End: April 02, 2025 Bobbi Stuart CNM Attending Provider Active S tart: April 02, 2025 End: April 02, 2025 Team Status: Inactive Member Role/Relationship Status Dates Dr. Jhonny Cobian MD Primary Care Provider Active Start: April 11, 2025 End: April 11, 2025 Dr. Jhonny Cobian MD Referring Provider Active Start: April 11, 2025 End: April 11, 2025 Dr. Emmy Davis DO Attending Provider Activ e Start: April 11, 2025 End: April 11, 2025 Team Status: Inactive Member Role/Relationship Status Dates Dr. Emilia Goodman MD Attending Provider Active Start: April 19, 2025 End: April 19, 2025 Dr. Emilia Goodman MD Referring Provider Active Start: April 19, 2025 End: April 19, 2025 Dr. Jhonny Cobian MD Primary Care Provider Active Start: April 19, 2025 End: April 19, 2025 Team Status: Inactive Member Role/Relationship Status Dates Dr. Jhonny Cobian MD Primary Care Provider Active Start: April 20, 2025 End: April 20, 2025 Dr. Jhonny Cobian MD Referring Provider Active Start: April 20, 2025 End: April 20, 2025 Dr. Emilia Goodman MD Attending Provider Active Start: April 20, 2025 End: April 20, 2025 Care Team (unrecognized sect ion and content) Care Team Personnel Name: JHONNY COBIAN MD Position: P4 Physician - Primary Care Med Service: Active Provider Member Role: Primary Care Physician Address: Address: [address] [place] [address]- Care Team Related Persons Name: PLEASE, ASK Care Team Personnel Name: JHONNY COBIAN MD Position: P4 Physician - Primary Care Member Role: Primary Care Physician Address: Address: [address] [place] [address]- Care Team Related Persons Name: AMADA PATRICK [...] BE BASED ON THE PRIMARY CLINICAL RECORDS. [facility] [employer] provides no warranty or guarantee of the accuracy or completeness of information in this document.
[2025-04-20] MEDS: Lactated Ringers 1,000 ML 50 ML IV (22:50)
--- OUTSIDE RECORDS SUMMARY | 2025-04-20 22:52 | XMS RPT_ITS | CCD ---
Author Organization [facility] Care Team Providers Care Restorative Coordinator Name Role Phone JHONNY COBIAN MD Primary [...] Unavailable Bobbi Stuart CNM Attending Provider [phone] Bobbi Stuart CNM Referring Provider BETTY PRIMARY [...] Jhonny Cobian MD Primary Care Provider Dr. Emilia Goodman MD Attending Provider [phone] Dr. Moo Goodman MDon Referring Provider Rex EMANUEL, Dr. Nieto Attending Provider Rex EMANUEL, Dr. Nieto Referring Provider Josias Carmona DO, Dr. Booth Attending Provider Rex EMANUEL, Dr. Nieto Attending Provider Rex EMANUEL, Dr. Nieto Referring Provider Rex EMANUEL, Dr. Nieto Attending Provider Rex EMANUEL, Dr. Nieto Referring Provider [phone] Narciso CNM, Bobbi Attending Provider 1() Narciso CNM, Bobbi Referring Provider 1() Emilia Goodman Referring Unavailable Emilia Goodman Attending Unavailable Cobian, Jhonny Primary Care Unavailable Emilia Goodman Attending Unavailable Emilia Goodman Referring Unavailable Cobian, Jhonny Primary Care Unavailable Bobbi Stuart Attending Unavailable Cobian, Jhonny Referring Unavailable Cobian, Jhonny Primary Care Unavailable Cobian, Jhonny Primary Care Unavailable Sissy TRESTLE BUILDER, Azul Attending Unavailable [place] TRESTLE BUILDER, Azul Referring Unavailable Cobian, Jhonny Primary Care Unavailable [place] TRESTLE BUILDER, Azul Attending Unavailable Sissy TRESTLE BUILDER, Azul Referring Unavailable Sissy TRESTLE BUILDER, Azul Attending Unavailable Bobbi Stuart Referring Unavailable [...] house dust allergenic extract Drug Allergy 5 [facility] Comment on above: Runny nose, headache (15 sources) Mold Extract Drug Allergy 5 [facility] Comment on above: Runny nose, Headache (16 sources) Environmental Allergies: Uncoded; Translations: [Environmental Allergies: Uncoded] Allergy to substance 5 [facility] Comment on above: Runny nose, headache - Pet dander (1 source) house dust allergenic extract Drug Allergy 5 [facility] Repository (1 source) Mold Extract Drug Allergy 5 [facility] Repository Medications Current Medications Medication Drug Class(es) Dates Sig (Normalized) Sig (Original) [id number] 200 actuat albuterol 0.09 mg/actuat metered dose inhaler (1 source) beta2-Adrenergic Agonist Start: 09-03-2021 take 2 puff(s) by inhalation every four hours as needed for wheezing ProAir HFA MDI (90 mcg/inh) inhalation aerosol 2 puff(s), Inhalation, q4h, PRN as needed for wheezing, # 8.5 gram(s), 0 Refill(s), Pharmacy: [address], Bronchitis COVID-19 virus infection, 157.4, cm, [...] 30 tab(s), 6 Refill(s), [facility]: [facility] #[id number], 161, cm, 01/01/23 10:54:00 EDT, Height Start [...] 12:00am As directed Blood-Glucose,Receiv er,Cont (Dexcom G6 Refuse Laborer) misc (7 sources) Start: 03-19-2025 Blood-Glucose, Recei chano,Cont (Dexcom G6 Refuse Laborer) misc Active 0 .Route 1 March 19, [...] 60 tab(s), 1 Refill(s), [facility]: [facility] #[id number], 31 weeks gestation of Heartburn, 161, cm, 05/11/23 9:35:00 EDT, Height, kg, 07/27/22 9:18:00 EST, Dosing Weight Start Date: 05/14/23 Status: Ordered Start: 03-16-2023 Pepcid 20 mg o ral tablet Dose : 20 mg = 1 tab(s), Oral, BID, # 60 tab(s), 0 Refill(s), [facility]: [facility] #[id number], 31 weeks gestation of Heartburn, 161, cm, 03/16/23 8:32:00 EDT, Height, kg, 07/27/22 9:18:00 EST, Dosing Weight Start Date: 03/16/23 Status: Ordered ferrous sulfate 325 mg delayed release oral tablet (5 sources) Start: 01-20-2023 ferrous sulfat e 325 mg (65 mg elemental iron) oral delayed release tablet Dose : 325 mg = 1 tab(s), Oral, qDay, # 30 tab(s), 3 Refill(s), Pharmacy: [facility] #[id number], 161, cm, 01/01/23 10:54:00 EDT, Height Start Date: 01/20/23 Status: Ordered Multivit 17-Avmj-Jtqibg 1-Dha (Pnv-Dha) 27 mg iron-1 mg -300 [...] 0 Refill(s) Start Date: 04/13/23 Status: Ordered Essington-3 Fatty Acids (Super Essington-3) 1,000 mg capsule (15 sources) Start: 09-08-2024 take 3 capsules by mouth once daily Essington-3 Fatty Acids (Super Essington-3) 1,000 mg capsule Active 500 mg PO [...] Carmona on 04-11-2025 Glucose Ql (U) Negative [facility] Laboratory - UrinalysisOrder ed By: Emmy Carmona on 04-11-2025 Protein Ql (U) Negative [facility] Physician Compensation Analyst Office Visit Reporton 04-11-2025 Physician Compensation Analyst Office Visit Report [facility] [address], [address] [place] [address] OFFICE VISIT Date of Service: 04/11/25 MR#: [id number] Acct: [id number] Name: FELIPE PATRICK Rep #: [id number] 3 : 1995 Provider: Dr. Emmy Barr, Age/Sex: 30/F Location: [facility] Status: Signed Intake Vital Signs 03/14/25 09:01 04/02/25 09:23 04/11/25 08:38 04/11/25 08:40 Height 5 ft 2 in 5 ft 2 in 5 ft 2 in 5 ft 2 in Weight: 213 lb 4 oz 213 lb 5 oz BMI 38.9 38.9 BP 133/86 H 126/78 H Intake Visit Reasons: 38wk ob Director Zone Required: No Is patient in pain?: No [...] QDAY 09/08/24 04/11/25 H istory capsule (Super Essington-3) blood-glucose sensor (Dexcom G6 #4 ea 02/27/25 04/11/25 Rx Sensor device) blood-glucose transmitter (Dexcom #1 ea 03/19/25 04/11/25 Rx G6 Transmitter device) blood-glucose,surveyor oil well directional ,cont #1 ea 03/19/25 04/11/25 Rx (Dexcom G6 Refuse Laborer) Last Menstrual Period: 07/20/24 Zika: Zika virus screening: Negative : No PFSH PFSH Medical History Seasonal allergies Surgical History Previous section [place] teeth extracted Family History Grandmother Cancer Paternal [...] 1 current occupational status: employed 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 occupational 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 Date Name GA/Weeks Outcome Route Bth Weight [facility] Mirella 41 live [...] desires v (more content not included)... Normal [facility] Laboratory - Chemistry and C hemistry - challengeOrdered By: Bobbi Stuart on 04-02-2025 Glucose Ql (U) Negative [facility] Laboratory - UrinalysisOrder ed By: Bobbi Stuart on 04-02-2025 Protein Ql (U) Negative [facility] Physician Compensation Analyst Office Visit Reporton 04-02-2025 Physician Compensation Analyst Office Visit Report [facility] [address], [address] [place] [address] OFFICE VISIT Date of Service: 04/02/25 MR#: [id number] Acct: [id number] Name: FELIPE PATRICK Rep #: [id number] 3 : 1995 Provider: DULCE Correa ams Age/Sex: 30/F Location: [facility] Status: Signed Intake Vital Signs 03/14/25 09:01 03/28/25 15:41 04/02/25 09:23 Height 5 ft 2 in 5 ft 2 in 5 ft 2 in Weight: 213 lb 4 oz BMI 38.9 BP 133/86 H Intake Visit Reasons: 37wk ob Chief Complaint: 37wk OB Director Zone Required: No Is patient in pain?: No [...] QDAY 09/08/24 04/02/25 H istory capsule (Super Essington-3) blood-glucose sensor (Dexcom G6 #4 ea 02/27/25 04/02/25 Rx Sensor device) blood-glucose transmitter (Dexcom #1 ea 03/19/25 04/02/25 Rx G6 Transmitter device) blood-glucose,surveyor oil well directional ,cont #1 ea 03/19/25 04/02/25 Rx (Dexcom G6 Refuse Laborer) Last Menstrual Period: 07/20/24 : No PFSH PFSH Medical History Seasonal allergies Surgical History Previous section [place] teeth extracted Family History Grandmother Cancer Paternal [...] 1 current occupational status: employed 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 Normal [facility] Laboratory - Chemistry and C hemistry - challengeOrdered By: Emmy Carmona on 03-28-2025 Glucose Ql (U) Negative [facility] Laboratory - UrinalysisOrder ed By: Emmy Carmona on 03-28-2025 Protein Ql (U) Negative [facility] Physician Compensation Analyst Office Visit Reporton 03-28-2025 Physician Compensation Analyst Office Visit Report [facility] [address] [place] [address], [address] [place] [address] OFFICE VISIT Date of Service: 03/28/25 MR#: [id number] Acct: [id number] Name: FELIPE PATRICK Rep #: [id number] 1 : 1995 Provider: Dr. Emmy Barr, Age/Sex: 30/F Location: [facility] Status: Signed Intake Vital Signs 12/15/24 15:30 03/14/25 09:01 03/28/25 15:39 03/28/25 15:41 Height 5 ft 2 in 5 ft 2 in 5 ft 2 in 5 ft 2 in Weight: 210 lb 6 oz BMI 38.5 BP 128/81 H Intake Visit Reasons: 36 wk ob Director Zone Required: No Is patient in pain?: No [...] QDAY 09/08/24 03/28/25 H istory capsule (Super Essington-3) blood-glucose sensor (Dexcom G6 #4 ea 02/27/25 03/28/25 Rx Sensor device) blood-glucose transmitter (Dexcom #1 ea 03/19/25 03/28/25 Rx G6 Transmitter device) blood-glucose,surveyor oil well directional ,cont #1 ea 03/19/25 03/28/25 Rx (Dexcom G6 Refuse Laborer) Last Menstrual Period: 07/20/24 Zika: Zika virus screening: Negative : No PFSH PFSH Medical History Seasonal allergies Surgical History Previous section [place] teeth extracted Family History Grandmother Cancer Paternal [...] 1 current occupational status: employed 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 Normal [facility] OB Limited With Biometricson 03-23-2025 OB Limited With Biometrics [facility] [address] [place] [id number] OB Limited With Biometrics MR#: [id number] Acct: [id number] Name: FELIPE PATRICK Rep #: [id number] : 1995 F 30 From: Kaleb talbert MD PCP: Dr. Jhonny Cobian MD Status: REG CLI Study: OB Limited With Biometrics Date of Exam: 03/23 Exam# [id number] Ordering Dr: Bobbi Stuart CNM PROCEDURE: OB [...] 36 weeks and 2 days. Reading Location: [facility] CC: DULCE Stuart; Dr. Jhonny Cobian MD Computer Help Desk Representative: Signed Normal [facility] Laboratory - Chemistry and C hemistry - challengeOrdered By: Bobbi Stuart on 03-14-2025 Glucose Ql (U) Negative [facility] Laboratory - UrinalysisOrder ed By: Bobbi Stuart on 03-14-2025 Protein Ql (U) Negative [facility] Physician Compensation Analyst Office Visit Reporton 03-14-2025 Physician Compensation Analyst Office Visit Report [facility] [address], [address] [place] [address] OFFICE VISIT Date of Service: 03/14/25 MR#: [id number] Acct: [id number] Name: FELIPE PATRICK Rep #: [id number] 2 : 1995 Provider: DULCE Correa ams Age/Sex: 30/F Location: [facility] Status: Signed Intake Vital Signs 12/15/24 15:30 03/12/25 10:22 03/14/25 09:01 Height 5 ft 2 in 5 ft 2 in 5 ft 2 in Weight: 211 lb 8 oz BMI 38.7 BP 115/70 Intake Visit Reasons: 34 wk ob Director Zone Required: No Is patient in pain?: No [...] QDAY 09/08/24 03/14/25 H istory capsule (Super Essington-3) blood sugar diagnostic (Blood #120 ea 02/23/25 03/14/25 Rx Glucose Test strips) blood-glucose meter #1 ea 02/23/25 03/14/25 Rx lancets 30 gauge (Droplet Lancets) #200 ea 02/23/25 03/14/25 Rx blood-glucose sensor (Dexcom G6 #4 ea 02/27/25 03/14/25 Rx Sensor device) Last Menstrual Period: 07/20/24 Zika: Zika virus screening: Negative : No PFSH PFSH Medical History Seasonal allergies Surgical History Previous section [place] teeth extracted Family History Grandmother Cancer Paternal [...] 1 current occupational status: employed 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 Normal [facility] Physician Compensation Analyst Office Visit Reporton 02-27-2025 Physician Compensation Analyst Office Visit Report [facility] [address], [address] [place] [address] OFFICE VISIT Date of Service: 02/27/25 MR#: [id number] Acct: [id number] Name: FELIPE PATRICK Rep #: [id number] 9 : 1995 Provider: Dr. Emilia sherman MD Age/Sex: 30/F Location: [facility] Status: Signed Intake Vital Signs 12/15/24 15:30 02/15/25 09:27 02/27/25 15:29 Height 5 ft 2 in 5 ft 2 in 5 ft 2 in Weight: 212 lb 6 oz BMI 38.8 BP 114/77 Intake Visit Reasons: 32 wk ob Director Zone Required: No Is patient in pain?: No [...] QDAY 09/08/24 02/27/25 H istory capsule (Super Essington-3) blood sugar diagnostic (Blood #120 ea 02/23/25 02/27/25 Rx Glucose Test strips) blood-glucose meter #1 ea 02/23/25 02/27/25 Rx lancets 30 gauge (Droplet Lancets) #200 ea 02/23/25 02/27/25 Rx blood-glucose sensor (Dexcom G6 #4 ea 02/27/25 02/27/25 Rx Sensor device) Last Menstrual Period: 07/20/24 Zika: Zika virus screening: Negative : No PFSH PFSH Medical History Seasonal allergies Surgical History Previous section [place] teeth extracted Family History Grandmother Cancer Paternal [...] 1 current occupational status: employed 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 Normal [facility] Gestational GTT 3HR 100gon 0 02-22-2025 GEST GTT 100gm High [facility] Comment on above: Order Comment: Y Result [...] 02/22/25 1328 Performed By: #### L 500.4710 ####[facility] [address] [place], [address] Quantitative serum or plasma 3 hour gestational glucose tolerance panelOrdered By: Azul Sheehan on 02-22-2025 Glucose tolerance 3 hours gestational panel See comment [facility] Comment on above: FASTING 86 Col: 02/06 [...] Carmona on 02-15-2025 Glucose Ql (U) Negative [facility] Laboratory - UrinalysisOrder ed By: Emmy Carmona on 02-15-2025 Protein Ql (U) Negative [facility] Physician Compensation Analyst Office Visit Reporton 02-15-2025 Physician Compensation Analyst Office Visit Report [facility] [address], [address] [place] [address] OFFICE VISIT Date of Service: 02/15/25 MR#: [id number] Acct: [id number] Name: FELIPE PATRICK DAVID Rep #: [id number] 9 : 1995 Provider: Dr. Emmy Barr, Age/Sex: 30/F Location: [facility] Status: Signed Intake Vital Signs 12/15/24 15:30 02/02/25 10:25 02/15/25 09:24 02/15/25 09:27 Height 5 ft 2 in 5 ft 2 in 5 ft 2 in 5 ft 2 in Weight: 212 lb 8 oz BMI 38.8 BP 107/70 Intake Visit Reasons: 30 wk ob Director Zone Required: No Is patient in pain?: No [...] QDAY 09/08/24 02/15/25 H istory capsule (Super Essington-3) Last Menstrual Period: 07/20/24 Zika: Zika virus screening: Negative : No PFSH PFSH Medical History Seasonal allergies Surgical History Previous section [place] teeth extracted Family History Grandmother Cancer Paternal [...] 1 current occupational status: employed 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 occupational 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 Date Name GA/Weeks Outcome Route Bth Weight [facility]23 Mirella 41 live - [...] orders placed (more content not included)... Normal [facility] Absolute lymphocyte countOrd ered By: Azul Sheehan on 02-02-2025 Lymphocytes Auto (Unsp spec) [#/Vol] 1.51 10*3/uL 0.83-4.51 [facility] Absolute neutrophil countOrd ered By: Azul Sheehan on 02-02-2025 Neutrophils (Bld) [#/Vol] 7.9 10*3/uL High 2.0-7.7 [facility] Automated lymphocyte count a s percentage of total leukocytesOrdered By: Azul Sheehan on 02-02-2025 Lymphocytes/100 WBC Auto (Unsp spec) 15.1 % Low 19-41 [facility] Basophil percentageOrdered B y: Azul Sheehan on 02-02-2025 Basophils/100 WBC (Bld) 0.2 % 0-1 [facility] CBC W/Diff, Automatedon 01-08 Absolute Lymph 1.51 X10 3/uL Normal 0.83-4.51 [facility] Comment on above: Performed By: #### L 501.0250, L3890.6006, L509.8002, L100.0100 ####[facility] [address] [place], [address] Absolute Neut 7.9 X10 3/uL High 2.0-7.7 [facility] Comment on above: Performed By: #### L 501.0250, L3890.6006, L509.8002, L100.0100 ####[facility] [address] [place], [address] Basophils/100 WBC (Bld) 0.2 % Normal 0-1 [facility] Comment on above: Performed By: #### L 501.0250, L3890.6006, L509.8002, L100.0100 ####[facility] [address] [place], [address] Eosinophils/100 WBC (Bld) 0.8 % Normal 0-5 [facility] Comment on above: Performed By: #### L 501.0250, L3890.6006, L509.8002, L100.0100 ####[facility] [address] [place], [address] Erythrocyte distribution width (RBC) [Ratio] 13.1 % Normal 11.6-14.6 [facility] Comment on above: Performed By: #### L 501.0250, L3890.6006, L509.8002, L100.0100 ####[facility] [address] [place], [address] Hematocrit (Bld) [Volume fraction] 36.5 % Low 37-47 [facility] Comment on above: Performed By: #### L 501.0250, L3890.6006, L509.8002, L100.0100 ####[facility] [address] [place], [address] Hemoglobin (Bld) [Mass/Vol] 12.1 g/dL Normal 12.0-15.0 [facility] Comment on above: Performed By: #### L 501.0250, L3890.6006, L509.8002, L100.0100 ####[facility] [address] [place], [address] IG% 0.900 Normal 0.0-0.9 [facility] Comment on above: Result Comment: IG% - Immature Granulocytes (promyelocytes, myelocytes and metamyelocytes) > 1% indicates that a LEFT SHIFT is Present. Performed By: #### L 501.0250, L3890.6006, L509.8002, L100.0100 ####[facility] [address] [place], [address] Lymphocytes/100 WBC (Bld) 15.1 % Low 19-41 [facility] Comment on above: Performed By: #### L 501.0250, L3890.6006, L509.8002, L100.0100 ####[facility] [address] [place], [address] MCH (RBC) [Entitic mass] 29.1 pg Normal 27.0-32.0 [facility] Comment on above: Performed By: #### L 501.0250, L3890.6006, L509.8002, L100.0100 ####[facility] [address] [place], [address] MCHC (RBC) [Mass/Vol] 33.2 g/dL Normal 32-36 [facility] Comment on above: Performed By: #### L 501.0250, L3890.6006, L509.8002, L100.0100 ####[facility] [address] [place], [address] MCV (RBC) [Entitic vol] 87.7 fL Normal 81-99 [facility] Comment on above: Performed By: #### L 501.0250, L3890.6006, L509.8002, L100.0100 ####[facility] [address] [place], [address] Monocytes/100 WBC (Bld) 3.8 % Normal 0-10 [facility] Comment on above: Performed By: #### L 501.0250, L3890.6006, L509.8002, L100.0100 ####[facility] [address] [place], [address] Neutrophils/100 WBC (Bld) 79.2 % High 47-70 [facility] Comment on above: Performed By: #### L 501.0250, L3890.6006, L509.8002, L100.0100 ####[facility] [address] [place], [address] Nucleated RBC (Bld) [#/Vol] 0 10*3/uL Normal 0-5 [facility] Comment on above: Performed By: #### L 501.0250, L3890.6006, L509.8002, L100.0100 ####[facility] [address] [place], [address] Platelet mean volume (Bld) [Entitic vol] 10.5 fL Normal 6.2-12.0 [facility] Comment on above: Performed By: #### L 501.0250, L3890.6006, L509.8002, L100.0100 ####[facility] [address] [place], [address] Platelets (Bld) [#/Vol] 235 10*3/uL Normal 150-450 [facility] Comment on above: Performed By: #### L 501.0250, L3890.6006, L509.8002, L100.0100 ####[facility] [address] [place], [address] RBC (Bld) [#/Vol] 4.16 10*6/uL Low 4.2-5.4 [facility] Comment on above: Performed By: #### L 501.0250, L3890.6006, L509.8002, L100.0100 ####[facility] [address] [place], [address] RDW SD 41.2 fl Normal 35.1-43.9 [facility] Comment on above: Performed By: #### L 501.0250, L3890.6006, L509.8002, L100.0100 ####[facility] [address] [place], [address] WBC (Bld) [#/Vol] 10.0 10*3/uL Normal 4.4-11.0 [facility] Comment on above: Performed By: #### L 501.0250, L3890.6006, L509.8002, L100.0100 ####[facility] [address] [place], [address] Eosinophil percentageOrdered By: Azul Sheehan on 02-02-2025 Eosinophils/100 WBC (Bld) 0.8 % 0-5 [facility] Erythrocyte distribution wid th ratioOrdered By: Azul Sheehan on 02-02-2025 Erythrocyte distribution width (RBC) [Ratio] 13.1 % 11.6-14.6 [facility] Erythrocyte distribution wid th standard deviationOrdered By: Azul Sheehan on 02-02-2025 Erythrocyte distribution width (RBC) [Ratio] 41.2 fl 35.1-43.9 [facility] Glucose Challenge Gest 1H 50 rashad 02-02-2025 GLU GEST 50g 1H 136 mg/dL Normal 70-140 [facility] Comment on above: Performed By: #### L 501.0250, L3890.6006, L509.8002, L100.0100 ####[facility] [address] [place], [place], [id number] Glucose measurement at 2 jaqui rs post-dose gestational glucose tolerance testOrdered By: Azul Sheehan on 02-02-2025 Glucose [Mass/Vol] 136 mg/dL 70-140 [facility] HIVon 02-02-2025 HIV Non-Reactive Normal Nonreactive [facility] Comment on above: Result Comment: Non- Reactive Reactive Repeatedly reactive samples must be confirmed according to CDC recommended confirmatory algorithms. The subresults for either HIVAG or AHIV can be used as an aid in the selection of the confirmation algorithm for reactive samples. Send out specimens with Reactive results to [facility] for confirmation. Order the HIV antibody detection and differentiation: lc#[id number] Performed By: #### L 501.0250, L3890.6006, L509.8002, L100.0100 ####[facility] [address] [place], [place], [address] Hematocrit Auto (Bld) [Volum e fraction]Ordered By: Azul Sheehan on 02-02-2025 Hematocrit (Bld) [Volume fraction] 36.5 % Low 37-47 [facility] Hemoglobin measurementOrdere d By: Azul Sheehan on 02-02-2025 Hemoglobin (Bld) [Mass/Vol] 12.1 g/dL 12.0-15.0 [facility] Immature granulocytes/100 WB C Auto (Bld)Ordered By: Azul Sheehan on 02-02-2025 Immature granulocytes/100 WBC (Bld) 0.900 % 0.0-0.9 [facility] Comment on above: IG% - Immature Granu locytes (promyelocytes, myelocytes and metamyelocytes) > 1% indicates that a LEFT SHIFT is Present. Laboratory - Chemistry and C hemistry - challengeOrdered By: Emmy Carmona on 02-02-2025 Glucose Ql (U) Negative [facility] Laboratory - UrinalysisOrder ed By: Emmy Carmona on 02-02-2025 Protein Ql (U) Negative [facility] MCV (mean corpuscular volume ) determinationOrdered By: Azul Sheehan on 02-02-2025 MCV (RBC) [Entitic vol] 87.7 fL 81-99 [facility] Mean corpuscular hemoglobin (MCH) determinationOrdered By: Azul Sheehan on 02-02-2025 MCH (RBC) [Entitic mass] 29.1 pg 27.0-32.0 [facility] Mean corpuscular hemoglobin concentration (MCHC) determinationOrdered By: Azul Sheehan on 02-02-2025 MCHC (RBC) [Mass/Vol] 33.2 g/dL 32-36 [facility] Mean platelet volume determi nationOrdered By: Azuldariela Sheehan on 02-02-2025 Platelet mean volume (Bld) [Entitic vol] 10.5 fL 6.2-12.0 [facility] Monocyte percentageOrdered B y: Azul Sheehan on 02-02-2025 Monocytes/100 WBC (Bld) 3.8 % 0-10 [facility] Neutrophil percentageOrdered By: Azul Sheehan on 02-02-2025 Neutrophils/100 WBC (Bld) 79.2 % High 47-70 [facility] No Panel InformationOrdered By: Azul Sheehan on 02-02-2025 HIV (1&2) Antibody Non-Reactive Nonreactive [facility] Comment on above: Non-ReactiveReactive Repeatedly reactive samples must be confirmed according to CDC recommended confirmatory algorithms. The subresults for either HIVAG or AHIV can be used as an aid in the selection of the confirmation algorithm for reactive samples.Send out specimens with Reactive results to [facility] for confirmation.Order the HIV antibody detection and differentiation: #[id number] Nucleated red blood cell per centageOrdered By: Azul Sheehan on 02-02-2025 Nucleated RBC/100 WBC (Bld) [Ratio] 0 % 0-5 [facility] Physician Compensation Analyst Office Visit Reporton 02-02-2025 Physician Compensation Analyst Office Visit Report [facility]'[address], [address] [place] [address] OFFICE VISIT Date of Service: 02/02/25 MR#: [id number] Acct: [id number] Name: FELIPE PATRICK Rep #: [id number] : 1995 Provider: Dr. Emmy Barr DO Age/Sex: 29/F Location: [facility] Status: Signed Intake Vital Signs 11/17/24 11:15 01/10/25 10:23 02/02/25 10:22 02/02/25 10:25 Height 5 ft 2 in 5 ft 2 in 5 ft 2 in 5 ft 2 in Weight: 211 lb BMI 38.5 BP 112/75 Intake Visit Reasons: 28wk ob/glucose Director Zone Required: No Is patient in pain?: No [...] QDAY 09/08/24 02/02/25 H istory capsule (Super Essington-3) Last Menstrual Period: 07/20/24 Zika: Zika virus screening: Negative : No PFSH PFSH Medical History Seasonal allergies Surgical History Previous section [place] teeth extracted Family History Grandmother Cancer Paternal [...] 1 current occupational status: employed 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 Normal [facility] Platelet countOrdered By: Celso nelly CifuentesSpring [place] on 02-02-2025 Platelets (Bld) [#/Vol] 235 10*3/uL 150-450 [facility] RBC Auto (Bld) [#/Vol]Ordere d By: Azul Sissy on 02-02-2025 RBC (Bld) [#/Vol] 4.16 10*6/uL Low 4.2-5.4 [facility] Syphilis Antibodieson 2024 Syphilis Abs Non-Reactive Normal Nonreactive [facility] Comment on above: Performed By: #### L 501.0250, L3890.6006, L509.8002, L100.0100 ####[facility] [address] [place], [address] White blood cell (WBC) count Ordered By: Azul Sheehan on 02-02-2025 WBC (Bld) [#/Vol] 10.0 10*3/uL 4.4-11.0 [facility] Inital Evaluation (1) - PTon 01-23-2025 Inital Evaluation (1) - PT [facility] Physical Therapy Health[address] [place] [address] / REHABILITATION SERVICES INITIAL EVALUATION MR#: [id number] Acct: [id number] Name: FELIPE PATRICK Rep #: [id number] : 1995 29 From: Abby Sam PT, Cert. MDT Referring Dr.: Dr. Emilia Goodman MD Status: REG R Insurance: [employer] S[employer] PAY [employer]URANCE Patient's Visit Information Visit [...] TOLERATED. HEP INSTRUCTION. 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. Present symptoms: BENJY LOW BACK PAIN, AND [...] to be FAXED BACK to us at [phone] for Medicare purposes. For Medicare only, by signing this I certify the plan of care. Please let me know if there are questions or concerns regarding thi (more content not included)... Normal [facility] Laboratory - Chemistry and C hemistry - challengeOrdered By: Azul Sheehan on 01-10-2025 Glucose Ql (U) Negative [facility] Laboratory - UrinalysisOrder ed By: Azul Sheehan on 01-10-2025 Protein Ql (U) Negative [facility] Physician Compensation Analyst Office Visit Reporton 01-10-2025 Physician Compensation Analyst Office Visit Report [address], [address] [place] [address] OFFICE VISIT Date of Service: 01/10/25 MR#: [id number] Acct: [id number] Name: FELIPE PATRICK Rep #: [id number] : 1995 Provider: MARCELLO galeano Age/Sex: 29/F Location: [facility] Status: Signed Intake Vital Signs 11/17/24 11:15 12/15/24 15:30 01/10/25 10:23 Height 5 ft 2 in 5 ft 2 in 5 ft 2 in Weight: 209 lb 8 oz BMI 38.3 BP 116/78 Intake Visit Reasons: 25wk ob Chief Complaint: 25 Week OB Director Zone Required: No Is patient in pain?: No [...] QDAY 09/08/24 01/10/25 H istory capsule (Super Essington-3) Last Menstrual Period: 07/20/24 Zika: Zika virus screening: Negative : Yes PFSH PFSH Medical History Seasonal allergies Surgical History Previous section [place] teeth extracted Family History Grandmother Cancer Paternal [...] 1 current occupational status: employed 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 occupational exposures/hazards: No pets and animals: Yes (Avoid litterbox) pets and animals: cat(s) and dog(s) history of recent travel: [place] ([place]) out of state: Yes out of country: [...] in: walking frequency: daily duration: 15-30 minutes/day nkechi/yarsanism: Voodoo seatbelt use: always do you feel safe at home: Yes additional social history: 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 Date Name GA/Weeks Outcome Route Bth Weight Inf[facility]23 Mirella 41 live [...] Continue ro (more content not included)... Normal [facility] Laboratory - Chemistry and C hemistry - challengeOrdered By: Bobbi Stuart on 12-15-2024 Glucose Ql (U) Negative [facility] Laboratory - UrinalysisOrder ed By: Bobbi Stuart on 12-15-2024 Protein Ql (U) Negative [facility] Physician Compensation Analyst Office Visit Reporton 12-15-2024 Physician Compensation Analyst Office Visit Report [facility] [address], [address] [place] [address] OFFICE VISIT Date of Service: 12/15/24 MR#: [id number] Acct: [id number] Name: FELIPE PATRICK Rep #: [id number] : 1995 Provider: DULCE Correa ams Age/Sex: 29/F Location: [facility] Status: Signed Intake Vital Signs 10/19/24 14:58 11/17/24 11:15 12/15/24 15:30 Height 5 ft 2 in 5 ft 2 in 5 ft 2 in Weight: 205 lb 2 oz BMI 37.5 BP 122/79 H Intake Visit Reasons: 21 WK OB Chief Complaint: 21wk OB Director Zone Required: No Is patient in pain?: No [...] QDAY 09/08/24 12/15/24 H istory capsule (Super Essington-3) Last Menstrual Period: 07/20/24 : No PFSH PFSH Medical History Seasonal allergies Surgical History Previous section [place] teeth extracted Family History Grandmother Cancer Paternal [...] 1 current occupational status: employed 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 Normal [facility] Laboratory - Chemistry and C hemistry - challengeOrdered By: Bobbi Stuart on 11-17-2024 Glucose Ql (U) Negative [facility] Laboratory - UrinalysisOrder ed By: Bobbi Stuart on 11-17-2024 Protein Ql (U) Negative [facility] Physician Compensation Analyst Office Visit Reporton 11-17-2024 Physician Compensation Analyst Office Visit Report [facility] [address], [address] [place] [address] OFFICE VISIT Date of Service: 11/17/24 MR#: [id number] Acct: [id number] Name: FELIPE PATRICK Rep #: [id number] : 1995 Provider: DULCE Correa ams Age/Sex: 29/F Location: [facility] Status: Signed Intake Vital Signs 09/21/24 14:35 10/19/24 14:58 11/17/24 11:15 Height 5 ft 2 in 5 ft 2 in 5 ft 2 in Weight: 203 lb 2 oz BMI 37.1 BP 110/73 Intake Visit Reasons: 17 wk ob Chief Complaint: 17wk OB Director Zone Required: No Is patient in pain?: No [...] QDAY 09/08/24 11/17/24 H istory capsule (Super Essington-3) Last Menstrual Period: 07/20/24 : No PFSH PFSH Medical History Seasonal allergies Surgical History Previous section [place] teeth extracted Family History Grandmother Cancer Paternal [...] 1 current occupational status: employed 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 Normal [facility] Laboratory - Chemistry and C hemistry - challengeOrdered By: Emmy Carmona on 10-19-2024 Glucose Ql (U) Negative [facility] Laboratory - UrinalysisOrder ed By: Emmy Carmona on 10-19-2024 Protein Ql (U) Negative [facility] Physician Compensation Analyst Office Visit Reporton 10-19-2024 Physician Compensation Analyst Office Visit Report [facility] [address] [place] [address], [address] [place] [address] OFFICE VISIT Date of Service: 10/19/24 MR#: [id number] Acct: [id number] Name: FELIPE PATRICK Rep #: [id number] : 1995 Provider: Dr. Emmy Barr DO Age/Sex: 29/F Location: [facility] Status: Signed Intake Vital Signs 09/21/24 14:35 10/19/24 14:58 Height 5 ft 2 in 5 ft 2 in Weight: 198 lb 6 oz BMI 36.3 BP 130/78 H Intake Visit Reasons: 13 wk OB Director Zone Required: No Is patient in pain?: No [...] QDAY 09/08/24 10/19/24 H istory capsule (Super Essington-3) Last Menstrual Period: 07/20/24 Zika: Zika virus screening: Negative : No PFSH PFSH Medical History Seasonal allergies Surgical History Previous section [place] teeth extracted Family History Grandmother Cancer Paternal [...] 1 current occupational status: employed 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 Normal [facility] L3890.6102on 10-05-2024 HEP B Surf Ag Non-Reactive Normal Nonreactive [facility] Comment on above: Result Comment: Reac tive: Presumptive evidence of HBV. Repeatedly reactive samples must be confirmed using a neutralization test ([employer] HBsAg Confirmatory Test) Non-Reactive: HBsAg not detected; does not exclude the possibility of exposure to HBV Performed By: #### L 509.4006, L3890.6102, L3890.6301, L509.8002 #### [facility] Laboratory [address] [place], [place], [id number] L3890.6301on 10-05-2024 Hepatitis C Ab Non-Reactive Normal Nonreactive [facility] Comment on above: Result Comment: Reac tive: Presumptive evidence of antibodies to HCV. Follow CDC recommendations for supplemental testing. Non-Reactive: Antibodies to HCV were not detected; does not exclude the possibility of exposure to HCV Reactive Results are presumptive evidence of antibodies to HCV. Follow CDC recommendations for supplemental testing. Order confirmation testing: HCV Quant by PCR testing - HCVPCR #[id number] Non Reactive: < 0.8 Equivocal: >/= 0.8 to < 1.0 Reactive: >/= 1.0 The CDC requires that a reactive/equivocal HCV antibody result be sent out for confirmation. HCV Quant by PCR testing. Performed By: #### L 509.4006, L3890.6102, L3890.6301, L509.8002 ####[facility] [address] [place], [place], [address] L509.4006on 10-05-2024 Rubella IgG REAC Normal Nonreactive [facility] Comment on above: Result Comment: Anti body Result: Interpretation Non-Reactive: Non-Immune Reactive: Immune The following results were obtained with the [employer] Rubella IgG assay. Results from assays of other manufacturers cannot be used interchangeably. Performed By: #### L 509.4006, L3890.6102, L3890.6301, L509.8002 #### [facility] Laboratory [address] [place], [address] L509.8002on 10-05-2024 Syphilis Abs Non-Reactive Normal Nonreactive [facility] Comment on above: Performed By: #### L 509.4006, L3890.6102, L3890.6301, L509.8002 #### [facility] [address] [facility] [place], [address] Hemoglobin A1con 10-04-2024 HbA1c (Bld) [Mass fraction] 5.0 % Low <=5.6 [facility] Comment on above: Performed By: #### L 900.0098, L100.0100, L501.9985, L3890.6006, BTS ####[facility] [address] [place], [address] L3890.6006on 10-04-2024 HIV Non-Reactive Normal Nonreactive [facility] Comment on above: Result Comment: Non- Reactive Reactive Repeatedly reactive samples must be confirmed according to CDC recommended confirmatory algorithms. The subresults for either HIVAG or AHIV can be used as an aid in the selection of the confirmation algorithm for reactive samples. Send out specimens with Reactive results to [facility] for confirmation. Order the HIV antibody detection and differentiation: lc#[id number] Performed By: #### L 900.0098, L100.0100, L501.9985, L3890.6006, BTS ####[facility] [address] [facility] [place], [address] No Panel InformationOrdered By: Bobbi Stuart on 10-04-2024 HIV (1&2) Antibody Non-Reactive Nonreactive [facility] Comment on above: Non-ReactiveReactive Repeatedly reactive samples must be confirmed according to CDC recommended confirmatory algorithms. The subresults for either HIVAG or AHIV can be used as an aid in the selection of the confirmation algorithm for reactive samples.Send out specimens with Reactive results to [facility] for confirmation.Order the HIV antibody detection and differentiation: #[id number] Absolute lymphocyte countOrd ered By: Bobbi Stuart on 10-03-2024 Lymphocytes Auto (Unsp spec) [#/Vol] 2.22 10*3/uL 0.83-4.51 [facility] Absolute neutrophil countOrd ered By: Bobbi Stuart on 10-03-2024 Neutrophils (Bld) [#/Vol] 5.5 10*3/uL 2.0-7.7 [facility] Automated lymphocyte count a s percentage of total leukocytesOrdered By: Bobbi Stuart on 10-03-2024 Lymphocytes/100 WBC Auto (Unsp spec) 26.1 % 19-41 [facility] Basophil percentageOrdered B y: Bobbi Stuart on 10-03-2024 Basophils/100 WBC (Bld) 0.4 % 0-1 [facility] CBC W/Diff, Automatedon 09-10 Absolute Lymph 2.22 X10 3/uL Normal 0.83-4.51 [facility] Comment on above: Performed By: #### L 900.0098, L100.0100, L501.9985, L3890.6006, BTS ####[facility] [address] [place], [address] Absolute Neut 5.5 X10 3/uL Normal 2.0-7.7 [facility] Comment on above: Performed By: #### L 900.0098, L100.0100, L501.9985, L3890.6006, BTS ####[facility] [address] [place], [address] Basophils/100 WBC (Bld) 0.4 % Normal 0-1 [facility] Comment on above: Performed By: #### L 900.0098, L100.0100, L501.9985, L3890.6006, BTS ####[facility] [address] [place], [address] Eosinophils/100 WBC (Bld) 1.8 % Normal 0-5 [facility] Comment on above: Performed By: #### L 900.0098, L100.0100, L501.9985, L3890.6006, BTS ####[facility] [address] [place], [address] Erythrocyte distribution width (RBC) [Ratio] 12.9 % Normal 11.6-14.6 [facility] Comment on above: Performed By: #### L 900.0098, L100.0100, L501.9985, L3890.6006, BTS ####[facility] [address] [place], [address] Hematocrit (Bld) [Volume fraction] 36.6 % Low 37-47 [facility] Comment on above: Performed By: #### L 900.0098, L100.0100, L501.9985, L3890.6006, BTS ####[facility] [address] [place], [address] Hemoglobin (Bld) [Mass/Vol] 12.2 g/dL Normal 12.0-15.0 [facility] Comment on above: Performed By: #### L 900.0098, L100.0100, L501.9985, L3890.6006, BTS ####[facility] [address] [place], [address] IG% 0.400 Normal 0.0-0.9 [facility] Comment on above: Result Comment: IG% - Immature Granulocytes (promyelocytes, myelocytes and metamyelocytes) > 1% indicates that a LEFT SHIFT is Present. Performed By: #### L 900.0098, L100.0100, L501.9985, L3890.6006, BTS ####[facility] [address] [place], [address] Lymphocytes/100 WBC (Bld) 26.1 % Normal 19-41 [facility] Comment on above: Performed By: #### L 900.0098, L100.0100, L501.9985, L3890.6006, BTS ####[facility] [address] [place], [address] MCH (RBC) [Entitic mass] 28.6 pg Normal 27.0-32.0 [facility] Comment on above: Performed By: #### L 900.0098, L100.0100, L501.9985, L3890.6006, BTS ####[facility] [address] [place], [address] MCHC (RBC) [Mass/Vol] 33.3 g/dL Normal 32-36 [facility] Comment on above: Performed By: #### L 900.0098, L100.0100, L501.9985, L3890.6006, BTS ####[facility] [address] [place], [address] MCV (RBC) [Entitic vol] 85.9 fL Normal 81-99 [facility] Comment on above: Performed By: #### L 900.0098, L100.0100, L501.9985, L3890.6006, BTS ####[facility] [address] [place], [address] Monocytes/100 WBC (Bld) 6.2 % Normal 0-10 [facility] Comment on above: Performed By: #### L 900.0098, L100.0100, L501.9985, L3890.6006, BTS ####[facility] [address] [place], [address] Neutrophils/100 WBC (Bld) 65.1 % Normal 47-70 [facility] Comment on above: Performed By: #### L 900.0098, L100.0100, L501.9985, L3890.6006, BTS ####[facility] [address] [place], [address] Nucleated RBC (Bld) [#/Vol] 0 10*3/uL Normal 0-5 [facility] Comment on above: Performed By: #### L 900.0098, L100.0100, L501.9985, L3890.6006, BTS ####[facility] [address] [place], [address] Platelet mean volume (Bld) [Entitic vol] 10.3 fL Normal 6.2-12.0 [facility] Comment on above: Performed By: #### L 900.0098, L100.0100, L501.9985, L3890.6006, BTS ####[facility] [address] [place], [address] Platelets (Bld) [#/Vol] 237 10*3/uL Normal 150-450 [facility] Comment on above: Performed By: #### L 900.0098, L100.0100, L501.9985, L3890.6006, BTS ####[facility] [address] [place], [address] RBC (Bld) [#/Vol] 4.26 10*6/uL Normal 4.2-5.4 [facility] Comment on above: Performed By: #### L 900.0098, L100.0100, L501.9985, L3890.6006, BTS ####[facility] [address] [place], [address] RDW SD 40.1 fl Normal 35.1-43.9 [facility] Comment on above: Performed By: #### L 900.0098, L100.0100, L501.9985, L3890.6006, BTS ####[facility] [address] [place], [place], [address] WBC (Bld) [#/Vol] 8.5 10*3/uL Normal 4.4-11.0 [facility] Comment on above: Performed By: #### L 900.0098, L100.0100, L501.9985, L3890.6006, BTS ####[facility] [address] [place], [address] Eosinophil percentageOrdered By: Bobbi Stuart on 10-03-2024 Eosinophils/100 WBC (Bld) 1.8 % 0-5 [facility] Erythrocyte distribution wid th ratioOrdered By: Bobbi Stuart on 10-03-2024 Erythrocyte distribution width (RBC) [Ratio] 12.9 % 11.6-14.6 [facility] Erythrocyte distribution wid th standard deviationOrdered By: Bobbi Stuart on 10-03-2024 Erythrocyte distribution width (RBC) [Entitic vol] 40.1 fL 35.1-43.9 [facility] Erythrocyte distribution width (RBC) [Ratio] 40.1 fl 35.1-43.9 [facility] HBV surface Ag Ql (S)Ordered By: Bobbi Stuart on 10-03-2024 Hepatitis B Surface Antigen Non-Reactive Nonreactive [facility] Comment on above: Reactive: Presumptiv e evidence of HBV. Repeatedly reactive samples must be confirmed using a neutralization test ([employer] HBsAg Confirmatory Test)Non-Reactive: HBsAg not detected; does not exclude the possibility of exposure to HBV Hematocrit Auto (Bld) [Volum e fraction]Ordered By: Bobbi Stuart on 10-03-2024 Hematocrit (Bld) [Volume fraction] 36.6 % Low 37-47 [facility] Hemoglobin A1c percentageOrd ered By: Bobbi Stuart on 10-03-2024 HbA1c (Bld) [Mass fraction] 5.0 % Low >5.7 [facility] Hemoglobin measurementOrdere d By: Bobbi Stuart on 10-03-2024 Hemoglobin (Bld) [Mass/Vol] 12.2 g/dL 12.0-15.0 [facility] Hepatitis C antibodyOrdered By: Bobbi Stuart on 10-03-2024 Hepatitis C Antibody Non-Reactive Nonreactive [facility] Comment on above: Reactive: Presumptiv e evidence of antibodies to HCV. Follow CDC recommendations for supplemental testing.Non-Reactive: Antibodies to HCV were not detected; does not exclude the possibility of exposure to HCVReactive Results are presumptive evidence of antibodies to HCV. Follow CDC recommendations for supplemental testing.Order confirmation testing: HCV Quant by PCR testing - HCVPCR #[id number] Non Reactive: < 0.8 Equivocal: >/= 0.8 to < 1.0 Reactive: >/= 1.0The CDC requires that a reactive/equivocal HCV antibody result be sent out for confirmation. HCV Quant by PCR testing. Immature granulocytes/100 WB C Auto (Bld)Ordered By: Bobbi Stuart on 10-03-2024 Immature granulocytes/100 WBC (Bld) 0.400 % 0.0-0.9 [facility] Comment on above: IG% - Immature Granu locytes (promyelocytes, myelocytes and metamyelocytes) > 1% indicates that a LEFT SHIFT is Present. Laboratory - Microbiology an d Antimicrobial susceptibilityOrdered By: Bobbi Stuart on 10-03-2024 HBV surface Ag Ql (S) Non-Reactive Nonreactive [facility] Comment on above: Reactive: Presumptiv e evidence of HBV. Repeatedly reactive samples must be confirmed using a neutralization test ([employer] HBsAg Confirmatory Test)Non-Reactive: HBsAg not detected; does not exclude the possibility of exposure to HBV Lymphocytes Auto (Unsp spec) [#/Vol]Ordered By: Bobbi Stuart on 10-03-2024 Lymphocytes (Bld) [#/Vol] 2.22 10*3/uL 0.83-4.51 [facility] Lymphocytes/100 WBC Auto (Un sp spec)Ordered By: Bobbi Stuart on 10-03-2024 Lymphocytes/100 WBC (Bld) 26.1 % 19-41 [facility] MCV (mean corpuscular volume ) determinationOrdered By: Bobbi Stuart on 10-03-2024 MCV (RBC) [Entitic vol] 85.9 fL 81-99 [facility] Mean corpuscular hemoglobin (MCH) determinationOrdered By: Bobbi Stuart on 10-03-2024 MCH (RBC) [Entitic mass] 28.6 pg 27.0-32.0 [facility] Mean corpuscular hemoglobin concentration (MCHC) determinationOrdered By: Bobbi Stuart on 10-03-2024 MCHC (RBC) [Mass/Vol] 33.3 g/dL 32-36 [facility] Mean platelet volume determi nationOrdered By: Bobbi Stuart on 10-03-2024 Platelet mean volume (Bld) [Entitic vol] 10.3 fL 6.2-12.0 [facility] Miscellaneous procedureOrder ed By: Bobbi Stuart on 10-03-2024 Miscellaneous Test Comment SEE SCANNED REPORT [facility] Monocyte percentageOrdered B y: Bobbi Stuart on 10-03-2024 Monocytes/100 WBC (Bld) 6.2 % 0-10 [facility] NATERAon 10-03-2024 NATURA SEE SCANNED REPORT Normal [facility] Comment on above: Performed By: #### L 900.0098, L100.0100, L501.9985, L3890.6006, BTS ####[facility] [address] [place], [address] Neutrophil percentageOrdered By: Bobbi Stuart on 10-03-2024 Neutrophils/100 WBC (Bld) 65.1 % 47-70 [facility] No Panel InformationOrdered By: Bobbi Stuart on 10-03-2024 Syphilis Total Antibody Non-Reactive Nonreactiv e [facility] Nucleated red blood cell per centageOrdered By: Bobbi Stuart on 10-03-2024 Nucleated RBC/100 WBC (Bld) [Ratio] 0 % 0-5 [facility] Platelet countOrdered By: Candido Stuart on 10-03-2024 Platelets (Bld) [#/Vol] 237 10*3/uL 150-450 [facility] RBC Auto (Bld) [#/Vol]Ordere d By: Bobbi Stuart on 10-03-2024 RBC (Bld) [#/Vol] 4.26 10*6/uL 4.2-5.4 [facility] Rubella immune status determ ination by IgG antibody assayOrdered By: Bobbi Stuart on 10-03-2024 Rubella IgG Antibody REAC Nonreactive [facility] Comment on above: Antibody Result: Int erpretationNon-Reactive: Non-ImmuneReactive: ImmuneThe following results were obtained with the [employer] Rubella IgG assay. Results from assays of other manufacturers cannot be used interchangeably. Type AND Screenon 10-03-2024 Ab SCREEN GEL Negative Normal [facility] Comment on above: Order Comment: PN Performed By: #### L 900.0098, L100.0100, L501.9985, L3890.6006, BTS ####[facility] [address] [place], [address] ABO and Rh group Nom (Bld) Blood group O Rh(D) positive Normal [facility] Comment on above: Order Comment: PN Performed By: #### L 900.0098, L100.0100, L501.9985, L3890.6006, BTS ####[facility] [address] [place], [address] White blood cell (WBC) count Ordered By: Bobbi Stuart on 10-03-2024 WBC (Bld) [#/Vol] 8.5 10*3/uL 4.4-11.0 [facility] Chlamydia/GC GLEN aptimaon CHLAMY,NUC ACID Negative Normal Negative [facility] Comment on above: Performed By: #### M 100.2200, L7000.1800 ####[facility] [address] [place], [address] GC BY NUC ACID Negative Normal Negative [facility] Comment on above: Result Comment: Perf ormed at: =G - [facility] [address] [id number] Slubber Machine Operator: Natasha Jackson MD, Phone: [phone] Performed By: #### M 100.2200, L7000.1800 ####[facility] [address] [place], [address] Urine Cultureon 09-24-2024 URC #2 Below infection level. Urine Culture Streptococcus agalactiae (B) [place] Count 11,000-25,000 Mixed Gram Positive Organisms Mixed Gram Positive Organisms MIXC Mixed contaminants. Submit a new specimen if indicated. Streptococcus agalactiae (B): REACTION Ampicillin Islt JASMINA <=0.25 cefTRIAXone Islt JASMINA <=0.12 S Clindamycin Islt JASMINA <=0.25 Clindamycin.induced Susc Islt NEG Linezolid Islt JASMINA <=2 S Vancomycin Islt JASMINA 0.25 S Normal [facility] Comment on above: Performed By: #### M 100.2200, L7000.1800 ####[facility] [address] [place], [address] C. trachomatis rRNA GLEN+prob e Ql (Unsp spec)Ordered By: Bobbi Stuart on 09-21-2024 Chlamydia DNA (GLEN) Negative Negative [facility] Chlamydia trachomatis rRNA d etection by probe and target amplification methodOrdered By: Bobbi Stuart on 09-21-2024 C. trachomatis rRNA GLEN+probe Ql (Unsp spec) Negative Negative [facility] Neisseria gonorrhoeae nuclei c acid detection by amplified probe techniqueOrdered By: Bobbi Stuart on 09-21-2024 N. gonorrhoeae DNA GLEN+probe Ql (Unsp spec) Negative Negative [facility] Comment on above: Performed at: =[address] [id number] Director: Natasha Jackson MD, Phone: [phone] Physician Compensation Analyst Office Visit Reporton 09-21-2024 Physician Compensation Analyst Office Visit Report [facility] [address], [address] [place] [address] OFFICE VISIT Date of Service: 09/21/24 MR#: [id number] Acct: [id number] Name: FELIPE PATRICK Rep #: [id number] : 1995 Provider: DULCE Correa ams Age/Sex: 29/F Location: [facility] Status: Signed Intake Vital Signs 09/21/24 14:35 [...] QDAY 09/08/24 09/21/24 H istory capsule (Super [place]-3) Last Menstrual Period: 07/20/24 : Yes PFSH PFSH Medical History Seasonal allergies Surgical History Previous section [place] teeth extracted Family History Grandmother Cancer Paternal [...] No current occupational status: employed 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 Normal [facility] Urine cultureOrdered By: Jaden Stuart on 09-21-2024 Bacteria identified Cx Nom (U) Streptococcus agalactiae (B) Abnormal [facility] Bacteria identified Cx Nom (U) Positive Abnormal [facility] DHEAUon 2024 DHEA. 152 ng/dL Normal 31-701 [facility] ([place]) Comment on above: Result Comment: This test was developed and its performance characteristics determined by [facility]. It has not been cleared or approved by the Food and Drug Administration. Performed At: [facility] [address] [place], [place] [id number] Larry Delcid MD Ph:[phone] Performed By: #### A DIFF, CBC, ABOG, ANSG, ANEU #### [address] [address] #### RPR #### [address] [address] .Auto Diffon 02-02-2024 Basophil, Absolute 0.0 10 3/mcL Normal 0.0-0.2 [facility] ([place]) Comment on above: Performed By: #### G LF #### [address] [address] Basophils/100 WBC (Bld) 0.3 % Normal 0.0-2.5 [facility] ([place]) Comment on above: Performed By: #### G LF #### [address] [address] Eosinophil, Absolute 0.2 10 3/mcL Normal 0.0-0.4 Replaced by [facility] ([place]) Comment on above: Performed By: #### G LF #### [address] [address] Eosinophils/100 WBC (Bld) 1.9 % Normal 0.0-7.0 [facility] ([place]) Comment on above: Performed By: #### G LF #### [address] [address] Lymphocyte, Absolute 2.5 10 3/mcL Normal 0.8-3.9 Replaced by [facility] ([place]) Comment on above: Performed By: #### G LF #### [address] [address] Lymphocytes/100 WBC (Bld) 27.0 % Normal 10.0-50.0 [facility] ([place]) Comment on above: Performed By: #### G LF #### [address] [address] Monocyte, Absolute 0.6 10 3/mcL Normal 0.2-1.0 [facility] ([place]) Comment on above: Performed By: #### G LF #### [address] [address] Monocytes/100 WBC (Bld) 6.1 % Normal 1.7-13.0 [facility] ([place]) Comment on above: Performed By: #### G LF #### [address] [address] Neutrophils/100 WBC (Bld) 64.7 % Normal 37.0-80.0 [facility] ([place]) Comment on above: Performed By: #### G LF #### [address] [address] .GFRon 02-02-2024 GFR 136 ml/min/1.73sqm Normal [facility] ([place]) Comment on above: Result Comment: GFR Population [...] A DIFF, CBC, ABOG, ANSG, ANEU #### [address] [address] #### RPR #### [place] [address] GFR Non- 113 ml/min/1.73sqm Normal [facility] ([place]) Comment on above: Result Comment: GFR Population [...] A DIFF, CBC, ABOG, ANSG, ANEU #### [address] [address] #### RPR #### [address] [address] .NEUABSon 02-02-2024 Neutrophil, Absolute 5.9 10 3/mcL Normal 2.9-6.2 Replaced by [facility] ([place]) Comment on above: Performed By: #### G LF #### [address] [address] A1Con 02-02-2024 HbA1c (Bld) [Mass fraction] 4.9 % Normal 4.3-6.4 [facility] ([place]) Comment on above: Performed By: #### G LF #### [address] [address] B12on 02-02-2024 Cobalamin (Vitamin B12) [Mass/Vol] 357 pg/mL Normal 211-911 [facility] ([place]) Comment on above: Performed By: #### A DIFF, CBC, ABOG, ANSG, ANEU #### [address] [address] #### RPR #### [address] [address] CBCon 02-02-2024 Erythrocyte distribution width (RBC) [Ratio] 13.1 % Normal 11.5-14.5 [facility] ([place]) Comment on above: Performed By: #### G LF #### [address] [address] Hematocrit (Bld) [Volume fraction] 37.3 % Normal 37.0-47.0 [facility] ([place]) Comment on above: Performed By: #### G LF #### [address] [address] Hgb 12.6 G/dL Normal 12.0-16.0 [facility] ([place]) Comment on above: Performed By: #### G LF #### [address] [address] MCH (RBC) [Entitic mass] 29.0 pg Normal 27.0-31.2 [facility] ([place]) Comment on above: Performed By: #### G LF #### [address] [address] MCHC 33.9 G/dL Normal 33.0-37.0 [facility] ([place]) Comment on above: Performed By: #### G LF #### [address] [address] MCV (RBC) [Entitic vol] 85.4 fL Normal 80.0-94.0 [facility] ([place]) Comment on above: Performed By: #### G LF #### [address] [address] Platelet 246 10 3/mcL Normal 130-400 [facility] ([place]) Comment on above: Performed By: #### G LF #### [address] [address] Platelet mean volume (Bld) [Entitic vol] 8.2 fL Normal 7.4-10.4 [facility] ([place]) Comment on above: Performed By: #### G LF #### [address] [address] RBC 4.36 10 6/mcL Normal 4.20-5.40 [facility] ([place]) Comment on above: Performed By: #### G LF #### [address] [address] WBC 9.2 10 3/mcL Normal 4.6-10.8 [facility] ([place]) Comment on above: Performed By: #### G LF #### [address] [address] CMPon 02-02-2024 Albumin Level 4.0 G/dL Normal 3.5-5.0 [facility] ([place]) Comment on above: Performed By: #### A DIFF, CBC, ABOG, ANSG, ANEU #### [place] [address] #### RPR #### [address] [address] Albumin/Globulin [Mass ratio] 1.2 {ratio} Normal 1.1-2.5 [facility] ([place]) Comment on above: Performed By: #### A DIFF, CBC, ABOG, ANSG, ANEU #### [place] [address] #### RPR #### [address] [address] ALP [Catalytic activity/Vol] 97 U/L Normal 40-135 [facility] ([place]) Comment on above: Performed By: #### A DIFF, CBC, ABOG, ANSG, ANEU #### [place] [address] #### RPR #### [address] [address] ALT [Catalytic activity/Vol] 28 U/L Normal 14-59 [facility] ([place]) Comment on above: Performed By: #### A DIFF, CBC, ABOG, ANSG, ANEU #### [place] [address] #### RPR #### [address] [address] AST [Catalytic activity/Vol] 16 U/L Normal 10-40 [facility] ([place]) Comment on above: Performed By: #### A DIFF, CBC, ABOG, ANSG, ANEU #### [place] [address] #### RPR #### [address] [address] Bili Total 0.5 mg/dL Normal 0.2-1.0 [facility] ([place]) Comment on above: Result Comment: Use of this assay is not recommended for patients undergoing treatment with eltrombopag due to the potential for falsely elevated results. Performed By: #### A DIFF, CBC, ABOG, ANSG, ANEU #### [address] [address] #### RPR #### [address] [address] BUN/Creatinine Ratio 17 ratio Normal 7-27 [facility] ([place]) Comment on above: Performed By: #### A DIFF, CBC, ABOG, ANSG, ANEU #### [place] [address] #### RPR #### [address] [address] Calcium [Mass/Vol] 9.1 mg/dL Normal 8.4-10.2 [facility] ([place]) Comment on above: Performed By: #### A DIFF, CBC, ABOG, ANSG, ANEU #### [place] [address] #### RPR #### [address] [address] Chloride [Moles/Vol] 103 mmol/L Normal 98-107 [facility] ([place]) Comment on above: Performed By: #### A DIFF, CBC, ABOG, ANSG, ANEU #### [place] [address] #### RPR #### [address] [address] CO2 [Moles/Vol] 28 mmol/L Normal 22-29 [facility] ([place]) Comment on above: Performed By: #### A DIFF, CBC, ABOG, ANSG, ANEU #### [place] [address] #### RPR #### [address] [address] Creatinine [Mass/Vol] 0.63 mg/dL Normal 0.55-1.02 [facility] ([place]) Comment on above: Performed By: #### A DIFF, CBC, ABOG, ANSG, ANEU #### [address] [address] #### RPR #### [address] [address] Electrolyte Balance 10.0 mEq/L Normal 4.0-15.0 [facility] ([place]) Comment on above: Performed By: #### A DIFF, CBC, ABOG, ANSG, ANEU #### [address] [address] #### RPR #### [address] [address] Globulin 3.3 G/dL Normal [facility] ([place]) Comment on above: Performed By: #### A DIFF, CBC, ABOG, ANSG, ANEU #### [place] [address] #### RPR #### [address] [address] Glucose [Mass/Vol] 76 mg/dL Normal 70-105 [facility] ([place]) Comment on above: Performed By: #### A DIFF, CBC, ABOG, ANSG, ANEU #### [address] [address] #### RPR #### [address] [address] Potassium [Moles/Vol] 3.8 mmol/L Normal 3.5-5.1 [facility] ([place]) Comment on above: Performed By: #### A DIFF, CBC, ABOG, ANSG, ANEU #### [place] [address] #### RPR #### [address] [address] Sodium [Moles/Vol] 141 mmol/L Normal 136-145 [facility] ([place]) Comment on above: Performed By: #### A DIFF, CBC, ABOG, ANSG, ANEU #### [place] [address] #### RPR #### [place] [address] Total Protein 7.3 G/dL Normal 6.4-8.2 [facility] ([place]) Comment on above: Performed By: #### A DIFF, CBC, ABOG, ANSG, ANEU #### [place] [address] #### RPR #### [place] [address] Urea nitrogen [Mass/Vol] 11 mg/dL Normal 7-18 [facility] ([place]) Comment on above: Performed By: #### A DIFF, CBC, ABOG, ANSG, ANEU #### [place] [address] #### RPR #### [place] [address] CPEPon 02-02-2024 C-Peptide 0.90 ng/mL Normal 0.81-3.85 [facility] ([place]) Comment on above: Performed By: #### A DIFF, CBC, ABOG, ANSG, ANEU #### [place] [address] #### RPR #### [place] [address] CRPHSon 02-02-2024 CRP, High Sensitive 5.59 mg/L High 0.20-3.00 [facility] ([place]) Comment on above: Result Comment: Rela tive [...] A DIFF, CBC, ABOG, ANSG, ANEU #### [place] [address] #### RPR #### [address] [address] FEon 02-02-2024 Iron [Mass/Vol] 78 ug/dL Normal 50-170 [facility] ([place]) Comment on above: Performed By: #### G LF #### [address] [address] Tobias 02-02-2024 Ferritin [Mass/Vol] 42.0 ng/mL Normal 8.0-252.0 [facility] ([place]) Comment on above: Performed By: #### G LF #### [address] [address] FOLon 02-02-2024 Folate 34.59 ng/mL High 5.38-24.00 [facility] ([place]) Comment on above: Performed By: #### A DIFF, CBC, ABOG, ANSG, ANEU #### [address] [address] #### RPR #### [place] [id number] FT4on 02-02-2024 Free T4 [Mass/Vol] 1.00 ng/dL Normal 0.76-1.46 [facility] ([place]) Comment on above: Performed By: #### G LF #### [address] [address] LABORATORYOrdered By: SYSTEM SYSTEM on 02-02-2024 25-hydroxyvitamin [...] 02-02-2024 Cholesterol [Mass/Vol] 186 mg/dL Normal 0-200 Replaced by [facility] ([place]) Comment on above: Result Comment: Chol esterol Reference Interval: Less than 200 Desirable 200-239 Borderline high risk 240 and above High risk Performed By: #### A DIFF, CBC, ABOG, ANSG, ANEU #### [address] [address] #### RPR #### [address] [address] Cholesterol in HDL [Mass/Vol] 73 mg/dL High 40-60 [facility] ([place]) Comment on above: Performed By: #### A DIFF, CBC, ABOG, ANSG, ANEU #### [address] [address] #### RPR #### [address] [address] Cholesterol in LDL [Mass/Vol] 100 mg/dL Normal 0-130 [facility] ([place]) Comment on above: Performed By: #### A DIFF, CBC, ABOG, ANSG, ANEU #### [address] [address] #### RPR #### [address] [address] Triglyceride [Mass/Vol] 66 mg/dL Normal 0-150 [facility] ([place]) Comment on above: Result Comment: Trig lyceride Reference Interval: Less than 150 Normal 150-199 Borderline high risk 200-499 High risk 500 or higher Very high risk Performed By: #### A DIFF, CBC, ABOG, ANSG, ANEU #### [place] [address] #### RPR #### [address] [address] TSHon 02-02-2024 TSH Qn 1.75 m[IU]/L Normal 0.36-3.74 [facility] ([place] Comment on above: Performed By: #### G LF #### [address] [address] VIDHon 02-02-2024 Vit. D 25-Hydroxy 33.4 ng/mL Normal [facility] ([place]) Comment on above: Result Comment: Inte rpretive Values Based on Total 25(OH) Vitamin D: Deficient <20 ng/mL Insufficient 20 - <30 ng/mL Sufficient 30-100 ng/mL Performed By: #### G LF #### [place] [id number] .Auto Diffon 05-26-2023 Basophil, Absolute 0.0 10 3/mcL Normal 0.0-0.2 [facility] ([place] Comment on above: Performed By: #### A DIFF, CBC, ABOG, ANSG, ANEU #### [place] [address] #### RPR #### [address] [address] Basophils/100 WBC (Bld) 0.1 % Normal 0.0-2.5 [facility] ([place] Comment on above: Performed By: #### A DIFF, CBC, ABOG, ANSG, ANEU #### [address] [address] #### RPR #### [address] [address] Eosinophil, Absolute 0.0 10 3/mcL Normal 0.0-0.4 Replaced by [facility] ([place] Comment on above: Performed By: #### A DIFF, CBC, ABOG, ANSG, ANEU #### [place] [address] #### RPR #### [address] [address] Eosinophils/100 WBC (Bld) 0.0 % Normal 0.0-7.0 [facility] ([place] Comment on above: Performed By: #### A DIFF, CBC, ABOG, ANSG, ANEU #### [place] [address] #### RPR #### [address] [address] Lymphocyte, Absolute 1.6 10 3/mcL Normal 0.8-3.9 Replaced by [facility] ([place] Comment on above: Performed By: #### A DIFF, CBC, ABOG, ANSG, ANEU #### [place] [address] #### RPR #### [address] [address] Lymphocytes/100 WBC (Bld) 7.5 % Low 10.0-50.0 [facility] ([place] Comment on above: Performed By: #### A DIFF, CBC, ABOG, ANSG, ANEU #### [address] [address] #### RPR #### [address] [address] Monocyte, Absolute 0.7 10 3/mcL Normal 0.2-1.0 [facility] ([place] Comment on above: Performed By: #### A DIFF, CBC, ABOG, ANSG, ANEU #### [address] [address] #### RPR #### [address] [address] Monocytes/100 WBC (Bld) 3.2 % Normal 1.7-13.0 [facility] ([place] Comment on above: Performed By: #### A DIFF, CBC, ABOG, ANSG, ANEU #### [address] [address] #### RPR #### [address] [address] Neutrophils/100 WBC (Bld) 89.2 % High 37.0-80.0 [facility] ([place] Comment on above: Performed By: #### A DIFF, CBC, ABOG, ANSG, ANEU #### [address] [address] #### RPR #### [address] [address] .Morphon 05-26-2023 Platelet Estimate Normal Normal [facility] ([place] Comment on above: Performed By: #### A DIFF, CBC, ABOG, ANSG, ANEU #### [place] [address] #### RPR #### [address] [address] .NEUABSon 05-26-2023 Neutrophil, Absolute 18.8 10 3/mcL High 2.9-6.2 [facility] ([place] Comment on above: Performed By: #### A DIFF, CBC, ABOG, ANSG, ANEU #### [place] [address] #### RPR #### [address] [address] CBCon 05-26-2023 Erythrocyte distribution width (RBC) [Ratio] 14.0 % Normal 11.5-14.5 [facility] ([place] Comment on above: Performed By: #### A DIFF, CBC, ABOG, ANSG, ANEU #### [place] [address] #### RPR #### [place] [address] Hematocrit (Bld) [Volume fraction] 25.1 % Low 37.0-47.0 [facility] ([place] Comment on above: Performed By: #### A DIFF, CBC, ABOG, ANSG, ANEU #### [place] [address] #### RPR #### [place] [address] Hgb 8.2 G/dL Low 12.0-16.0 [facility] ([place] Comment on above: Performed By: #### A DIFF, CBC, ABOG, ANSG, ANEU #### [place] [address] #### RPR #### [place] [address] MCH (RBC) [Entitic mass] 28.7 pg Normal 27.0-31.2 [facility] ([place]) Comment on above: Performed By: #### A DIFF, CBC, ABOG, ANSG, ANEU #### [place] [address] #### RPR #### [place] [address] MCHC 32.8 G/dL Low 33.0-37.0 [facility] ([place] Comment on above: Performed By: #### A DIFF, CBC, ABOG, ANSG, ANEU #### [place] [address] #### RPR #### [place] [address] MCV (RBC) [Entitic vol] 87.7 fL Normal 80.0-94.0 [facility] ([place] Comment on above: Performed By: #### A DIFF, CBC, ABOG, ANSG, ANEU #### [place] [address] #### RPR #### [place] [address] Platelet 168 10 3/mcL Normal 130-400 [facility] ([place] Comment on above: Performed By: #### A DIFF, CBC, ABOG, ANSG, ANEU #### [place] [address] #### RPR #### [place] [address] Platelet mean volume (Bld) [Entitic vol] 10.2 fL Normal 7.4-10.4 [facility] ([place] Comment on above: Performed By: #### A DIFF, CBC, ABOG, ANSG, ANEU #### [place] [address] #### RPR #### [place] [address] RBC 2.87 10 6/mcL Low 4.20-5.40 [facility] ([place] Comment on above: Performed By: #### A DIFF, CBC, ABOG, ANSG, ANEU #### [place] [address] #### RPR #### [place] [address] WBC 21.1 10 3/mcL High 4.6-10.8 [facility] ([place] Comment on above: Performed By: #### A DIFF, CBC, ABOG, ANSG, ANEU #### [place] [address] #### RPR #### [place] [address] RPRon 05-26-2023 Reagin Ab RPR Ql (S) Non-Reactive Normal Non-Reactive [facility] ([place] Comment on above: Result Comment: The RPR [...] A DIFF, CBC, ABOG, ANSG, ANEU #### [place] [address] #### RPR #### [address] [address] .Auto Diffon 05-25-2023 Basophil, Absolute 0.0 10 3/mcL Normal 0.0-0.2 [facility] ([place] Comment on above: Performed By: #### A DIFF, CBC, ABOG, ANSG, ANEU #### [place] [address] #### RPR #### [address] [address] Basophils/100 WBC (Bld) 0.3 % Normal 0.0-2.5 [facility] ([place] Comment on above: Performed By: #### A DIFF, CBC, ABOG, ANSG, ANEU #### [place] [address] #### RPR #### [address] [address] Eosinophil, Absolute 0.1 10 3/mcL Normal 0.0-0.4 Replaced by [facility] [place] Comment on above: Performed By: #### A DIFF, CBC, ABOG, ANSG, ANEU #### [place] [address] #### RPR #### [address] [address] Eosinophils/100 WBC (Bld) 0.9 % Normal 0.0-7.0 [facility] ([place] Comment on above: Performed By: #### A DIFF, CBC, ABOG, ANSG, ANEU #### [place] [address] #### RPR #### [address] [address] Lymphocyte, Absolute 2.4 10 3/mcL Normal 0.8-3.9 Replaced by [facility] [place] Comment on above: Performed By: #### A DIFF, CBC, ABOG, ANSG, ANEU #### [address] [address] #### RPR #### [address] [address] Lymphocytes/100 WBC (Bld) 18.3 % Normal 10.0-50.0 [facility] ([place] Comment on above: Performed By: #### A DIFF, CBC, ABOG, ANSG, ANEU #### [place] [address] #### RPR #### [address] [address] Monocyte, Absolute 0.6 10 3/mcL Normal 0.2-1.0 [facility] ([place] Comment on above: Performed By: #### A DIFF, CBC, ABOG, ANSG, ANEU #### [place] [address] #### RPR #### [address] [address] Monocytes/100 WBC (Bld) 4.8 % Normal 1.7-13.0 [facility] ([place] Comment on above: Performed By: #### A DIFF, CBC, ABOG, ANSG, ANEU #### [place] [address] #### RPR #### [address] [address] Neutrophils/100 WBC (Bld) 75.7 % Normal 37.0-80.0 [facility] ([place] Comment on above: Performed By: #### A DIFF, CBC, ABOG, ANSG, ANEU #### [place] [address] #### RPR #### [address] [address] .GFRon 05-25-2023 GFR Non- 69 ml/min/1.73sqm Normal [facility] ([place] Comment on above: Result Comment: GFR Population [...] meters Performed By: #### R PCUR #### [address] [address] GFR 84 ml/min/1.73sqm Normal [facility] ([place] Comment on above: Result Comment: GFR Population [...] meters Performed By: #### R PCUR #### [address] [address] .NEUABSon 05-25-2023 Neutrophil, Absolute 9.9 10 3/mcL High 2.9-6.2 Replaced by [facility] ([place] Comment on above: Performed By: #### A DIFF, CBC, ABOG, ANSG, ANEU #### [address] [address] #### RPR #### [address] [address] .Urinalysis Microscopic (AO) on 05-25-2023 UA Amorphus Trace Normal [facility] ([place] Comment on above: Performed By: #### R PCUR #### [address] [address] UA Bacteria Trace Abnormal [facility] ([place] Comment on above: Performed By: #### R PCUR #### [address] [address] UA Mucous 1+ /hpf Normal [facility] ([place] Comment on above: Performed By: #### R PCUR #### [address] [address] UA RBC LOADED Abnormal None Seen [facility] ([place] Comment on above: Performed By: #### R PCUR #### [address] [address] UA Squam Epithelial 0-5 Abnormal None Seen [facility] ([place] Comment on above: Performed By: #### R PCUR #### [address] [address] UA WBC 0-5 Abnormal None Seen [facility] ([place] Comment on above: Performed By: #### R PCUR #### [place] [id number] CBCon 05-25-2023 Erythrocyte distribution width (RBC) [Ratio] 13.8 % Normal 11.5-14.5 [facility] ([place] Comment on above: Performed By: #### A DIFF, CBC, ABOG, ANSG, ANEU #### [place] [address] #### RPR #### [facility] [address] [place], [place] [address] Hematocrit (Bld) [Volume fraction] 35.5 % Low 37.0-47.0 [facility] ([place] Comment on above: Performed By: #### A DIFF, CBC, ABOG, ANSG, ANEU #### [place] [address] #### RPR #### [place] [address] Hgb 11.9 G/dL Low 12.0-16.0 [facility] ([place] Comment on above: Performed By: #### A DIFF, CBC, ABOG, ANSG, ANEU #### [address] [address] #### RPR #### [place] [address] MCH (RBC) [Entitic mass] 28.8 pg Normal 27.0-31.2 [facility] ([place] Comment on above: Performed By: #### A DIFF, CBC, ABOG, ANSG, ANEU #### [place] [address] #### RPR #### [place] [address] MCHC 33.6 G/dL Normal 33.0-37.0 [facility] ([place] Comment on above: Performed By: #### A DIFF, CBC, ABOG, ANSG, ANEU #### [place] [address] #### RPR #### [place] [address] MCV (RBC) [Entitic vol] 85.7 fL Normal 80.0-94.0 [facility] ([place] Comment on above: Performed By: #### A DIFF, CBC, ABOG, ANSG, ANEU #### [place] [address] #### RPR #### [place] [address] Platelet 181 10 3/mcL Normal 130-400 [facility] ([place] Comment on above: Performed By: #### A DIFF, CBC, ABOG, ANSG, ANEU #### [place] [address] #### RPR #### [place] [address] Platelet mean volume (Bld) [Entitic vol] 10.0 fL Normal 7.4-10.4 [facility] ([place] Comment on above: Performed By: #### A DIFF, CBC, ABOG, ANSG, ANEU #### [place] [address] #### RPR #### [place] [address] RBC 4.14 10 6/mcL Low 4.20-5.40 [facility] ([place] Comment on above: Performed By: #### A DIFF, CBC, ABOG, ANSG, ANEU #### [place] [address] #### RPR #### [place] [address] WBC 13.1 10 3/mcL High 4.6-10.8 [facility] ([place] Comment on above: Performed By: #### A DIFF, CBC, ABOG, ANSG, ANEU #### [place] [address] #### RPR #### [place] [address] CMPon 05-25-2023 Albumin Level 2.6 G/dL Low 3.5-5.0 [facility] ([place] Comment on above: Performed By: #### R PCUR #### [address] [address] Albumin/Globulin [Mass ratio] 0.6 {ratio} Low 1.1-2.5 [facility] ([place] Comment on above: Performed By: #### R PCUR #### [address] [address] ALP [Catalytic activity/Vol] 145 U/L High 40-135 [facility] ([place] Comment on above: Performed By: #### R PCUR #### [address] [address] ALT [Catalytic activity/Vol] 51 U/L Normal 14-59 [facility] ([place] Comment on above: Performed By: #### R PCUR #### [address] [address] AST [Catalytic activity/Vol] 31 U/L Normal 10-40 [facility] ([place] Comment on above: Performed By: #### R PCUR #### [address] [address] Bili Total 0.2 mg/dL Normal 0.2-1.0 [facility] ([place] Comment on above: Result Comment: Use of this assay is not recommended for patients undergoing treatment with eltrombopag due to the potential for falsely elevated results. Performed By: #### R PCUR #### [address] [address] BUN/Creatinine Ratio 16 ratio Normal 7-27 [facility] ([place] Comment on above: Performed By: #### R PCUR #### [address] [address] Calcium [Mass/Vol] 9.0 mg/dL Normal 8.4-10.2 [facility] ([place] Comment on above: Performed By: #### R PCUR #### [address] [address] Chloride [Moles/Vol] 102 mmol/L Normal 98-107 [facility] ([place] Comment on above: Performed By: #### R PCUR #### [address] [address] CO2 [Moles/Vol] 22 mmol/L Normal 22-29 [facility] ([place] Comment on above: Performed By: #### R PCUR #### [address] [address] Creatinine [Mass/Vol] 0.96 mg/dL Normal 0.55-1.02 [facility] ([place] Comment on above: Performed By: #### R PCUR #### [address] [address] Electrolyte Balance 7.0 mEq/L Normal 4.0-15.0 [facility] ([place] Comment on above: Performed By: #### R PCUR #### [address] [address] Globulin 4.1 G/dL Normal [facility] ([place] Comment on above: Performed By: #### R PCUR #### [place] [address] [place], [place] [address] Glucose [Mass/Vol] 117 mg/dL High 70-105 [facility] ([place] Comment on above: Performed By: #### R PCUR #### [place] [address] [address] Potassium [Moles/Vol] 4.1 mmol/L Normal 3.5-5.1 [facility] ([place] Comment on above: Performed By: #### R PCUR #### [address] [address] Sodium [Moles/Vol] 131 mmol/L Low 136-145 [facility] ([place] Comment on above: Performed By: #### R PCUR #### [address] [address] Total Protein 6.7 G/dL Normal 6.4-8.2 [facility] ([place] Comment on above: Performed By: #### R PCUR #### [address] [address] Urea nitrogen [Mass/Vol] 15 mg/dL Normal 7-18 [facility] ([place] Comment on above: Performed By: #### R PCUR #### [address] [address] Gel ABOon 05-25-2023 ABO/Rh Interp Positive Invalid Interpretation Code [facility] ([place] Comment on above: Performed By: #### A DIFF, CBC, ABOG, ANSG, ANEU #### [address] [address] #### RPR #### [address] [address] Gel ABSon 05-25-2023 Antibody Screen Gel Negative Normal [facility] ([place] Comment on above: Performed By: #### A DIFF, CBC, ABOG, ANSG, ANEU #### [address] [address] #### RPR #### [facility] [address] [place] [address] RPCURon 05-25-2023 U Creatinine 137.8 mg/dL High 28.0-117.0 [facility] ([place] Comment on above: Performed By: #### R PCUR #### [address] [address] U Protein 48 mg/dL High 0-11 [facility] ([place] Comment on above: Performed By: #### R PCUR #### [address] [address] U Ratio Prot/Creat 0.4 ratio Normal [facility] ([place] Comment on above: Result Comment: resu lt calculated by rule [id number]_[id number]_OLD (U Protein/U Creatinine) Performed By: #### R PCUR #### [address] [address] UAon 05-25-2023 Color (U) Yellow Normal [facility] ([place] Comment on above: Performed By: #### R PCUR #### [address] [address] Glucose (U) [Mass/Vol] Negative Normal Negative Replaced by [facility] ([place] Comment on above: Performed By: #### R PCUR #### [address] [address] Ketones Ql (U) Negative Normal Negative [facility] ([place] Comment on above: Performed By: #### R PCUR #### [address] [address] UA Appear Cloudy Abnormal Clear [facility] ([place] Comment on above: Performed By: #### R PCUR #### [address] [address] UA Blood Large Abnormal Negative [facility] ([place] Comment on above: Performed By: #### R PCUR #### [address] [address] UA Leuk Est Negative Normal Negative [facility] ([place] Comment on above: Performed By: #### R PCUR #### [place] [address] [address] UA Nitrite Negative Normal Negative [facility] ([place] Comment on above: Performed By: #### R PCUR #### [address] [address] UA pH 6.0 Normal 5.0 - 8.0 [facility] ([place] Comment on above: Performed By: #### R PCUR #### [address] [address] UA Protein 30 mg/dL Normal Negative [facility] ([place] Comment on above: Performed By: #### R PCUR #### [address] [address] UA Spec Grav >=1.030 Abnormal 1.015-1.025 [facility] ([place] Comment on above: Performed By: #### R PCUR #### [address] [address] UA Specimen Type Clean Catch Normal [facility] ([place] Comment on above: Performed By: #### R PCUR #### [address] [address] UA Urobilinogen 0.2 E.U./dL Normal 0.2-1.0 [facility] ([place] Comment on above: Performed By: #### R PCUR #### [address] [address] Urobilinogen (U) [Mass/Vol] Negative Normal Negative [facility] ([place] Comment on above: Performed By: #### R PCUR #### [address] [address] URICon 05-25-2023 Uric Acid Lvl 5.3 mg/dL Normal 2.6-6.2 [facility] ([place] Comment on above: Performed By: #### R PCUR #### [address] [address] GBSPCRon 04-22-2023 Group B Strep (PCR) Negative Normal Negative [facility] ([place] Comment on above: Performed By: #### G LF #### [address] [address] Group B Strep PCR Int Normal l [facility] ([place] Comment on above: Result Comment: Grou p [...] Below Performed By: #### G LF #### [address] [address] LABORATORYOrdered By: Vidya Berumen on 04-20-2023 Group [...] Normal 120-190 [facility] ([place] Comment on above: Performed By: #### R PCUR #### [address] [address] GL2on 03-05-2023 Glucose [Mass/Vol] 177 mg/dL High 70-165 [facility] ([place] Comment on above: Performed By: #### R PCUR #### [address] [address] GL3on 03-05-2023 Glucose [Mass/Vol] 135 mg/dL Normal 70-145 [facility] ([place] Comment on above: Performed By: #### G L3 #### [address] [address] GLFon 03-05-2023 Glucose [Mass/Vol] 90 mg/dL Normal 83-110 [facility] ([place] Comment on above: Performed By: #### G LF #### [address] [address] LABORATORYOrdered By: Susi Davis on 03-05-2023 Glucose [...] Basophil, Absolute 0.0 10 3/mcL Normal 0.0-0.2 [facility] ([place] Comment on above: Performed By: #### R PCUR #### [address] [address] Basophils/100 WBC (Bld) 0.2 % Normal 0.0-2.5 [facility] ([place] Comment on above: Performed By: #### R PCUR #### [address] [address] Eosinophil, Absolute 0.1 10 3/mcL Normal 0.0-0.4 Replaced by [facility] [place] Comment on above: Performed By: #### R PCUR #### [address] [address] Eosinophils/100 WBC (Bld) 1.0 % Normal 0.0-7.0 [facility] ([place] Comment on above: Performed By: #### R PCUR #### [address] [address] Lymphocyte, Absolute 1.2 10 3/mcL Normal 0.8-3.9 Replaced by [facility] [place] Comment on above: Performed By: #### R PCUR #### [address] [address] Lymphocytes/100 WBC (Bld) 11.0 % Normal 10.0-50.0 [facility] ([place] Comment on above: Performed By: #### R PCUR #### [address] [address] Monocyte, Absolute 0.4 10 3/mcL Normal 0.2-1.0 [facility] ([place] Comment on above: Performed By: #### R PCUR #### [address] [address] Monocytes/100 WBC (Bld) 3.6 % Normal 1.7-13.0 [facility] ([place] Comment on above: Performed By: #### R PCUR #### [address] [address] Neutrophils/100 WBC (Bld) 84.2 % High 37.0-80.0 [facility] ([place] Comment on above: Performed By: #### R PCUR #### [address] [address] .NEUABSon 02-19-2023 Neutrophil, Absolute 9.6 10 3/mcL High 2.9-6.2 Replaced by [facility] [place] Comment on above: Performed By: #### R PCUR #### [address] [address] CBCon 02-19-2023 Erythrocyte distribution width (RBC) [Ratio] 13.3 % Normal 11.5-14.5 [facility] ([place] Comment on above: Performed By: #### A DIFF, ANEU, CBC, GLU1P #### [address] [address] Hematocrit (Bld) [Volume fraction] 32.7 % Low 37.0-47.0 [facility] ([place] Comment on above: Performed By: #### A DIFF, ANEU, CBC, GLU1P #### [address] [address] Hgb 11.2 G/dL Low 12.0-16.0 [facility] ([place] Comment on above: Performed By: #### A DIFF, ANEU, CBC, GLU1P #### [address] [address] MCH (RBC) [Entitic mass] 29.9 pg Normal 27.0-31.2 [facility] ([place] Comment on above: Performed By: #### A DIFF, ANEU, CBC, GLU1P #### [address] [address] MCHC 34.4 G/dL Normal 33.0-37.0 [facility] ([place] Comment on above: Performed By: #### A DIFF, ANEU, CBC, GLU1P #### [address] [address] MCV (RBC) [Entitic vol] 86.9 fL Normal 80.0-94.0 [facility] ([place] Comment on above: Performed By: #### A DIFF, ANEU, CBC, GLU1P #### [address] [address] Platelet 221 10 3/mcL Normal 130-400 [facility] ([place] Comment on above: Performed By: #### A DIFF, ANEU, CBC, GLU1P #### [address] [address] Platelet mean volume (Bld) [Entitic vol] 8.4 fL Normal 7.4-10.4 [facility] ([place] Comment on above: Performed By: #### A DIFF, ANEU, CBC, GLU1P #### [address] [address] RBC 3.76 10 6/mcL Low 4.20-5.40 [facility] ([place] Comment on above: Performed By: #### A DIFF, ANEU, CBC, GLU1P #### [address] [address] WBC 11.4 10 3/mcL High 4.6-10.8 [facility] ([place] Comment on above: Performed By: #### A DIFF, ANEU, CBC, GLU1P #### [place] [address] [place], [place] [address] RKH7Lot 02-19-2023 Glucose [Mass/Vol] 149 mg/dL High 70-140 [facility] ([place] Comment on above: Performed By: #### R PCUR #### [place] [address] [place], [place] [address] LABORATORYOrdered By: SYSTEM SYSTEM on 02-19-2023 Basophil, [...] ml/min/1.73sqm Invalid Interpretation Code AO Chemistry S [employer] Cytology Reporton 2021 [employer] Cytology Report . Pathology Reports Accession: Collected Date/Time: Received Date/Time: Pathologist: [id number] 11/13/2021 15:09 EDT 11/13/2021 18:00 EDT YVONNE OSBORNE MD [employer] Cytology Report SPECIMEN: Specimen Description: Liquid Prep [...] and evaluated with the assistance of the [employer] Thin Prep Test Imaging System. Electronically Signed by Pathology report verified by [facility] Screened by: MICAH DW Electronically signed by YVONNE OSBORNE Sign-Out Date: 11/19/2021 14:15 Performing Lab: [facility], [address] [place] [id number] [place] [address] Disclaimer The Pap test is a screening test for cervical cancer. As evidenced by published data, it is sub ject to both inherent false negative and false positive results. Your patient's results should be interpreted in context with pertinent clinical history including gynecological examination. Normal [facility] [place] Vital Signs Date Time Vital Sign Value Performing Clinician Franchesca hudson 04-20-2025 09:03-0400 Body height 157.[address] Jhonny Cobian MD Work Phone: [facility] 04-20-2025 09:03-0400 Body mass index (BMI) [Ratio] 38.7 kg/m2 Dr. Jhonny Cobian MD Work Phone: [facility] 04-20-2025 09:03-0400 Body weight 96.[address] Jhonny Cobian MD Work Phone: [facility] 04-20-2025 09:03-0400 Diastolic blood pressure 81 mm[Hg] Dr. Jhonny Cobian MD Work Phone: [facility] 04-20-2025 09:03-0400 Systolic blood pressure 128 mm[Hg] Dr. Jhonny Cobian MD Work Phone: [facility] 04-11-2025 08:40-0400 Body height 157.[address] Jhonny Cobian MD Work Phone: [facility] 04-11-2025 08:38-0400 Body mass index (BMI) [Ratio] 38.9 kg/m2 Dr. Jhonny Cobian MD Work Phone: [facility] 04-11-2025 08:38-0400 Body weight 96.[address] Jhonny Cobian MD Work Phone: [facility] 04-11-2025 08:38-0400 Diastolic blood pressure 78 mm[Hg] Dr. Jhonny Cobian MD Work Phone: [facility] 04-11-2025 08:38-0400 Systolic blood pressure 126 mm[Hg] Dr. Jhonny Cobian MD Work Phone: [facility] 04-02-2025 09:23-0400 Body height 157.[address] Jhonny Cobian MD Work Phone: [facility] 04-02-2025 09:23-0400 Body mass index (BMI) [Ratio] 38.9 kg/m2 Dr. Jhonny Cobian MD Work Phone: [facility] 04-02-2025 09:23-0400 Body weight 96.[address] Jhonny Cobian MD Work Phone: [facility] 04-02-2025 09:23-0400 Diastolic blood pressure 86 mm[Hg] Dr. Jhonny Cobian MD Work Phone: [facility] 04-02-2025 09:23-0400 Systolic blood pressure 133 mm[Hg] Dr. Jhonny Cobian MD Work Phone: [facility] 03-28-2025 15:41-0400 Body height 157.[address] Jhonny Cobian MD Work Phone: [facility] 03-28-2025 15:39-0400 Body mass index (BMI) [Ratio] 38.5 kg/m2 Dr. Jhonny Cobian MD Work Phone: [facility] 03-28-2025 15:39-0400 Body weight 95.[address] Jhonny Cobian MD Work Phone: [facility] 03-28-2025 15:39-0400 Diastolic blood pressure 81 mm[Hg] Dr. Jhonny Cobian MD Work Phone: [facility] 03-28-2025 15:39-0400 Systolic blood pressure 128 mm[Hg] Dr. Jhonny Cobian MD Work Phone: [facility] 03-14-2025 09:01-0400 Body height 157.[address] Jhonny Cobian MD Work Phone: [facility] 03-14-2025 09:01-0400 Body mass index (BMI) [Ratio] 38.7 kg/m2 Dr. Jhonny Cobian MD Work Phone: [facility] 03-14-2025 09:01-0400 Body weight 95.[address] Jhonny Cobian MD Work Phone: [facility] 03-14-2025 09:01-0400 Diastolic blood pressure 70 mm[Hg] Dr. Jhonny Cobian MD Work Phone: [facility] 03-14-2025 09:01-0400 Systolic blood pressure 115 mm[Hg] Dr. Jhonny Cobian MD Work Phone: [facility] 03-12-2025 10:22-0400 Body weight 96.[address] Jhonny Cobian MD Work Phone: [facility] 02-27-2025 15:29-0400 Body height 157.[address] Jhonny Cobian MD Work Phone: [facility] 02-27-2025 15:29-0400 Body mass index (BMI) [Ratio] 38.8 kg/m2 Dr. Jhonny Cobian MD Work Phone: [facility] 02-27-2025 15:29-0400 Body weight 96.[address] Jhonny Cobian MD Work Phone: [facility] 02-27-2025 15:29-0400 Diastolic blood pressure 77 mm[Hg] Dr. Jhonny Cobian MD Work Phone: [facility] 02-27-2025 15:29-0400 Systolic blood pressure 114 mm[Hg] Dr. Jhonny Cobian MD Work Phone: [facility] 02-15-2025 09:27-0400 Body height 157.[address] Jhonny Cobian MD Work Phone: [facility] 02-15-2025 09:24-0400 Body mass index (BMI) [Ratio] 38.8 kg/m2 Dr. Jhonny Cobian MD Work Phone: [facility] 02-15-2025 09:24-0400 Body weight 96.[address] Jhonny Cobian MD Work Phone: [facility] 02-15-2025 09:24-0400 Diastolic blood pressure 70 mm[Hg] Dr. Jhonny Cobian MD Work Phone: [facility] 02-15-2025 09:24-0400 Systolic blood pressure 107 mm[Hg] Dr. Jhonny Cobian MD Work Phone: [facility] 02-02-2025 10:25-0400 Body height 157.[address] Emilia Goodman MD Work Phone: [facility] 02-02-2025 10:22-0400 Body mass index (BMI) [Ratio] 38.5 kg/m2 Dr. Emilia Goodman MD Work Phone: [facility] 02-02-2025 10:22-0400 Body weight 95.[address] Emilia Goodman MD Work Phone: [facility] 02-02-2025 10:22-0400 Diastolic blood pressure 75 mm[Hg] Dr. Emilia Goodman MD Work Phone: [facility] 02-02-2025 10:22-0400 Systolic blood pressure 112 mm[Hg] Dr. Emilia Goodman MD Work Phone: [facility] 01-10-2025 10:23-0400 Body height 157.48 cm Bobbi AQUINOM Work Phone: [facility] 01-10-2025 10:23-0400 Body mass index (BMI) [Ratio] 38.3 kg/m2 Bobbi AQUINOM Work Phone: [facility] 01-10-2025 10:23-0400 Body weight 95.02 kg Bobbi AQUINOM Work Phone: [facility] 01-10-2025 10:23-0400 Diastolic blood pressure 78 mm[Hg] Bobbi AQUINOM Work Phone: [facility] 01-10-2025 10:23-0400 Systolic blood pressure 116 mm[Hg] Bobbi AQUINOM Work Phone: [facility] 12-15-2024 15:30-0400 Body mass index (BMI) [Ratio] 37.5 kg/m2 Bobbi AQUINOM Work Phone: [facility] 12-15-2024 15:30-0400 Body weight 93.04 kg Bobbi AQUINOM Work Phone: [facility] 12-15-2024 15:30-0400 Diastolic blood pressure 79 mm[Hg] Bobbi Stuart CNM Work Phone: [facility] 12-15-2024 15:30-0400 Systolic blood pressure 122 mm[Hg] Bobbi Stuart CNM Work Phone: [facility] 11-17-2024 11:15-0400 Body mass index (BMI) [Ratio] 37.1 kg/m2 Bobbi Stuart CNM Work Phone: [facility] 11-17-2024 11:15-0400 Body weight 92.13 kg Bobbi Stuart CNM Work Phone: [facility] 11-17-2024 11:15-0400 Diastolic blood pressure 73 mm[Hg] Bobbi Stuart CNM Work Phone: [facility] 11-17-2024 11:15-0400 Systolic blood pressure 110 mm[Hg] Bobbi Stuart CNM Work Phone: [facility] 10-19-2024 14:58-0400 Body mass index (BMI) [Ratio] 36.3 kg/m2 Bobbi Stuart CNM Work Phone: [facility] 10-19-2024 14:58-0400 Body weight 89.98 kg Bobbi Stuart CNM Work Phone: [facility] 10-19-2024 14:58-0400 Diastolic blood pressure 78 mm[Hg] Bobbi Stuart CNM Work Phone: [facility] 10-19-2024 14:58-0400 Systolic blood pressure 130 mm[Hg] Bobbi Stuart CNM Work Phone: [facility] 09-21-2024 14:35-0500 Body height 157.48 cm Bobbi Stuart CNM Work Phone: [facility] 09-21-2024 14:35-0500 Body mass index (BMI) [Ratio] 36.4 kg/m2 Bobbi Stuart CNM Work Phone: [facility] 09-21-2024 14:35-0500 Body weight 90.43 kg Bobbi Stuart CNM Work Phone: [facility] 09-21-2024 14:35-0500 Diastolic blood pressure 84 mm[Hg] Bobbi Stuart CNM Work Phone: [facility] 09-21-2024 14:35-0500 Systolic blood pressure 132 mm[Hg] Bobbi Stuart CNM Work Phone: [facility] 12-23-2021 20:33-0400 Body temperature 98.24 [degF] DR ELIZABETH CORNEJO DO [facility] 12-23-2021 20:33-0400 Diastolic blood pressure 80 mm[Hg] DR ELIZABETH CORNEJO DO [facility] 12-23-2021 20:33-0400 Heart rate 92 /min DR ELIZABETH CORNEJO DO [facility] 12-23-2021 20:33-0400 Respiratory rate 18 /min DR ELIZABETH CORNEJO DO [facility] 12-23-2021 20:33-0400 Systolic blood pressure 128 mm[Hg] DR ELIZABETH CORNEJO DO [facility] Encounters Encounter Date Encounter Type Care Provider Facility Start: 04-20-2025 End: 04-20-2025 ambulatory Emilia Goodman Facility:[facility] Start: 04-20-2025 End: 04-20-[address] Emilia Goodman MD -[facility] Work Phone: Start: 04-19-2025 End: 04-19-[address] Jhonny Cobian MD Work Phone: -Physical Therapy Start: 04-19-2025 End: 04-19-[address] Emilia Goodman MD -Physical Therapy Work Phone: Start: 04-19-2025 ambulatory Emilia Sorensen lity:[facility] Start: 04-12-2025 ambulatory Emilia Sorensen lity:[facility] Start: 04-11-2025 End: 04-11-[address] Emmy Davis DO [facility] Work Phone: Start: 04-11-2025 End: 04-11-[address] Jhonny Cobian MD Work Phone: [facility] Start: 04-05-[address] Chen Goodman MD -Physical Therapy Work Phone: Start: 04-02-2025 End: 04-02-2025 Patient encounter procedure Bobbi Stuart CNM -[facility] Work Phone: Start: 04-02-2025 End: 04-02-[address] Jhonny Cobian MD Work Phone: [facility] Start: 03-28-2025 End: 03-28-[address] Emmy Davis DO -[facility] Work Phone: Start: 03-28-2025 End: 03-28-[address] Jhonny Cobian MD Work Phone: [facility] Start: 03-26-[address] Chen Goodman MD -Physical Therapy Work Phone: Start: 03-23-2025 End: 03-23-[address] Jhonny Cobian MD Work Phone: -Ultrasound [facility] Start: 03-23-2025 End: 03-23-2025 Patient encounter procedure Bobbi Stuart CNM -Ultrasound [facility] Work Phone: Start: 03-23-2025 End: 03-23-2025 ambulatory Bobbi Stuart Facility:[facility] Start: 03-14-2025 End: 03-14-2025 Patient encounter procedure Bobbi Stuart [facility] -[facility] Work Phone: Start: 03-14-2025 End: 03-14-[address] Jhonny Cobian MD Work Phone: -[facility] Start: 03-13-[address] Chen Goodman MD -Physical Therapy Work Phone: Start: 03-12-2025 End: 04-08-[address] Emilia Goodman MD -Nutritional Services Work Phone: Start: 03-12-[address] Chen Goodman MD -Nutritional Services Work Phone: Start: 03-12-2025 End: 04-08-[address] Jhonny Cobian MD Work Phone: -Nutritional Services Start: 02-27-2025 End: 02-27-[address] Emilia Goodman MD -[facility] Work Phone: Start: 02-27-2025 End: 02-27-[address] Jhonny Cobian MD Work Phone: -[facility] Start: 02-22-2025 End: 02-22-[address] Jhonny Cobian MD Work Phone: -Laboratory Start: 02-22-2025 End: 02-22-2025 Patient encounter procedure Azul Sheehan NP-C -Laboratory Work Phone: Start: 02-22-2025 End: 02-22-2025 ambulatory Jhonny Cobian Facility:[facility] Start: 02-21-[address] Chen Goodman MD -Physical Therapy Work Phone: Start: 02-15-2025 End: 02-15-[address] Emmy Davis DO -[facility] [place] Work Phone: Start: 02-15-2025 End: 02-15-[address] Jhonny Cobian MD Work Phone: -[facility] Start: 02-14-[address] Chen Goodman MD -Physical Therapy Work Phone: Start: 02-07-[address] Chen Goodman MD -Physical Therapy Work Phone: Start: 02-02-2025 End: 02-02-[address] Emmy Davis DO -[facility] Work Phone: Start: 02-02-2025 End: 02-02-[address] Emilia Goodman MD Work Phone: -[facility] Start: 02-02-2025 End: 02-02-2025 ambulatory Jhonny Cobian Facility:[facility] Start: 01-23-[address] Chen Goodman MD -Physical Therapy Work Phone: Start: 01-10-2025 End: 01-10-2025 Patient encounter procedure Azul ARMENDARIZ -[facility] [place] Work Phone: Start: 01-10-2025 End: 01-10-2025 ambulatory Bobbi Stuart CNM Work Phone: [facility] Work Phone: Start: 12-15-2024 End: 12-15-2024 Patient encounter procedure Bobbi Stuart CNM -[facility] Work Phone: Start: 12-15-2024 End: 12-15-2024 ambulatory Bobbi Stuart Facility:[facility] Start: 11-28-2024 End: 11-28-2024 ambulatory MD HERNÁNDEZ [facility] Start: 11-17-2024 End: 11-17-2024 Patient encounter procedure Bobbi Stuart CNM -[facility] Work Phone: Start: 11-17-2024 End: 11-17-2024 ambulatory Bobbi Stuart Facility:[facility] Start: 10-19-2024 End: 10-19-[address] Emmy Davis DO -[facility] Work Phone: Start: 10-19-2024 End: 10-19-2024 ambulatory Emmy Davis Facility:[facility] Start: 10-03-2024 End: 10-03-2024 ambulatory Bobbi Stuart CNM Work Phone: [facility] Work Phone: Start: 10-03-2024 End: 10-03-2024 Patient encounter procedure Bobbi Stuart CNM -Lab, [facility] Start: 10-03-2024 End: 10-03-2024 ambulatory Bobbi Narciso Facility:[facility] Start: 09-21-2024 End: 09-21-2024 Patient encounter procedure Bobbi Stuart CNM -Laboratory, Specimen Work Phone: Start: 09-21-2024 End: 09-21-2024 Patient encounter procedure Bobbi Stuart CNM -[facility] Work Phone: Start: 09-21-2024 End: 09-21-2024 ambulatory Bobbi Narciso Facility:[facility] Start: 09-21-2024 End: 09-21-2024 ambulatory Bobbi Stuart Facility:[facility] Start: 02-02-2024 End: 02-02-2024 ambulatory JHONNY COBIAN MD Facility:[facility] Start: 02-02-2024 End: 02-02-2024 Patient encounter procedure JHONNY COBIAN MD [facility] Start: 02-02-2024 End: 02-02-2024 Well adult monitoring check done JHONNY COBIAN MD [facility] Start: 05-25-2023 End: 05-28-2023 Evaluation and management of inpatient CAROLYN CHAVEZ Facility:[facility] Start: 05-24-2023 End: 05-24-2023 ambulatory JHONNY COBIAN MD Facility:[facility] Start: 05-24-2023 End: 05-24-2023 Patient encounter procedure FRANKY VILLAFANA MD [facility] Start: 05-10-2023 End: 05-10-2023 ambulatory JHONNY COBIAN MD Facility:[facility] Start: 05-10-2023 End: 05-10-2023 Patient encounter procedure FRANKY VILLAFANA MD [facility] Start: 04-20-2023 End: 04-24-2023 ambulatory JHONNY COBIAN MD Facility:[facility] Start: 04-20-2023 End: 04-24-2023 Outreach Lab CAROLYN CHAVEZ MD [facility] Start: 03-05-2023 End: 03-05-2023 ambulatory JHONNY COBIAN MD Facility:[facility] Start: 03-05-2023 End: 03-05-2023 Patient encounter procedure FRANKY VILLAFANA MD [facility] Start: 02-19-2023 End: 02-19-2023 ambulatory JHONNY COBIAN MD Facility:[facility] Start: 02-19-2023 End: 02-19-2023 Patient encounter procedure FRANKY VILLAFANA MD [facility] Start: 12-14-2022 End: 12-14-2022 Patient encounter procedure FRANKY VILLAFANA MD [facility] Start: 12-04-2022 End: 12-04-2022 Patient encounter procedure FRANKY VILLAFANA MD [facility] Start: 10-27-2022 End: 10-27-2022 Patient encounter procedure VIKTORIA LEGER APRN-GUIDANCE SERVICES COORDINATOR [facility] Start: 10-13-2022 End: 10-17-2022 Outreach Lab VIKTORIA LEGER NURSING ASSISTANT-GUIDANCE SERVICES COORDINATOR [facility] Start: 02-13-2022 End: 02-13-2022 Patient encounter procedure JHONNY COBIAN MD [facility] Start: 12-23-2021 End: 12-23-2021 Emergency department patient visit DR ELIZABETH CORNEJO DO [facility] Procedures Date Procedure Procedure Detail Performing Clinician Start: 03-23-2025 Ultrasound scan for growth Dr. Jhonny Cobian MD Work Phone: Start: 02-02-2025 Serologic test for syphilis Dr. Jhonny Cobian MD Work Phone: Start: 10-03-2024 Hepatitis C antibody measurement Bobbi Stuart [facility] Work Phone: Comment on above: Reactive: Presumptiv e evidence of antibodies to HCV. Follow CDC recommendations for supplemental testing.Non-Reactive: Antibodies to HCV were not detected; does not exclude the possibility of exposure to HCVReactive Results are presumptive evidence of antibodies to HCV. Follow CDC recommendations for supplemental testing.Order confirmation testing: HCV Quant by PCR testing - HCVPCR #[id number] Non Reactive: < 0.8 Equivocal: >/= 0.8 to < 1.0 Reactive: >/= 1.0The CDC requires that a reactive/equivocal HCV antibody result be sent out for confirmation. HCV Quant by PCR testing. Start: 10-03-2024 Rubella IgG measurement Bobbi Stuart [facility] Work Phone: Comment on above: Antibody Result: Int erpretationNon-Reactive: Non- ImmuneReactive: ImmuneThe following results were obtained with the [employer] Rubella IgG assay. Results from assays of other manufacturers cannot be used interchangeably. 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 Plan of Treatment Date Care Activity Detail Author Start: 02-02-2025 CBC W Auto Different ial panel - Blood [facility] Start: 06-27-2025 Measurement of gluco se 2 hours after glucose challenge for glucose tolerance test [facility] Start: 02-02-2025 Serologic test for syphilis [facility] Start: 02-02-2025 [facility] CBC W Auto Different ial panel - Blood [facility] Erythrocyte mean cor puscular volume determination [facility] Hematocrit [Volume F raction] of Blood [facility] Hemoglobin [Mass/volume] in Blood [facility] Leukocytes [#/volume] in Blood [facility] Mean corpuscular hem oglobin concentration determination [facility] Mean corpuscular hem oglobin determination [facility] Measurement of gluco se 2 hours after glucose challenge for glucose tolerance test [facility] Neutrophil count [facility] Neutrophil percent d ifferential count [facility] Platelets [#/volume] in Blood [facility] Red blood cell count [facility] Red cell distributio n width determination [facility] Serologic test for syphilis [facility] Immunizations Immunization Date Immunization Notes Care Provider [facility]-2023 tetanus toxoid, redu roly diphtheria toxoid, and acellular pertussis vaccine, adsorbed; Translations: [Boostrix (Tdap)] CAROLYN CHAVEZ MD [facility] Comment on above: Early/Late Reason: E mino/Late Reason: Other : nurse unable to chart at time of injection Result Comment: [facility] # [id number] Payers Date Payer Category Payer Self-pay 2022 Unknown [id number] 1995 Unknown [id number] 2.16.8 40.1.070191.3.579.2. 1995 Unknown [id number] 2.16.8 40.1.319202.3.579.2.62 1995 Unknown [id number] 2.16.8 40.1.491648.3.579.2.627 1995 Unknown [id number] 2.16.8 40.1.953413.3.579.2.627 1995 Unknown [id number] 2.16.8 40.1.519182.3.579.2.627 1995 Unknown [id number] 2.16.8 40.1.040132.3.579.2.627 1995 Unknown [id number] 2.16.8 40.1.221398.3.579.2.627 1995 Unknown [id number] 2.16. 840.1.254571.3.579.2.479 Unknown [id number] 2.16.8 40.1.820924.3.579.2.462 Unknown [id number] 2.16.8 40.1.445203.3.579.2.462 Unknown [id number] 2.16.8 40.1.104041.3.579.2.462 Unknown [id number] 2.16.8 40.1.119200.3.579.2.462 Unknown [id number] 2.16.8 40.1.355329.3.579.2.462 Unknown [id number] 2.16.8 40.1.694914.3.579.2.462 Unknown [id number] 2.16.8 40.1.211555.3.579.2.462 Unknown [id number] 2.16.8 40.1.510856.3.579.2.462 Unknown [id number] 2.16.8 40.1.111922.3.579.2.462 Unknown [id number] 2.16.8 40.1.643466.3.579.2.462 Unknown [id number] 2.16.8 40.1.746987.3.579.2.462 Unknown [id number] 2.16.8 40.1.231004.3.579.2.462 Unknown [id number] 2.16.8 40.1.493974.3.579.2.462 Unknown [id number] 2.16.8 40.1.943451.3.579.2.462 Unknown [id number] 2.16.8 40.1.757065.3.579.2.462 Unknown [id number] 2.16.8 40.1.127834.3.579.2.462 Unknown [id number] 2.16.8 40.1.896942.3.579.2.462 Unknown [id number] 2.16.8 40.1.913072.3.579.2.462 Unknown [id number] 2.16.8 40.1.490858.3.579.2.462 Unknown [id number] 2.16.8 40.1.984387.3.579.2.462 Unknown [id number] 2.16.8 40.1.467942.3.579.2.462 Social History Date Type Detail Facility Start: 09-03-2021 End: 09-08-2024 Tobacco smoking status Never smoked tobacco (finding) [facility] Start: 1995 Sex Assigned At Female [facility] Start: 10-17-2024 Sex Female (finding) [facility] Medical Equipment Procedure Code Equipment Code Equipment [...] Date Assessment Result Facility 12-23-2021 Mental Status [facility] 12-23-2021 Mental Status [facility] Clinical Notes 12-23-2021 to 04-19-2025 Note Date & Type Note Facility 04-19-2025 Discharge summary [facility] 04-19-2025 Discharge summary Note Date/Time April 19, 2025 1:28pm [facility] Physical Therapy [facility] [address] [place] [address] [address] [place] [address] / REHABILITATION SERVICES DISCHARGE SUMMARY MR#: [id number] Acct: [id number] Name: FELIPE PATRICK Rep #: [id number] 12 : 1995 30 From: Norah Mcneill Referring Dr.: Dr. Emilia Goodman MD Stat us: REG RCR Insurance: [employer] SELF PAY INSURANCE Discharge Summary D/C summary: [...] please feel free to call me at [phone]. Thank you for the referral of thispatient. Sincerely, Norah Mcneill Balance/Gait/Functional tests Balance/Special Test Scores Oswestry Low Back Score: 6 Improvement % Improvement: 100 <Electronically signed by Norah Mcneill> 04/19/25 1328 CC: Dr. Emilia Goodman MD; Dr. Jhonny Cobian MD ~ MG Signed [facility] Work Phone: 1(922) 807-482808-25-2025 [facility]'s [address], [address] [place] [address] OFFICE VISIT Date of Service: 04/02/25 MR#: [id number] Acct: [id number] Name: FELIPE PATRICK Rep #: [id number] : 1995 Provider: DULCE Stuart Age/Sex: 30/F Location: [facility] Status: Signed Intake Vital Signs 03/14/25 09:01 03/28/25 15:41 04/02/25 09:23 Height 5 ft 2 in 5 ft 2 in 5 ft 2 in Weight: 213 lb 4 oz BMI 38.9 BP 133/86 H Intake Visit Reasons: 37wk ob Chief Complaint: 37wk OB Director Zone Required: No Is patient in pain?: No [...] QDAY 09/08/24 0 04/02/25 History capsule (Super [place]-3) blood-glucose sensor (Dexcom G6 #4 ea 02/27/25 5 Rx Sensor device) blood-glucose transmitter (Dexcom #1 ea 03/19/2504/02 Rx G6 Transmitter device) blood-glucose,surveyor oil well directional,cont #1 ea 03/19/25 04/02/25 Rx (Dexcom G6 Refuse Laborer) Last Menstrual Period: 07/20/24 : No PFSH PFSH Medical History Seasonal allergies Surgical History Previous section [place] teeth extracted Family History Grandmother Cancer Paternal [...] 1 current occupational status: employed 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 occupational exposures/hazards: No pets and animals: Yes (Avoid litterbox) pets and animals: cat(s) and dog(s) history of recent travel: [place] ([place]) out of state: Yes out of country: [...] in: walking frequency: daily duration: 15-30 minutes/day nkechi/yarsanism: Voodoo seatbelt use: always do you feel safe at home: Yes additional social history: 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 Date Name GA/Weeks Outcome Route Bth Weight Gen Labor Lgth Anesthesia Del Locatn Provider FOB 05/25/23 Mirella 41 live - full term 8#7.8oz Female epidural [facility] Dr.Samantha Milan Drake Delivery Date: 05/25/23 Last [...] dates. acc epts NIPT. Had C/S at [facility] for FTP- likely brow presentation 10/19/24 -?-?-?-?-?-?-?-?-?-?-?-?- [...] no vb/cramping. [place] on . records from [place] not scanned into system. AFP declined. 12/15/24 [...] and Symptoms of Preeclampsia, Feeding No , [place] Education and Family Medical Leave or Disability [...] Beckett Signature: Date (if applicable) CC: ~ [facility] [id number] Progress [facility] [address] [place] [address], [address] [place] [address] OFFICE VISIT Date of Service: 03/28/25 MR#: [id number] Acct: [id number] Name: FELIPE PATRICK Rep #: [id number] : 1995 Provider: Dr. Moriah Davis DO Age/Sex: 30/F Location: [facility] Status: Signed Intake Vital Signs 12/15/24 15:30 03/14/25 09:01 03/28/25 15:39 03/28/25 15:41 Height 5 ft 2 in 5 ft 2 in 5 ft 2 in 5 ft 2 in Weight: 210 lb 6 oz BMI 38.5 BP 128/81 H Intake Visit Reasons: 36 wk ob Director Zone Required: No Is patient in pain?: No [...] QDAY 09/08/24 0 03/28/25 History capsule (Super [place]-3) blood-glucose sensor (Dexcom G6 #4 ea 02/27/25 5 Rx Sensor device) blood-glucose transmitter (Dexcom #1 ea 03/19/2503/28 Rx G6 Transmitter device) blood-glucose,surveyor oil well directional,cont #1 ea 03/19/25 03/28/25 Rx (Dexcom G6 Refuse Laborer) Last Menstrual Period: 07/20/24 Zika: Zika virus screening: Negative : No PFSH PFSH Medical History Seasonal allergies Surgical History Previous section [place] teeth extracted Family History Grandmother Cancer Paternal [...] 1 current occupational status: employed 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 acc epts NIPT. Had C/S at [facility] for FTP- likely brow presentation 10/19/24 -?-?-?-?-?-?-?-?-?-?-?-?- [...] no vb/cramping. US on . records from [place] not scanned into system. AFP declined. 12/15/24 -?-?-?-?-?-?-?-?-?-?-?-?- 21w 1d 205 lb 2 oz (+6 lb 2 oz) 122/79 Negative -?-?-?-?-?-?-?-?-?-?-?-?- Negative 145 21 -?-?-?-?-?-?-?-?-?-?-?-?- KW- no vb/crampi ng. records received and was low transverse. US reviewed. 01/10/25 -?-?-?-?-?-?-?-?-?-?-?-?- 24w 6d 209 lb 8 oz (+10 lb 8 oz) 116/78 Negative -?-?-?-?-?-?-?-?-?-?-?-?- Negative 143 25 -?-?-?-?-?-?-?-?-?-?-?-?- MH-No VB, LOF. G ood FM. [facility] 02/02/25 -?-?-?-?-?-?-?-?-?-?-?-?- 28w 1d 211 lb [...] Symptoms of Preeclampsia, Infant Feeding No , [place] Education and Family Medical Leave or Disability [...] Cosigner Signature: Date (if applicable) CC: ~ [facility] [id number] Progress note Author Emmy Carmona [facility] Services Note Date/Time March 28, 2025 4: 14pm [facility] [address] [place] [address], [address] [place] [address] OFFICE VISIT Date of Service: 03/28/25 MR#: [id number] Acct: [id number] Name: FELIPE PATRICK Rep #: [id number] : 1995 Provider: DrKaitlin Davis DO Age/Sex: 30/F Location: [facility] Status: Signed Intake Vital Signs 12/15/24 15:30 03/14/25 09:01 03/28/25 15:39 03/28/25 15:41 Height 5 ft 2 in 5 ft 2 in 5 ft 2 in 5 ft 2 in Weight: 210 lb 6 oz BMI 38.5 BP 128/81 H Intake Visit Reasons: 36 wk ob Director Zone Required: No Is patient in pain?: No [...] QDAY 09/08/24 0 03/28/25 History capsule (Super [place]-3) blood-glucose sensor (Dexcom G6 #4 ea 02/27/25 5 Rx Sensor device) blood-glucose transmitter (Dexcom #1 ea 03/19/2503/28 Rx G6 Transmitter device) blood-glucose,surveyor oil well directional,cont #1 ea 03/19/25 03/28/25 Rx (Dexcom G6 Refuse Laborer) Last Menstrual Period: 07/20/24 Zika: Zika virus screening: Negative : No PFSH PFSH Medical History Seasonal allergies Surgical History Previous section [place] teeth extracted Family History Grandmother Cancer Paternal [...] 1 current occupational status: employed 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 occupational 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 Date Name GA/Weeks Outcome Route Bth [facility] Mirella 41 live [...] dates. acc epts NIPT. Had C/S at [facility] for FTP- likely brow presentation 10/19/24 -?-?-?-?-?-?-?-?-?-?-?-?- [...] no vb/cramping. US on . records from [place] not scanned into system. AFP declined. 12/15/24 -?-?-?-?-?-?-?-?-?-?-?-?- 21w 1d 205 lb 2 oz (+6 lb 2 oz) 122/79 Negative -?-?-?-?-?-?-?-?-?-?-?-?- Negative 145 21 -?-?-?-?-?-?-?-?-?-?-?-?- KW- no vb/crampi ng. records received and was low transverse. US reviewed. 01/10/25 -?-?-?-?-?-?-?-?-?-?-?-?- 24w 6d 209 lb 8 oz (+10 lb 8 oz) 116/78 Negative -?-?-?-?-?-?-?-?-?-?-?-?- Negative 143 25 -?-?-?-?-?-?-?-?-?-?-?-?- MH-No VB, LOF. G ood FM. [facility] 02/02/25 -?-?-?-?-?-?-?-?-?-?-?-?- 28w 1d 211 lb [...] Symptoms of Preeclampsia, Infant Feeding No , [place] Education and Family Medical Leave or Disability [...] Cosigner Signature: Date (if applicable) CC: ~ [facility] Work Phone: 1(251) 381-111908-15-2025 Radiology Diagnostic study note [facility] Imaging Services [address] [address] OB Limited With Biometrics MR#: [id number] Acct: [id number] Name: FELIPE PATRICK Rep #: [id number] : 1995 F 30 From: Nicolás Trujillo MD PCP: Dr. Jhonny Cobian MD Status: REG CLI Study:OB Limited With Biometrics Date of Exam : 03/23/25 Exam# [id number] Ordering Dr: Bobbi Stuart CNM PROCEDURE: OB [...] of 36 weeks and 2days. Reading Location: [place] [address] CC: DULCE Stuart; Dr. Jhonny Cobian MD ~ Computer Help Desk Representative: Signed [facility]07-22-2025 [facility] [address], [address] [place] [address] OFFICE VISIT Date of Service: 02/27/25 MR#: [id number] Acct: [id number] Name: FELIPE PATRICK Rep #: [id number] : 1995 Provider: Dr. Moo Goodman MD Age/Sex: 30/F Location: [facility] Status: Signed Intake Vital Signs 12/15/24 15:30 02/15/25 09:27 02/27/25 15:29 Height 5 ft 2 in 5 ft 2 in 5 ft 2 in Weight: 212 lb 6 oz BMI 38.8 BP 114/77 Intake Visit Reasons: 32 wk ob Director Zone Required: No Is patient in pain?: No [...] QDAY 09/08/24 0 02/27/25 History capsule (Super [place]-3) blood sugar diagnostic (Blood #120 ea 02/23/25 5 Rx Glucose Test strips) blood-glucose meter #1 ea 02/23/25 02/27/25 Rx lancets 30 gauge (Droplet Lancets) #200 ea 02/23/25 Rx blood-glucose sensor (Dexcom G6 #4 ea 02/27/25 5 Rx Sensor device) Last Menstrual Period: 07/20/24 Zika: Zika virus screening: Negative : No PFSH PFSH Medical History Seasonal allergies Surgical History Previous section [place] teeth extracted Family History Grandmother Cancer Paternal [...] 1 current occupational status: employed 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 occupational exposures/hazards: No pets and animals: Yes (Avoid litterbox) pets and animals: cat(s) and dog(s) history of recent travel: [place] ([place]) out of state: Yes out of country: [...] in: walking frequency: daily duration: 15-30 minutes/day nkechi/yarsanism: Voodoo seatbelt use: always do you feel safe at home: Yes additional social history: 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 Date Name GA/Weeks Outcome Route Bth Weight Infant Gen Labor Lgth Anesthesia Del Locatn Provider FOB 10/17/23 Mirella 41 live - full term 8#7.8oz Female epidural [facility] Dr.Samantha Milan Drake Delivery Date: 05/25/23 Last [...] dates. acc epts NIPT. Had C/S at [facility] for FTP- likely brow presentation 10/19/24 -?-?-?-?-?-?-?-?-?-?-?-?- [...] no vb/cramping. [place] on . records from [place] not scanned into system. AFP declined. 12/15/24 [...] Cosign Signature: Date (if applicable) CC: ~ [facility]07-22-2025 Progress note Author Emilia Goodman [facility] Services Note Date/Time February 27, 2025 4:28 pm [facility] [address] [place] [address], [address] [place] [address] OFFICE VISIT Date of Service: 02/27/25 MR#: [id number] Acct: [id number] Name: FELIPE PATRICK Rep #: [id number] : 1995 Provider: Dr. Moo Goodman MD Age/Sex: 30/F Location: [facility] Status: Signed Intake Vital Signs 12/15/24 15:30 02/15/25 09:27 02/27/25 15:29 Height 5 ft 2 in 5 ft 2 in 5 ft 2 in Weight: 212 lb 6 oz BMI 38.8 BP 114/77 Intake Visit Reasons: 32 wk ob Director Zone Required: No Is patient in pain?: No [...] QDAY 09/08/24 0 02/27/25 History capsule (Super [place]-3) blood sugar diagnostic (Blood #120 ea 02/23/25 5 Rx Glucose Test strips) blood-glucose meter #1 ea 02/23/25 02/27/25 Rx lancets 30 gauge (Droplet Lancets) #200 ea 02/23/25 Rx blood-glucose sensor (Dexcom G6 #4 ea 02/27/25 5 Rx Sensor device) Last Menstrual Period: 07/20/24 Zika: Zika virus screening: Negative : No PFSH PFSH Medical History Seasonal allergies Surgical History Previous section [place] teeth extracted Family History Grandmother Cancer Paternal [...] 1 current occupational status: employed 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 acc epts NIPT. Had C/S at [facility] for FTP- likely brow presentation 10/19/24 -?-?-?-?-?-?-?-?-?-?-?-?- [...] no vb/cramping. US on . records from [place] not scanned into system. AFP declined. 12/15/24 -?-?-?-?-?-?-?-?-?-?-?-?- 21w 1d 205 lb 2 oz (+6 lb 2 oz) 122/79 Negative -?-?-?-?-?-?-?-?-?-?-?-?- Negative 145 21 -?-?-?-?-?-?-?-?-?-?-?-?- KW- no vb/crampi ng. records received and was low transverse. US reviewed. 01/10/25 -?-?-?-?-?-?-?-?-?-?-?-?- 24w 6d 209 lb 8 oz (+10 lb 8 oz) 116/78 Negative -?-?-?-?-?-?-?-?-?-?-?-?- Negative 143 25 -?-?-?-?-?-?-?-?-?-?-?-?- MH-No VB, LOF. G ood FM. [facility] 02/02/25 -?-?-?-?-?-?-?-?-?-?-?-?- 28w 1d 211 lb [...] alcala MD> Date _ Emilia Goodman MD [facility] Signature: Date (if applicable) CC: ~ [facility] Work Phone: 1(867) 760-969806-27-2025 Progress [facility] [address], [address] [place] [address] OFFICE VISIT Date of Service: 02/02/25 MR#: [id number] Acct: [id number] Name: FELIPE PATRICK Rep #: [id number] : 1995 Provider: Dr. Moriah Davis DO Age/Sex: 29/F Location: [facility] Status: Signed Intake Vital Signs 11/17/24 11:15 01/10/25 10:23 02/02/25 10:22 02/02/25 10:25 Height 5 ft 2 in 5 ft 2 in 5 ft 2 in 5 ft 2 in Weight: 211 lb BMI 38.5 BP 112/75 Intake Visit Reasons: 28wk ob/glucose Director Zone Required: No Is patient in pain?: No [...] QDAY 09/08/24 0 02/02/25 History capsule (Super [place]-3) Last Menstrual Period: 07/20/24 Zika: Zika virus screening: Negative : No PFSH PFSH Medical History Seasonal allergies Surgical History Previous section [place] teeth extracted Family History Grandmother Cancer Paternal [...] 1 current occupational status: employed 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 acc epts NIPT. Had C/S at [facility] for FTP- likely brow presentation 10/19/24 -?-?-?-?-?-?-?-?-?-?-?-?- [...] no vb/cramping. US on . records from [place] not scanned into system. AFP declined. 12/15/24 [...] tub use, Seat Belt use, [facility]birth [facility], Travel, Indications for Ultrasound and Screening [...] and Symptoms of Preeclampsia, Feeding No , [place] Education and Family Medical Leave or Disability [...] Cosigner Signature: Date (if applicable) CC: ~ [facility]06-04-2025 Evaluation note* Diagnosis Onset Date Resolution Status [...] Supervision of normal acute April 11 8:36am [facility] Work Phone: 1([phone]) 154-315106-04-2025 Evaluation note* Diagnosis Onset Date Resolution Status [...] of normal acute April 20, 2025 8:59am [facility] Work Phone: 1(141) 707-946005-09-2025 Evaluation note* Diagnosis Onset Date Resolution Status [...] Supervision of normal acute March 28 3:35pm [facility] Work Phone: 1([phone]) 966-707805-09-2025 Evaluation note* Diagnosis Onset Date Resolution Status [...] Supervision of normal acute April 02 9:21am [facility] Work Phone: 1([phone]) 755-436205-09-2025 Evaluation note* Diagnosis Onset Date Resolution Status [...] Supervision of normal acute April 11 8:36am [facility] Work Phone: 1([phone]) 161-439704-11-2025 Evaluation note* Diagnosis Onset Date Resolution Status [...] normal acut e February 15, 2025 9:20am [facility] Work Phone: 1([phone]) 892-816904-11-2025 Evaluation note* Diagnosis Onset Date Resolution Status [...] g childbirth resolved February 27, 2025 3:24pm [facility] Work Phone: 1([phone]) 211-963404-11-2025 Evaluation note* Diagnosis Onset Date Resolution Status [...] of normal acute March 14, 2025 8:58am [facility] Work Phone: 1([phone]) 191-577503-13-2025 Evaluation note* Diagnosis Onset Date Resolution Status Admit Date GBS (group B streptococcus) UTI complicating acute October 2:51pm Hx of section acute [facility] 2024 2:51pm Obesity affecting acute October [...] normal acut e February 02, 2025 10:10am [facility] Work Phone: 1(205) 553-501603-13-2025 Evaluation note* Diagnosis Onset Date Resolution Status Admit Date GBS (group B streptococcus) UTI complicating acute October 2:51pm Hx of section acute [facility] 2024 2:51pm Obesity affecting acute October [...] normal acut e February 15, 2025 9:20am [facility] Work Phone: [phone]) 755-367102-13-2025 Evaluation note* Diagnosis Onset Date Resolution Status Admit Date Hx of section acute Fe bruary 2024 2:29pm Obesity affecting acute September 21, 2024 2:29pm acute September 21, 2024 2:29pm Supervision of normal acute September 21, 025 2:29pm [facility] Work Phone: 1([phone]) 353-684302-13-2025 Evaluation note* Diagnosis Onset Date Resolution Status Admit Date Hx of section acute Fe bruary 2024 2:29pm Obesity affecting acute September 21, 2024 2:29pm acute September 21, 2024 2:29pm Supervision of normal acute September 21, 025 2:29pm GBS (group B streptococcus) UTI complicating acute October 19, 2024 2:51pm Hx of section acute [facility] 2024 2:51pm Obesity affecting acute October [...] normal acute January 10, 2025 1 0:19am [facility] Work Phone: 1([phone]) 457-771606-26-2024 Evaluation + Plan note Diagnostic Tests Pending * DHEA, Serum 02/02/24 Future Scheduled Tests Laboratory* Urine Culture 06/02/23 [facility] 05-17-2022 Hospital Discharge instructions Patient Education [...] may need to be seen by a tie maker, neurologist, or an ear, nose, and throat specialist. Don't drive, operate heavy machinery, or do activities in which you could fall and injure yourself if you have syncope and have not been evaluated. [id number] [employer]. [address] [place] [address]. All rights reserved. This information is not intended as a substitute for professional medical care. Always follow yourhealthcare professional's instructions. Follow Up Care 12/23/2021 20:29:40 With:LUIGI MCINTOSH DO Address: [address] [facility] [place] [address] [phone] When:2-4 days With:JHONNY COBIAN MD Address: [address] [facility] [address] [facility] [place] [address]- When:2-4 days [facility] Evaluation + Plan note No data available for this section [facility] Evaluation + Plan note Future Appointments Appointment Date:11/10/2022 03:15:00 PM Scheduled Provider:VIKTORIA LEGER Location:[facility] Appointment Type: OV OB Routine Follow Up [...] MISC Lab Send out (Blood Specimens) 10/13/22 [facility] Evaluation + Plan note Future Appointments Appointment Date:11/05/2022 03:30:00 PM Scheduled Provider:VIKTORIA LEGER Location:[facility] Appointment Type:[facility] OB Routine Follow Up Future Scheduled Tests Laboratory* MISC Lab Send out (Blood Specimens) 10/13/22 [facility] Evaluation + Plan note Future Appointments Appointment Date:12/18/2022 10:00:00 AM Scheduled Provider: Location:[facility] Appointment Type:US OB > 14 wks Appointment Date:01/01/2023 10:45:00 AM Scheduled Provider:FRANKY VILLAFANA MD Location:[facility] Appointment Type: OV OB Routine Follow Up Future Scheduled Tests Laboratory* MISC Lab Send out (Blood Specimens) 12/04/22 * MISC Lab Send out (Blood Specimens) 10/13/22 Radiology* US OB > 14 weeks 12/18/22 [facility] evaluation + Plan note Future Appointments Appointment Date:03/02/2023 09:15:00 AM Scheduled Provider:FRANKY VILLAFANA MD Location:[facility] Appointment Type: OV OB Routine Follow Up Future Scheduled Tests Laboratory* MISC Lab Send out (Blood Specimens) 12/04/22 * MISC Lab Send out (Blood Specimens) 10/13/22 [facility] Evaluation + Plan note Future Appointments Appointment Date:03/16/2023 08:30:00 AM Scheduled Provider:FRANKY VILLAFANA MD Location:[facility] Appointment Type: OV OB Routine Follow Up Future Scheduled Tests Laboratory* Glucose Tolerance Test 3 Hour (AO) 02/22/23 * MISC Lab Send out (Blood Specimens) 12/04/22 * MISC Lab Send out (Blood Specimens) 10/13/22 [facility] Evaluation + Plan note Future Appointments Appointment Date:04/27/2023 09:15:00 AM Scheduled Provider:CAROLYN CHAVEZ MD Location:[facility] Appointment Type: OV OB Routine Follow Up [facility] Evaluation + Plan note Future Appointments Appointment Date:05/11/2023 09:15:00 AM Scheduled Provider:FRANKY VILLFAANA MD Location:[facility] Appointment Type: OV OB Routine Follow Up [facility] Evaluation + Plan note Future Appointments Appointment Date:05/25/2023 08:30:00 AM Scheduled Provider:CAROLYN CHAVEZ MD Location:[facility] Appointment Type: OV OB Routine Follow Up [facility] Hospital Discharge instructions No data available for this section [facility] Hospital Discharge instructionsAmbulatory Orders* Physical Therapy Referral Location: None [facility] Work Phone: Proofhel note No data available for this section [facility] Prolckee note Author Emmy Carmona [facility] Note Date/Time February 02, 2025 11:1 0am [facility] [address], [address] [place] [address] OFFICE VISIT Date of Service: 02/02/25 MR#: [id number] Acct: [id number] Name: FELIPE PATRICK Rep #: [id number] : 1995 Provider: Dr. Moriah Davis DO Age/Sex: 29/F Location: [facility] Status: Signed Intake Vital Signs 11/17/24 11:15 01/10/25 10:23 02/02/25 10:22 02/02/25 10:25 Height 5 ft 2 in 5 ft 2 in 5 ft 2 in 5 ft 2 in Weight: 211 lb BMI 38.5 BP 112/75 Intake Visit Reasons: 28wk ob/glucose Director Zone Required: No Is patient in pain?: No [...] QDAY 09/08/24 0 02/02/25 History capsule (Super [place]-3) Last Menstrual Period: 07/20/24 Zika: Zika virus screening: Negative : No PFSH PFSH Medical History Seasonal allergies Surgical History Previous section [place] teeth extracted Family History Grandmother Cancer Paternal [...] 1 current occupational status: employed 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 acc epts NIPT. Had C/S at [facility] for FTP- likely brow presentation 10/19/24 -?-?-?-?-?-?-?-?-?-?-?-?- [...] no vb/cramping. US on . records from [place] not scanned into system. AFP declined. 12/15/24 -?-?-?-?-?-?-?-?-?-?-?-?- 21w 1d 205 lb 2 oz (+6 lb 2 oz) 122/79 Negative -?-?-?-?-?-?-?-?-?-?-?-?- Negative 145 21 -?-?-?-?-?-?-?-?-?-?--?-?- KW- no vb/crampi ng. records received and was low transverse. US reviewed. 01/10/25 -?-?-?-?-?-?-?-?-?-?-?-?- 24w 6d 209 lb 8 oz (+10 lb 8 oz) 116/78 Negative -?-?-?-?-?-?-?-?-?-?-?-?- Negative 143 25 -?-?-?-?-?-?-?-?-?-?-?-?- MH-No VB, LOF. [facility] -?-?-?-?-?-?-?-?-?-?-?-?- 28w 1d 211 lb [...] Cosigner Signature: Date (if applicable) CC: ~ [facility] Work Phone: Progress note Author Bobbi Stuart [facility] Note Date/Time April 02, 2025 9: 46am [facility] [address] [place] [address], [address] [place] [address] OFFICE VISIT Date of Service: 04/02/25 MR#: [id number] Acct: [id number] Name: FELIPE PATRICK Rep #: [id number] : 1995 Provider: DULCE Stuart Age/Sex: 30/F Location: [facility] Status: Signed Intake Vital Signs 03/14/25 09:01 03/28/25 15:41 04/02/25 09:23 Height 5 ft 2 in 5 ft 2 in 5 ft 2 in Weight: 213 lb 4 oz BMI 38.9 BP 133/86 H Intake Visit Reasons: 37wk ob Chief Complaint: 37wk OB Director Zone Required: No Is patient in pain?: No [...] QDAY 09/08/24 0 04/02/25 History capsule (Super [place]-3) blood-glucose sensor (Dexcom G6 #4 ea 02/27/25 5 Rx Sensor device) blood-glucose transmitter (Dexcom #1 ea 03/19/2504/02 Rx G6 Transmitter device) blood-glucose,surveyor oil well directional,cont #1 ea 03/19/25 04/02/25 Rx (Dexcom G6 Refuse Laborer) Last Menstrual Period: 07/20/24 : No PFSH PFSH Medical History Seasonal allergies Surgical History Previous section [place] teeth extracted Family History Grandmother Cancer Paternal [...] 1 current occupational status: employed 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 acc epts NIPT. Had C/S at [facility] for FTP- likely brow presentation 10/19/24 -?-?-?-?-?-?-?-?-?-?-?-?- [...] no vb/cramping. US on . records from [place] not scanned into system. AFP declined. 12/15/24 -?-?-?-?-?-?-?-?-?-?-?-?- 21w 1d 205 lb 2 oz (+6 lb 2 oz) 122/79 Negative -?-?-?-?-?-?-?-?-?-?-?-?- Negative 145 21 -?-?-?-?-?-?-?-?-?-?-?-?- KW- no vb/crampi ng. records received and was low transverse. US reviewed. 01/10/25 -?-?-?-?-?-?-?-?-?-?-?-?- 24w 6d 209 lb 8 oz (+10 lb 8 oz) 116/78 Negative -?-?-?-?-?-?-?-?-?-?-?-?- Negative 143 25 -?-?-?-?-?-?-?-?-?-?-?-?- MH-No VB, LOF. G ood FM. [facility] 02/02/25 -?-?-?-?-?-?-?-?-?-?-?-?- 28w 1d 211 lb [...] Cosigner Signature: Date (if applicable) CC: ~ [facility] Work Phone: Reason for referral (narrative)No reason for referral information availableWKettering Health Work Phone: Summary Purpose Family History Relationship [...] 9:21am April 02, 2025 9: 21am [facility] 25th, 2025 9: 21am Supervision of normal [...] April 11, 2025 8:36am Supervision of normal [facility] 2024 8:36am Chief Complaint Admit Date 25wk [...] April 11, 2025 8:36am Supervision of normal [facility] 2024 8:36am Chief Complaint Admit Date 25wk [...] April 11, 2025 8:36am [facility] GBS (group B streptococcus) UTI complica [...] DATE CREATED AUTHOR AUTHOR'S ORGANIZ ATION 12/01/2024 [facility] DATE CREATED AUTHOR AUTHOR'S ORGANIZ ATION 04/15/2025 [facility] Care Team (unrecognized sect ion [...] Member Role Status Dates Azul Sheehan NP, TRESTLE BUILDER-C Attending Provider Active Start: January 10, 2025 [...] Inactive Member Role/Relationship Status Dates Azul Sheehan TRESTLE BUILDER, TRESTLE BUILDER-C Attending Provider Active Start: January 10, 2025 [...] Active Start: February 02, 2025 Azul Sheehan TRESTLE BUILDER, TRESTLE BUILDER-C Attending Provider Active Start: February 02, 2025 Azul Sheehan TRESTLE BUILDER, TRESTLE BUILDER-C Referring Provider Active Start: February 02, 2025 [...] 2025 End: February 02, 2025 Azul Sheehan TRESTLE BUILDER, TRESTLE BUILDER-C Attending Provider Active Start: February 02, 2025 End: February 02, 2025 Azul Sheehan TRESTLE BUILDER, TRESTLE BUILDER-C Referring Provider Active Start: February 02, 2025 [...] Inactive Member Role/Relationship Status Dates Azul Sheehan TRESTLE BUILDER, TRESTLE BUILDER-C Attending Provider Active Start: January 10, 2025 [...] 2025 End: February 02, 2025 Azul Sheehan TRESTLE BUILDER, TRESTLE BUILDER-C Attending Provider Active Start: February 02, 2025 End: February 02, 2025 Azul Sheehan TRESTLE BUILDER, TRESTLE BUILDER-C Referring Provider Active Start: February 02, 2025 [...] 2025 End: February 22, 2025 Azul Sheehan TRESTLE BUILDER, TRESTLE BUILDER-C Attending Provider Active Start: February 22, 2025 End: February 22, 2025 Azul Sheehan TRESTLE BUILDER, TRESTLE BUILDER-C Referring Provider Active Start: February 22, 2025 [...] 2025 End: February 22, 2025 Azul Sheehan TRESTLE BUILDER, TRESTLE BUILDER-C Attending Provider Active Start: February 22, 2025 End: February 22, 2025 Azul Sheehan TRESTLE BUILDER, TRESTLE BUILDER-C Referring Provider Active Start: February 22, 2025 [...] Inactive Member Role/Relationship Status Dates Azul Sheehan TRESTLE BUILDER, TRESTLE BUILDER-C Attending Provider Active Start: January 10, 2025 [...] 2025 End: February 02, 2025 Azul Sheehan TRESTLE BUILDER, TRESTLE BUILDER-C Attending Provider Active Start: February 02, 2025 End: February 02, 2025 Azul Sheehan TRESTLE BUILDER, TRESTLE BUILDER-C Referring Provider Active Start: February 02, 2025 [...] 2025 End: February 22, 2025 Azul Sheehan TRESTLE BUILDER, TRESTLE BUILDER-C Attending Provider Active Start: February 22, 2025 End: February 22, 2025 Azul Sheehan TRESTLE BUILDER, TRESTLE BUILDER-C Referring Provider Active Start: February 22, 2025 [...] Inactive Member Role/Relationship Status Dates Azul Sheehan TRESTLE BUILDER, TRESTLE BUILDER-C Attending Provider Active Start: January 10, 2025 [...] 2025 End: February 02, 2025 Azul Sheehan TRESTLE BUILDER, TRESTLE BUILDER-C Attending Provider Active Start: February 02, 2025 End: February 02, 2025 Azul Sheehan TRESTLE BUILDER, TRESTLE BUILDER-C Referring Provider Active Start: February 02, 2025 [...] 2025 End: February 22, 2025 Azul Sheehan TRESTLE BUILDER, TRESTLE BUILDER-C Attending Provider Active Start: February 22, 2025 End: February 22, 2025 Azul Sheehan TRESTLE BUILDER, TRESTLE BUILDER-C Referring Provider Active Start: February 22, 2025 [...] Role: Primary Care Physician Address: Address[address] [place] [address]- Care Team Related Persons Name: PLEASE, ASK Care Team Personnel Name: JHONNY COBIAN MD Position: P4 Physician - Primary Care Member Role: Primary Care Physician Address: Address: [address] [place] [address]- Care Team Related Persons Name: AMADA PATRICK [...] BE BASED ON THE PRIMARY CLINICAL RECORDS. [facility] [employer] provides no warranty or guarantee of the accuracy or completeness of information in this document.
[2025-04-20 23:02] LABS: Hematocrit 37.0 % (37-47); Hemoglobin 12.6 g/dL (12.0-15.0); Immature Granulocytes Count 0.080 X10^3/uL (0.0-0.0); Mean Corp Hgb Conc 34.1 g/dL (32-36); Mean Corpuscular Volume 85.6 fL (81-99); Mean Platelet Vol. 11.1 fl (6.2-12.0); NRBC Flagged by Analyzer 0 % (0-5); Platelet Count 212 K/mm3 (150-450); RBC Distribution Width CV 13.4 % (11.6-14.6); RBC Distribution Width SD 41.3 fl (35.1-43.9); Red Blood Count 4.32 M/mm3 (4.2-5.4); White Blood Count 14.9 K/mm3 (4.4-11.0)
[2025-04-20 23:27] LABS: Syphilis Antibodies Nonreactive (Nonreactive)
[2025-04-20] MEDS: fentaNYL-bupivacaine (epidural) 100 ML BAG EPIDURAL (23:39)
[2025-04-21] VITALS (46 sets, daily range): BP systolic 107–139; BP diastolic 56–88; PULSE 79–101; RESP 14–18; TEMP 36.2–37.6; O2SAT 97–99
[2025-04-21] MEDS: Penicillin G Pot 5,000,000 UNITS in 0.9% Normal Saline (100mL MB+) 100 ML 150 UNITS IV (00:10)
--- NOTE | 2025-04-21 00:10 | HP.PCM.OB_ITS ---
HPI - General General Date of Admission: 04/20/25 HPI Narrative FELIPE PATRICK, is a 30 F who presents IAL TOLAC doing ewll 4 now 9 cm regular ctx Maternal Data Information PETEY Calculator Estimated Delivery Date Method Current WG Current Estimate 04/26/25 LMP (Certain) 39w 2d Other Estimates 04/28/25 Ultrasound #1 39w 0d PFSH PFSH Medical History Seasonal allergies Home Medications ?Medication ?Instructions ?Recorded ?Last Taken ?Type choline 500 mg tablet 500 mg PO DAILY 04/20/25 History multivitamin no.47-iron fum 27 cap PO 04/20/25 History mg-folate no.1 1 mg-dha 300 mg capsule (PNV-DHA) omega-3 fatty acids 1,000 mg 500 mg PO QDAY 09/08/24 04/20/25 History capsule (Super Blanco-3) blood-glucose sensor (Dexcom G6 #4 ea 02/27/25 Unknown Rx Sensor device) blood-glucose transmitter (Dexcom #1 ea 03/19/25 Unkno wn Rx G6 Transmitter device) blood-glucose,marketing admin,cont #1 ea 03/19/25 Unknown Rx (Dexcom G6 Oracle Fusion Developer) Allergy/AdvReac Type Severity Reaction Status Date / Time house dust Allergy Mild Other Verified 04/20/25 22:55 mold (mold spores) Allergy Mild Other Verified 04/20/25 22:55 Environmental Allergies: Allergy Other Verified 04/20/25 22:55 Uncoded Family History Grandmother Cancer Paternal skin ca Grandfather Cancer Paternal skin Myocardial infarction Paternal Father Kidney disease, Onset Age: 60 Kidney failure Hypertension High cholesterol Grandmother Cancer Maternal Lung ca Diabetes maternal CHF (congestive heart failure) Maternal Macular degeneration Maternal Grandfather Cancer Maternal stomach ca, skin ca-melanoma Diabetes Maternal CHF (congestive heart failure) Maternal Diverticulitis Maternal Mother Barretts esophagus Cancer basal cell carcinoma Gall bladder disease Fibroid tumor benign Heart palpitations Family history of recurrent miscarriage one baby with ambiguous genitalia Surgical History Previous section [place] teeth extracted Social History adopted: No household members: spouse and children number of children: 1 current occupational status: employed 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 [employer] current occupational exposures/hazards: No pets and animals: Yes (Avoid litterbox) pets and animals: cat(s) and dog(s) history of recent travel: Yes ([place]) out of state: Yes out of country: No sexually active: Yes Smoking Status: Never smoker alcohol intake: current alcohol intake frequency: holidays/special occasions only details: not while substance use type: does not use well-balanced diet: daily or most days caffeine: No eating out: rarely or never during the past year weight has: decreased > 10 lbs what type of physical activity do you participate in: walking frequency: daily duration: 15-30 minutes/day nkechi/temple: Religious seatbelt use: always do you feel safe at home: Yes additional social history: Forest but goes by 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 Date Name GA/Weeks Outcome Route Bth Weight Infant Gen Labor Lgth Anesthesia Del Locatn Provider FOB 05/25/23 Mirella 41 live - full term 8#7.8oz Female epidural Zoe Drake Delivery Date: 05/25/23 Last Updated by: Lizz Baxter failure to progress Visit Details Expected Delivery Route/Plan Labor Preferences- CB/BF classes: no labor support person: Vidal labor intervention preferences: [] pain management options preferred: limited intervention cut cord/dad catch: no : yes PP control planned: discussed discussed possible routes of delivery and associated risks: [] special requests: [] desires patient counseled regarding risks/benefits of trial of labor versus repeat . ACOG/uptodate education given to patient. 35 % likelihood of success per calculator TOLAC consent form signed: [] Plans Covid status: [] Flu vaccine: [] Tdap vaccine: [] Rhogam: [] LARC form signed: yes Problem list reviewed and updated with the most current plan of care details and appropriate orders placed. Relevant counseling for the gestational age provided. Continue routine care and follow up unless otherwise noted in visit notes/problem list details OB Flowsheet Initial Weight: 199 lb Date -?-?-?-?-?-?-?-?-?-?-?-?- EGA Weight BP Urine Prot -?-?-?-?-?-?-?-?-?-?-?-?- Glucose FHR FuHt Pres Dilation -?-?-?-?-?-?-?-?-?-?-?-?- Effaced St Visit Note 09/21/24 -?-?-?-?-?-?-?-?-?-?-?-?- 9w 0d 199 lb 6 oz (+6 oz) 132/84 -?-?-?-?-?-?-?-?-?-?-?-?- 175 -?-?-?-?-?-?-?-?-?-?-?-?- KW- CRL cons wit h dates. accepts NIPT KW- CRL cons with dates. acc epts NIPT. Had C/S at [facility] for FTP- likely brow presentation 10/19/24 -?-?-?-?-?-?-?-?-?-?-?-?- 13w 0d 198 lb 6 oz (-10 oz) 130/78 Negative -?-?-?-?-?-?-?-?-?-?-?-?- Negative 160 -?-?-?-?-?-?-?-?-?-?-?-?- JV- pt states th at her surgeon that did her section told her that she made her incision high and she could not . transfer records do not have the ope rative note. baby was OP and stuck at 6 cm for only 4 hours. would really like to if possible. 11/17/24 -?-?-?-?-?-?-?-?-?-?-?-?- 17w 1d 203 lb 2 oz (+4 lb 2 oz) 110/73 Negative -?-?-?-?-?-?-?-?-?-?-?-?- Negative 155 -?-?-?-?-?-?-?-?-?-?-?-?- KW- no vb/crampi ng. US on 11/28 KW- no vb/cramping. US on . records from [place] not scanned into system. AFP declined. 12/15/24 -?-?-?-?-?-?-?-?-?-?-?-?- 21w 1d 205 lb 2 oz (+6 lb 2 oz) 122/79 Negative -?-?-?-?-?-?-?-?-?-?-?-?- Negative 145 21 -?-?-?-?-?-?-?-?-?-?-?-?- KW- no vb/crampi ng. records received and was low transverse. US reviewed. 01/10/25 -?-?-?-?-?-?-?-?-?-?-?-?- 24w 6d 209 lb 8 oz (+10 lb 8 oz) 116/78 Negative -?-?-?-?-?-?-?-?-?-?-?-?- Negative 143 25 -?-?-?-?-?-?-?-?-?-?-?-?- MH-No VB, LOF. G ood FM. [facility] 02/02/25 -?-?-?-?-?-?-?-?-?-?-?-?- 28w 1d 211 lb (+12 lb) 112/75 Negative -?-?-?-?-?-?-?-?-?-?-?-?- Negative 153 31 -?-?-?-?-?-?-?-?-?-?-?-?- JV- no lof, vagi nal bleeding, or dec fm. interested in intermittent monitor ing, however is a desired tolac. 28 week labs and glucola today. 02/15/25 -?-?-?-?-?-?-?-?-?-?-?-?- 30w 0d 212 lb 8 oz (+13 lb 8 oz) 107/70 Negative -?-?-?-?-?-?-?-?-?-?-?-?- Negative 150 30 -?-?-?-?-?-?-?-?-?-?-?-?- JV- pt has decid ed that she will do the 3 hour and will do the fresh test. long talk today. 02/27/25 -?-?-?-?-?-?-?-?-?-?-?-?- 31w 5d 212 lb 6 oz (+13 lb 6 oz) 114/77 -?-?-?-?-?-?-?-?-?-?-?-?- 140 32 -?-?-?-?-?-?-?-?-?-?-?-?- SM- no vb lof go od fm no regualr ctx 03/14/25 -?-?-?-?-?-?-?-?-?-?-?-?- 33w 6d 211 lb 8 oz (+12 lb 8 oz) 115/70 Negative -?-?-?-?-?-?-?-?-?-?-?-?- Negative 160 35 -?-?-?-?-?-?-?-?-?-?-?-?- KW-No vb/lof/ctx . good fm. order for PFPT-PP. KW-No vb/lof/ctx. good fm. o rder for PFPT-PP. growth US at 36 weeks ordered. blood sugars reviewed-well controlled. desires IOL over RCS. GBS next visit. KW-No vb/lof/ctx. good fm. o rder for PFPT-PP. growth US at 36 weeks ordered. blood sugars reviewed-well controlled. still trying to get Dexcom through pharmacy but having issues getting it. desires IOL over RCS. GBS next visit. 03/28/25 -?-?-?-?-?-?--?-?-?-?-?-?- 35w 6d 210 lb 6 oz (+11 lb 6 oz) 128/81 Negative -?-?-?-?-?-?-?-?-?-?-?-?- Negative 135 36 -?-?-?-?-?-?-?-?-?-?-?-?- JV- normal gluco se log. normal growth scan. 89th% AC. gbs pos in urine. 04/02/25 -?-?-?-?-?-?-?-?-?-?-?-?- 36w 4d 213 lb 4 oz (+14 lb 4 oz) 133/86 Negative -?-?-?-?-?-?-?-?-?-?-?-?- Negative 145 37 Cephalic 2 .5 -?-?-?-?-?-?-?-?-?-?-?-?- 60 -2 KW- no vb/ lof/ctx. good fm. discussed PCN for labor. KW- no vb/lof/ctx. good fm. discussed PCN for labor. blood sugars controlled. 04/11/25 -?-?-?-?-?-?-?-?-?-?-?-?- 37w 6d 213 lb 5 oz (+14 lb 5 oz) 126/78 Negative -?-?-?-?-?-?-?-?-?-?-?-?- Negative 140 38 Cephalic 3 -?-?-?-?-?-?-?-?-?-?-?-?- 0 -3 JV- head b allotable but more dilated. we discussed a possible membrane sweep at 39 weeks. No lof, vaginal bleeding, or dec fm. JV- head ballotable but more dilated. we discussed a possible membrane sweep at 39 weeks. No lof, vaginal bleeding, or dec fm. patient desires . Chance of success is 35%. needs consent. left before I realized it was not done. 04/20/25 -?-?-?-?-?-?-?-?-?-?-?-?- 39w 1d 212 lb 2 oz (+13 lb 2 oz) 128/81 Negative -?-?-?-?-?-?-?-?-?-?-?-?- Negative 140 39 Cephalic 4 -?-?-?-?-?-?-?-?-?-?-?-?- 70 -3 SM- membra hanh swept plan IOL 40 weeks bs controlled no vb lof good fm n oregular ctx NST FHR Rate Baby A Baseline: 140 Variability:: Moderate Accelerations:: 15 x 15 Decelerations:: None NST Reactive:: Yes FHR Category:: Category I Uterine Activity:: q3-5 ROS Constitutional Constitutional: Reports systems reviewed and no addt'l complaints, except as documented ENT HEENT: Reports systems reviewed and no addt'l complaints, except as documented Cardiovascular Cardiovascular: Reports systems reviewed and no addt'l complaints, except as documented Respiratory/Chest Respiratory/Chest: Reports systems reviewed and no addt'l complaints, except as documented Gastrointestinal Gastrointestinal: Reports systems reviewed and no addt'l complaints, except as documented and nausea; Denies abdominal pain Genitourinary Genitourinary: Reports systems reviewed and no addt'l complaints, except as documented, contractions Details: present and frequency (regular ) and movement Details: present Musculoskeletal Musculoskeletal: Reports systems reviewed and no addt'l complaints, except as documented Integumentary Integumentary: Reports as per HPI Neurologic Neurologic: Reports systems reviewed and no addt'l complaints, except as documented Endocrine Endocrinology: Reports systems reviewed and no addt'l complaints, except as documented Vital Signs Vital Signs Vital Signs: 04/20/25 22:33 04/20/25 22:33 04/20/25 22:33 Temperature 97.6 F L Temperature Source Temporal Pulse Rate Respiratory Rate 18 Blood Pressure BP Systolic BP Diastolic Pulse Ox 04/20/25 22:34 04/20/25 22:34 04/20/25 23:16 Temperature Temperature Source Pulse Rate 101 H 99 Respiratory Rate Blood Pressure 138/89 H BP Systolic 138 BP Diastolic 89 Pulse Ox 04/20/25 23:16 04/20/25 23:17 04/20/25 23:17 Temperature Temperature Source Pulse Rate 106 H Respiratory Rate Blood Pressure BP Systolic BP Diastolic Pulse Ox 97 91 04/20/25 23:21 04/20/25 23:21 04/20/25 23:23 Temperature Temperature Source Pulse Rate 103 H 115 H Respiratory Rate Blood Pressure BP Systolic BP Diastolic Pulse Ox 100 04/20/25 23:23 04/20/25 23:25 04/20/25 23:25 Temperature Temperature Source Pulse Rate 103 H Respiratory Rate Blood Pressure 155/96 H BP Systolic 155 BP Diastolic 96 Pulse Ox 88 04/20/25 23:26 04/20/25 23:26 04/20/25 23:31 Temperature Temperature Source Pulse Rate 100 105 H Respiratory Rate Blood Pressure BP Systolic BP Diastolic Pulse Ox 100 04/20/25 23:31 04/20/25 23:31 04/20/25 23:31 Temperature Temperature Source Pulse Rate 102 H Respiratory Rate Blood Pressure 152/85 H BP Systolic 152 BP Diastolic 85 Pulse Ox 92 04/20/25 23:31 04/20/25 23:36 04/20/25 23:36 Temperature Temperature Source Pulse Rate 104 H Respiratory Rate Blood Pressure BP Systolic BP Diastolic Pulse Ox 100 100 04/20/25 23:37 04/20/25 23:37 04/20/25 23:38 Temperature Temperature Source Pulse Rate 103 H 109 H Respiratory Rate Blood Pressure 140/84 H BP Systolic 140 BP Diastolic 84 Pulse Ox 04/20/25 23:38 04/20/25 23:38 04/20/25 23:41 Temperature Temperature Source Pulse Rate 101 H Respiratory Rate 18 Blood Pressure BP Systolic BP Diastolic Pulse Ox 93 04/20/25 23:41 04/20/25 23:42 04/20/25 23:42 Temperature Temperature Source Pulse Rate 88 Respiratory Rate Blood Pressure 132/81 H BP Systolic 132 BP Diastolic 81 Pulse Ox 100 04/20/25 23:42 04/20/25 23:46 04/20/25 23:46 Temperature Temperature Source Pulse Rate 108 H Respiratory Rate 18 Blood Pressure BP Systolic BP Diastolic Pulse Ox 98 04/20/25 23:47 04/20/25 23:47 04/20/25 23:47 Temperature Temperature Source Pulse Rate 112 H Respiratory Rate 16 Blood Pressure 116/62 BP Systolic 116 BP Diastolic 62 Pulse Ox 04/20/25 23:51 04/20/25 23:51 04/20/25 23:52 Temperature Temperature Source Pulse Rate 95 Respiratory Rate 16 Blood Pressure BP Systolic BP Diastolic Pulse Ox 100 04/20/25 23:54 04/20/25 23:54 04/20/25 23:56 Temperature Temperature Source Pulse Rate 97 103 H Respiratory Rate Blood Pressure 142/66 H BP Systolic 142 BP Diastolic 66 Pulse Ox 04/20/25 23:56 04/21/25 00:00 04/21/25 00:00 Temperature Temperature Source Pulse Rate Respiratory Rate 18 Blood Pressure 139/60 H BP Systolic 139 BP Diastolic 60 Pulse Ox 100 04/21/25 00:01 04/21/25 00:01 04/21/25 00:04 Temperature Temperature Source Pulse Rate 101 H Respiratory Rate 18 Blood Pressure BP Systolic BP Diastolic Pulse Ox 98 04/21/25 00:04 Temperature 97.5 F L Temperature Source Pulse Rate Respiratory Rate Blood Pressure BP Systolic BP Diastolic Pulse Ox Weight Weight: 211 lb 10.3 oz Body Mass Index (BMI) 38.7 Physical Exam Const alert, oriented x3 and healthy appearing Constitutional Narrative: uncomfortable with contractions HEENT normocephalic and moist oral mucous membranes Head and Scalp: atraumatic Neck full ROM, no lymphadenopathy, supple and thyroid normal General: trachea midline Thyroid: thyroid normal Lymph Lymphatic: no lymphadenopathy noted Chest inspection of chest normal Resp normal respiratory effort Cardio regular rate GI soft to palpation and non-tender GI Narrative: gravid Inspection: gravid external exam normal Bimanual Exam - Vag & Uterus: uterus non-tender Manual OB Exam: estimated gestational size appropriate, presentation cephalic, dilated, effaced and station Extremity normal to inspection General Extremity: Negative for edema Skin no rashes or lesions noted Neuro deep tendon reflexes 2+ bilaterally Motor Exam: strength 5/5 throughout and clonus absent Psych mental status grossly normal Labs Labs Labs: Blood Type O POSITIVE Antibody Screen NEGATIVE Hct 37.0 % (37-47) Hgb 12.6 g/dL (12.0-15.0) Pap Smear Negative Obstetrics Ultrasound Syphilis Total Ab Nonreactive (Nonreactive) Rubella IgG Antibody REAC (Nonreactive) Hep Bs Antigen Nonreactive (Nonreactive) Hepatitis C Antibody Nonreactive (Nonreactive) Chlamydia DNA (GLEN) Negative (Negative) N.gonorrhoeae DNA (GLEN) Negative (Negative) HIV 1&2 Antibody Nonreactive (Nonreactive) Glucose 1 Hr 50 gm 136 mg/dL (70-140) Gest Glucose Tolerance mg/dL Assessment & Plan (1) Active labor at term: (2) Hx of section: COMMENT: brow presentation (FTP),*interested in -records requested. records show low transverse incision. calculator: 35% success rate (3) : QUALIFIERS: Weeks of gestation: 39 weeks Qualified Code(s): Z3A.39 - 39 weeks gestation of COMMENT: NIPT low risk, carrier neg. , normal anatomy (4) Supervision of normal : QUALIFIERS: Normal : other normal Trimester: second trimester Qualified Code(s): Z34.82 - Encounter for supervision of other normal , second trimester COMMENT: PRR, , PETEY 04/26/25, girl LING Vu, Vidal (5) Obesity affecting : QUALIFIERS: Trimester: second trimester Obesity type affecting : unspecified obesity Qualified Code(s): O99.212 - Obesity complicating , second trimester COMMENT: HgbA1c (6) GBS (group B streptococcus) UTI complicating : QUALIFIERS: Trimester: second trimester Qualified Code(s): O23.42 - Unspecified infection of urinary tract in , second trimester; B95.1 - Streptococcus, group B, as the cause of diseases classified elsewhere COMMENT: treat in labor (7) Low back pain during : QUALIFIERS: Trimester: second trimester Qualified Code(s): O26.892 - Other specified related conditions, second trimester; M54.50 - Low back pain, unspecified COMMENT: PT referral. (8) Sciatica: QUALIFIERS: Laterality: unspecified laterality Qualified Code(s): M54.30 - Sciatica, unspecified side (9) Gestational diabetes: COMMENT: Supplies and nutrition consult sent. diet controlled plan 36 week growth us and delivery by 39-40 weeks plan IOL PLAN: Plan admit IAL epidural
[2025-04-21] MEDS: Oxytocin 15 Units/NS 250ml 15 UNITS/250 ML IV.SOLN 334 UNITS IV (02:14)
--- NOTE | 2025-04-21 02:27 | OB.VAGDELI_ITS ---
Assessment & Plan (1) Hx of section: COMMENT: brow presentation (FTP),*interested in -records requested. records show low transverse incision. calculator: 35% success rate (2) : QUALIFIERS: Weeks of gestation: 39 weeks Qualified Code(s): Z3A.39 - 39 weeks gestation of COMMENT: NIPT low risk, carrier neg. , normal anatomy (3) Supervision of normal : QUALIFIERS: Normal : other normal Trimester: second trimester Qualified Code(s): Z34.82 - Encounter for supervision of other normal , second trimester COMMENT: PRR, , PETEY 04/26/25, girl PC Mirella, Vidal (4) Obesity affecting : QUALIFIERS: Trimester: second trimester Obesity type affecting : unspecified obesity Qualified Code(s): O99.212 - Obesity complicating , second trimester COMMENT: HgbA1c (5) GBS (group B streptococcus) UTI complicating : QUALIFIERS: Trimester: second trimester Qualified Code(s): O23.42 - Unspecified infection of urinary tract in , second trimester; B95.1 - Streptococcus, group B, as the cause of diseases classified elsewhere COMMENT: treat in labor (6) Low back pain during : QUALIFIERS: Trimester: second trimester Qualified Code(s): O26.892 - Other specified related conditions, second trimester; M54.50 - Low back pain, unspecified COMMENT: PT referral. (7) Sciatica: QUALIFIERS: Laterality: unspecified laterality Qualified Code(s): M54.30 - Sciatica, unspecified side (8) Gestational diabetes: COMMENT: Supplies and nutrition consult sent. diet controlled plan 36 week growth us and delivery by 39-40 weeks plan IOL (9) Active labor at term: (10) , delivered, current hospitalization: COMMENT: SM IAL girl nikole 39 gdm Maternal Data Information PETEY Calculator Estimated Delivery Date Method Current WG Current Estimate 04/26/25 LMP (Certain) 39w 2d Other Estimates 04/28/25 Ultrasound #1 39w 0d Vaginal Delivery Maternal Presentation Maternal Presentation: see assessment and plan Vaginal Delivery Information Procedure Performed: Surgeon/Practitioner: Emilia Goodman Date of Procedure: 04/21/25 Pre-Procedure Diagnosis: see assessment and plan Post-Procedure Diagnosis: same Type of anesthesia: Epidural Estimated Blood Loss: 200 Findings Description of procedure: Patient began pushing and delivered the head in the LEANA presentation. The head was delivered atraumatically . The anterior and posterior shoulders delivered without complication followed by the rest of the and the infant was placed on the maternal abdomen. Delayed cord clamping was employed for approximately 60 seconds. Cord was clamped and cut and gentle traction was applied to the cord and the placenta delivered spontaneously immediately following it was noted to be intact with three-vessel cord. The perineum and vagina were inspected and was noted to have a second -degree laceration that was repaired in the usual fashion with 3-0 vicryl rapide . EBL was 200. Patient and tolerated delivery well. Presentation: Vertex Placental Delivery Description: Spontaneous Specimen collected: Yes Description of specimen(s) removed: placenta Supervisor Production Department privacy officer: No Post Vaginal Deli Medications given after delivery: Other (pitocin) Complication Complications: No Multi Select Codes Urinary/Genital Urinary/Genital CPT Codes: 92304 delivery global pk
--- NOTE | 2025-04-21 02:30 | DCINST_ITS ---
Discharge Instructions DC O2, CPAP, BIPAP needs Home O2 Discharge instructions: No Dressing / Incision Discharge Activity: Return to Normal Activity, May Not Drive (while taking narcotic pain medications.) and May Shower May resume sexual activity in: 4-6 weeks Dressing / Incision Call your doctor if your incision/area has: Continuous Slow Oozing, Sudden Increased Bleeding, Increased Pain/ Swelling, Increased Redness and Foul Smelling Discharge Follow Up Care Please Follow Up With: Emilia Goodman MD When: Call [phone] to make an appointment with your doctor in 6 weeks. If you had elevated blood pressure or 4th degree laceration, you will need to be seen in 2 weeks. Test Results: Test results from this visit will be discussed in further detail at your follow- up appointment, if applicable. Discharge Plan Admission Admit Date/Time: 04/20/25 22:40 Attending Provider: Emilia Goodman Primary Care Provider: Jose Juan Gabriel Discharge Orders/Prescriptions Prescriptions: No Action PNV-DHA 27 mg iron-1 mg -300 mg capsule PO choline 500 mg tablet 500 mg PO DAILY omega-3 fatty acids [Super Gilbert-3] 1,000 mg capsule 500 mg PO QDAY (DME) Dexcom G6 Sensor Device See Rx Instructions .Route Qty: 4 6RF Rx Instructions: As directed (DME) Dexcom G6 Nurse Emergency Room Misc See Rx Instructions .Route Qty: 1 0RF Rx Instructions: As directed (DME) Dexcom G6 Transmitter Device See Rx Instructions .Route Qty: 1 0RF Rx Instructions: As directed Referrals / Follow Up: Jose Juan Gabriel MD [Primary Care Provider] -
[2025-04-21] MEDS: Oxytocin 15 Units/NS 250ml 15 UNITS/250 ML IV.SOLN 83 UNITS IV (02:51)
--- NOTE | 2025-04-21 22:23 | NURSING ---
Report given to Ashley WOODARD, taking over pt and care at this time.
[2025-04-22 00:25] VITALS: BP 102/51; PULSE 68; RESP 16; TEMP 36.2; O2SAT 96
[2025-04-22 05:20] VITALS: BP 104/81; PULSE 81; RESP 16; TEMP 36
--- NOTE | 2025-04-22 05:59 | NURSING ---
BGT 60 fasting. pt asymptomatic. juice x2 and PB with crackers provided to pt. no further needs noted.
[2025-04-22 10:00] VITALS: BP 119/69; PULSE 81; RESP 16; TEMP 36.3; O2SAT 96
--- NOTE | 2025-04-22 11:35 | PCM.PN.OB ---
Subjective Subjective Patient doing well without complaints. Tolerating PO. Ambulating and voiding without difficulty. feeding well. Denies chest pain, shortness of breath, calf pain/swelling, fevers, chills, lightheadedness. Objective Data Objective Data Vital Signs: Vital Signs Temp Pulse Resp BP Pulse Ox O2 Del Method 97.4 F L 81 16 119/69 96 Room Air 04/22/25 10:00 04/22/25 10:00 04/22/25 10:00 04/22/25 10:00 04/22/25 10:00 04/22/25 10:00 Oxygen Delivery Method Room Air Weight: 211 lb 10.3 oz Body Mass Index (BMI) 38.7 Intake & Output: Intake and Output for Last 24 Hours 04/20/25 04/21/25 04/22/25 23:59 23:59 23:59 Intake Total 41.67 / 41.67 1514.30 / 1514.30 500 / 500 Output Total 1200 / 1200 2 / 2 Balance 41.67 / 41.67 314.30 / 314.30 498 / 498 Lab / Micro Data 04/20/25 22:50 Labs: Laboratory Results - last 24 hr 04/22/25 05:11: POC Glucose 60 L ROS Constitutional Constitutional: Reports systems reviewed and no addt'l complaints, except as documented Cardiovascular Cardiovascular: Reports systems reviewed and no addt'l complaints, except as documented Respiratory/Chest Respiratory/Chest: Reports systems reviewed and no addt'l complaints, except as documented Gastrointestinal Gastrointestinal: Reports systems reviewed and no addt'l complaints, except as documented Physical Exam Const alert, oriented x3 and no apparent distress HEENT Head and Scalp: atraumatic Resp normal respiratory effort GI soft to palpation and non-tender Bimanual Exam - Vag & Uterus: uterus non-tender Uterus Palpation: uterus fundus firm (below Umbilicus) Assessment & Plan (1) , delivered, current hospitalization: COMMENT: SM IAL girl nikole 39 gdm PLAN: Plan s/p PPD # 1 1. routine post delivery care 2. breast feeding- support given 3. rh positive 4. rubella immune
[2025-04-22 13:48] VITALS: BP 119/76; PULSE 96; RESP 16; TEMP 36.7; O2SAT 98
== END 2025-04-22 14:15 | disposition home or self-care (01) | DRG 806 ==
LOC: WPOUT 22:49 → WP 22:49
PROVIDERS: Admitting Provider Obstetrics & Gynecology; PCP Family Medicine; Referring Provider Obstetrics & Gynecology; Visit Provider Obstetrics & Gynecology
DX: O34.211 Maternal care for low transverse scar from previous cesarean delivery (principal); Z37.0 Single live birth; O98.82 Other maternal infectious and parasitic diseases complicating childbirth; O24.420 Gestational diabetes mellitus in childbirth, diet controlled; O99.214 Obesity complicating childbirth; M54.40 Lumbago with sciatica, unspecified side; Z3A.39 39 weeks gestation of pregnancy; Z87.440 Personal history of urinary (tract) infections; O70.1 Second degree perineal laceration during delivery; B95.1 Streptococcus, group B, as the cause of diseases classified elsewhere; O99.892 Other specified diseases and conditions complicating childbirth
CPT/HCPCS: 59025; 59050; 82962; 85025; 86780; 86850; 86900; 86901; 99221; G0378

== ENCOUNTER → 2025-06-05 | Outpatient (CLI) | payer OTHER, SELFPAY | END | disposition home or self-care (01) | LOC: LABSPEC 14:26 | PROVIDERS: PCP Family Medicine; Referring Provider Obstetrics & Gynecology; Visit Provider Obstetrics & Gynecology | DX: Z12.4 Encounter for screening for malignant neoplasm of cervix (principal) | CPT/HCPCS: 87624; 88175; G0145 ==